=== PATIENT | female | born 1975 | race Caucasian/White ===

== ENCOUNTER 2016-07-31 19:05 | Emergency (ER) | payer MEDICAID, OTHER ==
[~2016-07-31 19:05] MED LIST: ATIV1TAB7 PO; CLORTRIMAZOLE PO; DULO1CAP2 PO; FOLI1TAB2 PO; GABA-279 PO; METF500T PO; METH2.5TA PO; NIFE30TA7 PO; PRIL20CA9 PO; PROP40TA PO; REFR0.5D8 OU; TOPA50TA7 PO; TRAM50TA2 PO; TRAZ100T4 PO; VICO7.5T11 PO
[2016-07-31] MEDS ORDERED: TETRACAINE 0.5% OPHTH SOLN 4ML As Ordered ONE (20:35)
[2016-07-31] MEDS ORDERED: FLUORESCEIN OPHTH 1 MG STRIP As Ordered ONE (20:35)
[2016-07-31] MEDS ORDERED: CIPROFLOXACIN 0.3% OPHTH SOLN 2.5ML As Ordered ONE (21:11)
[2016-07-31] MEDS ORDERED: AUGMENTIN 875 MG TAB As Ordered ONE (21:11)
--- NOTE | 2016-07-31 21:23 | EDDOCDS ---
Nurse's Notes [facility] Name: Zonia Powers Age: 40 yrs Sex: Female : 1975 Arrival Date: 07/31/2016 Time: 19:05 Bed I10 / 23 Private MD: Radha Conklin C Diagnosis: Conjunctivitis-left eye Presentation: 07/31 19:11 Presenting complaint: Patient states: "I spoke with Dr Rachel and he told me to come to [facility] the ER. I was seen at the urgent care in [place] and they said I had a scratch on my cornea and put me on erythromycin ointment. The left eye has been draining and the pain has gotten bad. Its also blurry in my left eye". Mechanism of Injury: No Mechanism of Injury. blurred vision. Adult Sepsis Screening: The patient does not have new or worsening altered mentation. Patient's respiratory rate is less than 22. Systolic blood pressure is greater than 100. Patient has a qSOFA score of 0- Negative Sepsis Screen. Suicide/Homicide risk assessment- the patient denies having any suicidal and/or homicidal ideations and does not present with any other emotional, behavioral or mental health complaints. 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 Transition of care: patient was not received from another setting of care. 19:11 Acuity: NORA Level 4 mb9 19:11 Method Of Arrival: Walkin/Carried/Asstd mb9 Triage Assessment: 19:24 General: Appears in no apparent distress, Behavior is appropriate for age, cooperative. mb9 Pain: Location: left eye Pain currently is 4 out of 10 on a pain scale. HIV screening NA for this visit Offered previously. EENT: Eyes pt reports excessive tearing and "white clumpy drainage in the corner of my eye". . Sclera/Cornea are reddened in outer aspect of conjuctiva of left eye and inner aspect of conjunctiva of left eye. Respiratory: Airway is patent Respiratory effort is even, unlabored. 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 erythromycin 5 mg/gram (0.5 %) ophthalmic oint 1 cm 4 times per day (Last dose: 07/31/2016) 2. Topamax 50 mg Oral tab 1 tab in AM. 2 tabs in PM (Last dose: 07/31/2016 07:30) 3. omeprazole 40 mg Oral cpDR 1 cap once daily (Last dose: 07/31/2016 07:30) 4. folic acid 1 mg oral tab 1 tab (Last dose: 07/31/2016 07:30) 5. mycophenolate mofetil 500 mg oral tab 1 tabs 2 times per day (Last dose: 07/31/2016 07:30) 6. Vitamin C 1,000 mg Oral pwep daily (Last dose: 07/31/2016 07:30) 7. oxycodone 10 mg Oral tab 1 tab every 6 hours PRN (Last dose: 07/31/2016 16:30) 8. Neurontin 600 mg Oral tab 1 tab 3 times per day (Last dose: 07/31/2016 16:30) 9. albuterol sulfate inhalation Inhl (Last dose: Unknown) 10. amitriptyline 25 mg Oral tab prn 1 to 2 tabs at night - PMHx: Lupus; Fibromyalgia; bulging discs; Asthma; Migraine Headaches; - PSHx: Hysterectomy; Tubal ligation; Lithotripsy; - Social history: Smoking status: Patient uses tobacco products, current some day smoker. No barriers to communication noted, The patient speaks fluent Irish. - Family history: Not pertinent. - : The pt / caregiver states he / she is not on anticoagulants. Home medication list is obtained from the patient. - Exposure Risk Screening:: None identified. Screenin:43 Screening information is obtained from the patient. Fall risk: No risks identified. ms18 Assistance ADL's: requires no assistance with activities of daily living. Abuse/DV Screen: The patient / caregiver reports he/she is: not in a situation that causes fear, pain or injury. Nutritional screening: No deficits noted. Advance Directives: There is no living will. home support is adequate. Assessment: 20:43 General: Appears in no apparent distress, comfortable, Behavior is appropriate for age, ms18 cooperative, pleasant. Pain: Location: left eye. Neurological: Level of Consciousness is awake, alert, obeys commands, Oriented to person, place, time. EENT: Sclera/Cornea are reddened in left eye. Respiratory: Airway is patent Respiratory effort is even, unlabored. Derm: Skin is pink, warm & dry. 21:20 General: Appears in no apparent distress, comfortable, Behavior is appropriate for age, ms18 cooperative, pleasant. Pain: Location: left eye Pain currently is 4 out of 10 on a pain scale. Neurological: Level of Consciousness is awake, alert, obeys commands, Oriented to person, place, time, Moves all extremities. Gait is steady, Speech is normal. Respiratory: No deficits noted. Derm: Skin is pink, warm & dry. Vital Signs: 19:06 BP 129 / 65; Pulse 86; Resp 18 S; Temp 98.1(O); Pulse Ox 99% on R/A; Weight 72.12 kg dd6 (R); Height 5 ft. 6 in. (167.64 cm) (R); 21:20 BP 131 / 73; Pulse 80; Resp 18; Temp 98; Pulse Ox 100% ; Pain 4/10; ms18 19:06 Body Mass Index 25.66 (72.12 kg, 167.64 cm) dd6 Vitals: 19:06 Log In Time: July 31, 2016 at 19:04. dd6 Visual Acuity: 20:43 Left Eye Visual acuity 20/80, ; Right Eye Visual acuity 20/25, ; Both Eyes Visual ms18 acuity 20/25; Without Lenses; ED Course: 19:06 Patient visited by Rudy Baugh PCA. dd6 19:06 Radha Conklin is Private Physician. dd6 19:06 Patient moved to Waiting dd6 19:08 Patient moved to Pre RCE dd6 19:16 Triage Initiated mb9 20:05 Patient moved to I10 / 23 mdr 20:16 Geovanny Harvey PA-C is PHCP. cc10 20:16 Glenroy Mares MD is Attending Physician. cc10 20:16 Patient visited by Geovanny Harvey PA-C. cc10 20:16 Patient visited by Geovanny Harvey PA-C. cc10 20:38 [facility] Payment Agreement was scanned into [employer] and attached to record. zo 20:42 Patient visited by Melissa Pedroza RN. ms18 20:43 The patient / caregiver is instructed regarding the plan of care and ED course. Patient ms18 has correct armband on for positive identification. Property :Personal belongings accompany Pt. 21:08 Gilberto Rachel is Referral Physician. cc10 21:20 No IV's were initiated during this patient's visit. No procedures done that require ms18 assistance. Administered Medications: 20:43 Drug: Tetracaine (PF) 2 drps [tetracaine HCl (PF) 0.5 % eye drops (2 drps)] {Note: ms18 administered by Rian HAND} Route: Ophthalmic; Site: left eye; 21:20 Drug: Ciprofloxacin 2 drps [ciprofloxacin 0.3 % eye drops (2 drps)] Route: Ophthalmic; ms18 Site: left eye; 21:20 Drug: Amoxicillin-Clavulanate 1 tabs [amoxicillin 875 mg-potassium clavulanate 125 mg ms18 tablet (1 tabs)] Route: PO; Order Results: There are currently no results for this order. Outcome: 21:09 Discharge ordered by Provider. cc10 21:20 Discharge Assessment: Patient awake, alert and oriented x 3. No cognitive and/or ms18 functional deficits noted. Patient verbalized understanding of disposition instructions. patient administered narcotics - no. The following High Risk Discharge criteria are identified: None. Discharged to home ambulatory. Condition: good Condition: stable Condition: improved. Discharge instructions given to patient, Instructed on discharge instructions, follow up and referral plans. medication usage, Demonstrated understanding of instructions, medications, Pt was receptive of discharge instructions/ teaching. Prescriptions given X 2. No special radiology studies were completed. 21:22 Patient left the ED. ms18 Signatures: Susy Borrego Daniell, LINER INSTALLER LINER INSTALLER dd6 Geovanny Harvey PA-C PAChriss cc10 Melissa Pedroza,RN RN ms18 Daniel Dang,CANDIDO RN mb9 Cr Lynch, LINER INSTALLER LINER INSTALLER mdr MTDD
--- NOTE | 2016-07-31 21:23 | EDDOCDS ---
Physician Documentation [facility] Name: Zonia Powers Age: 40 yrs Sex: Female : 1975 Arrival Date: 07/31/2016 Time: 19:05 Bed I10 / 23 Private MD: Radha Conklin C Disposition: 07/31/16 21:09 Discharged to Home/Self Care. Impression: Conjunctivitis - left eye. - Condition is Stable. - Discharge Instructions: Bacterial Conjunctivitis. - Prescriptions for Augmentin 875- 125 mg Oral Tablet - take 1 tablet by ORAL route every 12 hours for 10 days; 20 tablet. - Medication Reconciliation, Local Pharmacy Hours form. - Follow up: Emergency Department; When: As needed; Reason: Worsening of conditions. Follow up: Gilberto Rachel; When: Call to arrange an appointment; Reason: Wound/Symptom Recheck, Recheck today's complaints, Worsening of conditions, Continuance of care. - Problem is an ongoing problem. - Symptoms are unchanged. - Notes: Apply Cipro drops: 2 drops left eye every 4 hours while awake for the next 5 days. Follow up with Dr. Rachel in the morning. Thanks. Historical: - Allergies: IV Dye (Hives); Plaquenil; SHELLFISH; Latex; - Home Meds: 1. erythromycin 5 mg/gram (0.5 %) ophthalmic oint 1 cm 4 times per day (Last dose: 07/31/2016) 2. Topamax 50 mg Oral tab 1 tab in AM. 2 tabs in PM (Last dose: 07/31/2016 07:30) 3. omeprazole 40 mg Oral cpDR 1 cap once daily (Last dose: 07/31/2016 07:30) 4. folic acid 1 mg oral tab 1 tab (Last dose: 07/31/2016 07:30) 5. mycophenolate mofetil 500 mg oral tab 1 tabs 2 times per day (Last dose: 07/31/2016 07:30) 6. Vitamin C 1,000 mg Oral pwep daily (Last dose: 07/31/2016 07:30) 7. oxycodone 10 mg Oral tab 1 tab every 6 hours PRN (Last dose: 07/31/2016 16:30) 8. Neurontin 600 mg Oral tab 1 tab 3 times per day (Last dose: 07/31/2016 16:30) 9. albuterol sulfate inhalation Inhl (Last dose: Unknown) 10. amitriptyline 25 mg Oral tab prn 1 to 2 tabs at night - PMHx: Lupus; Fibromyalgia; bulging discs; Asthma; Migraine Headaches; - PSHx: Hysterectomy; Tubal ligation; Lithotripsy; - Social history: Smoking status: Patient uses tobacco products, current some day smoker. No barriers to communication noted, The patient speaks fluent Ivorian. - Family history: Not pertinent. - : The pt / caregiver states he / she is not on anticoagulants. Home medication list is obtained from the patient. - Exposure Risk Screening:: None identified. 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 6 in. (167.64 cm) (R); 21:20 BP 131 / 73; Pulse 80; Resp 18; Temp 98; Pulse Ox 100% ; Pain 4/10; ms18 19:06 Body Mass Index 25.66 (72.12 kg, 167.64 cm) dd6 Visual Acuity: 20:43 Left Eye Visual acuity 20/80, ; Right Eye Visual acuity 20/25, ; Both Eyes Visual ms18 acuity 20/25; Without Lenses; MDM: 20:22 Tetracaine (PF) Drops 0.5 % 2 drps Ophthalmic once ordered. cc10 20:22 Flouroscein strips to bedside ordered. cc10 20:22 Visual Acuity ordered. cc10 20:37 Financial registration complete. zo 20:38 [facility] Payment Agreement was scanned into [employer] and attached to record. zo 21:06 Ciprofloxacin Drops 0.3 % 2 drps Ophthalmic once; left eye ordered. cc10 21:06 Amoxicillin-Clavulanate 875 mg 1 tabs PO once ordered. cc10 Administered Medications: 20:43 Drug: Tetracaine (PF) 2 drps [tetracaine HCl (PF) 0.5 % eye drops (2 drps)] {Note: ms18 administered by Rian HAND} Route: Ophthalmic; Site: left eye; 21:20 Drug: Ciprofloxacin 2 drps [ciprofloxacin 0.3 % eye drops (2 drps)] Route: Ophthalmic; ms18 Site: left eye; 21:20 Drug: Amoxicillin-Clavulanate 1 tabs [amoxicillin 875 mg-potassium clavulanate 125 mg ms18 tablet (1 tabs)] Route: PO; Signatures: Susy Borrego Colin, PA-C PA-C cc10 Melissa Pedroza RN RN ms18 Daniel Dang RN RN mb9 The chart was reviewed and I authenticate all verbal orders and agree with the evaluation and treatment provided.Attachments: 20:38 [facility] Payment Agreement zo MTDD
--- NOTE | 2016-08-02 22:23 | EDDOCDS ---
Physician Documentation [facility] Name: Zonia Powers Age: 40 yrs Sex: Female : 1975 Arrival Date: 07/31/2016 Time: 19:05 Bed I10 / 23 Private MD: Radha Conklin C Disposition: 07/31/16 21:09 Discharged to Home/Self Care. Impression: Conjunctivitis - left eye. - Condition is Stable. - Discharge Instructions: Bacterial Conjunctivitis. - Prescriptions for Augmentin 875- 125 mg Oral Tablet - take 1 tablet by ORAL route every 12 hours for 10 days; 20 tablet. - Medication Reconciliation, Local Pharmacy Hours form. - Follow up: Emergency Department; When: As needed; Reason: Worsening of conditions. Follow up: Gilberto Rachel; When: Call to arrange an appointment; Reason: Wound/Symptom Recheck, Recheck today's complaints, Worsening of conditions, Continuance of care. - Problem is an ongoing problem. - Symptoms are unchanged. - Notes: Apply Cipro drops: 2 drops left eye every 4 hours while awake for the next 5 days. Follow up with Dr. Rachel in the morning. Thanks. Historical: - Allergies: IV Dye (Hives); Plaquenil; SHELLFISH; Latex; - Home Meds: 1. erythromycin 5 mg/gram (0.5 %) ophthalmic oint 1 cm 4 times per day (Last dose: 07/31/2016) 2. Topamax 50 mg Oral tab 1 tab in AM. 2 tabs in PM (Last dose: 07/31/2016 07:30) 3. omeprazole 40 mg Oral cpDR 1 cap once daily (Last dose: 07/31/2016 07:30) 4. folic acid 1 mg oral tab 1 tab (Last dose: 07/31/2016 07:30) 5. mycophenolate mofetil 500 mg oral tab 1 tabs 2 times per day (Last dose: 07/31/2016 07:30) 6. Vitamin C 1,000 mg Oral pwep daily (Last dose: 07/31/2016 07:30) 7. oxycodone 10 mg Oral tab 1 tab every 6 hours PRN (Last dose: 07/31/2016 16:30) 8. Neurontin 600 mg Oral tab 1 tab 3 times per day (Last dose: 07/31/2016 16:30) 9. albuterol sulfate inhalation Inhl (Last dose: Unknown) 10. amitriptyline 25 mg Oral tab prn 1 to 2 tabs at night - PMHx: Lupus; Fibromyalgia; bulging discs; Asthma; Migraine Headaches; - PSHx: Hysterectomy; Tubal ligation; Lithotripsy; - Social history: Smoking status: Patient uses tobacco products, current some day smoker. No barriers to communication noted, The patient speaks fluent Swedish. - Family history: Not pertinent. - : The pt / caregiver states he / she is not on anticoagulants. Home medication list is obtained from the patient. - Exposure Risk Screening:: None identified. 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 6 in. (167.64 cm) (R); 21:20 BP 131 / 73; Pulse 80; Resp 18; Temp 98; Pulse Ox 100% ; Pain 4/10; ms18 19:06 Body Mass Index 25.66 (72.12 kg, 167.64 cm) dd6 Visual Acuity: 20:43 Left Eye Visual acuity 20/80, ; Right Eye Visual acuity 20/25, ; Both Eyes Visual ms18 acuity 20/25; Without Lenses; MDM: 20:22 Tetracaine (PF) Drops 0.5 % 2 drps Ophthalmic once ordered. cc10 20:22 Flouroscein strips to bedside ordered. cc10 20:22 Visual Acuity ordered. cc10 20:37 Financial registration complete. zo 20:38 [facility] Payment Agreement was scanned into [employer] and attached to record. zo 21:06 Ciprofloxacin Drops 0.3 % 2 drps Ophthalmic once; left eye ordered. cc10 21:06 Amoxicillin-Clavulanate 875 mg 1 tabs PO once ordered. cc10 08/01 02:51 T-Sheet-- Draft Copy was scanned into [employer] and attached to record. hs2 Administered Medications: 07/31 20:43 Drug: Tetracaine (PF) 2 drps [tetracaine HCl (PF) 0.5 % eye drops (2 drps)] {Note: ms18 administered by Rian HAND} Route: Ophthalmic; Site: left eye; 21:20 Drug: Ciprofloxacin 2 drps [ciprofloxacin 0.3 % eye drops (2 drps)] Route: Ophthalmic; ms18 Site: left eye; 21:20 Drug: Amoxicillin-Clavulanate 1 tabs [amoxicillin 875 mg-potassium clavulanate 125 mg ms18 tablet (1 tabs)] Route: PO; Signatures: Susy Borrego Colin, PA-C PAChriss cc10 Melissa Pedroza RN RN ms18 Daniel Dang RN RN mb9 Magali Lopez, Reg Reg hs2 The chart was reviewed and I authenticate all verbal orders and agree with the evaluation and treatment provided.Attachments: 20:38 [facility] Payment Agreement zo 08/01 02:51 T-Sheet-- Draft Copy hs2 Chart Complete MTDD
--- NOTE | 2016-08-02 22:23 | EDDOCDS ---
Nurse's Notes [facility] Name: Zonia Powers Age: 40 yrs Sex: Female : 1975 Arrival Date: 07/31/2016 Time: 19:05 Bed I10 / 23 Private MD: Radha Conklin C Diagnosis: Conjunctivitis-left eye Presentation: 07/31 19:11 Presenting complaint: Patient states: "I spoke with Dr Rachel and he told me to come to [facility] the ER. I was seen at the urgent care in [place] and they said I had a scratch on my cornea and put me on erythromycin ointment. The left eye has been draining and the pain has gotten bad. Its also blurry in my left eye". Mechanism of Injury: No Mechanism of Injury. blurred vision. Adult Sepsis Screening: The patient does not have new or worsening altered mentation. Patient's respiratory rate is less than 22. Systolic blood pressure is greater than 100. Patient has a qSOFA score of 0- Negative Sepsis Screen. Suicide/Homicide risk assessment- the patient denies having any suicidal and/or homicidal ideations and does not present with any other emotional, behavioral or mental health complaints. 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 Transition of care: patient was not received from another setting of care. 19:11 Acuity: NORA Level 4 mb9 19:11 Method Of Arrival: Walkin/Carried/Asstd mb9 Triage Assessment: 19:24 General: Appears in no apparent distress, Behavior is appropriate for age, cooperative. mb9 Pain: Location: left eye Pain currently is 4 out of 10 on a pain scale. HIV screening NA for this visit Offered previously. EENT: Eyes pt reports excessive tearing and "white clumpy drainage in the corner of my eye". . Sclera/Cornea are reddened in outer aspect of conjuctiva of left eye and inner aspect of conjunctiva of left eye. Respiratory: Airway is patent Respiratory effort is even, unlabored. 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 erythromycin 5 mg/gram (0.5 %) ophthalmic oint 1 cm 4 times per day (Last dose: 07/31/2016) 2. Topamax 50 mg Oral tab 1 tab in AM. 2 tabs in PM (Last dose: 07/31/2016 07:30) 3. omeprazole 40 mg Oral cpDR 1 cap once daily (Last dose: 07/31/2016 07:30) 4. folic acid 1 mg oral tab 1 tab (Last dose: 07/31/2016 07:30) 5. mycophenolate mofetil 500 mg oral tab 1 tabs 2 times per day (Last dose: 07/31/2016 07:30) 6. Vitamin C 1,000 mg Oral pwep daily (Last dose: 07/31/2016 07:30) 7. oxycodone 10 mg Oral tab 1 tab every 6 hours PRN (Last dose: 07/31/2016 16:30) 8. Neurontin 600 mg Oral tab 1 tab 3 times per day (Last dose: 07/31/2016 16:30) 9. albuterol sulfate inhalation Inhl (Last dose: Unknown) 10. amitriptyline 25 mg Oral tab prn 1 to 2 tabs at night - PMHx: Lupus; Fibromyalgia; bulging discs; Asthma; Migraine Headaches; - PSHx: Hysterectomy; Tubal ligation; Lithotripsy; - Social history: Smoking status: Patient uses tobacco products, current some day smoker. No barriers to communication noted, The patient speaks fluent Welsh. - Family history: Not pertinent. - : The pt / caregiver states he / she is not on anticoagulants. Home medication list is obtained from the patient. - Exposure Risk Screening:: None identified. Screenin:43 Screening information is obtained from the patient. Fall risk: No risks identified. ms18 Assistance ADL's: requires no assistance with activities of daily living. Abuse/DV Screen: The patient / caregiver reports he/she is: not in a situation that causes fear, pain or injury. Nutritional screening: No deficits noted. Advance Directives: There is no living will. home support is adequate. Assessment: 20:43 General: Appears in no apparent distress, comfortable, Behavior is appropriate for age, ms18 cooperative, pleasant. Pain: Location: left eye. Neurological: Level of Consciousness is awake, alert, obeys commands, Oriented to person, place, time. EENT: Sclera/Cornea are reddened in left eye. Respiratory: Airway is patent Respiratory effort is even, unlabored. Derm: Skin is pink, warm & dry. 21:20 General: Appears in no apparent distress, comfortable, Behavior is appropriate for age, ms18 cooperative, pleasant. Pain: Location: left eye Pain currently is 4 out of 10 on a pain scale. Neurological: Level of Consciousness is awake, alert, obeys commands, Oriented to person, place, time, Moves all extremities. Gait is steady, Speech is normal. Respiratory: No deficits noted. Derm: Skin is pink, warm & dry. Vital Signs: 19:06 BP 129 / 65; Pulse 86; Resp 18 S; Temp 98.1(O); Pulse Ox 99% on R/A; Weight 72.12 kg dd6 (R); Height 5 ft. 6 in. (167.64 cm) (R); 21:20 BP 131 / 73; Pulse 80; Resp 18; Temp 98; Pulse Ox 100% ; Pain 4/10; ms18 19:06 Body Mass Index 25.66 (72.12 kg, 167.64 cm) dd6 Vitals: 19:06 Log In Time: July 31, 2016 at 19:04. dd6 Visual Acuity: 20:43 Left Eye Visual acuity 20/80, ; Right Eye Visual acuity 20/25, ; Both Eyes Visual ms18 acuity 20/25; Without Lenses; ED Course: 19:06 Patient visited by Rudy Baugh PCA. dd6 19:06 Radha Conklin is Private Physician. dd6 19:06 Patient moved to Waiting dd6 19:08 Patient moved to Pre RCE dd6 19:16 Triage Initiated mb9 20:05 Patient moved to I10 / 23 mdr 20:16 Geovanny Harvey PA-C is PHCP. cc10 20:16 Glenroy Mares MD is Attending Physician. cc10 20:16 Patient visited by Geovanny Harvey PA-C. cc10 20:16 Patient visited by Geovanny Harvey PA-C. cc10 20:38 [facility] Payment Agreement was scanned into [employer] and attached to record. zo 20:42 Patient visited by Melissa Pedroza RN. ms18 20:43 The patient / caregiver is instructed regarding the plan of care and ED course. Patient ms18 has correct armband on for positive identification. Property :Personal belongings accompany Pt. 21:08 Gilberto Rachel is Referral Physician. cc10 21:20 No IV's were initiated during this patient's visit. No procedures done that require ms18 assistance. 08/01 02:51 T-Sheet-- Draft Copy was scanned into [employer] and attached to record. hs2 Administered Medications: 07/31 20:43 Drug: Tetracaine (PF) 2 drps [tetracaine HCl (PF) 0.5 % eye drops (2 drps)] {Note: ms18 administered by Rian HAND} Route: Ophthalmic; Site: left eye; 21:20 Drug: Ciprofloxacin 2 drps [ciprofloxacin 0.3 % eye drops (2 drps)] Route: Ophthalmic; ms18 Site: left eye; 21:20 Drug: Amoxicillin-Clavulanate 1 tabs [amoxicillin 875 mg-potassium clavulanate 125 mg ms18 tablet (1 tabs)] Route: PO; Order Results: There are currently no results for this order. Outcome: 21:09 Discharge ordered by Provider. cc10 21:20 Discharge Assessment: Patient awake, alert and oriented x 3. No cognitive and/or ms18 functional deficits noted. Patient verbalized understanding of disposition instructions. patient administered narcotics - no. The following High Risk Discharge criteria are identified: None. Discharged to home ambulatory. Condition: good Condition: stable Condition: improved. Discharge instructions given to patient, Instructed on discharge instructions, follow up and referral plans. medication usage, Demonstrated understanding of instructions, medications, Pt was receptive of discharge instructions/ teaching. Prescriptions given X 2. No special radiology studies were completed. 21:22 Patient left the ED. ms18 Signatures: Susy Borrego Daniell, MATHEMATICAL SCIENCES PROFESSOR MATHEMATICAL SCIENCES PROFESSOR dd6 Geovanny Harvey, PAMarcoC PA-C cc10 Melissa Pedroza RN RN ms18 Daniel Dang,CANDIDO RN mb9 Cr Lynch, MATHEMATICAL SCIENCES PROFESSOR MATHEMATICAL SCIENCES PROFESSOR mdr Magali Lopez, Reg Reg hs2 Chart Complete MTDD
--- NOTE | 2016-08-02 22:23 | EDDOCDS ---
Physician Documentation [facility] Name: Zonia Powers Age: 40 yrs Sex: Female : 1975 Arrival Date: 07/31/2016 Time: 19:05 Bed I10 / 23 Private MD: Radha Conklin C Disposition: 07/31/16 21:09 Discharged to Home/Self Care. Impression: Conjunctivitis - left eye. - Condition is Stable. - Discharge Instructions: Bacterial Conjunctivitis. - Prescriptions for Augmentin 875- 125 mg Oral Tablet - take 1 tablet by ORAL route every 12 hours for 10 days; 20 tablet. - Medication Reconciliation, Local Pharmacy Hours form. - Follow up: Emergency Department; When: As needed; Reason: Worsening of conditions. Follow up: Gilberto Rachel; When: Call to arrange an appointment; Reason: Wound/Symptom Recheck, Recheck today's complaints, Worsening of conditions, Continuance of care. - Problem is an ongoing problem. - Symptoms are unchanged. - Notes: Apply Cipro drops: 2 drops left eye every 4 hours while awake for the next 5 days[address] Follow up with Dr. Rachel in the morning. Thanks. Historical: - Allergies: IV Dye (Hives); Plaquenil; SHELLFISH; Latex; - Home Meds: 1. erythromycin 5 mg/gram (0.5 %) ophthalmic oint 1 cm 4 times per day (Last dose: 07/31/2016) 2. Topamax 50 mg Oral tab 1 tab in AM. 2 tabs in PM (Last dose: 07/31/2016 07:30) 3. omeprazole 40 mg Oral cpDR 1 cap once daily (Last dose: 07/31/2016 07:30) 4. folic acid 1 mg oral tab 1 tab (Last dose: 07/31/2016 07:30) 5. mycophenolate mofetil 500 mg oral tab 1 tabs 2 times per day (Last dose: 07/31/2016 07:30) 6. Vitamin C 1,000 mg Oral pwep daily (Last dose: 07/31/2016 07:30) 7. oxycodone 10 mg Oral tab 1 tab every 6 hours PRN (Last dose: 07/31/2016 16:30) 8. Neurontin 600 mg Oral tab 1 tab 3 times per day (Last dose: 07/31/2016 16:30) 9. albuterol sulfate inhalation Inhl (Last dose: Unknown) 10. amitriptyline 25 mg Oral tab prn 1 to 2 tabs at night - PMHx: Lupus; Fibromyalgia; bulging discs; Asthma; Migraine Headaches; - PSHx: Hysterectomy; Tubal ligation; Lithotripsy; - Social history: Smoking status: Patient uses tobacco products, current some day smoker. No barriers to communication noted, The patient speaks fluent Serbian. - Family history: Not pertinent. - : The pt / caregiver states he / she is not on anticoagulants. Home medication list is obtained from the patient. - Exposure Risk Screening:: None identified. 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 6 in. (167.64 cm) (R); 21:20 BP 131 / 73; Pulse 80; Resp 18; Temp 98; Pulse Ox 100% ; Pain 4/10; ms18 19:06 Body Mass Index 25.66 (72.12 kg, 167.64 cm) dd6 Visual Acuity: 20:43 Left Eye Visual acuity 20/80, ; Right Eye Visual acuity 20/25, ; Both Eyes Visual ms18 acuity 20/25; Without Lenses; MDM: 20:22 Tetracaine (PF) Drops 0.5 % 2 drps Ophthalmic once ordered. cc10 20:22 Flouroscein strips to bedside ordered. cc10 20:22 Visual Acuity ordered. cc10 20:37 Financial registration complete. zo 20:38 [facility] Payment Agreement was scanned into [employer] and attached to record. zo 21:06 Ciprofloxacin Drops 0.3 % 2 drps Ophthalmic once; left eye ordered. cc10 21:06 Amoxicillin-Clavulanate 875 mg 1 tabs PO once ordered. cc10 08/01 02:51 T-Sheet-- Draft Copy was scanned into [employer] and attached to record. hs2 Administered Medications: 07/31 20:43 Drug: Tetracaine (PF) 2 drps [tetracaine HCl (PF) 0.5 % eye drops (2 drps)] {Note: ms18 administered by Rian HAND} Route: Ophthalmic; Site: left eye; 21:20 Drug: Ciprofloxacin 2 drps [ciprofloxacin 0.3 % eye drops (2 drps)] Route: Ophthalmic; ms18 Site: left eye; 21:20 Drug: Amoxicillin-Clavulanate 1 tabs [amoxicillin 875 mg-potassium clavulanate 125 mg ms18 tablet (1 tabs)] Route: PO; Signatures: Susy Borrego Colin, PA-C PAChriss cc10 Melissa Pedroza RN RN ms18 Daniel Dang RN RN mb9 Magali Lopez, Reg Reg hs2 The chart was reviewed and I authenticate all verbal orders and agree with the evaluation and treatment provided.Attachments: 20:38 [facility] Payment Agreement zo 08/01 02:51 T-Sheet-- Draft Copy hs2 Chart Complete MTDD
== END 2016-07-31 21:22 | disposition home or self-care (01) ==
LOC: M ED 19:05
DX: H10.32 Unspecified acute conjunctivitis, left eye (principal); M32.9 Systemic lupus erythematosus, unspecified; M79.7 Fibromyalgia; M51.9 Unspecified thoracic, thoracolumbar and lumbosacral intervertebral disc disorder; J45.909 Unspecified asthma, uncomplicated; G43.909 Migraine, unspecified, not intractable, without status migrainosus; F17.210 Nicotine dependence, cigarettes, uncomplicated; Z79.899 Other long term (current) drug therapy; Z91.041 Radiographic dye allergy status; Z91.013 Allergy to seafood; Z91.040 Latex allergy status; Z88.8 Allergy status to other drugs, medicaments and biological substances; Z79.51 Long term (current) use of inhaled steroids

== ENCOUNTER 2016-11-01 14:12 | Emergency (ER) | payer MEDICAID, OTHER ==
[~2016-11-01] VITALS: Ht 167.6 cm; Wt 72.6 kg
[2016-11-01] MEDS ORDERED: ASCO25TA PO (14:36)
[2016-11-01] MEDS ORDERED: OXYC10TA12 (14:36)
[2016-11-01] MEDS ORDERED: AMIT25TA PO (14:36)
[2016-11-01] MEDS ORDERED: ALBU17IN2 INH (14:36)
[2016-11-01] MEDS ORDERED: MYCO250C PO (14:36)
[2016-11-01] MEDS ORDERED: VITA100037 PO (14:36)
[2016-11-01] MEDS ORDERED: KETOROLAC 60 MG/2 ML VIAL (J1885) IM ONE (15:30)
[2016-11-01] MEDS ORDERED: ACETAMINOPHEN 325 MG TAB PO ONE (15:30)
[2016-11-01 18:01] VITALS: BP 124/80
--- NOTE | 2016-11-01 21:59 | REP ---
RIGHT KNEE: HISTORY: Pain and swelling. COMPARISON: 12/08/2007 FINDINGS: The compartments are symmetric and relatively well maintained. There is no acute fracture or destructive osseous lesion. Signed by Isaac Titus DO 11/02/2016 11:20 A
--- NOTE | 2016-11-01 22:43 | REP ---
RIGHT LOWER EXTREMITY ULTRASOUND: HISTORY: Pain and swelling. TECHNIQUE: Multiple ultrasonographic images of the deep venous structures of the right thigh were obtained from the common femoral vein to the popliteal vein along with Doppler interrogation and color flow Doppler images. FINDINGS: There is no abnormal echogenic material seen within any of the visualized deep venous structures that would suggest acute thrombosis. Coaptation is unremarkable throughout. Doppler interrogation shows an expected response to respiratory variability and augmentation. The color flow images show what appears to be a normal vascular pattern throughout. There is a small 1 cm sized fluid collection in the posterior knee soft tissues, possibly representing a tiny Sorto's cyst. IMPRESSION: There is no ultrasonographic evidence of deep venous thrombosis involving any of the visualized deep venous structures of the right thigh, as described above. Signed by Isaac Titus DO 11/02/2016 11:20 A
== END 2016-11-01 18:02 | disposition home or self-care (01) ==
LOC: M ED 15:41
DX: M79.661 Pain in right lower leg (principal); G89.29 Other chronic pain; M54.9 Dorsalgia, unspecified; Z79.899 Other long term (current) drug therapy; Z91.041 Radiographic dye allergy status; F17.210 Nicotine dependence, cigarettes, uncomplicated
CPT/HCPCS: 73564; 93971; 96372; 99283; J1885

== ENCOUNTER → 2016-12-31 | Outpatient (REF) | payer OTHER ==
[~2016-12-31] MED LIST changes: +ALBU17IN2 INH; +AMIT25TA PO; +ASCO25TA PO; +MYCO250C PO; +OXYC10TA12; +VITA100037 PO
== END ==
LOC: M LAB REF 19:53
PROVIDERS: ATTEND Physician Assistant
DX: N39.0 Urinary tract infection, site not specified (principal); J02.9 Acute pharyngitis, unspecified

== ENCOUNTER 2017-01-11 13:07 | Emergency (ER) | payer OTHER ==
[~2017-01-11] VITALS: Ht 167.6 cm; Wt 71.6 kg
[~2017-01-11 13:07] MED LIST changes: -FOLI1TAB2 PO; +FOLI1TAB4 PO; -METF500T PO; +METF500T13 PO; -TOPA50TA7 PO; +TOPA50TA8 PO; +TRAZ-136 PO; -TRAZ100T4 PO; -VITA100037 PO; +VITA100067 PO
[2017-01-11 14:21] LABS: BASO # 0.1 K/mm3 (0.0-0.2); BASO % 0.5 % (0.0-1.0); EOS # 0.2 K/mm3 (0.0-0.50); LARGE UNSTAINED CELL # 0.3 K/mm3 (0.0-0.4); LARGE UNSTAINED CELL % 2.3 % (0.0-4.0); LYMPH # 2.7 K/mm3 (1.5-4.5); LYMPH % 21.4 % (24.0-44.0); MEAN CORPUSCULAR HEMOGLOBIN 30.4 pg (27.0-33.0); MEAN CORPUSCULAR HGB CONC 33.2 g/dl (32.0-36.5); MEAN CORPUSCULAR VOLUME 91.6 fl (80.0-96.0); MONO # 0.6 K/mm3 (0.0-0.8); NEUTROPHILS # 7.8 K/mm3 (1.8-7.7); NEUTROPHILS % 68.9 % (36.0-66.0); PLATELET COUNT, AUTOMATED 337 k/mm3 (150-450); RED CELL DISTRIBUTION WIDTH 13.2 % (11.5-14.5); WHITE BLOOD COUNT 11.4 K/mm3 (4.0-10.0)
[2017-01-11 14:38] LABS: ANION GAP 7 MEQ/L (8-16); BLOOD UREA NITROGEN 6 MG/DL (7-18); CARBON DIOXIDE LEVEL 27 MEQ/L (21-32); CHLORIDE LEVEL 106 MEQ/L (98-107); CREATININE FOR GFR 0.81 MG/DL (0.55-1.02); GLOMERULAR FILTRATION RATE > 60.0 (>58); GLUCOSE, FASTING 74 MG/DL (70-105); POTASSIUM SERUM 4.2 MEQ/L (3.5-5.1); SODIUM LEVEL 140 MEQ/L (136-145)
[2017-01-11 14:52] LABS: ERYTHROCYTE SEDIMENTATION RATE 4 mm/hr (0-20)
--- NOTE | 2017-01-11 14:58 | REP ---
CT ORBITS WITHOUT CONTRAST: HISTORY: Left orbital swelling. The globes, optic nerves and rectus muscles are normal in appearance. There is no orbital lesion. Minimal mucosal thickening is present in the ethmoid, right frontal and right maxillary sinuses. The remaining visualized sinuses are clear. The middle and inferior nasal turbinates are partially paradoxical. There is dick bullosa of the middle nasal turbinates. There is minimal deviation of the nasal septum to the left. There is aeration of the left anterior clinoid process. Left preseptal soft tissue swelling is present. IMPRESSION: 1. Sinus mucosal thickening as described above. 2. Left preseptal soft tissue swelling. Signed by Valdo Plaza MD 01/11/2017 03:01 P
[2017-01-11] MEDS ORDERED: PRED1SUS OS (15:14)
[2017-01-11] MEDS ORDERED: PRED20TA PO (15:14)
[2017-01-11] MEDS ORDERED: methylPREDNISolone INJ 125 MG/2 ML VIAL (J2930) IV ONE (15:15)
[2017-01-11 16:08] VITALS: BP 138/83
== END 2017-01-11 16:09 | disposition home or self-care (01) ==
LOC: M ED 13:07
DX: H01.006 Unspecified blepharitis left eye, unspecified eyelid (principal); H15.002 Unspecified scleritis, left eye; M32.9 Systemic lupus erythematosus, unspecified; Z79.899 Other long term (current) drug therapy; Z88.8 Allergy status to other drugs, medicaments and biological substances; Z91.041 Radiographic dye allergy status

== ENCOUNTER → 2017-03-04 | Outpatient (CLI) | payer OTHER ==
[~2017-03-04] MED LIST changes: +PRED1SUS OS; +PRED20TA PO
[2017-03-04 19:52] LABS: BASO % 0.4 % (0.0-1.0); EOS # 0.2 K/mm3 (0.0-0.50); EOS % 2.5 % (0.0-3.0); LARGE UNSTAINED CELL # 0.2 K/mm3 (0.0-0.4); LARGE UNSTAINED CELL % 2.4 % (0.0-4.0); LYMPH # 2.8 K/mm3 (1.5-4.5); LYMPH % 31.9 % (24.0-44.0); MEAN CORPUSCULAR HEMOGLOBIN 30.6 pg (27.0-33.0); MEAN CORPUSCULAR HGB CONC 32.5 g/dl (32.0-36.5); MONO # 0.3 K/mm3 (0.0-0.8); MONO % 3.4 % (0.0-5.0); NEUTROPHILS # 4.9 K/mm3 (1.8-7.7); NEUTROPHILS % 59.5 % (36.0-66.0); PLATELET COUNT, AUTOMATED 233 k/mm3 (150-450); RED CELL DISTRIBUTION WIDTH 13.2 % (11.5-14.5); WHITE BLOOD COUNT 8.3 K/mm3 (4.0-10.0)
[2017-03-04 20:11] LABS: ALBUMIN 3.7 GM/DL (3.2-5.2); ALBUMIN/GLOBULIN RATIO 1.32 (1.00-1.93); ALKALINE PHOSPHATASE 76 U/L (45-117); ALT/SGPT 17 U/L (12-78); ANION GAP 7 MEQ/L (8-16); AST/SGOT 11 U/L (15-37); BILIRUBIN,TOTAL 0.2 MG/DL (0.2-1.0); BLOOD UREA NITROGEN 7 MG/DL (7-18); CALCIUM LEVEL 9.1 MG/DL (8.5-10.1); CARBON DIOXIDE LEVEL 26 MEQ/L (21-32); CHLORIDE LEVEL 110 MEQ/L (98-107); CHOLESTEROL LEVEL 128 MG/DL (<200); CREATININE FOR GFR 0.74 MG/DL (0.55-1.02); FREE T4 1.19 NG/DL (0.76-1.46); GLOMERULAR FILTRATION RATE > 60.0 (>58); GLUCOSE, FASTING 79 MG/DL (70-105); POTASSIUM SERUM 4.2 MEQ/L (3.5-5.1); SODIUM LEVEL 143 MEQ/L (136-145); TOTAL PROTEIN 6.5 GM/DL (6.4-8.2); TRIGLYCERIDES LEVEL 104 MG/DL (<150)
== END ==
LOC: M WUC 15:43
PROVIDERS: ATTEND Nurse Practitioner Family
DX: E04.1 Nontoxic single thyroid nodule (principal); L93.2 Other local lupus erythematosus; E16.2 Hypoglycemia, unspecified; Z13.220 Encounter for screening for lipoid disorders

== ENCOUNTER → 2017-03-25 | Outpatient (CLI) | payer OTHER | LOC: M WUC 14:54 | PROVIDERS: ATTEND Internal Medicine Rheumatology | DX: Z79.899 Other long term (current) drug therapy (principal) ==

== ENCOUNTER → 2017-04-09 | Outpatient (CLI) | payer OTHER ==
[2017-04-09 20:05] LABS: BASO % 0.4 % (0.0-1.0); EOS # 0.2 10^3/uL (0.0-0.50); EOS % 2.3 % (0.0-3.0); IMMATURE GRANULOCYTE % 0.3 % (0-0); LYMPH # 2.9 10^3/uL (1.5-4.5); LYMPH % 38.5 % (24.0-44.0); MEAN CORPUSCULAR HGB CONC 32.9 g/dl (32.0-36.5); MEAN CORPUSCULAR VOLUME 91.1 fl (80.0-96.0); MONO # 0.5 10^3/uL (0.0-0.8); MONO % 7.2 % (0.0-5.0); NEUTROPHILS # 3.9 10^3/uL (1.8-7.7); NEUTROPHILS % 51.3 % (36.0-66.0); PLATELET COUNT, AUTOMATED 272 10^3/uL (150-450); RED CELL DISTRIBUTION WIDTH 13.3 % (11.5-14.5); WHITE BLOOD COUNT 7.5 10^3/uL (4.0-10.0)
[2017-04-09 20:53] LABS: ADD MORPHOLOGY? NO
== END ==
LOC: M WUC 14:45
PROVIDERS: ATTEND Ophthalmology
DX: H15.009 Unspecified scleritis, unspecified eye (principal)

== ENCOUNTER → 2017-06-06 | Outpatient (REF) | payer OTHER | LOC: M LABDRAW1 10:48 | PROVIDERS: ATTEND Internal Medicine Endocrinology, Diabetes & Metabolism | DX: E04.2 Nontoxic multinodular goiter (principal) ==

== ENCOUNTER → 2017-06-20 | Outpatient (REF) | payer OTHER | LOC: M LABDRAW1 14:53 | PROVIDERS: ATTEND Internal Medicine Endocrinology, Diabetes & Metabolism | DX: E04.2 Nontoxic multinodular goiter (principal) ==

== ENCOUNTER → 2018-03-14 | Outpatient (CLI) | payer OTHER | LOC: M RAD 10:53 | DX: M79.661 Pain in right lower leg (principal) | CPT/HCPCS: 93971 ==

== ENCOUNTER → 2018-04-16 | Outpatient (CLI) | payer OTHER ==
[2018-04-16 20:19] LABS: BASO % 0.2 % (0.0-1.0); EOS # 0.1 10^3/uL (0.0-0.50); EOS % 0.5 % (0.0-3.0); HEMATOCRIT 45.8 % (36.0-47.0); HEMOGLOBIN 14.7 g/dl (12.0-15.5); IMMATURE GRANULOCYTE % 0.4 % (0-3.0); LYMPH # 2.6 10^3/uL (1.5-4.5); LYMPH % 21.3 % (24.0-44.0); MEAN CORPUSCULAR HEMOGLOBIN 29.9 pg (27.0-33.0); MEAN CORPUSCULAR HGB CONC 32.1 g/dl (32.0-36.5); MEAN CORPUSCULAR VOLUME 93.3 fl (80.0-96.0); MONO # 0.8 10^3/uL (0.0-0.8); MONO % 6.9 % (0.0-5.0); NEUTROPHILS # 8.5 10^3/uL (1.8-7.7); NEUTROPHILS % 70.7 % (36.0-66.0); PLATELET COUNT, AUTOMATED 304 10^3/uL (150-450); RED BLOOD COUNT 4.91 10^6/uL (4.00-5.40); RED CELL DISTRIBUTION WIDTH 13.4 % (11.5-14.5)
[2018-04-16 20:34] LABS: ALBUMIN 3.8 GM/DL (3.2-5.2); ALBUMIN/GLOBULIN RATIO 1.09 (1.00-1.93); ALKALINE PHOSPHATASE 98 U/L (45-117); ALT/SGPT 21 U/L (12-78); ANION GAP 6 MEQ/L (8-16); AST/SGOT 12 U/L (7-37); BILIRUBIN,TOTAL 0.3 MG/DL (0.2-1.0); BLOOD UREA NITROGEN 5 MG/DL (7-18); CALCIUM LEVEL 9.4 MG/DL (8.5-10.1); CARBON DIOXIDE LEVEL 28 MEQ/L (21-32); CHLORIDE LEVEL 105 MEQ/L (98-107); CREATININE FOR GFR 0.74 MG/DL (0.55-1.30); GLOMERULAR FILTRATION RATE > 60.0 (>58); GLUCOSE, FASTING 75 MG/DL (70-100); POTASSIUM SERUM 3.8 MEQ/L (3.5-5.1); SODIUM LEVEL 139 MEQ/L (136-145); TOTAL PROTEIN 7.3 GM/DL (6.4-8.2)
== END ==
LOC: M WUC 16:01
DX: J20.9 Acute bronchitis, unspecified (principal); R05 Cough
CPT/HCPCS: 80053

== ENCOUNTER → 2018-12-16 | Outpatient (CLI) | payer OTHER ==
[~2018-12-16] MED LIST changes: -ASCO25TA PO; +FOLI1TAB11 PO; -FOLI1TAB4 PO; +GABA-1171 PO; -GABA-279 PO; +METH2.5T48 PO; -METH2.5TA PO; -PRED1SUS OS; +PRED1SUS2 OS; -PROP40TA PO; +PROP40TA62 PO; -TRAZ-136 PO; +TRAZ-163 PO; +VITA1TAB23 PO
--- NOTE | 2018-12-16 14:05 | REP ---
Chest two views HISTORY: Asthma Comparison: 04/16/2018 The lungs are clear. The heart is normal in size. The pulmonary vasculature is normal in appearance. The bony structure is intact. IMPRESSION: No acute disease. Electronically Signed by Valdo Plaza MD 12/16/2018 01:56 P
== END ==
LOC: M SMT 13:17
PROVIDERS: ATTEND Nurse Practitioner Family
DX: J45.909 Unspecified asthma, uncomplicated (principal)

== ENCOUNTER → 2019-03-03 | Outpatient (CLI) | payer OTHER ==
[~2019-03-03] MED LIST changes: -DULO1CAP2 PO; +DULO1CAP5 PO
--- NOTE | 2019-03-04 12:08 | REP ---
CT of the orbits without contrast Indication: Left. Ocular inflammation. Unclear source. Please evaluate muscle/lacrimal gland. History of any prior medication for contrast. Scleritis left eye. Comparison: CT of the orbits of 01/11/2017. Technique: Axial CT of the orbits was performed without contrast. Bone reformatted images were provided in the axial, coronal and sagittal planes. Findings: The lacrimal glands are poorly assessed on this noncontrast enhanced examination. Within the limitation of noncontrast examination, the optic nerves, orbital muscles, intra and fat are normal. The ocular globes are intact. The ocular lenses are normal. No orbital mass identified. Preseptal soft tissue thickening about the left hilum has significantly decreased in 01/11/2017 examination. There is mild mucosal thickening of the right maxillary sinus. The remaining visualized paranasal sinuses and mastoid air cells are clear. The visualized portion of the brain parenchyma is within normal limits. Impression: The lacrimal glands are poorly assessed on this noncontrast enhanced examination. No orbital mass identified. Preseptal soft tissue swelling about the left eye is significantly decreased compared to the 01/11/2017 examination. Mild mucosal thickening of the right maxillary sinus. Electronically Signed by Sonja Gunter MD 03/04/2019 08:49 A
== END ==
LOC: M RAD 17:17
PROVIDERS: ATTEND Ophthalmology
DX: H15.002 Unspecified scleritis, left eye (principal)

== ENCOUNTER → 2019-05-26 | Outpatient (CLI) | payer OTHER ==
[~2019-05-26] MED LIST changes: -VICO7.5T11 PO; +VICO7.5T12 PO
--- NOTE | 2019-05-26 14:22 | REP ---
CHEST X-RAY: Two views. HISTORY: Cough and shortness of breath . COMPARISON STUDY: December 16, 2018 . FINDINGS: The lungs are well inflated and free of infiltrate. The pleural angles are sharp. The heart size is normal. Pulmonary vasculature is not increased. No significant bony abnormality is seen. IMPRESSION: Negative chest x-ray. Electronically Signed by Be Alvarado MD 05/26/2019 03:44 P
== END ==
LOC: M RAD 13:34
PROVIDERS: ATTEND Physician Assistant Medical
DX: R05 Cough (principal); R06.02 Shortness of breath

== ENCOUNTER → 2019-08-26 | Outpatient (REF) | payer OTHER ==
[~2019-08-26] MED LIST changes: +NIFE1TAB52 PO; -NIFE30TA7 PO; -TRAZ-163 PO; +TRAZ-257 PO
[2019-08-26 19:01] LABS: INFLUENZA A AMPLIFICATION NEGATIVE (NEGATIVE); INFLUENZA B AMPLIFICATION NEGATIVE (NEGATIVE)
== END ==
LOC: M LAB REF 18:05
PROVIDERS: ATTEND Physician Assistant
DX: J11.1 Influenza due to unidentified influenza virus with other respiratory manifestations (principal)

== ENCOUNTER → 2019-10-28 | Outpatient (CLI) | payer OTHER | LOC: M LABSMTC 12:42 | PROVIDERS: ATTEND Family Medicine | DX: Z11.59 Encounter for screening for other viral diseases (principal); Z20.818 Contact with and (suspected) exposure to other bacterial communicable diseases ==

== ENCOUNTER → 2020-05-08 | Outpatient (CLI) | payer OTHER ==
[~2020-05-08] MED LIST changes: -VITA1TAB23 PO; +VITA250T20 PO
--- NOTE | 2020-05-08 15:53 | REP ---
INDICATION: ACUTE BRONCHITIS. COMPARISON: May 26, 2019. TECHNIQUE: Two views.. FINDINGS: The lungs are well inflated and free of infiltrate. The pleural angles are sharp. The heart size is normal. Pulmonary vasculature is not increased. No significant bony abnormality is seen. IMPRESSION: Negative chest x-ray. <Electronically signed by Javier Alvarado > 05/08/20 1147
== END ==
LOC: M WUC 15:37
PROVIDERS: ATTEND Physician Assistant
DX: J20.9 Acute bronchitis, unspecified (principal)

== ENCOUNTER → 2020-07-05 | Outpatient (CLI) | payer OTHER ==
--- NOTE | 2020-07-05 15:29 | REPMRS ---
Patient History The patient states she has not had a clinical breast exam in over a year. Family history of pancreatic cancer in maternal grandmother. Benign cyst aspiration of the left breast, 2011. Digital Woman Screen Mammo: July 05, 2020 - Exam #: [id number] Bilateral CC and MLO view(s) were taken. Technologist: Viri Finney, Technologist Prior study comparison: March 21, 2018, bilateral digital mammo screening bilat. November 02, 2014, bilateral digital mammo screening bilat. FINDINGS: The breast tissue is heterogeneously dense. This may lower the sensitivity of mammography. The Volpara volumetric breast density category is: C. There is a well-circumscribed 2.5 cm density in the anterior 3rd of the right breast upper outer quadrant retroareolar region. This merits further evaluation. It may be a cyst. There is a moderate amount of heterogeneously dense fibroglandular tissue which is fairly symmetric. There is no other interval development of dominant mass, architectural distortion, or grouped microcalcification typical of malignancy. There has been no change in the appearance of the mammogram from the prior studies. 3-D tomosynthesis shows no additional findings. Assessment: BI-RADS/ACR category 0 mammogram, Incomplete: Need additional imaging evaluation and/or prior mammograms for comparison. Recommendation Ultrasound and special view mammogram of the right breast. This patient's [facility] Lifetime Breast Cancer RIsk is estimated at 8.3 %. This mammogram was interpreted with the aid of an FDA-approved computer-aided dectection system. Electronically Signed By: Javier Alvarado MD 07/05/20 [id number]
== END ==
LOC: M WHC 11:26
PROVIDERS: ATTEND Physician Assistant Medical
DX: Z12.31 Encounter for screening mammogram for malignant neoplasm of breast (principal)

== ENCOUNTER → 2020-07-14 | Outpatient (CLI) | payer OTHER ==
--- NOTE | 2020-07-14 16:33 | REP ---
INDICATION: ADDITIONAL VIEWS RT BREAST. COMPARISON: 07/05/2020. TECHNIQUE: Spot-compression views right retroareolar region performed in multiple projections, with focused right retroareolar ultrasound. FINDINGS: There does appear to be a smoothly marginated nodule in the right retroareolar region laterally measuring slightly greater than 1 cm in diameter. No associated microcalcifications are seen. Ultrasound of the right retroareolar region is performed and demonstrates it oval cyst 2.6 x 2.3 x 0.9 cm and another cyst with internal low-level echoes 2.2 x 2.8 x 1.0 cm. IMPRESSION: BIRADS/ACR category 2, benign. A smoothly marginated nodule in the right retroareolar region is identified mammographically. By ultrasound there are 2 benign-appearing cysts in the right retroareolar region. Recommend follow-up mammogram in 1 year. This mammogram was interpreted with the aid of an FDA-approved computer-aided detection system. The patient letter being requested is M 1. RECOMMENDATION: Repeat screening mammography recommended 1 year (for women over 40). <Electronically signed by John Hagen > 07/14/20 [id number]
== END ==
LOC: M WHC 14:27
PROVIDERS: ATTEND Physician Assistant Medical
DX: Z12.31 Encounter for screening mammogram for malignant neoplasm of breast (principal); D24.1 Benign neoplasm of right breast; R92.8 Other abnormal and inconclusive findings on diagnostic imaging of breast

== ENCOUNTER → 2020-07-29 | Outpatient (CLI) | payer OTHER ==
[~2020-07-29] MED LIST changes: -AMIT25TA PO; +AMIT25TA17 PO
== END ==
LOC: M LABSMTC 14:12
PROVIDERS: ATTEND Pediatrics
DX: Z20.822 Contact with and (suspected) exposure to COVID-19 (principal)

== ENCOUNTER → 2020-11-09 | Outpatient (CLI) | payer OTHER ==
[2020-11-09 15:24] LABS: BASO % 0.5 % (0.0-1.0); EOS # 0.2 10^3/uL (0.0-0.5); EOS % 1.9 % (0.0-3.0); HEMATOCRIT 45.9 % (36.0-47.0); HEMOGLOBIN 15.1 g/dl (12.0-15.5); LYMPH # 2.5 10^3/uL (1.5-5.0); LYMPH % 30.3 % (24.0-44.0); MEAN CORPUSCULAR HEMOGLOBIN 30.7 pg (27.0-33.0); MEAN CORPUSCULAR HGB CONC 32.9 g/dl (32.0-36.5); MEAN CORPUSCULAR VOLUME 93.3 fl (80.0-96.0); MONO # 0.6 10^3/uL (0.0-0.8); MONO % 6.6 % (2.0-8.0); NEUTROPHILS # 5.1 10^3/uL (1.5-8.5); NEUTROPHILS % 60.3 % (36.0-66.0); PLATELET COUNT, AUTOMATED 260 10^3/uL (150-450); RED BLOOD COUNT 4.92 10^6/uL (4.00-5.40); WHITE BLOOD COUNT 8.4 10^3/uL (4.0-10.0)
[2020-11-09 15:45] LABS: ERYTHROCYTE SEDIMENTATION RATE 3 mm/hr (0-20)
[2020-11-09 15:49] LABS: ALBUMIN 3.6 GM/DL (3.2-5.2); ALT/SGPT 14 U/L (12-78); BILIRUBIN,TOTAL 0.3 MG/DL (0.2-1.0); BLOOD UREA NITROGEN 6 MG/DL (7-18); CALCIUM LEVEL 9.4 MG/DL (8.5-10.1); CARBON DIOXIDE LEVEL 28 MEQ/L (21-32); CHLORIDE LEVEL 110 MEQ/L (98-107); CREATININE FOR GFR 0.72 MG/DL (0.55-1.30); GLOMERULAR FILTRATION RATE > 60.0 (>58); GLUCOSE, FASTING 63 MG/DL (70-100); POTASSIUM SERUM 4.2 MEQ/L (3.5-5.1); SODIUM LEVEL 139 MEQ/L (136-145); TOTAL PROTEIN 6.4 GM/DL (6.4-8.2)
== END ==
LOC: M PLALAB 12:22
PROVIDERS: ATTEND Internal Medicine Rheumatology
DX: M32.13 Lung involvement in systemic lupus erythematosus (principal); Z79.899 Other long term (current) drug therapy

== ENCOUNTER → 2020-11-23 | Outpatient (CLI) | payer OTHER ==
--- NOTE | 2020-11-23 11:45 | DEXAMM ---
INDICATION: SLE, RAYNAUD'S DISEASE WITHOUT GANGRENE. COMPARISON: None. TECHNIQUE: Bone density was measured using dual-energy x-ray absorptiometry (DEXA). FINDINGS: AP SPINE L1-L4 BMD 1.195 g/cm2 Young Adult T-Score 0.0 Age Matched Z-Score 0.1. LT FEMUR, TOTAL BMD 0.879 g/cm2 Young Adult T-Score -1.0 Age Matched Z-Score -0.7. LT NECK BMD 0.930 g/cm2 Young Adult T-Score -0.8 Age Matched Z-Score -0.2. RT FEMUR, TOTAL BMD 0.935 g/cm2 Young Adult T-Score -0.6 Age Matched Z-Score -0.3. RT NECK BMD 0.961 g/cm2 Young Adult T-Score -0.6 Age Matched Z-Score 0.1. IMPRESSION: There is normal bone density of the spine. There is normal bone density of the left hip. There is normal bone density of the right hip. FOLLOW-UP: Recommendation for the next bone density exam: 5 years. <Electronically signed by John Hagen > 11/23/20 1269
== END ==
LOC: M WHC 10:01
PROVIDERS: ATTEND Physician Assistant Medical
DX: M32.9 Systemic lupus erythematosus, unspecified (principal); I73.00 Raynaud's syndrome without gangrene

== ENCOUNTER 2020-12-06 15:41 | Emergency (ER) | payer OTHER ==
[~2020-12-06] VITALS: Ht 167.6 cm; Wt 81.7 kg
[2020-12-06 18:30] LABS: APPEARANCE, URINE CLEAR (CLEAR); BACTERIA, URINE AUTO NEGATIVE (NEGATIVE); BILIRUBIN, URINE AUTO NEGATIVE (NEGATIVE); BLOOD, URINE BLOOD NEGATIVE (NEGATIVE); COLOR, URINE STRAW (YELLOW); GLUCOSE, URINE (UA) AUTO NEGATIVE (NEGATIVE); KETONE, URINE AUTO NEGATIVE (NEGATIVE); LEUKOCYTE ESTERASE, URINE AUTO NEGATIVE (NEGATIVE); NITRITE, URINE AUTO NEGATIVE (NEGATIVE); PROTEIN, URINE AUTO NEGATIVE (NEGATIVE); RBC, URINE AUTO 1 /HPF (0-3); SPECIFIC GRAVITY URINE AUTO 1.005 (1.002-1.035); SQUAMOUS EPITHELIAL CELL UR AU 0 /HPF (0-6); UROBILINOGEN, URINE AUTO 0.2 mg/dL (0.0-2.0); WBC, URINE AUTO 0 /HPF (0-3)
--- NOTE | 2020-12-06 18:30 | REP ---
INDICATION: lower extremity edema, sob COMPARISON: 05/08/2020 TECHNIQUE: Portable AP view of the chest FINDINGS: The mediastinum and cardiac silhouette are stable and within normal limits for portable technique. The lung hays are clear without acute consolidation, effusion, or pneumothorax. Skeletal structures are intact. IMPRESSION: No acute cardiopulmonary process appreciated. <Electronically signed by Niko Roe > 12/06/20 5630
[2020-12-06 18:34] LABS: BASO % 0.5 % (0.0-1.0); EOS # 0.1 10^3/uL (0.0-0.5); EOS % 0.7 % (0.0-3.0); HEMATOCRIT 48.1 % (36.0-47.0); HEMOGLOBIN 15.3 g/dl (12.0-15.5); LYMPH # 2.8 10^3/uL (1.5-5.0); LYMPH % 33.2 % (24.0-44.0); MEAN CORPUSCULAR HEMOGLOBIN 30.5 pg (27.0-33.0); MEAN CORPUSCULAR HGB CONC 31.8 g/dl (32.0-36.5); MONO # 0.5 10^3/uL (0.0-0.8); NEUTROPHILS # 4.9 10^3/uL (1.5-8.5); NEUTROPHILS % 59.2 % (36.0-66.0); PLATELET COUNT, AUTOMATED 247 10^3/uL (150-450); RED BLOOD COUNT 5.01 10^6/uL (4.00-5.40); WHITE BLOOD COUNT 8.3 10^3/uL (4.0-10.0)
[2020-12-06 18:57] LABS: ALBUMIN 4.3 GM/DL (3.2-5.2); ALT/SGPT 20 U/L (12-78); BILIRUBIN,DIRECT 0.2 MG/DL (0.0-0.2); BILIRUBIN,TOTAL 0.4 MG/DL (0.2-1.0); BLOOD UREA NITROGEN 5 MG/DL (7-18); CARBON DIOXIDE LEVEL 27 MEQ/L (21-32); CHLORIDE LEVEL 110 MEQ/L (98-107); CREATININE FOR GFR 0.69 MG/DL (0.55-1.30); GLOMERULAR FILTRATION RATE > 60.0 (>58); GLUCOSE, FASTING 78 MG/DL (70-100); NT-PRO BNP 114 PG/ML (<125); SODIUM LEVEL 141 MEQ/L (136-145); TOTAL PROTEIN 7.5 GM/DL (6.4-8.2)
--- NOTE | 2020-12-06 18:59 | REP ---
INDICATION: edema r/o dvt COMPARISON: None. TECHNIQUE: Hagen scale and color Doppler evaluation using linear high frequency transducer. FINDINGS: Ultrasound examination of the right and left lower extremity deep venous structures from the common femoral vein through the calf/ankle to include the peroneal, and tibial veins demonstrates normal compressibility flow and wave patterns in response to respiration and augmentation. There is no evidence for deep venous thrombosis. IMPRESSION: No evidence for deep venous thrombosis. <Electronically signed by Niko Roe > 12/06/20 2785
[2020-12-06] MEDS ORDERED: LASI20TA3 PO (19:39)
[2020-12-06 20:05] VITALS: BP 127/82
--- NOTE | 2020-12-07 20:42 | ECGEPIP ---
[facility] - ED Test Date: 2020-12-06 Pat Name: KYLE STANTON Department: Room: - Gender: Female Director Database: : 1975 Requested By: CARISA VIDES PA-C. Order Number: [id number] Reading MD: Anuradha Wilcox Measurements Intervals [place] Rate: 60 P: 46 MI: 142 QRS: 89 QRSD: 80 T: 43 QT: 414 QTc: 414 Interpretive Statements Normal sinus rhythm Nonspecific ST abnormality delayed r progression no prior Electronically Signed on 12-07-2020 20:42:40 EDT by Anuradha Wilcox
== END 2020-12-06 20:08 | disposition home or self-care (01) ==
LOC: M ED 15:41
DX: R22.43 Localized swelling, mass and lump, lower limb, bilateral (principal); J45.909 Unspecified asthma, uncomplicated; Z79.899 Other long term (current) drug therapy; Z91.041 Radiographic dye allergy status; Z88.6 Allergy status to analgesic agent

== ENCOUNTER → 2021-01-24 | Outpatient (CLI) | payer OTHER ==
[~2021-01-24] MED LIST changes: +LASI20TA3 PO
--- NOTE | 2021-01-27 14:39 | ECHO ---
ECHOCARDIOGRAM DATE OF PROCEDURE: 01/24/2021 Age: Gender: Height: 168 cm Weight: 75 kg REFERRING INDIVIDUAL: BEN Vázquez. INDICATION: Generalized edema. MEASUREMENTS: 2D Measurements: Interventricular septum 0.71 cm Posterior wall 0.83 cm Left ventricle diastole 4.8 cm Left ventricle systole 3.3 cm Aortic root 3.3 cm Left atrium 2.5 cm Left atrium volume index 26 cm Doppler Measurements: No aortic stenosis No aortic regurgitation LVOT velocity 89.5 cm/s LVOT VTI 19.5 cm Trace mitral regurgitation Mitral E velocity 71.7 cm/s Mitral A velocity 79.8 cm/s Mitral deceleration time 232 msec No tricuspid regurgitation No pulmonic regurgitation MITRAL ANNULAR TISSUE DOPPLER E prime septal 5.95 cm/s, E prime lateral 9.94 cm/s DESCRIPTION: Rhythm was sinus. Image quality was fair. No pericardial effusion. This was a 2D, M-mode, color flow Doppler, and pulsed wave Doppler examination including mitral annular tissue Doppler. CONCLUSIONS: 1. Normal left ventricle internal dimensions and wall thickness. Normal regional LV wall motion and wall thickening. Normal LV systolic function. LVEF 60-65% by visual assessment. Grade 1 diastolic dysfunction (impaired relaxation filling pattern). 2. Suggestive of normal CVP (5-10 mmHg). 3. Otherwise normal appearing echocardiogram Doppler findings.
== END ==
LOC: M CARPUL 11:08
PROVIDERS: ATTEND Physician Assistant Medical
DX: R60.1 Generalized edema (principal)

== ENCOUNTER 2021-04-20 09:55 | Emergency (ER) | payer OTHER ==
[~2021-04-20] VITALS: Ht 167.6 cm; Wt 74.1 kg
--- OUTSIDE RECORDS SUMMARY | 2021-04-20 10:10 | CCD ---
Author Author [facility] Organization [facility] Address Unknown Phone Unavailable Care Team Providers Care Exchange Architect Name Role Phone Diane Diaz Unavailable PROBLEMS Type Condition ICD9-CM Code [id number] Code Onset Dates Condition S tatus W/U Status Risk SNOMED Code Notes Problem Mild intermittent asthma without complication J45. 20 Active confirmed 024806804 Problem Dysthymia F34.1 Active confirmed 87599329 Problem Fibromyalgia M79.7 Active confirmed 9948445 05 Problem GERD without esophagitis K21.9 Active confirmed 425639820 Problem Mixed incontinence N39.46 Active confirmed 4 27643823 Problem SLE (systemic lupus erythematosus related syndrome) M32.9 Active confirmed 670486874 Problem Generalized edema R60.1 Active confirmed 27 6472443 Problem Migraine without aura and without status migrain osus, not intractable G43.009 Active confirmed 925969181 Problem Chronic pain syndrome G89.4 Active confirmed 441222891 Problem Hypomagnesemia E83.42 Active confirmed 09424 5004 Problem Raynaud's disease without gangrene I73.00 Activ e confirmed 013497631 Problem Abnormal mammogram of right breast R92.8 Activ e confirmed 980675460 ALLERGIES Allergen (clinical drug ingredient) Drug/Non Drug Allergy do cumented on EMR Reaction Allergy Type Onset Date Status IVP Rash Non Drug Allergy Active Latex Exam Gloves Rash Drug Allergy Activ e ENCOUNTERS from 1975 to 2021-01-20 Encounter Location Date Provider Diagnosis [facility] [address] [place] [address] Jan, Diane Diaz IMMUNIZATIONS Vaccine Route Administration Date Status Pneumococcal Adult 0.5mL Pneumovax 23 IM Intramuscular Dec 06, 2 012 Administered TDAP 0.5mL (Boostrix) IM Intramuscular Jun 25, 2011 Administe red Influenza 6mo & up Fluzone IM Intramuscular Mar 30, 2013 Admi nistered Influenza 6mo & up Fluzone IM Intramuscular May 21, 2012 Admi nistered Influenza 6mo & up Fluzone IM Intramuscular Jun 25, 2011 Admi nistered SOCIAL HISTORY Tobacco Use: Social History Observation Description Date Details (start date - stop date) Former Smoker Sex Assigned At : Social History Observation Description Sex Assigned At Unknown Audit Question Answer Notes Total Score: 0 Interpretation: Alcohol Education Language: Question Answer Notes Languages spoken: Wolof Hinduism: Question Answer Notes Hinduism No spiritism beliefs that would impact health care. Domestic Violence: Question Answer Notes Status: Drug and Alcohol Question Answer Notes Total Score: 0 Interpretation: No problems reported Alcohol Screening: Question Answer Notes Did you have a drink containing alcohol in the past year? No Points 0 Interpretation Negative Tobacco Use: Question Answer Notes Are you a: former smoker How long has it been since you last smoked? 1-5 years REASON FOR REFERRAL No Information VITAL SIGNS No information MEDICATIONS Medication SIG (Take, Route, Frequency, Duration) Notes Start Da te End Date Status HYDROcodone-Acetaminophen 5-325 MG 1 tablet as needed Orally every 6 hrs Active Magnesium 400 MG 1 tab Orally before bedtime Active Terbinafine HCl 1 % 1 application Externally twi ce daily to B axilla for 14 day(s) Sep, Active Cymbalta 30 mg 1 capsule Orally Once a day Oct, Active Vitamin C 500 mg 1 tablet Orally Once a day Active Advair HFA 230-21 MCG/ACT 2 puffs Inhalation Twice a day Not-Taking Neurontin 800 MG 1 tablet Orally three times daily Active Topamax 100 MG 1 tablet Orally twice daily Active Vitamin D 1000 UNIT 1 tablet Orally Once a day Active Albuterol Sulfate HFA 108 (90 Base) MCG/ACT 2 puffs In halation every 4 hours as needed SOB or wheezing Active Singulair 10 MG 1 tablet Orally Once a day for 30 day(s) Active Ketotifen Fumarate 0.025 % 1 drop into affected eye Ophthalmic Twic e a day Active Folic Acid 1 MG 1 tablet Orally Once a day (Kasey) 2014 Active Omeprazole 40 MG 1 capsule 30 minutes before morning meal Orally twice daily for 30 Active Mycophenolate Mofetil 500 MG 1 tablet Orally three times a day Active PROCEDURES No Information RESULTS No Results REASON FOR VISIT echo appt MEDICAL (GENERAL) HISTORY Type Description Date Medical History Seasonal allergies Medical History Asthma- Guillaume/JENNIFER Medical History Raynaud's Syndrome Medical History GERD Medical History SLE - [place] Medical History Anxiety/depression Medical History cervical spondylosis C3-4 and C5-6 MRIdo ne 2010 Medical History multinodular goiter 06/23 benign bx, Dr Mmcanus Medical History fibromyalgia - [place] Medical History migraines - Dr Light Medical History renal lithiasis Surgical History tubal ligation 1995 Surgical History hysterectomy, ovaries intact 1999 Surgical History colonoscopy - for IBS 2007 Surgical History Ureteroscopy/stone extraction/JJ stent 2 004 Surgical History diagnostic laparoscopy endometriosis x 2 early Surgical History hemorroidectomy 10/18 Surgical History c section 1991 Hospitalization History renal lithiasis 2003 Hospitalization History children, 1st c section, 2nd vaginal 1991, 1993 Goals Section No Information Health Concerns No Information MEDICAL EQUIPMENT No Information MENTAL STATUS No Information FUNCTIONAL STATUS No Information ASSESSMENTS No Information PLAN OF TREATMENT No Information Insurance Providers Payer Name Payer Address Payer Phone Insured Name Patient Relati onship to Insured Coverage Start Date Coverage End Date [facility] [address] [facility] [id number] KYLE POWERS self
--- OUTSIDE RECORDS SUMMARY | 2021-04-20 10:10 | CCD | Continuity of Care Document ---
Author Author Zonia SORIA MD Organization Unknown Address [address] [place] [address], [address] [address] Phone [phone] Care Team Providers Care Respiratory Care Assistant Name Role Phone Diane Diaz RPA AUTM [phone] Problems Active Problems Provider Date Contusion of shoulder region Onset: 04/08 Social History Type Date Description Comments Sex Unknown ETOH Use Denies alcohol use Tobacco Use Start: Unknown End: Unknown Patient is a former smoker Allergies, Adverse Reactions, Alerts Active Allergies Criticality Reaction | Severity Comments Date Shellfish-derived Products Unable to assess criticality 04/29/2015 IVP Dye Unable to assess criticality 04/29/2015 Latex Unable to assess criticality 04/29/2015 Ibuprofen Unable to assess criticality 04/29/2015 Medications Active Medications SIG Qnty Indications Ordering Provide r Date Tylenol With Codeine #3 300-30mg T ablets 1-2 tabs every 4-6 hours as needed pain(please do not fill until 10/13/2020) 30tabs Mina Soria MD 2020 Hydrocodone-Acetaminophen 5-325mg Tablets 1-2 tab4-6 hours as needed pain; Please DO Not Fill Until 07/23/17 20taelizabeth Soria MD 07/23/2017 Montelukast Sodium 10mg Tablets Mike Galaviz MD Amoxicillin 875mg Tablets Rosemarie Kay PA Rizatriptan Benzoate 10mg Tablets Mike Hopper DO Mycophenolate Mofetil 500mg Tablet s Take One Tablet By Mouth Twice A Day Unknown Albuterol Sulfate HFA 108(90Base) mcg/Act Aerosol Inhale Two Puffs By Mouth Four Times A Day as Needed Unknown Amoxicillin/Clavulanate Potassium 875-125mg Tablets Magdalene Garcia PA Duloxetine HCL 30mg Caps DR Part Take One Capsule By Mouth Every Day In The Evening Unknow n Duloxetine HCL 60mg Caps DR Part Take One Capsule By Mouth Every Day Unknown Prednisone 10mg Tablets Take 4 Tablets By Mouth Daily For 4 Days 3 Tabs. Daily For 4 Days 2 Tabs. Dailyfor 4 Days Then 1 Tab. Daily For 4 Days And Stop Unknown Prednisone 20mg Tablets Take One Tablet By Mouth Every Day For 5 Days Unknown Doxycycline Monohydrate 100mg Capsules Rosemarie Kay PA Ketorolac Tromethamine 10mg Tablet s Take One Tablet By Mouth Three Times A Day Unknown Prednisolone Acetate 1% Suspension Unknown Minocycline HCL 100mg Capsules Take One Capsule By Mouth Every 12 Hours Unknown Propranolol HCL 10mg Tablets Mike Hopper, Amoxicillin 500mg Capsules Unknown Celecoxib 200mg Capsules Take 1 Capsule By Mouth Once Daily Unknown Levalbuterol Tartrate 45mcg/Act Ae rosol Inhale Two Puffs By Mouth Four Times A Day as Needed Unknown Prilosec 40mg Capsules DR 1 by mouth twice a day Unknown Topamax 100mg Tablets 1 tab 2 x daily Unknown Oxycodone HCL 5mg Tablets 1 tab every 4-6 hours for pain Unknown Gabapentin 400mg Capsules 1 by mouth twice a day Unknown Vitamin C Capsules 1 by mouth twice a day Unknown Vitamin D 1000mg Tablets clay y Unknown Mycophenolate Mofetil 250mg Capsul es 2 tab bid Unknown Fish Oil 1000mg Capsules 1 by mouth every day Unknown Albuterol Sulfate Powder Unknown Ketotifen Fumarate 0.025% Solution Instill 1 Drop Into Both Eyes Two Times A Day Unknown Folic Acid 1mg Tablets 1 by mouth every day Unknown Amitriptyline HCL 75mg Tablets 1 by mouth at bedtime Unknown Hydrocodone-Acetaminophen 10-325mg Tablets Take 1 Tablet By Mouth Every 4 6 Hours a s Needed For Pain Maximum Daily Dose 6 Unknown Fluticasone Propionate/Salmeterol 232-14mcg/Act Aerosol Inhale 1 puff By Mouth Two Times A Day Un known Fluticasone Propionate 50mcg/Act Suspension [place] 2 Sprays In Each Nostril Every Day Unknown Baclofen 20mg Tablets Take One Tablet By Mouth Four Times A Day Unknown [address] Take 1 Capsule By Mouth 30 Minutes Before Morning Meal Twice Daily Unknown Albuterol Sulfate (2 .5mg/3ML) 0.083% Nebulizer Inhale 1 [address]ial Via Nebulizer Four Times A Day as Needed Unknown Immunizations Description No Information Available Vital Signs Date Vital Result Comment 03/02/2021 2:30pm Body Temperature 97.7 F Height 65 inches 5'5" Weight 164.25 lb BMI (Body Mass Index) 27.3 kg/m2 08/12/2020 10:14am Body Temperature 96.7 F Height 65 inches 5'5" Weight 175.00 lb BMI (Body Mass Index) 29.1 kg/m2 Results Test Acquired Date Facility Test Result H/L Range Note Order 03/06/2021 [facility] [address] [facility] [address] [place] [address] Surgery <pending> Laboratory test finding 10/06/2020 In House Covid Rapid Testing <pending> Procedures Date Code Description Status 03/02/2021 23431 Office/Outpatient Established Mo d MDM 30-39 Min Completed Medical Devices Description No Information Available Encounters Type Date Location Provider Dx Diagnosis Office Visit 03/02/2021 2:15p [place] Mina Soria MD M25.561 Pain in right knee 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, right knee Assessments Date Code Description Provider 03/02/2021 M25.561 Pain in right knee Mina coon MD 03/02/2021 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, right knee Ubaldo Soria MD 10/06/2020 Z20.828 Contact w and exposure to oth vi ral communicable diseases Mina Soria MD 09/23/2020 Z01.818 Encounter for other preprocedura l examination Lab 09/23/2020 Z20.828 Contact with and (nieves spected) exposure to other viral communicable diseases Lab 09/22/2020 Z20.828 Contact w and exposure to oth vi ral communicable diseases Mina Soria MD 09/20/2020 M25.561 Pain in right knee Mina coon MD Plan of Treatment 03/02/2021 - Mina Soria MD* M25.561 Pain in right knee* Follow up:* post op * 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
--- OUTSIDE RECORDS SUMMARY | 2021-04-20 10:10 | CCD ---
Author Author [facility] Organization [facility] Address Unknown Phone Unavailable Care Team Providers Care Mother Tester Name Role Phone Diane Diaz Unavailable PROBLEMS Type Condition ICD9-CM Code [id number] Code Onset Dates Condition S tatus W/U Status Risk SNOMED Code Notes Problem Mild intermittent asthma without complication J45. 20 Active confirmed 245709323 Problem Dysthymia F34.1 Active confirmed 68913700 Problem Fibromyalgia M79.7 Active confirmed 4780892 05 Problem GERD without esophagitis K21.9 Active confirmed 106168515 Problem Mixed incontinence N39.46 Active confirmed 4 59571998 Problem SLE (systemic lupus erythematosus related syndrome) M32.9 Active confirmed 382785008 Problem Generalized edema R60.1 Active confirmed 27 5805930 Problem Migraine without aura and without status migrain osus, not intractable G43.009 Active confirmed 063353719 Problem Chronic pain syndrome G89.4 Active confirmed 408575197 Problem Hypomagnesemia E83.42 Active confirmed 51343 5004 Problem Raynaud's disease without gangrene I73.00 Activ e confirmed 633907412 Problem Abnormal mammogram of right breast R92.8 Activ e confirmed 386215153 ALLERGIES Allergen (clinical drug ingredient) Drug/Non Drug Allergy do cumented on EMR Reaction Allergy Type Onset Date Status IVP Rash Non Drug Allergy Active Latex Exam Gloves Rash Drug Allergy Activ e ENCOUNTERS from 1974 to 2021-04-18 Encounter Location Date Provider Diagnosis [facility] [address] [facility] [phone] [place] [address] Apr, Diane Diaz IMMUNIZATIONS Vaccine Route Administration Date Status Pneumococcal Adult 0.5mL Pneumovax 23 IM Intramuscular Jun 12 012 Administered TDAP 0.5mL (Boostrix) IM Intramuscular [...] Education Language: Question Answer Notes Languages spoken: Jordanian Hindu: Question Answer Notes Hindu No hinduism beliefs that would impact health care. Domestic [...] 1 tablet Orally Once a day (Kasey) , 2014 Active Omeprazole 40 MG 1 capsule 30 minutes before morning meal Orally twice daily for 30 Active Mycophenolate Mofetil 500 MG 1 tablet Orally three times a day Active PROCEDURES No Information RESULTS No Results REASON FOR VISIT dizzy with heart palpitations MEDICAL (GENERAL) HISTORY Type Description Date Medical History Seasonal allergies Medical History Asthma- Guillaume/JENNIFER Medical History Raynaud's Syndrome Medical History GERD Medical History SLE - Neupani Medical History Anxiety/depression Medical History cervical spondylosis C3-4 and C5-6 MRIdo ne 2010 Medical History multinodular goiter 06/23 benign bx, Dr Mcmanus Medical History fibromyalgia - Neupani Medical History [...] Insured Coverage Start Date Coverage End Date [facility] [address] [facility] [address] KYLE POWERS self
--- OUTSIDE RECORDS SUMMARY | 2021-04-20 10:10 | CCD ---
Author Author [facility] Organization [facility] Address Unknown Phone Unavailable Care Team Providers Care Engine Installer Name Role Phone Diane Diaz Unavailable PROBLEMS Type Condition ICD9-CM Code [id number] Code Onset Dates Condition S tatus W/U Status Risk SNOMED Code Notes Problem Mild intermittent asthma without complication J45. 20 Active confirmed 847019293 Problem Dysthymia F34.1 Active confirmed 02021057 Problem Fibromyalgia M79.7 Active confirmed 0686617 05 Problem GERD without esophagitis K21.9 Active confirmed 528537664 Problem Mixed incontinence N39.46 Active confirmed 4 08184017 Problem SLE (systemic lupus erythematosus related syndrome) M32.9 Active confirmed 705273726 Problem Generalized edema R60.1 Active confirmed 27 4427035 Problem Migraine without aura and without status migrain osus, not intractable G43.009 Active confirmed 521149032 Problem Chronic pain syndrome G89.4 Active confirmed 204156721 Problem Hypomagnesemia E83.42 Active confirmed 23613 5004 Problem Raynaud's disease without gangrene I73.00 Activ e confirmed 119071168 Problem Abnormal mammogram of right breast R92.8 Activ e confirmed 705912220 ALLERGIES Allergen (clinical drug ingredient) Drug/Non Drug Allergy do cumented on EMR Reaction Allergy Type Onset Date Status IVP Rash Non Drug Allergy Active Latex Exam Gloves Rash Drug Allergy Activ e ENCOUNTERS from 1974 to 2021-01-20 Encounter Location Date Provider Diagnosis [facility] [address] [place] [phone] Jan, Diane Diaz Generalized edema R60.1 IMMUNIZATIONS Vaccine Route Administration Date Status Pneumococcal [...] Education Language: Question Answer Notes Languages spoken: [employer]: Question Answer Notes Temple No orthodox beliefs that would impact health care. Domestic [...] REASON FOR REFERRAL No Information VITAL SIGNS Weight 169 lbs Jan, Height 66 in Jan, BMI 27.27 kg/m2 Jan, Heart Rate 104 /min Jan, Respiratory Rate 18 /min Jan, Temperature 97.9 degrees Fahrenheit Jan, Oximetry 96 Jan, Blood pressure systolic 110 mm Hg Jan, Blood pressure diastolic 72 mm Hg Jan, MEDICATIONS Medication SIG (Take, Route, Frequency, Duration) [...] 1 tablet Orally Once a day (Kasey) 02 r, 2014 Active Omeprazole 40 MG 1 capsule 30 minutes before morning meal Orally twice daily for 30 Active Mycophenolate Mofetil 500 MG 1 tablet Orally three times a day Active PROCEDURES No Information RESULTS No Results REASON FOR VISIT Vascular referral MEDICAL (GENERAL) HISTORY Type Description Date Medical History Seasonal allergies Medical History Asthma- Galavzi/PANNY Medical History Raynaud's Syndrome Medical History GERD Medical History SLE - Neupani Medical History Anxiety/depression Medical History cervical spondylosis C3-4 and C5-6 MRIdo ne 2010 Medical History multinodular goiter 06/23 benign bx, Dr Mcmanus Medical History fibromyalgia - Osvaldoi Medical History migraines - Dr Light Medical [...] No Information FUNCTIONAL STATUS No Information ASSESSMENTS Encounter Date Diagnosis Assessment Notes Treatment Notes Treatm ent Clinical Notes Jan, Generalized edema (ICD-10 - R60.1) Counseled on edema contributing causes, prevention. Reviewed BW, EKG, US, and CXR from the ED. PLAN OF TREATMENT Treatment Notes Assessment Notes Clinical Notes Generalized edema Counseled on edema contribut ing causes, prevention. Reviewed BW, EKG, US, and CXR from the ED. Treatment Notes Test Name Order Date Echocardiogram 2021-01-19 Next Appt Details Reason: Insurance Providers Payer Name Payer Address Payer Phone Insured Name Patient Relati onship to Insured Coverage Start Date Coverage End Date [facility] [address] [facility] [address] [phone] KYLE POWERS self
--- OUTSIDE RECORDS SUMMARY | 2021-04-20 10:10 | CCD | Summary of Care ---
Author Author [facility] Organization [facility] Address Unknown Phone Unavailable Care Team Providers Care Telecommunications Analyst Name Role Phone Diane Diaz PCP Reason for Visit * Reason Comments Follow-up Lupus Joint Pain * Diagnostic Medical (Routine) Referred By Contact Referred To Contact Status Reason Specialty Diagnoses / Procedures Diane Diaz PA [address] [place] [address] Rheumatology Provider-Based [address] [facility], [address] [place] [id number] Authorized Rheumatology Encounter Details Care Team Description Date Type Department Homer Parks MD [address] [place] [id number] [phone] Other systemic lupus erythematosus with lung involvement (Primary Dx); Inflammatory arthritis; Fibromyalgia; High risk medication use; Uveitis; Positive FRANKY (antinuclear antibody); Episcleritis of both eyes 01/30/2021 [facility] Visit [facility] [address], [address] [place] [id number] Allergies Comments Active Allergy Reactions Severity Noted Date wheezing Ibuprofen Other (See 2014 Comments) Contrast Dye Hives 03/24/2012 Stiffnes, Methylprednisolone Sodium 06/09/2014 Succ Visual disturbances Hydroxychloroquine Other (See 12/07/2014 Comments) Shellfish Allergy Swelling 10/28/2017 documented as of this encounter (statuses as of 02/15/2021) Medications End Date Status Medication Sig Dispensed Refills Start Date Active Albuterol (PROVENTIL IN) Inhale 2 0 puffs into the lungs as needed. Active omeprazole (PRILOSEC) 40 Take 40 mg by 0 MG capsule mouth 2 (two) times daily. Active gabapentin (NEURONTIN) Take 800 mg 3 01 800 MG tablet by mouth 7 Three times daily Active topiramate (TOPAMAX) 100 Take 100 mg 0 MG tablet by mouth Two Times Daily Active sumatriptan (IMITREX) 50 Take 50 mg by 0 MG tablet mouth as needed for Migraine Active Cholecalciferol (VITAMIN Take 1,000 0 D) 1000 units tablet Units by mouth daily Active vitamin C (ASCORBIC ACID) Take 500 mg 0 500 MG tablet by mouth daily Active HUMIRA PEN 40 MG/0.8ML INJECT 40MG 2 each 5 PNKT EVERY 14 DAYS 7 Additional Information Patient not taking. Reported on 08/08/2020 Active [place]-3 Fatty Acids (FISH Fish Oil 0 OIL) 1000 MG CAPS Active albuterol (PROVENTIL) Take 2.5 mg 0 (2.5 MG/3ML) 0.083% by nebulizer solution nebulization every 6 (six) hours as needed for Wheezing Active DULoxetine (CYMBALTA) 30 0 MG capsule 8 Active amitriptyline (ELAVIL) 50 0 MG tablet 8 Active Fluticasone Inhale into 0 Furoate-Vilanterol (BREO the lungs ELLIPTA IN) Active prednisoLONE acetate Place 1 drop 15 mL 2 02/05 (PRED FORTE) 1 % into the left 9 ophthalmic suspension eye every 2 (two) hours Active eletriptan (RELPAX) 40 MG as needed 0 tablet 9 Active baclofen (LIORESAL) 10 MG TAKE ONE 5 01/06 tablet TABLET BY 9 MOUTH FOUR TIMES A DAY MAXIMUM DAILY DOSE 4 Active Magnesium Oxide 400 Take 400 mg 0 (241.3 Mg) MG Oral Tablet by mouth (MAG-OX) daily Active HYDROcodone-Acetaminophen TAKE 1 TABLET 0 06/08 10-325 MG Oral Tablet BY MOUTH 0 (VICODIN) EVERY 4 6 HOURS NEEDED FOR PAIN MAXIMUM DAILY DOSE 6 Active Mycophenolate Mofetil 500 Take 2 270 tablet 1 MG Oral Tablet tablets in 1 (CELLCEPT)Indications: the morning Other systemic lupus and 1 tablet erythematosus with lung at night involvement, Inflammatory arthritis, Positive FRANKY (antinuclear antibody), Episcleritis of both eyes Active Ketotifen Fumarate 0.025 Place 1 drop 5 mL 11 % Ophthalmic Solution into both 1 (Zaditor) eyes Two Times Daily 03/01/2021 Active predniSONE 10 MG Oral Take 1 tablet 30 tablet 0 Tablet by mouth 1 (DELTASONE)Indications: daily Other systemic lupus erythematosus with lung involvement, Inflammatory arthritis 01/30/2021 Discontinued nystatin (MYCOSTATIN) Take 500,000 0 [id number] UNIT/ML suspension Units by mouth Three times daily as needed 01/30/2021 Discontinued melatonin 3 MG tablet Take 3 mg by 0 mouth as needed 01/30/2021 Discontinued ketorolac (ACULAR) 0.5 % Place 1 drop 0 ophthalmic solution into the left eye Four times daily 01/30/2021 Discontinued oxyCODONE (ROXICODONE) 5 Take 5 mg by 0 MG immediate release mouth every 6 tablet (six) hours as needed for Pain 01/30/2021 Discontinued minocycline minocycline 0 (MINOCIN,DYNACIN) 100 MG 100 mg capsule capsule Take 1 capsule every 12 hours by oral route. 01/30/2021 Discontinued cloNIDine (CATAPRES) 0.1 TAKE ONE 5 08/27 MG tablet TABLET BY 8 MOUTH EVERY DAY AT BEDTIME 01/30/2021 Discontinued LORazepam (ATIVAN) 1 MG TAKE ONE 0 tablet TABLET BY 8 MOUTH THREE TIMES A DAY NEEDED MAXIMUM DAILY DOSE 3 01/30/2021 Discontinued DULoxetine (CYMBALTA) 60 60 mg daily 0 03/03 MG capsule 8 01/30/2021 Discontinued Adalimumab 40 MG/0.4ML INJECT 40 MG 6 each 1 Subcutaneous Pen-injector UNDER THE 9 Kit (HUMIRA)Indications: SKIN EVERY Uveitis OTHER WEEK 01/30/2021 Discontinued Celecoxib 200 MG Oral TAKE ONE 30 capsule 0 09/05 Capsule (CeleBREX) CAPSULE BY 0 MOUTH EVERY DAY 01/30/2021 Discontinued Folic Acid 1 MG Oral TAKE ONE 30 tablet 5 12/06 Tablet (FOLVITE) TABLET BY 0 MOUTH EVERY DAY 01/30/2021 Discontinued Mycophenolate Mofetil 500 Take 1 tablet 60 tablet 1 MG Oral Tablet by mouth Two 0 (CELLCEPT)Indications: Times Daily Other systemic lupus erythematosus with lung involvement 01/30/2021 Discontinued Mycophenolate Mofetil 500 TAKE ONE 60 tablet 2 MG Oral Tablet (CELLCEPT) TABLET BY 1 MOUTH TWICE A DAY documented as of this encounter (statuses as of 02/15/2021) Active Problems Problem Noted Date Positive FRANKY (antinuclear antibody) 08/02/2019 Episcleritis of both eyes 07/20/2019 Inflammatory arthritis 05/21/2017 Knee effusion, right 05/21/2017 Chronic pain of right knee 01/23/2017 Pleuritic chest pain 08/14/2016 Bursitis of left hip 01/26/2013 Fibromyalgia 03/24/2012 High risk medication use 03/24/2012 Intractable migraine without aura 03/24/2012 documented as of this encounter (statuses as of 02/15/2021) Resolved Problems Problem Noted Date Resolved Date Scleritis of left eye 05/21/2017 07/20/2019 Systemic lupus erythematosus with lung involvement 017 08/02/2019 Systemic lupus erythematosus 03/24/2012 0 documented as of this encounter (statuses as of 02/15/2021) Social History Date Tobacco Use Types Packs/Day Years Used Former Smoker Smokeless Tobacco: Never Used Comments Alcohol Use Standard Drinks/Week No 0 (1 standard drink = 0.6 o z pure alcohol) Sex Assigned at Date Recorded Not on file Date Recorded COVID-19 Exposure Response 01/30/2021 4:43 PM EDT In the last month, have you been in contact with No / Unsure someone who was confirmed or suspected to have Coronavirus / COVID-19? documented as of this encounter Last Filed Vital Signs Reading Time Taken Comments Vital Sign 119/77 01/30/2021 4:44 PM EDT Blood Pressure 88 01/30/2021 4:44 PM EDT Pulse 36.6 C (97.8 F) 01/30/2021 4:44 PM EDT Temperature 16 01/30/2021 4:44 PM EDT Respiratory Rate - - Oxygen Saturation - - Inhaled Oxygen Concentration 76.2 kg (168 lb) 01/30/2021 4:44 PM EDT Weight 168.9 cm (5' 6.5") 01/30/2021 4:44 PM EDT Height 26.71 01/30/2021 4:44 PM EDT Body Mass Index documented in this encounter Progress Notes * Homer Parks MD - 01/30/2021 4:00 PM EDT Subjective: Patient ID: Zonia Powers is a 45 y.o. female. Chief Complaint Patient presents with Follow-up Lupus Joint Pain HPI This is a follow-up visit. Patient was seen in office in person. She has histo ry of systemic lupus erythematosus, inflammatory arthritis, uveitis and fibromya lgia. She is currently taking mycophenolate 500 mg 2 pills in the morning and 1 pill at night, prednisone as needed for her lupus and inflammatory arthritis. She takes gabapentin 800 mg 3 times a day for fibromyalgia and Topamax for migra ine headaches. She complains of pain and swelling in the right knee. She feels tired. She got second dose of COVID-19 vaccine on December 02. Since then she has had increased nasal congestion and unwell feeling. She also has noticed some di lated capillaries. She has mild rash on her face and arms. She has exposure to the sunlight. She complains of shortness of breath. She saw pulmonary. She t akes singular and allergy medication for her asthma. She has noted increased david int swelling especially her feet and legs. She has not been to rn acls for some time. She complains of blurring of vision. Her energy is low. She medel s diffuse muscle pain. Her sleep is poor. She has morning stiffness that may l ast for hours. Zonia has a past medical history of Allergy, Blood transfusion, Eye drainage, Fibromyalgia, GERD (gastroesophageal reflux disease), Headache(784.0), Low back pain, Lupus, and Neuromuscular disorder. Allergies Allergen Reactions Ibuprofen Other (See Comments) wheezing Ivp [Contrast Dye] Hives Methylprednisolone Sodium Succ Stiffnes, Plaquenil [Hydroxychloroquine] Other (See Comments) Visual disturbances Shellfish Allergy Swelling Current Outpatient Medications Medication Sig Dispense Refill Albuterol (PROVENTIL IN) Inhale 2 puffs into the lungs as needed. albuterol (PROVENTIL) (2.5 MG/3ML) 0.083% nebulizer solution Take 2.5 mg by nebulization every 6 (six) hours as needed for Wheezing amitriptyline (ELAVIL) 50 MG tablet baclofen (LIORESAL) 10 MG tablet TAKE ONE TABLET BY MOUTH FOUR TIMES A DA Y MAXIMUM DAILY DOSE 4 5 Cholecalciferol (VITAMIN D) 1000 units tablet Take 1,000 Units by mouth d aily DULoxetine (CYMBALTA) 30 MG capsule eletriptan (RELPAX) 40 MG tablet as needed Fluticasone Furoate-Vilanterol (BREO ELLIPTA IN) Inhale into the lungs gabapentin (NEURONTIN) 800 MG tablet Take 800 mg by mouth Three times catarino ly 3 HYDROcodone-Acetaminophen 10-325 MG Oral Tablet (VICODIN) TAKE 1 TABLET B Y MOUTH EVERY 4 6 HOURS NEEDED FOR PAIN MAXIMUM DAILY DOSE 6 Ketotifen Fumarate 0.025 % Ophthalmic Solution (Zaditor) Place 1 drop int o both eyes Two Times Daily 5 mL 11 Magnesium Oxide 400 (241.3 Mg) MG Oral Tablet (MAG-OX) Take 400 mg by gabe th daily Mycophenolate Mofetil 500 MG Oral Tablet (CELLCEPT) Take 2 tablets in the morning and 1 tablet at night 270 tablet 1 [place]-3 Fatty Acids (FISH OIL) 1000 MG CAPS Fish Oil omeprazole (PRILOSEC) 40 MG capsule Take 40 mg by mouth 2 (two) times catarino ly. prednisoLONE acetate (PRED FORTE) 1 % ophthalmic suspension Place 1 drop into the left eye every 2 (two) hours 15 mL 2 topiramate (TOPAMAX) 100 MG tablet Take 100 mg by mouth Two Times Daily vitamin C (ASCORBIC ACID) 500 MG tablet Take 500 mg by mouth daily Adalimumab 40 MG/0.4ML Subcutaneous Pen-injector Kit (HUMIRA) INJECT 40 M G UNDER THE SKIN EVERY OTHER WEEK (Patient not taking: Reported on 07/23/2019) 6 each 1 Celecoxib 200 MG Oral Capsule (CeleBREX) TAKE ONE CAPSULE BY MOUTH EVERY DAY (Patient not taking: Reported on 08/08/2020) 30 capsule 0 cloNIDine (CATAPRES) 0.1 MG tablet TAKE ONE TABLET BY MOUTH EVERY DAY AT BEDTIME (Patient not taking: Reported on 11/18/2020) 5 DULoxetine (CYMBALTA) 60 MG capsule 60 mg daily (Patient not taking: Rep orted on 01/30/2021) Folic Acid 1 MG Oral Tablet (FOLVITE) TAKE ONE TABLET BY MOUTH EVERY DAY (Patient not taking: Reported on 01/30/2021) 30 tablet 5 HUMIRA PEN 40 MG/0.8ML PNKT INJECT 40MG EVERY 14 DAYS (Patient not taking : Reported on 08/08/2020) 2 each 5 ketorolac (ACULAR) 0.5 % ophthalmic solution Place 1 drop into the left e ye Four times daily (Patient not taking: Reported on 11/18/2020) LORazepam (ATIVAN) 1 MG tablet TAKE ONE TABLET BY MOUTH THREE TIMES A DAY NEEDED MAXIMUM DAILY DOSE 3 (Patient not taking: Reported on 11/18/2020) 0 melatonin 3 MG tablet Take 3 mg by mouth as needed (Patient not taking: Reported on 11/18/2020) minocycline (MINOCIN,DYNACIN) 100 MG capsule minocycline 100 mg capsule Take 1 capsule every 12 hours by oral route. (Patient not taking: Reported on ) Mycophenolate Mofetil 500 MG Oral Tablet (CELLCEPT) Take 1 tablet by mout h Two Times Daily (Patient not taking: Reported on 08/08/2020) 60 tablet 1 Mycophenolate Mofetil 500 MG Oral Tablet (CELLCEPT) TAKE ONE TABLET BY MO UTH TWICE A DAY (Patient not taking: Reported on 08/08/2020) 60 tablet 2 nystatin (MYCOSTATIN) [id number] UNIT/ML suspension Take 500,000 Units by gabe th Three times daily as needed (Patient not taking: Reported on 11/18/2020) oxyCODONE (ROXICODONE) 5 MG immediate release tablet Take 5 mg by mouth e very 6 (six) hours as needed for Pain (Patient not taking: Reported on ) sumatriptan (IMITREX) 50 MG tablet Take 50 mg by mouth as needed for Renzo star (Patient not taking: Reported on 11/18/2020) No current facility-administered medications for this visit. Social History Socioeconomic History Marital status: Legally Spouse name: None Number of children: None Years of education: None Highest education level: None Occupational History None Tobacco Use Smoking status: Former Smoker Smokeless tobacco: Never Used Substance and Sexual Activity Alcohol use: No Drug use: No Sexual activity: None Other Topics Concern None Social History Narrative None Social Determinants of Health Financial Resource Strain: Difficulty of Paying Living Expenses: Food Insecurity: Worried About Running Out of Food in the Last Year: Ran Out of Food in the Last Year: Transportation Needs: Lack of Transportation (Medical): Lack of Transportation (Non-Medical): Physical Activity: Days of Exercise per Week: Minutes of Exercise per Session: Stress: Feeling of Stress : Social Connections: Frequency of Communication with Friends and Family: Frequency of Social Gatherings with Friends and Family: Attends Mosque Services: Active Member of Clubs or Organizations: Attends Club or Organization Meetings: Marital Status: Intimate Partner Violence: Fear of Current or Ex-Partner: Emotionally Abused: Physically Abused: Sexually Abused: Family History Problem Relation Age of Onset Asthma Mother COPD Mother Depression Mother High cholesterol Mother Hypertension Mother Diabetes Sister Past Surgical History: Procedure Laterality Date SECTION 1991 COLONOSCOPY HYSTERECTOMY 1998 LAPAROSCOPY Patient Active Problem List Diagnosis Fibromyalgia High risk medication use Intractable migraine without aura Bursitis of left hip Pleuritic chest pain Chronic pain of right knee Inflammatory arthritis Knee effusion, right Episcleritis of both eyes Positive FRANKY (antinuclear antibody) Review of Systems Constitutional: Positive for activity change, appetite change and fatigue. Negat hua for chills, diaphoresis, fever and unexpected weight change. HENT: Positive for mouth sores. Negative for congestion, dental problem, droolin g, ear discharge, ear pain, facial swelling, hearing loss, nosebleeds, postnasal drip, rhinorrhea, sinus pressure, sneezing, sore throat, tinnitus, trouble swal lowing and voice change. Eyes: Positive for visual disturbance. Negative for photophobia, pain, discharge , redness and itching. Respiratory: Negative for apnea, cough, choking, chest tightness, shortness of b reath, wheezing and stridor. Cardiovascular: Negative for chest pain, palpitations and leg swelling. Gastrointestinal: Negative. Negative for abdominal distention, abdominal pain, anal bleeding, blood in stool, constipation, diarrhea, nausea, rectal pain and v omiting. Endocrine: Positive for cold intolerance. Negative for heat intolerance, polydip gio, polyphagia and polyuria. Genitourinary: Negative. Negative for decreased urine volume, difficulty urinat ing, dysuria, enuresis, flank pain, frequency, genital sores, hematuria and urge ncy. Musculoskeletal: Positive for arthralgias, back pain, gait problem, joint swelli ng and myalgias. Negative for neck pain and neck stiffness. Skin: Negative for color change, pallor, rash and wound. Allergic/Immunologic: Positive for immunocompromised state. Negative for environ mental allergies and food allergies. Neurological: Positive for weakness and headaches. Negative for dizziness, tremo rs, seizures, syncope, facial asymmetry, speech difficulty, light-headedness and numbness. Hematological: Negative for adenopathy. Bruises/bleeds easily. Psychiatric/Behavioral: Positive for decreased concentration, dysphoric mood and sleep disturbance. Negative for agitation, behavioral problems, confusion, abbott ucinations, self-injury and suicidal ideas. The patient is nervous/anxious. The patient is not hyperactive. All other systems reviewed and are negative. Objective: Physical Exam Blood pressure 119/77, pulse 88, temperature 36.6 C (97.8 F), temperatur e source Oral, resp. rate 16, height 1.689 m (5' 6.5"), weight 76.2 kg (168 lb). Physical Exam Nursing note and vitals reviewed. Constitutional: the patient is oriented to person, place, and time. Vital signs are normal. The patient appears well-developed and well-nourished. No distress. HENT: Head: Normocephalic and atraumatic. Right Ear: External ear normal. Left Ear: External ear normal. Nose: Nose normal. Mouth/Throat: Oropharynx is clear and moist. Eyes: Conjunctivae and EOM are normal. Pupils are equal, round, and reactive to light. Right eye exhibits no discharge. Left eye exhibits no discharge. No scler al icterus. Neck: Normal range of motion. Neck supple. No JVD present. No tracheal deviation present. No thyromegaly present. Cardiovascular: Normal rate, regular rhythm, normal heart sounds and intact dist al pulses. Exam reveals no gallop and no friction rub. No murmur heard. Pulmonary/Chest: Effort normal and breath sounds normal. No stridor. No respirat ory distress. The patient has no wheezes. Has no rales. Exhibits no tenderness. Abdominal: Soft. Bowel sounds are normal. The patient exhibits no distension and no mass. There is no tenderness. There is no rebound and no guarding. Musculoskeletal: Is diffusely tender fibromyalgia points. Her right knee is swollen. Right shoulder:tender. She exhibits normal range of motion. Left shoulder: tender. Right elbow: tender. Left elbow: tender. Right wrist: Normal. Left wrist: Normal. Right hip: tender. Left hip: tender. Right ankle: Normal. Left ankle: Normal. Cervical back: tender. Thoracic back: Normal. Lumbar back: tender. Right upper arm: Normal. Left upper arm: Normal. Right forearm: Normal. Left forearm: Normal. Right hand: Normal. Left hand: Normal. Right upper leg: Normal. Left upper leg: Normal. Right lower leg: Normal. Left lower leg: Normal. Right foot: Normal. Left foot: Normal. Lymphadenopathy: The patient has no cervical adenopathy. Neurological: The patient is alert and oriented to person, place, and time. Has normal reflexes. No cranial nerve deficit. Exhibits normal muscle tone. Coordi nation normal. Skin: Skin is warm. No rash noted. The patient is not diaphoretic. No erythema. No pallor. Psychiatric: The patient has a normal mood and affect. Behavior is normal. Judgm ent and thought content normal. Assessment: Zonia was seen today for follow-up, lupus and joint pain. Diagnoses and all orders for this visit: Other systemic lupus erythematosus with lung involvement - CBC and Differential; Future - Comprehensive Metabolic Panel; Future - Sedimentation rate, automated; Future - Inflammatory C-Reactive Protein (CRP); Future - FRANKY; Future - FRANKY Specificity; Future - predniSONE 10 MG Oral Tablet (DELTASONE); Take 1 tablet by mouth daily - Cancel: C3 complement; Future - C3 complement; Future - C4 complement; Future - C4 complement - C3 complement - FRANKY Specificity - FRANKY - Inflammatory C-Reactive Protein (CRP) - Sedimentation rate, automated - Comprehensive Metabolic Panel - CBC and Differential Inflammatory arthritis - CBC and Differential; Future - Comprehensive Metabolic Panel; Future - Sedimentation rate, automated; Future - Inflammatory C-Reactive Protein (CRP); Future - FRANKY; Future - FRANKY Specificity; Future - predniSONE 10 MG Oral Tablet (DELTASONE); Take 1 tablet by mouth daily - Cancel: C3 complement; Future - C3 complement; Future - C3 complement - FRANKY Specificity - FRANKY - Inflammatory C-Reactive Protein (CRP) - Sedimentation rate, automated - Comprehensive Metabolic Panel - CBC and Differential Fibromyalgia High risk medication use - CBC and Differential; Future - Comprehensive Metabolic Panel; Future - Sedimentation rate, automated; Future - Inflammatory C-Reactive Protein (CRP); Future - Inflammatory C-Reactive Protein (CRP) - Sedimentation rate, automated - Comprehensive Metabolic Panel - CBC and Differential Uveitis Positive FRANKY (antinuclear antibody) Episcleritis of both eyes Systemic lupus erythematosus, on mycophenolate, Recent flareup of lupus and inflammatory arthritis after vaccination for Covid 1 9. Right knee arthritis, active. Episcleritis of both eyes. Not able to tolerate Humira or Remicade. Currently on mycophenolate Has not seen rn acls for some time. PLAN: I ordered CBC, CMP, CRP and sed rate. I gave her prednisone 10 mg a day. I told her to continue mycophenolate 1 g in the morning and 5 mg at night. She will continue other medications as before. I told her to call rn acls o ffice and schedule for follow-up to find out the inflammatory status of her eyes . Non medication recommendations: 1. Daily exercise: Low impact aerobic or water exercises as tolerated. Regular exercises may help reduce the pain, improve circulation to the tight mus cles, prevent de-coditioning, maintain range of motion and enhance better sleep. Avoid high impact and lot of weight bearing exercises. 2. Sleep hygiene: -Early to bed at night, preferably at the same time. -Avoid sweets, caffenated beverages in the afternoon. -Do not exercise late at night and take nap during the day. 3. Dietary instructions: -Try to eat healthy: low carbohydrate and low sugar -Avoid high sugar containing food, greasy and high fat food, large meals and lat e night snacks. I also reviewed the following at length: -Notes from PCP's and other providers. -Labs done at PCP's and other provider's office. -Xrays and other radiologic images done in outside facilities. -Patient history form filled up by the patient. -Past medical history and problems documented by other physicians. I spent 30 minutes face to face time with the patient, more than 50% on counseli ng and coordinating the care. Follow-up in 3 months. Results for orders placed or performed in visit on 01/30/21 C4 complement Result Value Ref Range C4 - Complement 11 10 - 40 mg/dL C3 complement Result Value Ref Range C3 - Complement 109 90 - 180 mg/dL FRANKY Specificity Result Value Ref Range SSA Autoantibody 11 0 - 99 [AU]/mL SSB Autoantibody 7 0 - 99 [AU]/mL Pedroza Autoantibody 10 0 - 99 [AU]/mL EMPLOYEE ADVISER Autoantibody 77 0 - 99 U/ML SCL-70 Autoantibody 49 0 - 99 [AU]/mL DAVID-1 Autoantibody 10 0 - 99 [AU]/mL Double Stranded DNA Ab 7 0 - 99 [IU]/mL Centromere antibody 49 0 - 99 [AU]/mL Histone antibody 13 0 - 99 [AU]/mL FRANKY Result Value Ref Range Homogeneous Pattern <80 <80 / Speckled Pattern 80 (H) <80 1/dil Peripheral Pattern <80 <80 1/dil FRANKY,Nucleolar pattern <80 <80 / Inflammatory C-Reactive Protein (CRP) Result Value Ref Range C Reactive Protein <3.0 <8.0 mg/L Sedimentation rate, automated Result Value Ref Range Sed Rate - ESR 12 <20 mm/hr Comprehensive Metabolic Panel Result Value Ref Range Albumin 4.4 3.5 - 5.2 g/dL Bilirubin, Total 0.3 <1.2 mg/dL Calcium 9.6 8.6 - 10.0 mg/dL Chloride 104 98 - 107 mmol/L Creatinine 0.77 0.50 - 0.90 mg/dL Glucose 82 70 - 140 mg/dL Alkaline Phosphatase 66 35 - 104 U/L Potassium 3.5 3.4 - 5.1 mmol/L Total Protein 6.8 6.4 - 8.3 g/dL Sodium 139 136 - 145 mmol/L AST/SGO 13 <32 U/L Blood Urea Nitrogen 6 6 - 20 mg/dL Osmolality, Reyes 285 275.0 - 300.0 mosm/kg BUN/Cre Ratio 8 Bicarbonate 27 22 - 29 mmol/L ALT/SGP 11 <33 U/L Anion Gap 8 8 - 15 mmol/L GFR Non 2008 CDK-EPI >90 >60 mL/min/1.73m2 GFR 2008 CKD-EPI >90 >60 mL/min/1.73m2 CBC and Differential Result Value Ref Range White Blood Cell 8.0 4.00 - 10.00 10*3/uL Red Blood Cell 4.92 4.10 - 5.30 10*6/uL Hemoglobin 15.3 11.5 - 15.5 g/dL Hematocrit 45.4 (H) 36.0 - 45.0 % Mean Cell Volume 92.2 80.0 - 96.0 fL Mean Cell Hemoglobin 31.2 27.0 - 33.0 pg Mean Cell Hgb Conc 33.8 32 - 36 g/dL Red Cell Dist Width 14.0 11.5 - 14.5 % Platelet Count 246 150 - 400 10*3/uL Differential Type Automated Diff Neutrophil 54 % Lymphocyte 39 % Monocyte 6 % Eosinophil 1 % Basophil 0 % Abs Neutrophil 4.38 1.80 - 7.00 10*3/uL Abs Lymphocyte 3.11 1.20 - 4.00 10*3/uL Abs Monocyte 0.47 0.00 - 0.80 10*3/uL Abs Eosinophil 0.04 0.00 - 0.50 10*3/uL Abs Basophil 0.02 0.00 - 0.20 10*3/uL Nucleated Red Blood Cells 0 0 - 0 /100 Labs reviewed. documented in this encounter Plan of Treatment Care Team Description Date Type Specialty Homer Parks MD [address] [facility] [place] [address] [phone] 06/05/2021 Office Visit Rheumatology Health Maintenance Due Date Last Done Comments MMR Vaccines (1 of 1 - 09/29/1975 Standard series) Varicella Vaccines (1 of 09/29/1975 2 - 2-dose childhood series) Pneumococcal Vaccine: 65+ 1980 Years (1 of 4 - PCV13) Pneumococcal Vaccine: 1980 Pediatrics (0 to 5 Years) and At-Risk Patients (6 to 64 Years) (1 of 4 - PCV13) DTaP,Tdap,and Td Vaccines 1981 (1 - Tdap) HIV Screening 09/29/1987 Cervical Cancer Screening 09/29/1995 5 years Influenza Vaccine 04/07/2021 05/18/2019, 04/26/2017 HIB Vaccines Aged Out No longer eligible based on patient's age to complete this topic Hepatitis A Vaccines Aged Out No longer eligibl e based on patient's age to complete this topic Hepatitis B Vaccines Aged Out No longer eligibl e based on patient's age to complete this topic IPV Vaccines Aged Out No longer eligible based on patient's age to complete this topic documented as of this encounter Procedures Comments Procedure Name Priority Date/Time Associated Diag nosis FRANKY SPECIFICITY Routine 01/30/2021 Other systemic lupus 5:24 PM EDT erythematosus with lung involvement Inflammatory arthritis SEDIMENTATION RATE, Routine 01/30/2021 Other syst emic lupus AUTOMATED 5:24 PM EDT erythematosus with lung involvement Inflammatory arthritis High risk medication use CBC AND DIFFERENTIAL Routine 01/30/2021 Other sys temic lupus 5:24 PM EDT erythematosus with lung involvement Inflammatory arthritis High risk medication use C3 COMPLEMENT Routine 01/30/2021 Other systemic lupus 5:24 PM EDT erythematosus with lung involvement Inflammatory arthritis C4 COMPLEMENT Routine 01/30/2021 Other systemic lupus 5:24 PM EDT erythematosus with lung involvement INFLAMMATORY C-REACTIVE Routine 01/30/2021 Other systemic lupus PROTEIN (CRP) 5:24 PM EDT erythematosus with lung involvement Inflammatory arthritis High risk medication use FRANKY Routine 01/30/2021 Other systemic lupus 5:24 PM EDT erythematosus with lung involvement Inflammatory arthritis COMPREHENSIVE METABOLIC Routine 01/30/2021 Other systemic lupus PANEL 5:24 PM EDT erythematosus with lung involvement Inflammatory arthritis High risk medication use documented in this encounter Results * C4 complement (01/30/2021 5:24 PM EDT) C4 - Complement 11 10 - 40 mg/dL [facility] Clin Pathology Specimen Plasma Performing Organization Address City/[facility] P mario Number [facility] [address] [place] [address] 132 [address] Clin Pathology * C3 complement (01/30/2021 5:24 PM EDT) C3 - Complement 109 90 - 180 mg/dL [facility] Clin Pathology Specimen Plasma Performing Organization Address City/[facility]/ZIP Code P mario Number [facility] [address] [place] [address] [address] Clin Pathology * FRANKY Specificity (01/30/2021 5:24 PM EDT) SSA 11 0 - 99 [AU]/mL [facility] Autoantibody [facility] Clin Pathology SSB 7 0 - 99 [AU]/mL [facility] Autoantibody [facility] Clin Pathology Pedroza 10 0 - 99 [AU]/mL [facility] Autoantibody [facility] Clin Pathology EMPLOYEE ADVISER 77 0 - 99 U/ML [facility] Autoantibody [facility] Clin Pathology SCL-70 49 0 - 99 [AU]/mL [facility] Autoantibody [facility] Clin Pathology DAVID-1 10 0 - 99 [AU]/mL [facility] Autoantibody [facility] Clin Pathology Double Stranded 7 0 - 99 [IU]/mL [facility] DNA Ab [facility] Clin Pathology Centromere 49 0 - 99 [AU]/mL [facility] antibody [facility] Clin Pathology Histone 13 0 - 99 [AU]/mL [facility] antibody [facility] Clin Pathology Specimen Serum Performing Organization Address [facility] P mario Number [facility] [address] [place], [place] [address] [address] 10 Clin Pathology * FRANKY (01/30/2021 5:24 PM EDT) Homogeneous <80 <80 /{dilution} [facility] Clin Pathology Speckled 80 (H) <80 1/dil [facility] Pattern [facility] Clin Pathology Peripheral <80 <80 1/dil [facility] Clin Pathology FRANKY,Nucleolar <80 <80 /{dilution} [facility] Clin Pathology Specimen Serum Performing Organization Address [facility] P mario Number [address] 132 10 Clin Pathology * Inflammatory C-Reactive Protein (CRP) (01/30/2021 5:24 PM EDT) C Reactive <3.0 <8.0 mg/L [facility] Protein [facility] Clin Pathology Specimen Plasma Performing Organization Address City/[facility]/ZIP Code P mario Number [facility] [address] [place], [place] [address] [address] 10 Clin Pathology * Sedimentation rate, automated (01/30/2021 5:24 PM EDT) Sed Rate - ESR 12 <20 mm/hr [facility] Clin Pathology Specimen EDTA Whole Blood Performing Organization Address City/[facility]/ZIP Code P mario Number [facility] [address] [place], [place] [address] [facility] [address] [place], [place] [address] Clin Pathology * Comprehensive Metabolic Panel (01/30/2021 5:24 PM EDT) Albumin 4.4 3.5 - 5.2 g/dL [facility] Clin Pathology Bilirubin, 0.3 <1.2 mg/dL [facility] Total [facility] Clin Pathology Calcium 9.6 8.6 - 10.0 mg/dL [facility] Clin Pathology Chloride 104 98 - 107 mmol/L [facility] Clin Pathology Creatinine 0.77 0.50 - 0.90 mg/dL [facility] Clin Pathology Glucose 82 70 - 140 mg/dL [facility] Clin Pathology Alkaline 66 35 - 104 U/L [facility] Clin Pathology Potassium 3.5 3.4 - 5.1 mmol/L [facility] Clin Pathology Total Protein 6.8 6.4 - 8.3 g/dL [facility] Clin Pathology Sodium 139 136 - 145 mmol/L [facility] Clin Pathology AST/SGO 13 <32 U/L [facility] Clin Pathology Blood Urea 6 6 - 20 mg/dL [facility] Nitrogen [facility] Clin Pathology Osmolality, Reyes 285 275.0 - 300.0 [facility] mosm/kg [facility] Clin Pathology BUN/Cre Ratio 8 [facility] Clin Pathology Bicarbonate 27 22 - 29 mmol/L [facility] Clin Pathology ALT/SGP 11 <33 U/L [facility] Clin Pathology Anion Gap 8 8 - 15 mmol/L [facility] Clin Pathology GFR Non >90 >60 mL/min/1.73m2 [facility] Clin CDK-EPI Pathology GFR >90 >60 mL/min/1.73m2 [facility] Afghan 2008 [facility] Clin CKD-EPI Pathology Specimen Plasma Performing Organization Address City/State/ZIP Code P mario Number [facility] [address] [place], [place] [address] 132 10 Clin Pathology * CBC and Differential (01/30/2021 5:24 PM EDT) White Blood 8.0 4.00 - 10.00 10*3/uL [facility] Clin Pathology Red Blood Cell 4.92 4.10 - 5.30 10*6/uL [facility] Hemoglobin 15.3 11.5 - 15.5 g/dL [facility] Clin Pathology Hematocrit 45.4 (H) 36.0 - 45.0 % [facility] Clin Pathology Mean Cell 92.2 80.0 - 96.0 fL [facility] Volume [facility] Clin Pathology Mean Cell 31.2 27.0 - 33.0 pg [facility] Hemoglobin [facility] Clin Pathology Mean Cell Hgb 33.8 32 - 36 g/dL [facility] Conc [facility] Clin Pathology Red Cell Dist 14.0 11.5 - 14.5 % [facility] Width [facility] Clin Pathology Platelet Count 246 150 - 400 10*3/uL [facility] Clin Pathology Differential Automated Diff [facility] Type [facility] Clin Pathology Neutrophil 54 % [facility] Pathology Lymphocyte 39 % [facility] Clin Pathology Monocyte 6 % [facility] Clin Pathology Eosinophil 1 % [facility] Clin Pathology Basophil 0 % [facility] Clin Pathology Abs Neutrophil 4.38 1.80 - 7.00 10*3/uL [facility] Abs Lymphocyte 3.11 1.20 - 4.00 10*3/uL [facility] Abs Monocyte 0.47 0.00 - 0.80 10*3/uL [facility] Clin Pathology Abs Eosinophil 0.04 0.00 - 0.50 10*3/uL [facility] Clin Pathology Abs Basophil 0.02 0.00 - 0.20 10*3/uL [facility] Clin Pathology Nucleated Red 0 0 - 0 /100{WBCs} [facility] Blood Cells [facility] Pathology Specimen EDTA Whole Blood Performing Organization Address City/State/ZIP Code P mario Number [facility] [address] [place], [place] [address] [facility] [address] [place], [place] [address] Clin Pathology documented in this encounter Visit Diagnoses Diagnosis Other systemic lupus erythematosus with lung involvement - Primary Inflammatory arthritis Unspecified inflammatory polyarthropath y Fibromyalgia Mylagia and myositis, unspecified High risk medication use Encounter for long-term (current) use o f other medications Uveitis Unspecified iridocyclitis Positive FRANKY (antinuclear antibody) Other and unspecified nonspecific immun ological findings Episcleritis of both eyes Scleritis, unspecified documented in this encounter
--- OUTSIDE RECORDS SUMMARY | 2021-04-20 10:10 | CCD ---
Author Author [facility] Organization [facility] Address Unknown Phone Unavailable Care Team Providers Care Colors Custodian Name Role Phone Diane Diaz Unavailable PROBLEMS Type Condition ICD9-CM Code [id number] Code Onset Dates Condition S tatus W/U Status Risk SNOMED Code Notes Problem Mild intermittent asthma without complication J45. 20 Active confirmed 587847799 Problem Dysthymia F34.1 Active confirmed 58882943 Problem Fibromyalgia M79.7 Active confirmed 9424391 05 Problem GERD without esophagitis K21.9 Active confirmed 480739883 Problem Mixed incontinence N39.46 Active confirmed 4 37616393 Problem SLE (systemic lupus erythematosus related syndrome) M32.9 Active confirmed 028170184 Problem Generalized edema R60.1 Active confirmed 27 1829661 Problem Migraine without aura and without status migrain osus, not intractable G43.009 Active confirmed 755180547 Problem Chronic pain syndrome G89.4 Active confirmed 712944149 Problem Hypomagnesemia E83.42 Active confirmed 50776 5004 Problem Raynaud's disease without gangrene I73.00 Activ e confirmed 424357478 Problem Abnormal mammogram of right breast R92.8 Activ e confirmed 667572237 ALLERGIES Allergen (clinical drug ingredient) Drug/Non Drug Allergy do cumented on EMR Reaction Allergy Type Onset Date Status IVP Rash Non Drug Allergy Active Latex Exam Gloves Rash Drug Allergy Activ e ENCOUNTERS from 1974 to 2021-02-21 Encounter Location Date Provider Diagnosis [facility] [id number] [place] [id number] Feb, Diane Diaz IMMUNIZATIONS Vaccine Route Administration Date [...] Education Language: Question Answer Notes Languages spoken: Azeri Catholic: Question Answer Notes Catholic No yazdanism beliefs that would impact health care. Domestic [...] Information RESULTS No Results REASON FOR VISIT [facility] MEDICAL (GENERAL) HISTORY Type Description Date Medical [...] Insured Coverage Start Date Coverage End Date [facility] [facility] [address] [facility] [id number] [phone] KYLE POWERS self
--- OUTSIDE RECORDS SUMMARY | 2021-04-20 10:11 | CCD ---
Author Author [facility] Organization [facility] Address Unknown Phone Unavailable Support Name Relationship Address Phone HOME HEALTH AIDE Next Of Kin [address] [place] [address] Martha DANIELSGabe Gibson Next Of Kin [address] [place], [place] [id number] REBECCA POWERS Next Of Kin [address] [place] [address] SOHAN POWERS Next Of Kin NA Unknown Unavailable UN Next Of Kin Unknown Unavailable RCIL Next Of Kin [address] [facility] [address] [place] [address] UE Next Of Kin Unknown Unavailable UNEMPLOYED Next Of Kin UE UE, UE UE Unavailable [facility] Next Of Kin [address] [place] [address] MEDREADY Next Of Kin [id number] [place] [address] [facility] Next Of Kin [address] [place] [address] ORTHO Next Of Kin [address] [place] [address] NCOG Next Of Kin [address] [place] [address] SMC* Next Of Kin [address] [place] [address] NEW [facility] Next Of Kin Unknown NEW CONCEPTS Next Of Kin [address] [facility] [address] [place] [address] GEOVANNY POWERS Next Of Kin [address] [place] [address] REBECCA Powers ECON [address] [place] [address] Unavailable Geovanny Powers ECON [address] [place] [address] Care Team Providers Care Natural Resources Technician Name Role Phone Fish, B Mina BADI Unavailable Unavailable Fish, B Mina ABDI Unavailable Unavailable Fish, B Mina ABDI Unavailable Unavailable Fish, B Mina ABDI Unavailable Unavailable Fish, B Mina ABDI Unavailable Unavailable Fish, B Mina ABDI Unavailable Unavailable Fish, B Mina ABDI Unavailable Unavailable Fish, B Mina ABDI Unavailable Unavailable Fish, B Mina ABDI Unavailable Unavailable Fish, B Mina ABDI Unavailable Unavailable Fish, B Mina ABDI Unavailable Unavailable Fish, B Mina ABDI Unavailable Unavailable Fish, B Mina ABDI Unavailable Unavailable Fish, B Mina ABDI Unavailable Unavailable Fish, B Mina ABDI Unavailable Unavailable Fish, B Mina ABDI Unavailable Unavailable Fish, B Mina ABDI Unavailable Unavailable Fish, B Mina ABDI Unavailable Unavailable Fish, B Mina ABDI Unavailable Unavailable Fish, B Mina ABDI Unavailable Unavailable Fish, B Mina ABDI Unavailable Unavailable Fish, B Mina ABDI Unavailable Unavailable Fish, B Mina ABDI Unavailable Unavailable Fish, B Mnia ABDI Unavailable Unavailable Fish, B Mina ABDI Unavailable Unavailable Fish, B Mina ABDI Unavailable Unavailable Fish, B Mina ABDI Unavailable Unavailable Fish, B Mina ABDI Unavailable Unavailable Fish, B Mina ABDI Unavailable Unavailable Fish, B Mina ABDI Unavailable Unavailable Fish, B Mina ABDI Unavailable Unavailable Fish, B Mina ABDI Unavailable Unavailable Fish, B Mina ABDI Unavailable Unavailable Fish, B Mina ABDI Unavailable Unavailable Fish, B Mina ABDI Unavailable Unavailable Fish, B Mina ABDI Unavailable Unavailable Fish, B Mina ABDI Unavailable Unavailable Fish, B Mina ABDI Unavailable Unavailable Fish, B Mina ABDI Unavailable Unavailable Fish, B Mina ABDI Unavailable Unavailable Fish, B Mina ABDI Unavailable Unavailable Fish, B Mina ABDI Unavailable Unavailable Fish, B Mina ABDI Unavailable Unavailable Fish, B Mina ABDI Unavailable Unavailable Fish, B Mina ABDI Unavailable Unavailable Fish, B Mina ABDI Unavailable Unavailable Fish, B Mina ABDI Unavailable Unavailable Fish, B Mina ABDI Unavailable Unavailable Fish, B Mina ABDI Unavailable Unavailable Fish, B Mina ABDI Unavailable Unavailable Fish, B Mina ABDI Unavailable Unavailable Fish, B Mina ABDI Unavailable Unavailable Fish, B Mina ABDI Unavailable Unavailable Fish, B Mina ABDI Unavailable Unavailable Fish, B Mina ABDI Unavailable Unavailable Fish, B Mina ABDI Unavailable Unavailable ELENA (SEWELL), N GABE RPA-C Unavailable Unavailable ELENA (SEWELL), N GABE RPA-C Unavailable Unavailable ELENA (SEWELL), N GABE RPA-C Unavailable Unavailable ELENA (SEWELL), N GABE RPA-C Unavailable Unavailable ELENA (SEWELL), N GABE RPA-C Unavailable Unavailable ELENA (SEWELL), N GABE RPA-C Unavailable Unavailable ELENA (SEWELL), N GABE RPA-C Unavailable Unavailable ELENA (SEWELL), N GABE RPA-C Unavailable Unavailable ELENA (SEWELL), N GABE RPA-C Unavailable Unavailable ELENA (SEWELL), N GABE RPA-C Unavailable Unavailable ELENA (SEWELL), N GABE RPA-C Unavailable Unavailable ELENA (SEWELL), N GABE RPA-C Unavailable Unavailable ELENA (SEWELL), N GABE RPA-C Unavailable Unavailable ELENA (SEWELL), N GABE RPA-C Unavailable Unavailable ELENA (SEWELL), N GABE RPA-C Unavailable Unavailable ELENA (SEWELL), N GABE RPA-C Unavailable Unavailable ELENA (SEWELL), N GABE RPA-C Unavailable Unavailable ELENA (SEWELL), N GABE RPA-C Unavailable Unavailable ELENA (SEWELL), N GABE RPA-C Unavailable Unavailable ELENA (SEWELL), N GABE RPA-C Unavailable Unavailable ELENA (SEWELL), N GABE RPA-C Unavailable Unavailable ELENA (SEWELL), N GABE RPA-C Unavailable Unavailable ELENA (SEWELL), N GABE RPA-C Unavailable Unavailable ELENA (SEWELL), N GABE RPA-C Unavailable Unavailable ELENA (SEWELL), N GABE RPA-C Unavailable Unavailable ELENA (SEWELL), N GABE RPA-C Unavailable Unavailable ELENA (SEWELL), N GABE RPA-C Unavailable Unavailable ELENA (SEWELL), N GABE RPA-C Unavailable Unavailable ELENA (SEWELL), N GABE RPA-C Unavailable Unavailable ELENA (SEWELL), N GABE RPA-C Unavailable Unavailable ELENA (SEWELL), N GABE RPA-C Unavailable Unavailable ELENA (SEWELL), N GABE RPA-C Unavailable Unavailable ELENA (SEWELL), N GABE RPA-C Unavailable Unavailable ELENA (SEWELL), N GABE RPA-C Unavailable Unavailable ELENA (SEWELL), N GABE RPA-C Unavailable Unavailable ELENA (SEWELL), N GABE RPA-C Unavailable Unavailable ELENA (SEWELL), N GABE RPA-C Unavailable Unavailable ELENA (SEWELL), N GABE RPA-C Unavailable Unavailable ELENA (SEWELL), N GABE RPA-C Unavailable Unavailable ELENA (SEWELL), N GABE RPA-C Unavailable Unavailable ELENA (SEWELL), N GABE RPA-C Unavailable Unavailable ELENA (SEWELL), N GABE RPA-C Unavailable Unavailable ELENA (SEWELL), N GABE RPA-C Unavailable Unavailable ELENA (SEWELL), N GABE RPA-C Unavailable Unavailable ELENA (SEWELL), N GABE RPA-C Unavailable Unavailable ELENA (SEWELL), N GABE RPA-C Unavailable Unavailable ELENA (SEWELL), N GABE RPA-C Unavailable Unavailable ELENA (SEWELL), N GABE RPA-C Unavailable Unavailable ELENA (SEWELL), N GABE RPA-C Unavailable Unavailable ELENA (SEWELL), N GABE RPA-C Unavailable Unavailable ELENA (SEWELL), N GABE RPA-C Unavailable Unavailable ELENA (SEWELL), N GABE RPA-C Unavailable Unavailable ELENA (SEWELL), N GABE RPA-C Unavailable Unavailable ELENA (SEWELL), N GABE RPA-C Unavailable Unavailable ELENA (SEWELL), N GABE RPA-C Unavailable Unavailable ELENA (SEWELL), N GABE RPA-C Unavailable Unavailable ELENA (SEWELL), N GABE RPA-C Unavailable Unavailable Garcia, Heavenly Del Castillo PA Unavailable Unavailable Garcia, Heavenly Del Castillo PA Unavailable Unavailable Garcia, Heavenly Del Castillo PA Unavailable Unavailable Garcia, Heavenly Del Castillo PA Unavailable Unavailable Garcia, Heavenly Del Castillo PA Unavailable Unavailable Garcia, Heavenly Del Castillo PA Unavailable Unavailable Garcia, Heavenly Del Castillo PA Unavailable Unavailable Garcia, Heavenly Del Castillo PA Unavailable Unavailable Garcia, Heavenly Mullern PA Unavailable Unavailable Garcia, Heavenly Mullern PA Unavailable Unavailable BRITTANI, VALERY PA Unavailable Unavailable BRITTANI, VALERY PA Unavailable Unavailable BRITTANI, VALERY PA Unavailable Unavailable BRITTANI, VALERY PA Unavailable Unavailable BRITTANI, VALERY PA Unavailable Unavailable BRITTANI, VALERY PA Unavailable Unavailable BRITTANI, VALERY PA Unavailable Unavailable BRITTANI, VALERY PA Unavailable Unavailable BRITTANI, VALERY PA Unavailable Unavailable BRITTANI, VALERY PA Unavailable Unavailable BRITTANI, VALERY PA Unavailable Unavailable BRITTANI, VALERY PA Unavailable Unavailable BRITTANI, VALERY PA Unavailable Unavailable BRITTANI, VALERY PA Unavailable Unavailable BRITTANI, VALERY PA Unavailable Unavailable BRITTANI, VALERY PA Unavailable Unavailable BRITTANI, VALERY PA Unavailable Unavailable BRITTANI, VALERY PA Unavailable Unavailable BRITTANI, VALERY PA Unavailable Unavailable BRITTANI, VALERY PA Unavailable Unavailable BRITTANI, VALERY PA Unavailable Unavailable BRITTANI, VALERY PA Unavailable Unavailable BRITTANI, VALERY PA Unavailable Unavailable BRITTANI, VALERY PA Unavailable Unavailable BRITTANI, VALERY PA Unavailable Unavailable BRITTANI, VALERY PA Unavailable Unavailable BRITTANI, VALERY PA Unavailable Unavailable BRITTANI, VALERY PA Unavailable Unavailable BRITTANI, VALERY PA Unavailable Unavailable BRITTANI, VALERY PA Unavailable Unavailable BRITTANI, VALERY PA Unavailable Unavailable BRITTANI, VALERY PA Unavailable Unavailable BRITTANI, VALERY PA Unavailable Unavailable BRITTANI, VALERY PA Unavailable Unavailable BRITTANI, VALERY PA Unavailable Unavailable BRITTANI, VALERY PA Unavailable Unavailable INDRE, P SHERYL MD Unavailable Unavailable INDER, P SHERYL MD Unavailable Unavailable INDER, P SHERYL MD Unavailable Unavailable INDER, P SHERYL MD Unavailable Unavailable INDER, P SHERYL MD Unavailable Unavailable INDER, P SHERYL MD Unavailable Unavailable INDER, P SHERYL MD Unavailable Unavailable INDER, P SHERYL MD Unavailable Unavailable INDER, P SHERYL MD Unavailable Unavailable INDER, P SHERYL MD Unavailable Unavailable INDER, P SHERYL MD Unavailable Unavailable INDER, P SHERYL MD Unavailable Unavailable INDER, P SHERYL MD Unavailable Unavailable INDER, P SHERYL MD Unavailable Unavailable INDER, P SHERYL MD Unavailable Unavailable INDER, P SHERYL MD Unavailable Unavailable INDER, P SHERYL MD Unavailable Unavailable INDER, P SHERYL MD Unavailable Unavailable INDER, P SHERYL MD Unavailable Unavailable INDER, P SHERYL MD Unavailable Unavailable INDER, P SHERYL MD Unavailable Unavailable INDER, P SHERYL MD Unavailable Unavailable INDER, P SHERYL MD Unavailable Unavailable INDER, P SHERYL MD Unavailable Unavailable INDER, P SHERYL MD Unavailable Unavailable INDER, P SHERYL MD Unavailable Unavailable INDER, P SHERYL MD Unavailable Unavailable INDER, P SHERYL MD Unavailable Unavailable INDER, P SHERYL MD Unavailable Unavailable INDER, P SHERYL MD Unavailable Unavailable INDER, P SHERYL MD Unavailable Unavailable INDER, P SHERYL MD Unavailable Unavailable INDER, P SHERYL MD Unavailable Unavailable INDER, P SHERYL MD Unavailable Unavailable INDER, P SHERYL MD Unavailable Unavailable INDER, P SHERYL MD Unavailable Unavailable INDER, P SHERYL MD Unavailable Unavailable INDER, P SHERYL MD Unavailable Unavailable INDER, P SHERYL MD Unavailable Unavailable INDER, P SHERYL MD Unavailable Unavailable INDER, P SHERYL MD Unavailable Unavailable INDER, P SHERYL MD Unavailable Unavailable INDER, P SHERYL MD Unavailable Unavailable INDER, P SHERYL MD Unavailable Unavailable INDER, P SHERYL MD Unavailable Unavailable INDER, P SHERYL MD Unavailable Unavailable INDER, P SHERYL MD Unavailable Unavailable INDER, P SHERYL MD Unavailable Unavailable INDER, P SHERYL MD Unavailable Unavailable INDER, P SHERYL MD Unavailable Unavailable INDER, P SHERYL MD Unavailable Unavailable INDER, P SHERYL MD Unavailable Unavailable INDER, P SHERYL MD Unavailable Unavailable INDER, P SHERYL MD Unavailable Unavailable INDER, P SHERYL MD Unavailable Unavailable INDER, P SHERYL MD Unavailable Unavailable INDER, P SHERYL MD Unavailable Unavailable INDER, P SHERYL MD Unavailable Unavailable INDER, P SHERYL MD Unavailable Unavailable INDER, P SHERYL MD Unavailable Unavailable INDER, P SHERYL MD Unavailable Unavailable INDER, P SHERYL MD Unavailable Unavailable INDER, P SHERYL MD Unavailable Unavailable INDER, P SHERYL MD Unavailable Unavailable INDER, P SHERYL MD Unavailable Unavailable INDER, P SHERYL MD Unavailable Unavailable INDER, P SHERYL MD Unavailable Unavailable INDER, P SHERYL MD Unavailable Unavailable INDER, P SHERYL MD Unavailable Unavailable INDER, P SHERYL MD Unavailable Unavailable INDER, P SHERYL MD Unavailable Unavailable INDER, P SHERYL MD Unavailable Unavailable INDER, P SHERYL MD Unavailable Unavailable INDER, P SHERYL MD Unavailable Unavailable INDER, P SHERYL MD Unavailable Unavailable INDER, P SHERYL MD Unavailable Unavailable INDER, P SHERYL MD Unavailable Unavailable INDER, P SHERYL MD Unavailable Unavailable INDER, P SHERYL MD Unavailable Unavailable INDER, P SHERYL MD Unavailable Unavailable INDER, P SHERYL MD Unavailable Unavailable INDER, P SHERYL MD Unavailable Unavailable INDER, P SHERYL MD Unavailable Unavailable INDER, P SHERYL MD Unavailable Unavailable INDER, P SHERYL MD Unavailable Unavailable INDER, P SHERYL MD Unavailable Unavailable INDER, P SHERYL MD Unavailable Unavailable INDER, P SHERYL MD Unavailable Unavailable INDER, P SHERYL MD Unavailable Unavailable INDER, P SHERYL MD Unavailable Unavailable INDER, P SHERYL MD Unavailable Unavailable INDER, P SHERYL MD Unavailable Unavailable INDER, P SHERYL MD Unavailable Unavailable Michi, Ana Unavailable Unavailable Michi, Ana Unavailable Unavailable Michi, Ana Unavailable Unavailable Barter, D Edu STRIPPER COLOR Unavailable Unavailable Barter, D Edu STRIPPER COLOR Unavailable Unavailable Barter, D Edu STRIPPER COLOR Unavailable Unavailable Barter, D Edu STRIPPER COLOR Unavailable Unavailable Barter, D Edu STRIPPER COLOR Unavailable Unavailable Barter, D Edu STRIPPER COLOR Unavailable Unavailable Barter, D Edu STRIPPER COLOR Unavailable Unavailable Barter, D Edu STRIPPER COLOR Unavailable Unavailable Barter, D Edu STRIPPER COLOR Unavailable Unavailable Barter, D Edu STRIPPER COLOR Unavailable Unavailable Barter, D Edu STRIPPER COLOR Unavailable Unavailable Barter, D Edu STRIPPER COLOR Unavailable Unavailable Barter, D Edu STRIPPER COLOR Unavailable Unavailable Barter, D Edu STRIPPER COLOR Unavailable Unavailable Barter, D Edu STRIPPER COLOR Unavailable Unavailable Barter, D Edu STRIPPER COLOR Unavailable Unavailable Barter, D Edu STRIPPER COLOR Unavailable Unavailable Barter, D Edu STRIPPER COLOR Unavailable Unavailable Barter, D Edu STRIPPER COLOR Unavailable Unavailable Barter, D Edu STRIPPER COLOR Unavailable Unavailable Barter, D Edu STRIPPER COLOR Unavailable Unavailable Barter, D Edu STRIPPER COLOR Unavailable Unavailable Barter, D Edu STRIPPER COLOR Unavailable Unavailable Barter, D Edu STRIPPER COLOR Unavailable Unavailable Barter, D Edu STRIPPER COLOR Unavailable Unavailable Barter, D Edu STRIPPER COLOR Unavailable Unavailable Barter, D Edu STRIPPER COLOR Unavailable Unavailable Barter, D Edu STRIPPER COLOR Unavailable Unavailable Barter, D Edu STRIPPER COLOR Unavailable Unavailable Barter, D Edu STRIPPER COLOR Unavailable Unavailable Barter, D Edu STRIPPER COLOR Unavailable Unavailable Barter, D Edu STRIPPER COLOR Unavailable Unavailable Barter, D Edu STRIPPER COLOR Unavailable Unavailable Barter, D Edu STRIPPER COLOR Unavailable Unavailable Barter, D Edu STRIPPER COLOR Unavailable Unavailable Barter, D Edu STRIPPER COLOR Unavailable Unavailable Barter, D Edu STRIPPER COLOR Unavailable Unavailable Barter, D Edu STRIPPER COLOR Unavailable Unavailable Barter, D Edu STRIPPER COLOR Unavailable Unavailable Barter, D Edu STRIPPER COLOR Unavailable Unavailable Barter, D Edu STRIPPER COLOR Unavailable Unavailable Barter, D Edu STRIPPER COLOR Unavailable Unavailable Barter, D Edu STRIPPER COLOR Unavailable Unavailable Barter, D Edu STRIPPER COLOR Unavailable Unavailable Barter, D Edu STRIPPER COLOR Unavailable Unavailable Barter, D Edu STRIPPER COLOR Unavailable Unavailable Barter, D Edu STRIPPER COLOR Unavailable Unavailable Barter, D Edu STRIPPER COLOR Unavailable Unavailable BartDonald ruiz STRIPPER COLOR Unavailable Unavailable BartDonald ruiz Edu STRIPPER COLOR Unavailable Unavailable Bartsara, Donald Edu STRIPPER COLOR Unavailable Unavailable Barter, Donald Edu STRIPPER COLOR Unavailable Unavailable Barter, Donald Edu STRIPPER COLOR Unavailable Unavailable DESJARLAIS, ASYA LINUX ADMIN ENGINEER Unavailable Unavailable DESJARLAIS, ASYA LINUX ADMIN ENGINEER Unavailable Unavailable DESJARLAIS, ASYA LINUX ADMIN ENGINEER Unavailable Unavailable DESJARLAIS, ASYA LINUX ADMIN ENGINEER Unavailable Unavailable DESJARLAIS, ASYA LINUX ADMIN ENGINEER Unavailable Unavailable DESJARLAIS, ASYA LINUX ADMIN ENGINEER Unavailable Unavailable DESJARLAIS, ASYA LINUX ADMIN ENGINEER Unavailable Unavailable DESJARLAIS, ASYA LINUX ADMIN ENGINEER Unavailable Unavailable DESJARLAIS, ASYA LINUX ADMIN ENGINEER Unavailable Unavailable Geovany Galaviz MD Unavailable Unavailable Geovany Galaviz MD Unavailable Unavailable Geovany Galaviz MD Unavailable Unavailable Geovany Galaviz MD Unavailable Unavailable Geovany Galaviz MD Unavailable Unavailable Geovany Galaviz MD Unavailable Unavailable Geovany Galaviz MD Unavailable Unavailable Geovany Galaviz MD Unavailable Unavailable Geovany Galaviz MD Unavailable Unavailable Geovany Galaviz MD Unavailable Unavailable Geovany Galaviz MD Unavailable Unavailable Geovany Galaviz MD Unavailable Unavailable Geovany Galaviz MD Unavailable Unavailable Geovany Galaviz MD Unavailable Unavailable Geovany Galaviz MD Unavailable Unavailable Geovany Galaviz MD Unavailable Unavailable Geovany Galaviz MD Unavailable Unavailable Geovany Galaviz MD Unavailable Unavailable Geovany Galaviz MD Unavailable Unavailable Geovany Galaviz MD Unavailable Unavailable Geovany Galaviz MD Unavailable Unavailable Geovany Galaviz MD Unavailable Unavailable Geovany Galaviz MD Unavailable Unavailable Geovany Galaviz MD Unavailable Unavailable Geovany Galaviz MD Unavailable Unavailable Geovany Galaviz MD Unavailable Unavailable Geovany Galaviz MD Unavailable Unavailable Geovany Galaviz MD Unavailable Unavailable Geovany Galaviz MD Unavailable Unavailable Geovany Galaviz MD Unavailable Unavailable Geovany Galaviz MD Unavailable Unavailable Geovany Galaviz MD Unavailable Unavailable Geovany Galaviz MD Unavailable Unavailable Geovany Galaviz MD Unavailable Unavailable Geovany Galaviz MD Unavailable Unavailable Geovany Galaviz MD Unavailable Unavailable Geovany Galaviz MD Unavailable Unavailable Geovany Galaviz MD Unavailable Unavailable Geovany Galaviz MD Unavailable Unavailable Geovany Galaviz MD Unavailable Unavailable Geovany Galaviz MD Unavailable Unavailable Geovany Galaviz MD Unavailable Unavailable Geovany Galaviz MD Unavailable Unavailable Geovany Galaviz MD Unavailable Unavailable Geovany Galaviz MD Unavailable Unavailable Geovany Galaviz MD Unavailable Unavailable Geovany Galaviz MD Unavailable Unavailable Geovany Galaviz MD Unavailable Unavailable Galaviz, Geovany Mckeon MD Unavailable Unavailable Guillaume Geovany Mckeon MD Unavailable Unavailable Galaviz Geovany Mckeon MD Unavailable Unavailable Guillaume Geovany Mckeon MD Unavailable Unavailable Galaviz Geovany Mckeon MD Unavailable Unavailable Guillaume Geovany Mckeon MD Unavailable Unavailable Roque Jalen Unavailable Roque Jalen Unavailable Re-disclosure Warning The records that you are about to access may contain information from federally-assisted alcohol or drug abuse programs. If such information is present, then the following federally mandated warning applies: This information has been disclosed to you from records protected by federal confidentiality rules (42 CFR part 2). The federal rules prohibit you from making any further disclosure of this information unless further disclosure is expressly permitted by the written consent of the person to whom it pertains or as otherwise permitted by 42 CFR part 2. A general authorization for the release of medical or other information is NOT sufficient for this purpose. The Federal rules restrict any use of the information to criminally investigate or prosecute any alcohol or drug abuse patient.The records that you are about to access may contain highly sensitive health information, the redisclosure of which is protected by Article 27-F of the [facility] Public Health law. If you continue you may have access to information: Regarding HIV / AIDS; Provided by facilities licensed or operated by the [facility] Office of Mental Health; or Provided by the [facility] Office for People With Developmental Disabilities. If such information is present, then the following [facility] mandated warning applies: This information has been disclosed to you from confidential records which are protected by state law. State law prohibits you from making any further disclosure of this information without the specific written consent of the person to whom it pertains, or as otherwise permitted by law. Any unauthorized further disclosure in violation of state law may result in a fine or custodial sentence or both. A general authorization for the release of medical or other information is NOT sufficient authorization for further disc losure. Family History Family Member Name Family Member Gender Family Member Status Date o f Status Description Data Source(s) Unknown Unknown Problem [facility] ([facility]) Encounters Encounter Providers Location Date Indications Data Source(s ) Outpatient Attender: SHERYL LOVING MD 06/05/2021 12:00:00 AM [facility] Unknown [address] [facility] [address] 04/17/2021 12:00:00 AM EDT [facility]1 ([facility]) Outpatient Attender: Jalen Nevarez 03/16/2021 01:00:00 PM [facility] Outpatient Attender: Mina Mcmanus MD Physical Therapy 03/02/2021 0 2:15:00 PM EDT [facility] ([facility]) Outpatient Attender: ASYA REIS NP 02/21/2021 10: 00:00 AM [facility] [place] [address] [facility] [address] 02/21/2021 12:00:00 AM EDT eCW1 ([facility]) Outpatient Attender: SHERYL CATHERINEeferrer: GABE PARKER ([place]) RPA-C [id number] 01/30/2021 12:00:00 AM EDT - 01/30/2021 05:19:[address] [facility] Outpatient Attender: ASYA REIS NP 01/24/2021 09: 44:00 AM [facility] [address] [facility] [address] 01/19/2021 12:00:00 AM EDT eCW1 ([facility]) [place] [address] [facility] [address] 01/19/2021 12:00:00 AM EDT eCW1 ([facility]) Outpatient Attender: Mike Rodriges/Ponce/Ernesto/Barb strickland 01/03/2021 03:00:00 PM EDT [facility] ([facility]) [place] [address] [facility] [address] 12/08/2020 12:00:00 AM EDT eCW1 ([facility]) [place] [address] [facility] [address] 12/07/2020 12:00:00 AM EDT eCW1 ([facility]) [place] [address] [facility] [address] 12/01/2020 12:00:00 AM EDT [facility]) [place] [address] [facility] [address] 11/28/2020 12:00:00 AM EDT eCW1 ([facility]) Outpatient Attender: Ana Michi 11/25/2020 03:00:00 PM [facility] Outpatient Attender: SHERYL LOVING MDReferrer: GABE PARKER ([place]) RPA-C [id number] 11/21/2020 12:00:00 AM EDT - 11/25/2020 06:43:[address] [facility] [place] [address] [facility] [address] 11/18/2020 12:00:00 AM EDT eCW1 ([facility]) [place] [address] [facility] [address] 11/18/2020 12:00:00 AM EDT eCW1 ([facility]) [place] [address] [facility] [address] 10/31/2020 12:00:00 AM EDT eCW1 ([facility]) [place] [address] [facility] [address] 10/04/2020 12:00:00 AM EDT eCW1 ([facility]) Outpatient Attender: VALERY allen 09/21/2020 04:45:00 PM EDT [facility] ([facility]) Outpatient Attender: Mina Mcmanus MD Physical Therapy 08/24/2020 0 1:15:00 PM EST [facility] ([facility] ) Outpatient Attender: SHERYL LOVING MD [id number] 08/15/2020 12:00:00 A M [facility] Unknown [address] [facility] [address] 07/11/2020 12:00:00 AM EST [facility] [facility] Attender: SHERYL LOVING MDReferrer: Edu Hernández [id number] 05/17/2020 12:00:00 AM EST 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 COVID-19 VACCINE Moderna 10/07/2020 12:00:00 AM EDT completed [facility] Vaccine Series Complete: NOThis Data was Submitted to [facility] [employer]. COVID-19 VACCINE, [id number], LNP-S (MODERNA)/PF 10/07/2020 1 2:00:00 AM EDT completed [facility] Medications Medication Brand Name Start Date Product Form Dose Route Admi nistrative Instructions Pharmacy Instructions Status Indications Reaction Description Data Source(s) 2.5 mg /3 mL (0.083 %) 03/29/2021 12:00:00 AM EDT solu tion for nebulization 300 INHALE 1 VIAL VIA NEBULIZER FOUR TIMES A DAY NEEDED INHALE 1 VIAL VIA NEBULIZER FOUR TIMES A DAY NEEDED SOLD: 04/07/2021 [facility] Acetaminophen 325 MG / Hydrocodone Bitartrate 10 MG Or al Tablet 10-325 mg HYDROCODONE/ACETAMINOPHEN 03/25/2021 12:00:00 AM EDT tablet 180 TAKE ONE TABLET BY MOUTH EVERY 4 TO 6 HOURS NEEDED FOR PAIN MAXIMUM DAILY DOSE = 6 TABLETS TAKE ONE TABLET BY MOUTH EVERY 4 TO 6 HO URS NEEDED FOR PAIN MAXIMUM DAILY DOSE = 6 TABLETS SOLD: 03/26/2021 [facility] Acetaminophen 325 MG / Hydrocodone Bitartrate 10 MG Or al Tablet 10-325 mg HYDROCODONE/ACETAMINOPHEN 02/24/2021 12:00:00 AM EDT tablet 180 TAKE ONE TABLET BY MOUTH EVERY 4 TO 6 HOURS NEEDED FOR PAIN MAXIMUM DAILY DOSE = 6 TABLETS TAKE ONE TABLET BY MOUTH EVERY 4 TO 6 HO URS NEEDED FOR PAIN MAXIMUM DAILY DOSE = 6 TABLETS SOLD: 02/24/2021 [facility] Fluticasone propionate 0.05 MG/ACTUAT Metered Dose [facility] [place] 50 mcg/actuation FLUTICASONE PROPIONATE 02/22/2021 12:00:00 AM EDT spray,suspension 16 SPRAY 2 SPRAYS IN EACH NOSTRIL ONCE A DAY SPRAY 2 SPRAYS IN EACH NOSTRIL ONCE A DAY SOLD: 02/24/2021 [facility] Fluticasone propionate 0.05 MG/ACTUAT Metered Dose [facility] [place] 50 mcg/actuation FLUTICASONE PROPIONATE 02/22/2021 12:00:00 AM EDT spray,suspension 16 SPRAY 2 SPRAYS IN EACH NOSTRIL ONCE A DAY SPRAY 2 SPRAYS IN EACH NOSTRIL ONCE A DAY SOLD: 03/26/2021 [facility] 0.12 % 02/16/2021 12:00:00 AM EDT mouthwash 473 SWISH AND SPIT APPROXIMATELY ONE CAPFUL TWO TIMES A DAY AFTER BRUSHING SWISH AND SPIT APPROXIMATELY ONE CAPFUL TWO TIMES A DAY AFTER BRUSHING SOLD: 02/17/2021 [facility] 100 mg 02/08/2021 12:00:00 AM EDT tablet 60 TAKE ONE TABLET BY MOUTH TWICE A DAY TAKE ONE TABLET BY MOUTH TWICE A DAY SOLD: 03/15/2021 [facility] 100 mg 02/08/2021 12:00:00 AM EDT tablet 60 TAKE ONE TABLET BY MOUTH TWICE A DAY TAKE ONE TABLET BY MOUTH TWICE A DAY SOLD: 02/08/2021 [facility] 10 mg 01/31/2021 12:00:00 AM EDT tablet 30 TAKE ONE TABLET BY MOUTH EVERY DAY TAKE ONE TABLET BY MOUTH EVERY DAY SOLD: 02/02/2021 [facility] Prednisone 10 MG Oral Tablet predniSONE 10 MG Oral Tab let (DELTASONE) predniSONE 10 MG Oral Tablet (DELTASONE) 01/30/2021 12:00:00 AM EDT 10 mg Ora l active Inflammatory arthritisOther systemic lupus erythematos us with lung involvement Take 1 tablet by mouth daily [facility] Inflammatory arthritis Other systemic lupus erythematosus with lung involvement Acetaminophen 325 MG / Hydrocodone Bitartrate 10 MG Or al Tablet 10-325 mg HYDROCODONE/ACETAMINOPHEN 01/27/2021 12:00:00 AM EDT tablet 180 TAKE ONE TABLET BY MOUTH EVERY 4 TO 6 HOURS NEEDED FOR PAIN MAXIMUM DAILY DOSE = 6 TAKE ONE TABLET BY MOUTH EVERY 4 TO 6 HOURS NEEDED FOR PAIN MAXIMUM DAILY DOSE = 6 SOLD: 01/27/2021 [facility] 30 mg 01/25/2021 12:00:00 AM EDT capsule,delayed release (DR/EC) 60 TAKE ONE CAPSULE BY MOUTH TWICE A DAY TAKE ONE CAPSULE BY MOUTH TWICE A DAY SOLD: 01/25/2021 [facility] 50 mg 01/24/2021 12:00:00 AM EDT tablet 30 TAKE ONE TABLET BY MOUTH EVERY DAY TAKE ONE TABLET BY MOUTH EVERY DAY SOLD: 01/25/2021 [facility] 60 ACTUAT Fluticasone propionate 0.232 M G/ACTUAT / Salmeterol xinafoate 0.014 MG/ACTUAT Dry Powder Inhaler 232-14 mcg/actuation FLUTICASONE PROPION/SALMETEROL 01/21/2021 12:00:00 AM EDT aerosol powdr breath activated 1 INHALE ONE PUFF BY MOUTH TWICE A DAY INHALE ONE PUFF BY MOUTH TWICE A DAY SOLD: 04/17/2021 [facility] 60 ACTUAT Fluticasone propionate 0.232 M G/ACTUAT / Salmeterol xinafoate 0.014 MG/ACTUAT Dry Powder Inhaler 232-14 mcg/actuation FLUTICASONE PROPION/SALMETEROL 01/21/2021 12:00:00 AM EDT aerosol powdr breath activated 1 INHALE ONE PUFF BY MOUTH TWICE A DAY INHALE ONE PUFF BY MOUTH TWICE A DAY SOLD: 01/25/2021 [facility] 60 ACTUAT Fluticasone propionate 0.232 M G/ACTUAT / Salmeterol xinafoate 0.014 MG/ACTUAT Dry Powder Inhaler 232-14 mcg/actuation FLUTICASONE PROPION/SALMETEROL 01/21/2021 12:00:00 AM EDT aerosol powdr breath activated 1 INHALE ONE PUFF BY MOUTH TWICE A DAY INHALE ONE PUFF BY MOUTH TWICE A DAY SOLD: 03/15/2021 [facility] 90 mcg/actuation 01/18/2021 12:00:00 AM EDT HFA aerosol inha ler 18 INHALE TWO PUFFS BY MOUTH FOUR TIMES A DAY NEEDED INHALE TWO PUFFS BY MOUTH FOUR TIMES A DAY NEEDED SOLD: 01/20/2021 [facility] 10 mg 01/04/2021 12:00:00 AM EDT tablet 40 TAKE 4 TABLETS BY MOUTH FOR 4 DAYS, THEN 3 TABS. FOR 4 DAYS, THEN 2 TABS. FOR 4 DAYS, THEN 1 TAB. FOR 4 DAYS TAKE 4 TABLETS BY MOUTH FOR 4 DAYS, THEN 3 TABS. FOR 4 DAYS, THEN 2 TABS. FOR 4 DAYS, THEN 1 TAB. FOR 4 DAYS SOLD: 01/04/2021 [facility] Prednisone 10 MG Oral Tablet Prednisone 01/03/2021 12:00:00 AM EDT ORAL active MEDENT ([facility], ) Acetaminophen 325 MG / Hydrocodone Bitartrate 10 MG Or al Tablet 10-325 mg HYDROCODONE/ACETAMINOPHEN 12/29/2020 12:00:00 AM EDT tablet 180 TAKE ONE TABLET BY MOUTH EVERY 4 TO 6 HOURS NEEDED FOR PAIN MAXIMUM DAILY DOSE = 6 TABLETS TAKE ONE TABLET BY MOUTH EVERY 4 TO 6 HO URS NEEDED FOR PAIN MAXIMUM DAILY DOSE = 6 TABLETS SOLD: 12/29/2020 [facility] 50 mcg/actuation 12/28/2020 12:00:00 AM EDT spray,suspension 16 SPRAY 2 SPRAYS IN EACH NOSTRIL ONCE A DAY SPRAY 2 SPRAYS IN EACH NOSTRIL ONCE A DAY SOLD: 01/25/2021 [facility] 60 ACTUAT Fluticasone propionate 0.232 M G/ACTUAT / Salmeterol xinafoate 0.014 MG/ACTUAT Dry Powder Inhaler 232-14 mcg/actuation FLUTICASONE PROPION/SALMETEROL 12/28/2020 12:00:00 AM EDT aerosol powdr breath activated 1 INHALE 1 PUFF BY MOUTH TWO TIMES A DAY INHALE 1 PUFF BY MOUTH TWO TIMES A DAY SOLD: 02/17/2021 [facility] 50 mcg/actuation 12/28/2020 12:00:00 AM EDT spray,suspension 16 SPRAY 2 SPRAYS IN EACH NOSTRIL ONCE A DAY SPRAY 2 SPRAYS IN EACH NOSTRIL ONCE A DAY SOLD: 12/29/2020 [facility] 60 ACTUAT Fluticasone propionate 0.232 M G/ACTUAT / Salmeterol xinafoate 0.014 MG/ACTUAT Dry Powder Inhaler 232-14 mcg/actuation FLUTICASONE PROPION/SALMETEROL 12/28/2020 12:00:00 AM EDT aerosol powdr breath activated 1 INHALE 1 PUFF BY MOUTH TWO TIMES A DAY INHALE 1 PUFF BY MOUTH TWO TIMES A DAY SOLD: 12/29/2020 [facility] montelukast 10 MG Oral Tablet MONTELUKAST SODIUM 12/14/2020 12:0 0:00 AM EDT tablet 30 TAKE ONE TABLET BY MOUTH EVERY D AY AT BEDTIME TAKE ONE TABLET BY MOUTH EVERY DAY AT BEDTIME SOLD: 01/20/2021 [facility] montelukast 10 MG Oral Tablet MONTELUKAST SODIUM 12/14/2020 12:0 0:00 AM EDT tablet 30 TAKE ONE TABLET BY MOUTH EVERY D AY AT BEDTIME TAKE ONE TABLET BY MOUTH EVERY DAY AT BEDTIME SOLD: 12/19/2020 [facility] montelukast 10 MG Oral Tablet MONTELUKAST SODIUM 12/14/2020 12:0 0:00 AM EDT tablet 30 TAKE ONE TABLET BY MOUTH EVERY D AY AT BEDTIME TAKE ONE TABLET BY MOUTH EVERY DAY AT BEDTIME SOLD: 02/21/2021 [facility] montelukast 10 MG Oral Tablet MONTELUKAST SODIUM 12/14/2020 12:0 0:00 AM EDT tablet 30 TAKE ONE TABLET BY MOUTH EVERY D AY AT BEDTIME TAKE ONE TABLET BY MOUTH EVERY DAY AT BEDTIME SOLD: 03/26/2021 [facility] 2.5 mg /3 mL (0.083 %) 12/09/2020 12:00:00 AM EDT solu tion for nebulization 300 INHALE 1 VIAL VIA NEBULIZER FOUR TIMES A DAY NEEDED INHALE 1 VIAL VIA NEBULIZER FOUR TIMES A DAY NEEDED SOLD: 01/04/2021 [facility] 2.5 mg /3 mL (0.083 %) 12/09/2020 12:00:00 AM EDT solu tion for nebulization 300 INHALE 1 VIAL VIA NEBULIZER FOUR TIMES A DAY NEEDED INHALE 1 VIAL VIA NEBULIZER FOUR TIMES A DAY NEEDED SOLD: 02/02/2021 [facility] 2.5 mg /3 mL (0.083 %) 12/09/2020 12:00:00 AM EDT solu tion for nebulization 300 INHALE 1 VIAL VIA NEBULIZER FOUR TIMES A DAY NEEDED INHALE 1 VIAL VIA NEBULIZER FOUR TIMES A DAY NEEDED SOLD: 12/12/2020 [facility] 2.5 mg /3 mL (0.083 %) 12/09/2020 12:00:00 AM EDT solu tion for nebulization 300 INHALE 1 VIAL VIA NEBULIZER FOUR TIMES A DAY NEEDED INHALE 1 VIAL VIA NEBULIZER FOUR TIMES A DAY NEEDED SOLD: 03/07/2021 [facility] 20 mg 12/06/2020 12:00:00 AM EDT tablet 4 TAKE ONE TABLET BY MOUTH EVERY DAY TAKE ONE TABLET BY MOUTH EVERY DAY SOLD: 12/07/2020 [facility] 40 mg 11/29/2020 12:00:00 AM EDT capsule,delayed release (DR/EC) 60 TAKE ONE CAPSULE BY MOUTH TWICE A DAY TAKE ONE CAPSULE BY MOUTH TWICE A DAY SOLD: 01/25/2021 [facility] 40 mg 11/29/2020 12:00:00 AM EDT capsule,delayed release (DR/EC) 60 TAKE ONE CAPSULE BY MOUTH TWICE A DAY TAKE ONE CAPSULE BY MOUTH TWICE A DAY SOLD: 12/28/2020 [facility] 40 mg 11/29/2020 12:00:00 AM EDT capsule,delayed release (DR/EC) 60 TAKE ONE CAPSULE BY MOUTH TWICE A DAY TAKE ONE CAPSULE BY MOUTH TWICE A DAY SOLD: 03/26/2021 [facility] 40 mg 11/29/2020 12:00:00 AM EDT capsule,delayed release (DR/EC) 60 TAKE ONE CAPSULE BY MOUTH TWICE A DAY TAKE ONE CAPSULE BY MOUTH TWICE A DAY SOLD: 02/24/2021 [facility] Acetaminophen 325 MG / Hydrocodone Bitartrate 10 MG Or al Tablet 10-325 mg HYDROCODONE/ACETAMINOPHEN 11/29/2020 12:00:00 AM EDT tablet 180 TAKE ONE TABLET BY MOUTH EVERY 4 TO 6 HOURS NEEDED FOR PAIN MAXIMUM DAILY DOSE = 6 TABLETS TAKE ONE TABLET BY MOUTH EVERY 4 TO 6 HO URS NEEDED FOR PAIN MAXIMUM DAILY DOSE = 6 TABLETS SOLD: 11/30/2020 [facility] 40 mg 11/29/2020 12:00:00 AM EDT capsule,delayed release (DR/EC) 60 TAKE ONE CAPSULE BY MOUTH TWICE A DAY TAKE ONE CAPSULE BY MOUTH TWICE A DAY SOLD: 11/30/2020 [facility] 20 mg 11/24/2020 12:00:00 AM EDT tablet 120 TAKE ONE TABLET BY MOUTH FOUR TIMES A DAY TAKE ONE TABLET BY MOUTH FOUR TIMES A DAY SOLD: 11/25/2020 [facility] 20 mg 11/24/2020 12:00:00 AM EDT tablet 120 TAKE ONE TABLET BY MOUTH FOUR TIMES A DAY TAKE ONE TABLET BY MOUTH FOUR TIMES A DAY SOLD: 02/24/2021 [facility] 20 mg 11/24/2020 12:00:00 AM EDT tablet 120 TAKE ONE TABLET BY MOUTH FOUR TIMES A DAY TAKE ONE TABLET BY MOUTH FOUR TIMES A DAY SOLD: 01/25/2021 [facility] 20 mg 11/24/2020 12:00:00 AM EDT tablet 120 TAKE ONE TABLET BY MOUTH FOUR TIMES A DAY TAKE ONE TABLET BY MOUTH FOUR TIMES A DAY SOLD: 12/28/2020 [facility] 20 mg 11/24/2020 12:00:00 AM EDT tablet 120 TAKE ONE TABLET BY MOUTH FOUR TIMES A DAY TAKE ONE TABLET BY MOUTH FOUR TIMES A DAY SOLD: 03/26/2021 [facility] 10 mg 11/22/2020 12:00:00 AM EDT tablet 30 TAKE ONE TABLET BY MOUTH EVERY DAY TAKE ONE TABLET BY MOUTH EVERY DAY SOLD: 11/23/2020 [facility] Prednisone 10 MG Oral Tablet predniSONE 10 MG Oral Tab let (DELTASONE) predniSONE 10 MG Oral Tablet (DELTASONE) 11/21/2020 12:00:00 AM EDT 10 mg Ora l active Inflammatory arthritisOther systemic lupus erythematos us with lung involvement Take 1 tablet by mouth daily [facility] Inflammatory arthritis Other systemic lupus erythematosus with lung involvement gabapentin 800 MG Oral Tablet GABAPENTIN 11/16/2020 12:00:00 AM EDT ta blet 90 TAKE ONE TABLET BY MOUTH THREE TIMES A DAY TAKE ONE TABLET BY MOUTH THREE TIMES A DAY SOLD: 11/16/2020 [facility] gabapentin 800 MG Oral Tablet GABAPENTIN 11/16/2020 12:00:00 AM EDT ta blet 90 TAKE ONE TABLET BY MOUTH THREE TIMES A DAY TAKE ONE TABLET BY MOUTH THREE TIMES A DAY SOLD: 02/17/2021 [facility] gabapentin 800 MG Oral Tablet GABAPENTIN 11/16/2020 12:00:00 AM EDT ta blet 90 TAKE ONE TABLET BY MOUTH THREE TIMES A DAY TAKE ONE TABLET BY MOUTH THREE TIMES A DAY SOLD: 04/17/2021 [facility] gabapentin 800 MG Oral Tablet GABAPENTIN 11/16/2020 12:00:00 AM EDT ta blet 90 TAKE ONE TABLET BY MOUTH THREE TIMES A DAY TAKE ONE TABLET BY MOUTH THREE TIMES A DAY SOLD: 01/20/2021 [facility] gabapentin 800 MG Oral Tablet GABAPENTIN 11/16/2020 12:00:00 AM EDT ta blet 90 TAKE ONE TABLET BY MOUTH THREE TIMES A DAY TAKE ONE TABLET BY MOUTH THREE TIMES A DAY SOLD: 12/19/2020 [facility] gabapentin 800 MG Oral Tablet GABAPENTIN 11/16/2020 12:00:00 AM EDT ta blet 90 TAKE ONE TABLET BY MOUTH THREE TIMES A DAY TAKE ONE TABLET BY MOUTH THREE TIMES A DAY SOLD: 03/20/2021 [facility] 8 mg 11/16/2020 12:00:00 AM EDT tablet,disintegrating 6 DISSOLVE 1 TABLET ON TONGUE THEN SWALLOW EVERY 8 HOURS FOR 2 DAYS DISSOLVE 1 TABLET ON TONGUE THEN SWALLOW EVERY 8 HOURS FOR 2 DAYS SOLD: 11/16/2020 [facility] 8 mg 11/08/2020 12:00:00 AM EDT tablet,disintegrating 6 DISSOLVE 1 TABLET ON THE TONGUE THEN SWALLOW EVERY 8 HOURS FOR 2 DAYS DISSOLVE 1 TABLET ON THE TONGUE THEN SWALLOW EVERY 8 HOURS FOR 2 DAYS SOLD: 11/09/2020 [facility] 60 ACTUAT Fluticasone propionate 0.232 M G/ACTUAT / Salmeterol xinafoate 0.014 MG/ACTUAT Dry Powder Inhaler 232-14 mcg/actuation FLUTICASONE PROPION/SALMETEROL 10/31/2020 12:00:00 AM EDT aerosol powdr breath activated 1 INHALE 1 PUFF BY MOUTH TWO TIMES A DAY INHALE 1 PUFF BY MOUTH TWO TIMES A DAY SOLD: 11/30/2020 [facility] Acetaminophen 325 MG / Hydrocodone Bitartrate 10 MG Or al Tablet 10-325 mg HYDROCODONE/ACETAMINOPHEN 10/31/2020 12:00:00 AM EDT tablet 180 TAKE 1 TABLET BY MOUTH EVERY 4-6 HOURS NEEDED FOR PAIN MAXIMUM DAILY DOSE = 6 TABLETS TAKE 1 TABLET BY MOUTH EVERY 4-6 HOURS NEEDED FOR PAIN MAXIMUM DAILY DOSE = 6 TABLETS SOLD: 10/31/2020 [facility] Fluticasone Propionate Fluticasone Propionate 10/31/2020 12:00:00 AM E DT active MEDENT ([facility], ) 50 mcg/actuation 10/31/2020 12:00:00 AM EDT spray,suspension 16 SPRAY 2 SPRAYS IN EACH NOSTRIL ONCE A DAY SPRAY 2 SPRAYS IN EACH NOSTRIL ONCE A DAY SOLD: 11/30/2020 [facility] Terbinafine HCl 1 % Terbinafine HCl 1 % 10/04/2020 12:00:00 AM EDT 1.0 {application} active Terbinafine HCl 1 % eCW1 ([facility]) Terbinafine HCl 1 % Terbinafine HCl 1 % 10/04/2020 12:00:00 AM EDT 1.0 {application} active Terbinafine HCl 1 % eCW1 ([facility]) Terbinafine HCl 1 % Terbinafine HCl 1 % 10/04/2020 12:00:00 AM EDT 1.0 {application} active Terbinafine HCl 1 % eCW1 ([facility]) Terbinafine HCl 1 % Terbinafine HCl 1 % 10/04/2020 12:00:00 AM EDT 1.0 {application} active Terbinafine HCl 1 % eCW1 ([facility]) Terbinafine HCl 1 % Terbinafine HCl 1 % 10/04/2020 12:00:00 AM EDT 1.0 {application} active Terbinafine HCl 1 % eCW1 ([facility]) Terbinafine HCl 1 % Terbinafine HCl 1 % 10/04/2020 12:00:00 AM EDT 1.0 {application} active Terbinafine HCl 1 % eCW1 ([facility]) Terbinafine HCl 1 % Terbinafine HCl 1 % 10/04/2020 12:00:00 AM EDT 1.0 {application} active Terbinafine HCl 1 % eCW1 ([facility]) Terbinafine HCl 1 % Terbinafine HCl 1 % 10/04/2020 12:00:00 AM EDT 1.0 {application} active Terbinafine HCl 1 % eCW1 ([facility]) Terbinafine HCl 1 % Terbinafine HCl 1 % 10/04/2020 12:00:00 AM EDT 1.0 {application} active Terbinafine HCl 1 % eCW1 ([facility]) Terbinafine HCl 1 % Terbinafine HCl 1 % 10/04/2020 12:00:00 AM EDT 1.0 {application} active Terbinafine HCl 1 % eCW1 ([facility]) Terbinafine HCl 1 % Terbinafine HCl 1 % 10/04/2020 12:00:00 AM EDT 1.0 {application} active Terbinafine HCl 1 % eCW1 ([facility]) Terbinafine HCl 1 % Terbinafine HCl 1 % 10/04/2020 12:00:00 AM EDT 1.0 {application} active Terbinafine HCl 1 % eCW1 ([facility]) 1 % 10/04/2020 12:00:00 AM EDT cream 30 APPLY TO AFFECTED AREA(S) AXILLA TWO TIMES A DAY FOR 14 DAYS APPLY TO AFFECTED AREA(S) AXILLA TWO MAGGIE ES A DAY FOR 14 DAYS SOLD: 10/04/2020 [facility] 10-325 mg 10/01/2020 12:00:00 AM EDT tablet 180 TAKE 1 TABLET BY MOUTH EVERY 4-6 HOURS NEEDED FOR PAIN MAXIMUM DAILY DOSE = 6 TAKE 1 TABLET BY MOUTH EVERY 4-6 HOURS NEEDED FOR PAIN MAXIMUM DAILY DOSE = 6 SOLD: 10/03/2020 [facility] Acetaminophen 300 MG / Codeine Phosphate 30 MG Oral Tablet [Tylenol with Codeine] Tylenol With Codeine #3 2020 12:00:00 AM EDT active MEDENT ([facility]) [id number] 09/27/2020 12:00:00 AM EDT suspension 120 SWISH AND SPIT 5 ML BY MOUTH THREE TIMES A DAY SWISH AND SPIT 5 ML BY MOUTH THREE TIMES A DAY SOLD: 2020 [facility] 875-125 mg 09/21/2020 12:00:00 AM EDT tablet 14 TAKE ONE TABLET BY MOUTH TWICE A DAY FOR 7 DAYS TAKE ONE TABLET BY MOUTH TWICE A DAY FOR 7 DAYS SOLD: 09/21/2020 [facility] Methylprednisolone Sodium Succinate To 125 MG 09/21/2020 1 2:00:00 AM EDT completed MEDENT ([facility]) Medication administered onsite 20 mg 09/21/2020 12:00:00 AM EDT tablet 8 TAKE TWO TABLETS BY MOUTH EVERY DAY FOR 4 DAYS TAKE TWO TABLETS BY MOUTH EVERY DAY FOR 4 DAYS SOLD: 021 [facility] Prednisone 20 MG Oral Tablet Prednisone 09/21/2020 12:00:00 AM EDT ORAL active MEDENT ([facility]) Amoxicillin 875 MG / Clavulanate 125 MG Oral Tablet Am oxicillin/Clavulanate Potassium 09/21/2020 12:00:00 AM EDT ORAL active MEDENT ([facility]) 10-325 mg 09/02/2020 12:00:00 AM EST tablet 180 TAKE ONE TABLET BY MOUTH EVERY 4 TO 6 HOURS NEEDED FOR PAIN MAXIMUM DAILY DOSE = 6 TAKE ONE TABLET BY MOUTH EVERY 4 TO 6 HOURS NEEDED FOR PAIN MAXIMUM DAILY DOSE = 6 SOLD: 09/02/2020 [facility] 0.025 % (0.035 %) 08/16/2020 12:00:00 AM EST drops 5 INSTILL 1 DROP INTO BOTH EYES TWO TIMES A DAY INSTILL 1 DROP INTO BOTH EYES TWO TIMES A DAY SOLD: 12/31/2020 [facility] 0.025 % (0.035 %) 08/16/2020 12:00:00 AM EST drops 5 INSTILL 1 DROP INTO BOTH EYES TWO TIMES A DAY INSTILL 1 DROP INTO BOTH EYES TWO TIMES A DAY SOLD: 12/07/2020 [facility] 0.025 % (0.035 %) 08/16/2020 12:00:00 AM EST drops 5 INSTILL 1 DROP INTO BOTH EYES TWO TIMES A DAY INSTILL 1 DROP INTO BOTH EYES TWO TIMES A DAY SOLD: 02/21/2021 [facility] 0.025 % (0.035 %) 08/16/2020 12:00:00 AM EST drops 5 INSTILL 1 DROP INTO BOTH EYES TWO TIMES A DAY INSTILL 1 DROP INTO BOTH EYES TWO TIMES A DAY SOLD: 04/17/2021 [facility] 0.025 % (0.035 %) 08/16/2020 12:00:00 AM EST drops 5 INSTILL 1 DROP INTO BOTH EYES TWO TIMES A DAY INSTILL 1 DROP INTO BOTH EYES TWO TIMES A DAY SOLD: 01/25/2021 [facility] 0.025 % (0.035 %) 08/16/2020 12:00:00 AM EST drops 5 INSTILL 1 DROP INTO BOTH EYES TWO TIMES A DAY INSTILL 1 DROP INTO BOTH EYES TWO TIMES A DAY SOLD: 10/13/2020 [facility] 0.025 % (0.035 %) 08/16/2020 12:00:00 AM EST drops 5 INSTILL 1 DROP INTO BOTH EYES TWO TIMES A DAY INSTILL 1 DROP INTO BOTH EYES TWO TIMES A DAY SOLD: 03/20/2021 [facility] 0.025 % (0.035 %) 08/16/2020 12:00:00 AM EST drops 5 INSTILL 1 DROP INTO BOTH EYES TWO TIMES A DAY INSTILL 1 DROP INTO BOTH EYES TWO TIMES A DAY SOLD: 09/13/2020 [facility] 0.025 % (0.035 %) 08/16/2020 12:00:00 AM EST drops 5 INSTILL 1 DROP INTO BOTH EYES TWO TIMES A DAY INSTILL 1 DROP INTO BOTH EYES TWO TIMES A DAY SOLD: 11/08/2020 [facility] 0.025 % (0.035 %) 08/16/2020 12:00:00 AM EST drops 5 INSTILL 1 DROP INTO BOTH EYES TWO TIMES A DAY INSTILL 1 DROP INTO BOTH EYES TWO TIMES A DAY SOLD: 08/17/2020 [facility] mycophenolate mofetil 500 MG Oral Tablet Mycophenolate Mofetil 500 MG Oral Tablet (CELLCEPT) Mycophenolate Mofetil 500 MG Oral Tablet (CELLCEPT) 12:00:00 AM EST active Epis cleritis of both eyesPositive FRANKY (antinuclear antibody)Inflammatory arthritisOther systemic lupus erythematosus with lung involvement Take 2 tablets in the morning and 1 ta blet at night [facility] Episcleritis of both eyes Positive FRANKY (antinuclear antibody) Inflammatory arthritis Other systemic lupus erythematosus with lung involvement 2.5 mg /3 mL (0.083 %) 08/15/2020 12:00:00 AM EST solu tion for nebulization 300 INHALE 1 VIAL VIA NEBULIZER FOUR TIMES A DAY NEEDED INHALE 1 VIAL VIA NEBULIZER FOUR TIMES A DAY NEEDED SOLD: 11/16/2020 [facility] 2.5 mg /3 mL (0.083 %) 08/15/2020 12:00:00 AM EST solu tion for nebulization 300 INHALE 1 VIAL VIA NEBULIZER FOUR TIMES A DAY NEEDED INHALE 1 VIAL VIA NEBULIZER FOUR TIMES A DAY NEEDED SOLD: 10/18/2020 [facility] 2.5 mg /3 mL (0.083 %) 08/15/2020 12:00:00 AM EST solu tion for nebulization 300 INHALE 1 VIAL VIA NEBULIZER FOUR TIMES A DAY NEEDED INHALE 1 VIAL VIA NEBULIZER FOUR TIMES A DAY NEEDED SOLD: 08/17/2020 [facility] Ketotifen 0.25 MG/ML Ophthalmic Solution Ketotifen Fumarate 0.025 % Ophthalmic Solution (Zaditor) Ketotifen Fumarate 0.025 % Ophthalmic Solution (Zadito r) 08/15/2020 12:00:00 AM EST 1 [drp] Both Eyes active Place 1 drop into both eyes Two Times Daily [facility] Prednisone 10 MG Oral Tablet predniSONE 10 MG Oral Tab let (DELTASONE) predniSONE 10 MG Oral Tablet (DELTASONE) 08/15/2020 12:00:00 AM EST 10 mg Or al active Episcleritis of both eyesPositive FRANKY (a ntinuclear antibody)Inflammatory arthritisHigh risk medication useOther systemic lupus erythematosus with lung involvement Take 1 tablet by mouth daily [facility] Episcleritis of both eyes Positive FRANKY (antinuclear antibody) Inflammatory arthritis High risk medication use Other systemic lupus erythematosus with lung involvement 10 mg 08/15/2020 12:00:00 AM EST tablet 30 TAKE ONE TABLET BY MOUTH EVERY DAY TAKE ONE TABLET BY MOUTH EVERY DAY SOLD: 08/17/2020 [facility] 2.5 mg /3 mL (0.083 %) 08/15/2020 12:00:00 AM EST solu tion for nebulization 300 INHALE 1 VIAL VIA NEBULIZER FOUR TIMES A DAY NEEDED INHALE 1 VIAL VIA NEBULIZER FOUR TIMES A DAY NEEDED SOLD: 09/13/2020 [facility] 100 mg 08/04/2020 12:00:00 AM EST tablet 60 TAKE ONE TABLET BY MOUTH TWICE A DAY TAKE ONE TABLET BY MOUTH TWICE A DAY SOLD: 11/30/2020 [facility] 10-325 mg 08/04/2020 12:00:00 AM EST tablet 180 TAKE 1 TABLET BY MOUTH EVERY 4-6 HOURS NEEDED FOR PAIN MAXIMUM DAILY DOSE = 6 TAKE 1 TABLET BY MOUTH EVERY 4-6 HOURS NEEDED FOR PAIN MAXIMUM DAILY DOSE = 6 SOLD: 08/04/2020 [facility] 100 mg 08/04/2020 12:00:00 AM EST tablet 60 TAKE ONE TABLET BY MOUTH TWICE A DAY TAKE ONE TABLET BY MOUTH TWICE A DAY SOLD: 12/28/2020 [facility] 100 mg 08/04/2020 12:00:00 AM EST tablet 60 TAKE ONE TABLET BY MOUTH TWICE A DAY TAKE ONE TABLET BY MOUTH TWICE A DAY SOLD: 10/03/2020 [facility] 100 mg 08/04/2020 12:00:00 AM EST tablet 60 TAKE ONE TABLET BY MOUTH TWICE A DAY TAKE ONE TABLET BY MOUTH TWICE A DAY SOLD: 08/04/2020 [facility] 100 mg 08/04/2020 12:00:00 AM EST tablet 60 TAKE ONE TABLET BY MOUTH TWICE A DAY TAKE ONE TABLET BY MOUTH TWICE A DAY SOLD: 09/02/2020 [facility] mycophenolate mofetil 500 MG Oral Tablet Mycophenolate Mofetil 500 MG Oral Tablet (CELLCEPT) Mycophenolate Mofetil 500 MG Oral Tablet (CELLCEPT) 12:00:00 AM EST aborted TAKE O NE TABLET BY MOUTH TWICE A DAY [facility] Acetaminophen 325 MG / Hydrocodone Lacy trate 10 MG Oral Tablet HYDROcodone- Acetaminophen 10-325 MG Oral Tablet (VICODIN) HYDROcodone-Acetaminophen 10-325 MG Oral Tablet (VICODIN) 07/05/2020 12:00:00 AM EST active TAKE 1 TABLET BY MOUTH EVERY 4 6 HOURS NEEDED FOR PAIN MAXIMUM DAILY DOSE [address] [facility] 10-325 mg 07/05/2020 12:00:00 AM EST tablet 180 TAKE 1 TABLET BY MOUTH EVERY 4-6 HOURS NEEDED FOR PAIN MAXIMUM DAILY DOSE = 6 TAKE 1 TABLET BY MOUTH EVERY 4-6 HOURS NEEDED FOR PAIN MAXIMUM DAILY DOSE = 6 SOLD: 07/05/2020 [facility] 10 mg 07/04/2020 12:00:00 AM EST tablet 9 TAKE 1 TABLET BY MOUTH ONCE DAILY- MAY REPEAT IN 2 HOURS MAXIMUM DAILY DOSE = 2 TABLETS TAKE 1 TABLET BY MOUTH ONCE DAILY- MAY REPEAT IN 2 HOURS MAXIMUM DAILY DOSE = 2 TABLETS SOLD: 07/05/2020 [facility] 10 mg 07/04/2020 12:00:00 AM EST tablet 9 TAKE 1 TABLET BY MOUTH ONCE DAILY- MAY REPEAT IN 2 HOURS MAXIMUM DAILY DOSE = 2 TABLETS TAKE 1 TABLET BY MOUTH ONCE DAILY- MAY REPEAT IN 2 HOURS MAXIMUM DAILY DOSE = 2 TABLETS SOLD: 01/20/2021 [facility] montelukast 10 MG Oral Tablet MONTELUKAST SODIUM 06/07/2020 12:0 0:00 AM EST tablet 30 TAKE ONE TABLET BY MOUTH EVERY D AY AT BEDTIME TAKE ONE TABLET BY MOUTH EVERY DAY AT BEDTIME SOLD: 07/19/2020 [facility] montelukast 10 MG Oral Tablet MONTELUKAST SODIUM 06/07/2020 12:0 0:00 AM EST tablet 30 TAKE ONE TABLET BY MOUTH EVERY D AY AT BEDTIME TAKE ONE TABLET BY MOUTH EVERY DAY AT BEDTIME SOLD: 11/16/2020 [facility] montelukast 10 MG Oral Tablet MONTELUKAST SODIUM 06/07/2020 12:0 0:00 AM EST tablet 30 TAKE ONE TABLET BY MOUTH EVERY D AY AT BEDTIME TAKE ONE TABLET BY MOUTH EVERY DAY AT BEDTIME SOLD: 06/15/2020 [facility] montelukast 10 MG Oral Tablet MONTELUKAST SODIUM 06/07/2020 12:0 0:00 AM EST tablet 30 TAKE ONE TABLET BY MOUTH EVERY D AY AT BEDTIME TAKE ONE TABLET BY MOUTH EVERY DAY AT BEDTIME SOLD: 10/13/2020 [facility] montelukast 10 MG Oral Tablet MONTELUKAST SODIUM 06/07/2020 12:0 0:00 AM EST tablet 30 TAKE ONE TABLET BY MOUTH EVERY D AY AT BEDTIME TAKE ONE TABLET BY MOUTH EVERY DAY AT BEDTIME SOLD: 09/14/2020 [facility] montelukast 10 MG Oral Tablet MONTELUKAST SODIUM 06/07/2020 12:0 0:00 AM EST tablet 30 TAKE ONE TABLET BY MOUTH EVERY D AY AT BEDTIME TAKE ONE TABLET BY MOUTH EVERY DAY AT BEDTIME SOLD: 08/17/2020 [facility] montelukast 10 MG Oral Tablet Montelukast Sodium 06/06/2020 12:00:00 AM EST active MEDENT ([facility]) 20 mg 06/06/2020 12:00:00 AM EST tablet 120 TAKE ONE TABLET BY MOUTH FOUR TIMES A DAY TAKE ONE TABLET BY MOUTH FOUR TIMES A DAY SOLD: 08/04/2020 [facility] 20 mg 06/06/2020 12:00:00 AM EST tablet 120 TAKE ONE TABLET BY MOUTH FOUR TIMES A DAY TAKE ONE TABLET BY MOUTH FOUR TIMES A DAY SOLD: 07/05/2020 [facility] 20 mg 06/06/2020 12:00:00 AM EST tablet 120 TAKE ONE TABLET BY MOUTH FOUR TIMES A DAY TAKE ONE TABLET BY MOUTH FOUR TIMES A DAY SOLD: 06/06/2020 [facility] 10-325 mg 06/06/2020 12:00:00 AM EST tablet 180 TAKE ONE TABLET BY MOUTH EVERY 4 TO 6 HOURS NEEDED FOR PAIN MAXIMUM DAILY DOSE = 6 TABLETS TAKE ONE TABLET BY MOUTH EVERY 4 TO 6 HOURS NEEDED FOR PAIN MAXIMUM DAILY DOSE = 6 TABLETS SOLD: 06/06/2020 [facility] 20 mg 06/06/2020 12:00:00 AM EST tablet 120 TAKE ONE TABLET BY MOUTH FOUR TIMES A DAY TAKE ONE TABLET BY MOUTH FOUR TIMES A DAY SOLD: 10/03/2020 [facility] 20 mg 06/06/2020 12:00:00 AM EST tablet 120 TAKE ONE TABLET BY MOUTH FOUR TIMES A DAY TAKE ONE TABLET BY MOUTH FOUR TIMES A DAY SOLD: 09/06/2020 [facility] 90 mcg/actuation 05/19/2020 12:00:00 AM EST HFA aerosol inha ler 18 INHALE TWO PUFFS BY MOUTH FOUR TIMES A DAY NEEDED INHALE TWO PUFFS BY MOUTH FOUR TIMES A DAY NEEDED SOLD: 08/17/2020 [facility] 90 mcg/actuation 05/19/2020 12:00:00 AM EST HFA aerosol inha ler 18 INHALE TWO PUFFS BY MOUTH FOUR TIMES A DAY NEEDED INHALE TWO PUFFS BY MOUTH FOUR TIMES A DAY NEEDED SOLD: 10/13/2020 [facility] 90 mcg/actuation 05/19/2020 12:00:00 AM EST HFA aerosol inha ler 18 INHALE TWO PUFFS BY MOUTH FOUR TIMES A DAY NEEDED INHALE TWO PUFFS BY MOUTH FOUR TIMES A DAY NEEDED SOLD: 12/07/2020 [facility] 90 mcg/actuation 05/19/2020 12:00:00 AM EST HFA aerosol inha ler 18 INHALE TWO PUFFS BY MOUTH FOUR TIMES A DAY NEEDED INHALE TWO PUFFS BY MOUTH FOUR TIMES A DAY NEEDED SOLD: 11/08/2020 [facility] 90 mcg/actuation 05/19/2020 12:00:00 AM EST HFA aerosol inha ler 18 INHALE TWO PUFFS BY MOUTH FOUR TIMES A DAY NEEDED INHALE TWO PUFFS BY MOUTH FOUR TIMES A DAY NEEDED SOLD: 09/13/2020 [facility] 90 mcg/actuation 05/19/2020 12:00:00 AM EST HFA aerosol inha ler 18 INHALE TWO PUFFS BY MOUTH FOUR TIMES A DAY NEEDED INHALE TWO PUFFS BY MOUTH FOUR TIMES A DAY NEEDED SOLD: 06/15/2020 [facility] 90 mcg/actuation 05/19/2020 12:00:00 AM EST HFA aerosol inha ler 18 INHALE TWO PUFFS BY MOUTH FOUR TIMES A DAY NEEDED INHALE TWO PUFFS BY MOUTH FOUR TIMES A DAY NEEDED SOLD: 12/31/2020 [facility] 90 mcg/actuation 05/19/2020 12:00:00 AM EST HFA aerosol inha ler 18 INHALE TWO PUFFS BY MOUTH FOUR TIMES A DAY NEEDED INHALE TWO PUFFS BY MOUTH FOUR TIMES A DAY NEEDED SOLD: 07/19/2020 [facility] 90 mcg/actuation 05/19/2020 12:00:00 AM EST HFA aerosol inha ler 18 INHALE TWO PUFFS BY MOUTH FOUR TIMES A DAY NEEDED INHALE TWO PUFFS BY MOUTH FOUR TIMES A DAY NEEDED SOLD: 05/23/2020 [facility] 90 mcg/actuation 05/19/2020 12:00:00 AM EST HFA aerosol inha ler 18 INHALE TWO PUFFS BY MOUTH FOUR TIMES A DAY NEEDED INHALE TWO PUFFS BY MOUTH FOUR TIMES A DAY NEEDED SOLD: 02/09/2021 [facility] 90 mcg/actuation 05/19/2020 12:00:00 AM EST HFA aerosol inha ler 18 INHALE TWO PUFFS BY MOUTH FOUR TIMES A DAY NEEDED INHALE TWO PUFFS BY MOUTH FOUR TIMES A DAY NEEDED SOLD: 03/31/2021 [facility] 90 mcg/actuation 05/19/2020 12:00:00 AM EST HFA aerosol inha ler 18 INHALE TWO PUFFS BY MOUTH FOUR TIMES A DAY NEEDED INHALE TWO PUFFS BY MOUTH FOUR TIMES A DAY NEEDED SOLD: 03/07/2021 [facility] 40 mg 05/18/2020 12:00:00 AM EST capsule,delayed release (DR/EC) 60 TAKE 1 CAPSULE BY MOUTH 30 MINUTES BEFORE MORNING MEAL TWICE DAILY TAKE 1 CAPSULE BY MOUTH 30 MINUTES BEFORE MORNING MEAL TWICE DAILY SOLD: 10/03/2020 [facility] 40 mg 05/18/2020 12:00:00 AM EST capsule,delayed release (DR/EC) 60 TAKE 1 CAPSULE BY MOUTH 30 MINUTES BEFORE MORNING MEAL TWICE DAILY TAKE 1 CAPSULE BY MOUTH 30 MINUTES BEFORE MORNING MEAL TWICE DAILY SOLD: 05/23/2020 [facility] 40 mg 05/18/2020 12:00:00 AM EST capsule,delayed release (DR/EC) 60 TAKE 1 CAPSULE BY MOUTH 30 MINUTES BEFORE MORNING MEAL TWICE DAILY TAKE 1 CAPSULE BY MOUTH 30 MINUTES BEFORE MORNING MEAL TWICE DAILY SOLD: 06/27/2020 [facility] 40 mg 05/18/2020 12:00:00 AM EST capsule,delayed release (DR/EC) 60 TAKE 1 CAPSULE BY MOUTH 30 MINUTES BEFORE MORNING MEAL TWICE DAILY TAKE 1 CAPSULE BY MOUTH 30 MINUTES BEFORE MORNING MEAL TWICE DAILY SOLD: 07/28/2020 [facility] 40 mg 05/18/2020 12:00:00 AM EST capsule,delayed release (DR/EC) 60 TAKE 1 CAPSULE BY MOUTH 30 MINUTES BEFORE MORNING MEAL TWICE DAILY TAKE 1 CAPSULE BY MOUTH 30 MINUTES BEFORE MORNING MEAL TWICE DAILY SOLD: 09/02/2020 [facility] mycophenolate mofetil 500 MG Oral Tablet Mycophenolate Mofetil 500 MG Oral Tablet (CELLCEPT) Mycophenolate Mofetil 500 MG Oral Tablet (CELLCEPT) 12:00:00 AM EST 500 mg Oral aborted Oth er systemic lupus erythematosus with lung involvement Take 1 tablet by mouth Two Times Daily [facility] Other systemic lupus erythematosus with lung involvement gabapentin 800 MG Oral Tablet GABAPENTIN 05/13/2020 12:00:00 AM EST ta blet 90 TAKE ONE TABLET BY MOUTH THREE TIMES A DAY TAKE ONE TABLET BY MOUTH THREE TIMES A DAY SOLD: 08/17/2020 [facility] gabapentin 800 MG Oral Tablet GABAPENTIN 05/13/2020 12:00:00 AM EST ta blet 90 TAKE ONE TABLET BY MOUTH THREE TIMES A DAY TAKE ONE TABLET BY MOUTH THREE TIMES A DAY SOLD: 07/19/2020 [facility] gabapentin 800 MG Oral Tablet GABAPENTIN 05/13/2020 12:00:00 AM EST ta blet 90 TAKE ONE TABLET BY MOUTH THREE TIMES A DAY TAKE ONE TABLET BY MOUTH THREE TIMES A DAY SOLD: 10/13/2020 [facility] gabapentin 800 MG Oral Tablet GABAPENTIN 05/13/2020 12:00:00 AM EST ta blet 90 TAKE ONE TABLET BY MOUTH THREE TIMES A DAY TAKE ONE TABLET BY MOUTH THREE TIMES A DAY SOLD: 09/14/2020 [facility] gabapentin 800 MG Oral Tablet GABAPENTIN 05/13/2020 12:00:00 AM EST ta blet 90 TAKE ONE TABLET BY MOUTH THREE TIMES A DAY TAKE ONE TABLET BY MOUTH THREE TIMES A DAY SOLD: 06/15/2020 [facility] gabapentin 800 MG Oral Tablet GABAPENTIN 05/13/2020 12:00:00 AM EST ta blet 90 TAKE ONE TABLET BY MOUTH THREE TIMES A DAY TAKE ONE TABLET BY MOUTH THREE TIMES A DAY SOLD: 05/16/2020 [facility] 10-325 mg 05/08/2020 12:00:00 AM EDT tablet 180 TAKE ONE TABLET BY MOUTH EVERY 4 TO 6 HOURS NEEDED FOR PAIN MAXIMUM DAILY DOSE = 6 TABLETS TAKE ONE TABLET BY MOUTH EVERY 4 TO 6 HOURS NEEDED FOR PAIN MAXIMUM DAILY DOSE = 6 TABLETS SOLD: 05/08/2020 [facility] 875-125 mg 05/08/2020 12:00:00 AM EDT tablet 14 TAKE ONE TABLET BY MOUTH TWICE A DAY FOR 7 DAYS TAKE ONE TABLET BY MOUTH TWICE A DAY FOR 7 DAYS SOLD: 05/08/2020 [facility] Amoxicillin 875 MG / Clavulanate 125 MG Oral Tablet Am oxicillin/Clavulanate Potassium 05/08/2020 12:00:00 AM EDT ORAL completed [facility] ([facility]) Methylprednisolone Sodium Succinate To 125 MG 05/08/2020 1 2:00:00 AM EDT completed MEDENT ([facility], [facility]) Medication administered onsite 50 mcg/actuation 05/06/2020 12:00:00 AM EDT spray,suspension 16 SPRAY 2 SPRAYS IN EACH NOSTRIL EVERY DAY SPRAY 2 SPRAYS IN EACH NOSTRIL EVERY DAY SOLD: 09/02/2020 [facility] 232-14 mcg/actuation 05/06/2020 12:00:00 AM EDT aerosol powdr breath activated 1 INHALE 1 PUFF BY MOUTH TWO TIMES A DAY INHALE 1 PUFF BY MOUTH TWO TIMES A DAY SOLD: 05/08/2020 [facility] 50 mcg/actuation 05/06/2020 12:00:00 AM EDT spray,suspension 16 SPRAY 2 SPRAYS IN EACH NOSTRIL EVERY DAY SPRAY 2 SPRAYS IN EACH NOSTRIL EVERY DAY SOLD: 10/03/2020 [facility] 232-14 mcg/actuation 05/06/2020 12:00:00 AM EDT aerosol powdr breath activated 1 INHALE 1 PUFF BY MOUTH TWO TIMES A DAY INHALE 1 PUFF BY MOUTH TWO TIMES A DAY SOLD: 07/05/2020 [facility] 50 mcg/actuation 05/06/2020 12:00:00 AM EDT spray,suspension 16 SPRAY 2 SPRAYS IN EACH NOSTRIL EVERY DAY SPRAY 2 SPRAYS IN EACH NOSTRIL EVERY DAY SOLD: 05/07/2020 [facility] 50 mcg/actuation 05/06/2020 12:00:00 AM EDT spray,suspension 16 SPRAY 2 SPRAYS IN EACH NOSTRIL EVERY DAY SPRAY 2 SPRAYS IN EACH NOSTRIL EVERY DAY SOLD: 06/06/2020 [facility] 232-14 mcg/actuation 05/06/2020 12:00:00 AM EDT aerosol powdr breath activated 1 INHALE 1 PUFF BY MOUTH TWO TIMES A DAY INHALE 1 PUFF BY MOUTH TWO TIMES A DAY SOLD: 06/06/2020 [facility] 232-14 mcg/actuation 05/06/2020 12:00:00 AM EDT aerosol powdr breath activated 1 INHALE 1 PUFF BY MOUTH TWO TIMES A DAY INHALE 1 PUFF BY MOUTH TWO TIMES A DAY SOLD: 08/04/2020 [facility] 50 mcg/actuation 05/06/2020 12:00:00 AM EDT spray,suspension 16 SPRAY 2 SPRAYS IN EACH NOSTRIL EVERY DAY SPRAY 2 SPRAYS IN EACH NOSTRIL EVERY DAY SOLD: 07/05/2020 [facility] 232-14 mcg/actuation 05/06/2020 12:00:00 AM EDT aerosol powdr breath activated 1 INHALE 1 PUFF BY MOUTH TWO TIMES A DAY INHALE 1 PUFF BY MOUTH TWO TIMES A DAY SOLD: 10/03/2020 [facility] 232-14 mcg/actuation 05/06/2020 12:00:00 AM EDT aerosol powdr breath activated 1 INHALE 1 PUFF BY MOUTH TWO TIMES A DAY INHALE 1 PUFF BY MOUTH TWO TIMES A DAY SOLD: 09/02/2020 [facility] 50 mcg/actuation 05/06/2020 12:00:00 AM EDT spray,suspension 16 SPRAY 2 SPRAYS IN EACH NOSTRIL EVERY DAY SPRAY 2 SPRAYS IN EACH NOSTRIL EVERY DAY SOLD: 08/04/2020 [facility] 2.5 mg /3 mL (0.083 %) 05/05/2020 12:00:00 AM EDT solu tion for nebulization 300 INHALE 1 VIAL VIA NEBULIZER FOUR TIMES A DAY NEEDED INHALE 1 VIAL VIA NEBULIZER FOUR TIMES A DAY NEEDED SOLD: 05/05/2020 [facility] 10 mg 05/05/2020 12:00:00 AM EDT tablet 40 TAKE 4 TABLETS BY MOUTH DAILY FOR 4 DAYS, 3 TABS. DAILY FOR 4 DAYS, 2 TABS. DAILY FOR 4 DAYS, THEN 1 TAB. DAILY FOR 4 DAYS AND STOP TAKE 4 TABLETS BY MOUTH DAILY FOR 4 DAYS , 3 TABS. DAILY FOR 4 DAYS, 2 TABS. DAILY FOR 4 DAYS, THEN 1 TAB. DAILY FOR 4 DAYS AND STOP SOLD: 05/05/2020 [facility] 2.5 mg /3 mL (0.083 %) 05/05/2020 12:00:00 AM EDT solu tion for nebulization 300 INHALE 1 VIAL VIA NEBULIZER FOUR TIMES A DAY NEEDED INHALE 1 VIAL VIA NEBULIZER FOUR TIMES A DAY NEEDED SOLD: 06/03/2020 [facility] Fluticasone Propionate/Salmeterol Fluticasone Propionate/Asher meterol 05/05/2020 12:00:00 AM EDT ORAL active M [facility] ([facility], ) 2.5 mg /3 mL (0.083 %) 05/05/2020 12:00:00 AM EDT solu tion for nebulization 300 INHALE 1 VIAL VIA NEBULIZER FOUR TIMES A DAY NEEDED INHALE 1 VIAL VIA NEBULIZER FOUR TIMES A DAY NEEDED SOLD: 06/27/2020 [facility] 2.5 mg /3 mL (0.083 %) 05/05/2020 12:00:00 AM EDT solu tion for nebulization 300 INHALE 1 VIAL VIA NEBULIZER FOUR TIMES A DAY NEEDED INHALE 1 VIAL VIA NEBULIZER FOUR TIMES A DAY NEEDED SOLD: 07/23/2020 [facility] 90 mcg/actuation 05/04/2020 12:00:00 AM EDT HFA aerosol inha ler 18 INHALE 2 PUFFS BY MOUTH FOUR TIMES A DAY NEEDED INHALE 2 PUFFS BY MOUTH FOUR TIMES A DAY NEEDED SOLD: 05/04/2020 [facility] 100 mg 05/04/2020 12:00:00 AM EDT capsule 20 TAKE ONE CAPSULE BY MOUTH TWICE A DAY FOR 10 DAYS TAKE ONE CAPSULE BY MOUTH TWICE A DAY FOR 10 DAYS SOLD : 05/04/2020 [facility] 20 mg 05/04/2020 12:00:00 AM EDT tablet 5 TAKE ONE TABLET BY MOUTH EVERY DAY FOR 5 DAYS TAKE ONE TABLET BY MOUTH EVERY DAY FOR 5 DAYS SOLD: 05/04/2020 [facility] 10-325 mg 04/09/2020 12:00:00 AM EDT tablet 180 TAKE ONE TABLET BY MOUTH EVERY 4 TO 6 HOURS NEEDED FOR PAIN MAXIMUM DAILY DOSE = 6 TABLETS TAKE ONE TABLET BY MOUTH EVERY 4 TO 6 HOURS NEEDED FOR PAIN MAXIMUM DAILY DOSE = 6 TABLETS SOLD: 04/09/2020 [facility] 10-325 mg 03/11/2020 12:00:00 AM EDT tablet 180 TAKE ONE TABLET BY MOUTH EVERY 4 TO 6 HOURS NEEDED FOR PAIN MAXIMUM DAILY DOSE = 6 TABLETS TAKE ONE TABLET BY MOUTH EVERY 4 TO 6 HOURS NEEDED FOR PAIN MAXIMUM DAILY DOSE = 6 TABLETS SOLD: 03/11/2020 [facility] Amoxicillin 875 MG / Clavulanate 125 MG Oral Tablet Am oxicillin/Clavulanate Potassium 02/13/2020 12:00:00 AM EDT ORAL completed [facility] ([facility], [facility]) Prednisone 20 MG Oral Tablet Prednisone 02/13/2020 12:00:00 AM EDT ORAL completed [facility] ([facility]) Albuterol 0.83 MG/ML Inhalant Solution Albuterol Sulfate 0 02/13/2020 12:00:00 AM EDT completed [facility] ([facility], [facility]) 60 mg 02/05/2020 12:00:00 AM EDT capsule,delayed release (DR/EC) 30 TAKE ONE CAPSULE BY MOUTH EVERY DAY TAKE ONE CAPSULE BY MOUTH EVERY DAY SOLD: 03/11/2020 [facility] 60 mg 02/05/2020 12:00:00 AM EDT capsule,delayed release (DR/EC) 30 TAKE ONE CAPSULE BY MOUTH EVERY DAY TAKE ONE CAPSULE BY MOUTH EVERY DAY SOLD: 04/09/2020 [facility] 60 mg 02/05/2020 12:00:00 AM EDT capsule,delayed release (DR/EC) 30 TAKE ONE CAPSULE BY MOUTH EVERY DAY TAKE ONE CAPSULE BY MOUTH EVERY DAY SOLD: 05/08/2020 [facility] 30 mg 02/05/2020 12:00:00 AM EDT capsule,delayed release (DR/EC) 30 TAKE ONE CAPSULE BY MOUTH EVERY DAY IN THE EVENING TAKE ONE CAPSULE BY MOUTH EVERY DAY IN THE EVENING SOLD: 03/11/2020 [facility] 30 mg 02/05/2020 12:00:00 AM EDT capsule,delayed release (DR/EC) 30 TAKE ONE CAPSULE BY MOUTH EVERY DAY IN THE EVENING TAKE ONE CAPSULE BY MOUTH EVERY DAY IN THE EVENING SOLD: 04/09/2020 [facility] 30 mg 02/05/2020 12:00:00 AM EDT capsule,delayed release (DR/EC) 30 TAKE ONE CAPSULE BY MOUTH EVERY DAY IN THE EVENING TAKE ONE CAPSULE BY MOUTH EVERY DAY IN THE EVENING SOLD: 05/08/2020 [facility] 100 mg 12/29/2019 12:00:00 AM EDT tablet 60 TAKE ONE TABLET BY MOUTH TWICE A DAY TAKE ONE TABLET BY MOUTH TWICE A DAY SOLD: 03/11/2020 [facility] 100 mg 12/29/2019 12:00:00 AM EDT tablet 60 TAKE ONE TABLET BY MOUTH TWICE A DAY TAKE ONE TABLET BY MOUTH TWICE A DAY SOLD: 06/06/2020 [facility] 100 mg 12/29/2019 12:00:00 AM EDT tablet 60 TAKE ONE TABLET BY MOUTH TWICE A DAY TAKE ONE TABLET BY MOUTH TWICE A DAY SOLD: 04/09/2020 [facility] 100 mg 12/29/2019 12:00:00 AM EDT tablet 60 TAKE ONE TABLET BY MOUTH TWICE A DAY TAKE ONE TABLET BY MOUTH TWICE A DAY SOLD: 05/08/2020 [facility] Folic Acid 1 MG Oral Tablet Folic Acid 1 MG Oral Table t (FOLVITE) Folic Acid 1 MG Oral Tablet (FOLVITE) 12/07/2019 12:00:00 AM EDT aborted TAKE ONE TABLET BY MOUTH EVERY DAY [facility] montelukast 10 MG Oral Tablet MONTELUKAST SODIUM 12/07/2019 12:0 0:00 AM EDT tablet 30 TAKE ONE TABLET BY MOUTH EVERY D AY AT BEDTIME TAKE ONE TABLET BY MOUTH EVERY DAY AT BEDTIME SOLD: 04/09/2020 [facility] montelukast 10 MG Oral Tablet MONTELUKAST SODIUM 12/07/2019 12:0 0:00 AM EDT tablet 30 TAKE ONE TABLET BY MOUTH EVERY D AY AT BEDTIME TAKE ONE TABLET BY MOUTH EVERY DAY AT BEDTIME SOLD: 03/11/2020 [facility] montelukast 10 MG Oral Tablet MONTELUKAST SODIUM 12/07/2019 12:0 0:00 AM EDT tablet 30 TAKE ONE TABLET BY MOUTH EVERY D AY AT BEDTIME TAKE ONE TABLET BY MOUTH EVERY DAY AT BEDTIME SOLD: 05/08/2020 [facility] gabapentin 800 MG Oral Tablet GABAPENTIN 11/14/2019 12:00:00 AM EDT ta blet 90 TAKE 1 TABLET BY MOUTH THREE TIMES A DAY TAKE 1 TABLET BY MOUTH THREE TIMES A DAY SOLD: 04/09/2020 [facility] gabapentin 800 MG Oral Tablet GABAPENTIN 11/14/2019 12:00:00 AM EDT ta blet 90 TAKE 1 TABLET BY MOUTH THREE TIMES A DAY TAKE 1 TABLET BY MOUTH THREE TIMES A DAY SOLD: 03/11/2020 [facility] 232-14 mcg/actuation 10/12/2019 12:00:00 AM EDT aerosol powdr breath activated 1 INHALE 1 PUFF BY MOUTH TWO TIMES A DAY INHALE 1 PUFF BY MOUTH TWO TIMES A DAY SOLD: 03/02/2020 [facility] 232-14 mcg/actuation 10/12/2019 12:00:00 AM EDT aerosol powdr breath activated 1 INHALE 1 PUFF BY MOUTH TWO TIMES A DAY INHALE 1 PUFF BY MOUTH TWO TIMES A DAY SOLD: 04/08/2020 [facility] 90 mcg/actuation 09/22/2019 12:00:00 AM EDT HFA aerosol inha ler 18 INHALE TWO PUFFS BY MOUTH FOUR TIMES A DAY NEEDED INHALE TWO PUFFS BY MOUTH FOUR TIMES A DAY NEEDED SOLD: 03/22/2020 [facility] 90 mcg/actuation 09/22/2019 12:00:00 AM EDT HFA aerosol inha ler 18 INHALE TWO PUFFS BY MOUTH FOUR TIMES A DAY NEEDED INHALE TWO PUFFS BY MOUTH FOUR TIMES A DAY NEEDED SOLD: 02/24/2020 [facility] celecoxib 200 MG Oral Capsule Celecoxib 200 MG Oral Ca psule (CeleBREX) Celecoxib 200 MG Oral Capsule (CeleBREX) 09/17/2019 12:00:00 AM EDT aborted TAKE ONE CAPSULE BY MOUTH EVERY DAY [facility] 0.025 % (0.035 %) 07/23/2019 12:00:00 AM EST drops 5 INSTILL 1 DROP INTO BOTH EYES TWO TIMES A DAY INSTILL 1 DROP INTO BOTH EYES TWO TIMES A DAY SOLD: 05/25/2020 [facility] 0.025 % (0.035 %) 07/23/2019 12:00:00 AM EST drops 5 INSTILL 1 DROP INTO BOTH EYES TWO TIMES A DAY INSTILL 1 DROP INTO BOTH EYES TWO TIMES A DAY SOLD: 06/27/2020 [facility] 0.025 % (0.035 %) 07/23/2019 12:00:00 AM EST drops 5 INSTILL 1 DROP INTO BOTH EYES TWO TIMES A DAY INSTILL 1 DROP INTO BOTH EYES TWO TIMES A DAY SOLD: 07/23/2020 [facility] mycophenolate mofetil 500 MG Oral Tablet Mycophenolate Mofetil 500 MG Oral Tablet (CELLCEPT) Mycophenolate Mofetil 500 MG Oral Tablet (CELLCEPT) 12:00:00 AM EST 1500 mg Oral aborted Oth er systemic lupus erythematosus with lung involvement Take 3 tablets by mouth Two Times [facility] Other systemic lupus erythematosus with lung involvement Adalimumab 40 MG/0.4ML Subcutaneous Pen-injector Kit (HUMIRA ) [id number] 05/22/2019 12:00:00 AM EST aborted Uveitis INJECT 40 MG UNDER THE SKIN EVERY OTHER WEEK [facility] Uveitis mycophenolate mofetil 500 MG Oral Tablet mycophenolate (CELLCEPT) 500 MG tablet mycophenolate (CELLCEPT) 500 MG tablet 02/16/2019 12:00:00 AM EDT aborted TAKE THREE TABLETS BY MOUTH TW A DAY [facility] duloxetine 60 MG Delayed Release Oral Ca psule DULoxetine (CYMBALTA) 60 MG capsule DULoxetine (CYMBALTA) 60 MG capsule 03/03/2018 12:00:00 AM EDT 60 mg aborted [address] [facility] Lorazepam 1 MG Oral Tablet LORazepam (ATIVAN) 1 MG tab let LORazepam (ATIVAN) 1 MG tablet 10/11/2017 12:00:00 AM EDT aborted TAKE ONE TABLET BY MOUTH THREE TIMES A DAY NEEDED MAXIMUM DAILY DOSE [address] [facility] Clonidine Hydrochloride 0.1 MG Oral Tablet cloNIDine ( CATAPRES) 0.1 MG tablet cloNIDine (CATAPRES) 0.1 MG tablet 08/27/2017 12:00:00 AM EST aborted TAKE ONE TABLET BY MOUTH EVERY DAY AT BE DTIME [facility] Ketorolac Tromethamine 5 MG/ML Ophthalmi c Solution ketorolac (ACULAR) 0.5 % ophthalmic solution ketorolac (ACULAR) 0.5 % ophthalmic solution 1 [drp] Left Eye aborted Place 1 drop into th e left eye Four times daily [facility] Melatonin 3 MG Oral Tablet melatonin 3 MG tablet melatonin 3 MG table t 3 mg Oral aborted Take 3 mg by mouth a s needed [facility] Oxycodone Hydrochloride 5 MG Oral Tablet oxyCODONE (ROXICODONE) 5 MG immediate release tablet oxyCODONE (ROXICODONE) 5 MG immediate release tablet 5 mg Oral aborted Take 5 mg by mouth e very 6 (six) hours as needed for Pain [facility] Minocycline 100 MG Oral Capsule minocycline (MINOCIN,D YNACIN) 100 MG capsule minocycline (MINOCIN,DYNACIN) 100 MG capsule aborted minocycline 100 mg capsule Take 1 capsule every 12 hours [address] oral route[address] [facility] Nystatin 950227 UNT/ML Oral Suspension n ystatin (MYCOSTATIN) 174734 UNIT/ML suspension nystatin (MYCOSTATIN) 115979 UNIT/ML suspension 5 10934 U Oral aborted Take 500,000 Units by mouth Three times daily as needed [facility] Insurance Providers Payer name Policy type / Coverage type Policy ID Covered green party ID Covered green party's relationship to fraser Policy [employer] Plan Information [facility] () Workers Compensation [id number] Self [id number] [employer] Workers Compensation [id number] Self [id number] [facility] Workers Compensation [id number] Self [id number] [facility] Workers Compensation [id number] Self [id number] [facility] Workers Compensation [id number] Self [id number] [facility] Workers Compensation [id number] Self [id number] [facility] Workers Compensation [id number] Self [id number] [facility] Workers Compensation [id number] Self [id number] [facility] Workers Compensation [id number] Self [id number] [facility] Workers Compensation [id number] Self [id number] [facility] [employer] Compensation [id number] 2.16.840.1.542522.3.227.99.991.28213.0 Self [id number] [facility] [employer] Compensation [id number] MRN.991.09385p4f-9k6j-[id number] Self [id number] [facility] [employer] Compensation [id number] 2.16.840.1.636996.3.227.99.991.21708.0 Self [id number] [facility] [employer] [id number] MRN.991.33917g0s-6s9n-[id number]-74kg3j5k5318 Self [id number] [facility] [employer] Compensation [id number] 2.16.840.1.824499.3.227.99.991.63399.0 Self [id number] [facility] [employer] Compensation [id number] 2.16.840.1.271608.3.227.99.991.21053.0 Self [id number] [facility] [facility] Workers Compensation [id number] 2.16.840.1.659856.3.227.99.991.54340.0 Self [id number] [facility] Workers Compensation [id number] 2.16.840.1.572588.3.227.99.991.79837.0 Self [id number] [facility] Workers Compensation [id number] 2.16.840.1.922664.3.227.99.991.97526.0 Self [id number] [facility] Workers Compensation [id number] 2.16.840.1.359048.3.227.99.991.55605.0 Self [id number] [facility] Workers Compensation [id number] 2.16.840.1.416033.3.227.99.991.37656.0 Self [id number] [facility]) Workers Compensation [id number] 2.16.840.1.879659.3.227.99.991.70883.0 Self 4 [id number] [facility] Workers Compensation [id number] Self [facility] Workers Compensation [id number] 2.16.840.1.557758.3.227.99.991.55539.0 Self 4 [id number] [facility] Workers Compensation [id number] 2.16.840.1.703881.3.227.99.991.39421.0 Self 4 [id number] [facility] Workers Compensation [id number] 2.16.840.1.715353.3.227.99.991.70229.0 Self [id number] [facility] Workers Compensation [id number] Self [id number] [facility] Workers Compensation [id number] 2.16.840.1.332197.3.227.99.991.03960.0 Self 4 [id number] [facility] Workers Compensation [id number] 2.16.840.1.844165.3.227.99.991.81040.0 Self 4 [id number] [facility] Workers Compensation [id number] 2.16.840.1.899955.3.227.99.991.72784.0 Self 4 [id number] [facility] Workers Compensation [id number].[id number] Self [id number] [employer] [place]/307 [id number] SP [id number] [employer] [place]/307 [id number] SP [id number] [place] 302/307 [id number] SP [id number] [place] P[place] 302/307 [id number] SP [id number] [place] P[place] 302/307 [id number] SP [id number] [place] 302/307 [id number] SP [id number] [place] 302/307 [id number] SP [id number] BS [facility] Part B [id number] 2.0.1.052416.3.227.99.991.890619.0 Self [id number] BS [facility] Part B [id number] 2..1.886581.3.227.99.991.435789.0 Self [id number] BS [facility] Part B [id number] 2..1.309410.3.227.99.991.469818.0 Self [id number] BS [facility] Part B [id number] 2..1.716203.3.227.99.991.219939.0 Self [id number] BS [facility] Part B [id number] 2..1.243065.3.227.99.991.212134.0 Self [id number] [facility] Part B [id number] 2..1.889772.3.227.99.991.039541.0 Family Dependent [id number] [facility] Part B [id number] 2..1.548527.3.227.99.991.260477.0 Family Dependent [id number] [facility] Part B [id number] 2.0.1.459191.3.227.99.991.275787.0 Family Dependent [id number] [facility] Part B [id number] 2..1.962458.3.227.99.991.530552.0 Family Dependent [id number] [facility] Part B [id number] .1.154[id number] Family Dependent [id number] EMPIRE PLAN [facility] U [id number] Spouse [id number] MVP EXCHANGE U [id number] Self [id number] MVP H [id number] Self [id number] MVP Exchange Hmo Commercial [id number] Self [id number] MVP Exchange Hmo Commercial [id number] Self Carlyss Purchase Plan F [id number] SELF [id number] BRIAN EXCHANGE U [id number] Self [id number] BRIAN [facility] [place] [id number] SP [id number] Carlyss Purchase Plan F [id number] SELF [id number] MEDICAID M [id number] Self [id number] Medicaid [facility] Part B .[id number] [facility] S D [id number] SELF [id number] [facility] Community Plan Commercial [id number] Medicaid [facility] S D [id number] SELF [id number] UHC I [id number] Self [id number] [facility] [id number] SP [id number] UHC I [id number] Self [id number] MEDICAID M [id number] Self [id number] UHC I [id number] Self [id number] [facility] I [id number] Self [id number] [facility] Care Hmo Commercial [id number] Self [id number] [facility] Community Plan Commercial [id number] .[id number] [id number] Self [id number] [facility] [id number] S [id number] UNHC COMMUNITY PLAN MCDO [id number] SP [id number] Medicaid S [id number] S [id number] Managed Care - Community Plan [facility] P [id number] S [id number] Managed Care - [facility] Community Plan P [id number] S [id number] UNHC COMMUNITY PLAN MCDHMO [id number] SP [id number] BCBS [place] 304/804 [id number] SP [id number] [place] [id number] S [id number] C[facility] Care Commercial [id number] Self [facility] HE[facility] CARE O [id number] S [id number] BCBS [place] PPO 302/307 [id number] SP [id number] [facility] O [id number] S [id number] [facility] COMMUNITY PLAN [facility] [id number] SP [id number] [facility] [id number] SP [id number] [facility] PHY [id number] SP [id number] [facility] P UNAVAILABLE [id number] S UNAVAILABLE [facility] P [id number] S [id number] BCBS [place] MAXIM DIV [id number] [id number] EMPIRE ([facility]) P [id number] P [id number] EXCELLUS BCBS P [id number] S VYS [id number] BCBS [place] O [id number] S [id number] [employer]CE[place]US BCBS P [id number] S VYS [id number] EXCELLUS BCBS P [id number] S [id number] BCBS [place] O [id number] S [id number] BS [facility] Medigap Part B [id number] [id number] Self [id number] UN[facility] FBH [id number] S [id number] BS [facility] Medigap Part B [id number] 2.0.1.435[id number] Self [id number] BS [facility] [id number] 2.0.1.065[id number] Self [id number] [facility] COMMUNITY PLAN XIX [id number] 18 [id number] [facility] Health Maintenance Organization ([facility] [id number] 2.840.1.19[id number] Self [id number] [facility] Maintenance Organization ([facility] [id number] 2.0.1.489[id number] Self [id number] [facility] Maintenance Organization (O) [id number] 2.0.1.124[id number] Self [id number] [facility] Commercial [id number] Self [facility] Health Maintenance Organization ([facility] [id number] 2.840.1.491863.3.227.99.1767.80984.0 Self [id number] [facility] Maintenance [facility] ([facility] [id number] 2.0.1.299968.3.227.99.1767.86468.0 Self [id number] BS [facility] Part B [id number] [id number] Self [id number] [facility] [id number] Comme rcial Insurance [id number] BS [facility] Medigap Part B [id number] 2.0.1.491[id number] Self [id number] ID IDENTIFICATION [id number] 2.16.840.1.1 [id number] Other Insurance [id number] O UNAVAILABLE [facility]NA[facility]ILA BLE [facility] [id number] S [id number] MEDICAID [id number] SP [id number] [facility]) O [id number] S [id number] [facility]) O UNAVAILABLE [id number] S UNAVAILABLE O UNAVAILABLE UNAVAILA BLE Medicaid [facility] S D [id number] SELF [id number] [facility] COMMUNITY PLAN [id number] SP [id number] [facility] COMMUNITY PLAN UNAVAILABLE UNAVAILABLE BRIAN [id number] SP [id number] [facility] [id number] HU2 [id number] [facility] [id number] HU2 89 [id number] BC [place] 304/804 [id number] SP [id number] [facility] Comm Plan Medicaid F [id number] SELF [id number] Problems, Conditions, and Diagnoses Code Display Name Description Problem Type Effective Dates Data Source(s) G89.4 Chronic pain syndrome CHRONIC PAIN SYNDROME Diagnosis 03/16/2021 01:00:00 PM [facility] F41.0 Panic disorder [episodic paroxysmal anxi ety] PANIC DISORDER [EPISODIC PAROXYSMAL ANXIETY] Diagnosis 03/16/2021 01:00:00 PM [facility] F33.0 Major depressive disorder, recurrent, mi ld MAJOR DEPRESSIVE DISORDER, RECURRENT, MILD Diagnosis 03/16/2021 01:00:00 PM [facility] L93.0 Discoid lupus erythematosus DISCOID LUPUS ERYTHEMATOSU S Diagnosis 02/21/2021 10:00:00 AM [facility] F41.9 Anxiety disorder, unspecified ANXIETY DISORDER, UNSPEC IFIED Diagnosis 11/25/2020 03:00:00 PM [facility] F32.9 Major depressive disorder, single episod e, unspecified MAJOR DEPRESSIVE DISORDER, SINGLE EPISODE, UNSPECIFIED Diagnosis 11/25/2020 03:00:00 PM [facility] M32.13 Lung involvement in systemic lupus eryth ematosus Lung involvement in systemic lupus erythematosus Diagnosis 05/17/2020 07:27:42 AM EST [facility] R60.1 [id number] Generalized edema Problem 01/19/2021 12:00:0 0 AM EDT eCW1 ([facility]) N39.46 Mixed incontinence Mixed incontinence Problem 12:00:00 AM EST eCW1 ([facility]) R92.8 [id number] Abnormal mammogram of right breast Proble m 07/11/2020 12:00:00 AM EST eCW1 ([facility]) I73.00 [id number] Raynaud's disease without gangrene Proble m 05/17/2020 12:00:00 AM EST eCW1 ([facility]) E83.42 [id number] Hypomagnesemia Problem 05/17/2020 12:00:00 A M EST eCW1 ([facility]) G89.4 [id number] Chronic pain syndrome Problem 05/17/2020 12: 00:00 AM EST eCW1 ([facility]) G43.009 [id number] Migraine without aur a and without status migrainosus, not intractable Problem 05/17/2020 12:00:00 AM EST eCW1 ([facility]) M32.9 [id number] SLE (systemic lupus erythematosus related syndrome) Problem 05/17/2020 12:00:00 AM EST eCW1 ([facility]) K21.9 [id number] GERD without esophagitis Problem 05/17/2020 12:00:00 AM EST eCW1 ([facility]) M79.7 [id number] Fibromyalgia Problem 05/17/2020 12:00:00 AM EST eCW1 ([facility]) F34.1 [id number] Dysthymia Problem 05/17/2020 12:00:00 AM ES T eCW1 ([facility]) J45.20 [id number] Mild intermittent asthma without complica tion Problem 05/17/2020 12:00:00 AM EST eCW1 ([facility]) Surgeries/Procedures Procedure Description Date Indications Data Source(s) OFFICE OUTPATIENT VISIT 25 MINUTES 03/02/2021 12:00:00 AM EDT [facility] ([facility]) DNA ANTIBODY PASSAMAQUODDY/DOUBLE STRANDED <td>FRANKY SPECIFICITY</td><td>Routine</td><td>01/30/2021 5:24 PM EDT</td><td> Other systemic lupus erythematosus with lung involvement Inflammatory arthritis</td><td> </td> 01/30/2021 05:24:00 PM EDT Inflammatory arthritisOther systemic lup us erythematosus with lung involvement [facility] Inflammatory arthritis Other systemic lupus erythematosus with lung involvement SEDIMENTATION RATE RBC AUTOMATED <td>SEDIMENTATION RAT E, AUTOMATED</td><td>Routine</td><td>01/30/2021 5:24 PM EDT</td><td> Other systemic lupus erythematosus with lung involvement Inflammatory arthritis High risk medication use</td><td> </td> 01/30/2021 05:24:00 PM EDT High risk medication useInflammatory art hritisOther systemic lupus erythematosus with lung involvement [facility] High risk medication use Inflammatory arthritis Other systemic lupus erythematosus with lung involvement BLOOD COUNT COMPLETE AUTO&AUTO DIFRNTL WBC COUNT <td>C BC AND DIFFERENTIAL</td><td>Routine</td><td>01/30/2021 5:24 PM EDT</td><td> Other systemic lupus erythematosus with lung involvement Inflammatory arthritis High risk medication use</td><td> </td> 01/30/2021 05:24:00 PM EDT High risk medication useInflammatory art hritisOther systemic lupus erythematosus with lung involvement [facility] High risk medication use Inflammatory arthritis Other systemic lupus erythematosus with lung involvement COMPLEMENT ANTIGEN EACH COMPONENT <td>C3 COMPLEMENT</td><td>Routine</td><td>01/30/2021 5:24 PM EDT</td><td> Other systemic lupus erythematosus with lung involvement Inflammatory arthritis</td><td> </td> 01/30/2021 05:24:00 PM EDT Inflammatory arthritisOther systemic lup us erythematosus with lung involvement [facility] Inflammatory arthritis Other systemic lupus erythematosus with lung involvement COMPLEMENT ANTIGEN EACH COMPONENT <td>C4 COMPLEMENT</td><td>Routine</td><td>01/30/2021 5:24 PM EDT</td><td> Other systemic lupus erythematosus with lung involvement</td><td> </td> 01/30/2021 05:24:00 PM EDT Other systemic lupus erythematosus with lung involveme [facility] Other systemic lupus erythematosus with lung involvement C-REACTIVE PROTEIN <td>INFLAMMATORY C-REACTIVE PROTEIN (CRP)</td><td>Routine</td><td>01/30/2021 5:24 PM EDT</td><td> Other systemic lupus erythematosus with lung involvement Inflammatory arthritis High risk medication use</td><td> </td> 01/30/2021 05:24:00 PM EDT High risk medication useInflammatory art hritisOther systemic lupus erythematosus with lung involvement [facility] High risk medication use Inflammatory arthritis Other systemic lupus erythematosus with lung involvement ANTINUCLEAR ANTIBODIES FRANKY <td>FRANKY</td><td>Routine</td ><td>01/30/2021 5:24 PM EDT</td><td> Other systemic lupus erythematosus with lung involvement Inflammatory arthritis</td><td> </td> 01/30/2021 05:24:00 PM EDT Inflammatory arthritisOther systemic lup us erythematosus with lung involvement [facility] Inflammatory arthritis Other systemic lupus erythematosus with lung involvement COMPREHENSIVE METABOLIC PANEL <td>COMPREHENSIVE METABO LIC PANEL</td><td>Routine</td><td>01/30/2021 5:24 PM EDT</td><td> Other systemic lupus erythematosus with lung involvement Inflammatory arthritis High risk medication use</td><td> </td> 01/30/2021 05:24:00 PM EDT High risk medication useInflammatory art hritisOther systemic lupus erythematosus with lung involvement [facility] High risk medication use Inflammatory arthritis Other systemic lupus erythematosus with lung involvement Spirometry 01/03/2021 12:00:00 AM EDT Enrique WILL ([facility], ) OFFICE OUTPATIENT VISIT 25 MINUTES 01/03/2021 12:00:00 AM EDT MEDMARTÍNEZ ([facility]) PRESSURIZED/NONPRESSURIZED INHALATION TREATMENT 2020 12:00:00 AM EDT [facility] ([facility]) Therapeutic, Prophylactic Or Diagnostic Injection Subq/Im 09/21/2020 12:00:00 AM EDT [facility] ([facility]) RADIOLOGIC EXAM KNEE COMPLETE 4/MORE VIEWS 08/24/2020 12:00:00 AM EST [facility] ([facility]) MRI Lower Extremity Any Joint 08/19/2020 12:00:[address] [facility] ([facility]) Therapeutic, Prophylactic Or Diagnostic Injection Subq/Im 05/08/2020 12:00:00 AM EDT [facility] ([facility]) Results ID Date Data Source [id number] 03/06/2021 11:26:00 AM EDT [facility] ([facility]) Name Value Range Interpretation Code Description Data Nallely rce(s) Supporting Document(s) Laboratory test finding (navigational concept) Laboratory test result [facility] ([facility]) ID Date Data Source [id number] 02/15/2021 10:35:25 AM EDT [facility] Name Value Range Interpretation Code Description Data Nallely rce(s) Supporting Document(s) Progress Note [facility] CVHOEe9yMbUBTaPu73/OZYuyBLCxo8LvJYjgEEr6MSjrGKHtP7VqVEQ6sG3vKBU7TUiGJrXkTiErHMAt lbm [file] ICAgICAgICAgICAgICAgICAgICAgICAgICAgICAgIC AgICAgICAgICAgICAgICAgICAgICAgICAgICAgICAgICAgICAgICAgICAgICAgICAgICAgICAgDQogIC AgICAgICAgICAgICAgICAgICAgICAgICAgICAgICAgICAgICAgICAgICAgICAgICAgICAgICAgICAgIC AgICAgICAgICAgICAgICAgICAgICAgICAgICAgICAg ICAgICAgDQogICAgICAgICAgICAgICAgICAgICAgICAgICAgICAgICAgICAgICAgICAgICAgICAgICAg ICAgICAgICAgICAgICAgICAgICAgICAgICAgICAgICAgICAgICAgICAgICAgICAgDQogICAgICAgICAg ICAgICAgICAgICAgICAgICAgICAgICAgICAgICAgIC AgICAgICAgICAgICAgICAgICAgICAgICAgICAgICAgICAgICAgICAgICAgICAgICAgICAgICAgICAgDQ ogICAgICAgICAgICAgICAgICAgICAgICAgICAgICAgICAgICAgICAgICAgICAgICAgICAgICAgICAgIC AgICAgICAgICAgICAgICAgICAgICAgICAgICAgICAg ICAgICAgICAgDQogICAgICAgICAgICAgICAgICAgICAgICAgICAgICAgICAgICAgICAgICAgICAgICAg ICAgICAgICAgICAgICAgICAgICAgICAgICAgICAgICAgICAgICAgICAgICAgICAgICAgDQogICAgICAg ICAgICAgICAgICAgICAgICAgICAgICAgICAgICAgIC AgICAgICAgICAgICAgICAgICAgICAgICAgICAgICAgICAgICAgICAgICAgICAgICAgICAgICAgICAgIC AgDQogICAgICAgICAgICAgICAgICAgICAgICAgICAgICAgICAgICAgICAgICAgICAgICAgICAgICAgIC AgICAgICAgICAgICAgICAgICAgICAgICAgICAgICAg ICAgICAgICAgICAgDQogICAgICAgICAgICAgICAgICAgICAgICAgICAgICAgICAgICAgICAgICAgICAg ICAgICAgICAgICAgICAgICAgICAgICAgICAgICAgICAgICAgICAgICAgICAgICAgICAgICAgDQogICAg ICAgICAgICAgICAgICAgICAgICAgICAgICAgICAgIC AgICAgICAgICAgICAgICAgICAgICAgICAgICAgICAgICAgICAgICAgICAgICAgICAgICAgICAgICAgIC DgRBDgEWl5W8hpIBUlJRImQQ8oIMr2Vp4+AMfHDzOyEXQ8myQiaK6LLF6og6OtHApkXSWaq2PhRPb4CH 4AUWCcQUpkJL5OPLsqfg1YYUYqXXGdsJEIh9erKgDp MYJ5GWEfKvpdFA3UTFDnQ6beswDvAAPmWEVBOCukSWQAECnjWRYZGELgXLVdSpXsUcQeIWGuLLChQOWB QTK6ITTjNiUyQEQjCAQlGbHpDNFPGTLtQHUwPlZcEAHuIFNnVJ3VRAVwB493xdIyMEWPZc1+DQplbmRv MadCEfN4LJArq9QmRXs4WC4FHLLrUfter9UnGCLgRC VRVUtrEO5TDPB6CBX0LTCvTi5LZMJaA068wrHuCX0NIl2PZoDcJW9hlc4MVSJbVWOqYqtPWvn2FQqeNA 8NyYKpLNnOmx2pdpOhraXWs7XrywEbpGRUo70wKmV4dQIqIQklSURoRLJoEz8sNp2dKJOhGCH2HnSsMO JFUG6XDNBtJVKxpNIuBEFvNAEDGR4EBYykBNY0ZOZs erMquTWmKMseBF6DNQNxzvKwMAPdBXEFUGi+Dn3MAS6xs3XgXZg6AwLwFK9xfh7CDLoAZsUsF0V1zPRh I1W2YIdnHc9BOIInCZTfSNAbHGSVDQvuTN0OKI9jysW7DZ7OuKAfTKYbWSCddXNmBDe6Y14bzSNjADcv BP7SIFB+Archie+Gt5XSBQdODNuSUTaHjUjGPICUpDqY5 AiQ9NBk9QmB0YbYB00lBsmdaOpDNhoDH9PWG3wMWNcYAQFYQ2PdMZqbA2fkoN1VFItYNSZQzIcL05upT WlARCsRKK3SAUwKg9YONNtO4CmtrQyjAhywpBjWXOgCIEIWD7XRWeqvtPopZRucZfdMU19fOwoUU3TFb 6DDoDoKP5bpb7AdRXoGj9RNBR2IM4ZPVYxBJZwGIXq DHI4ANRcZcQjTKdmILIpZBJaTNW5JHJsTBOzSL4PNjCuWOTsAFz2KRGpLUWsVGOhdf9DWPYmURY0KRM1 XxHfXOZyCVQnPVuxDGWnILZxISC9COKzHTRjOF6RMiZzULQoZHD8ObdoALXoGIHdqj2TJPTqQBBnXor6 NoQbYEXhIFTjYXsoUONnPLB7Epx6LBOeZYXcKU7UDg VbYWDgYYc5OOIiSVYcWMGxlk6YOBSwAPIgZNW1HVNvERFuWXPrFRbfGIMrTYYsDrEpYEGjBHFlVG1JFf LuMDKlINU0YNIzOPIwSRTmxn6AAVMlIJEnPeNxJKFzEQAxULFlHNsqPFHkSHQ5ZFY7LVGrELBfQX9NTl QuMIObAAI5FtHfBYRfFFGfpx9ABKZqXZSbFYjbVVJy ZQNdTUKrVSocSRBkLSJ9VTXvIEPpDJTaMJ9FXhCcXZNaGoI4FTDzEVVsCOFawg0ZVZStBSMaUiJjVtZk ILZkYOEkJSfxXSZlNXG8ZHq8PTMsWNQjHV2OJpCsASYaOhF6KDRaFIGeIIIxeq3ASDTeBINrYxS4ATOt XJSaMLAvRJltHMLoPXK4GtX7MZRbFEIpRQ4NNhUzTT VmEgo6LAYhBOGrQPTfti4ZENEpPLSkHVx1NULkJILvCSTqCZjqHWSdTNDaVLY0KBCaAQTtGH3WLxPjGQ UtYmMmQmCaLVEcZEDusu3TWPHrTUMtWfr5KsIlPCLgACSeTRvlISEbQZXqABfpYWXhYCHzRB8SKwQrUJ BqAaMuXfOxOHSmFQCpbr9LAJYeRRUjPYFfCrVwXCIj BFMeIXzhRRItBVK2UEE6ZIZmXDSzEB5EEmEpSGWhZzC5GZJjYKJdPXCdlw4LWRPyPQV8EoY1NuKeESBr MUZiOElgNYSeWTQ7GMK5TCHrFMCaLU9ZPkHqFJNkYTY5AsYwNGFhAOIyfe1WXQKxRMR8FwzuZhEbXCVe DOGfWZngCXDxGCG9BMfqGHVxWUToEX4WRhMqUZWfIJ faCZAcFBCkYSAvjt7AKOArZTZ9BCFqWlGoYKTdSXGnULsaJPDoRJO7Onk3BQEsZLZkST7ESmYyXVIuZN vrNqqcSVFpOJUtwf0CVNBxSTT0QZYfJoVxICPgJXIwVTweZBZfAIQ7Imr2NAJcYFSwMQ9QStHsHPPqGG TsEaosGHHsSHHxlf5DQREzYSG6QEIoOJTxAETsSSTm KDgrNBZjCBOeThO0ZFPvZQRlMX8XVoFhBXEsACN8ZPFaDHAnRNMfmq4RhCGrxQolst2NHRbZIq1HtNfn YLJ1NYbtHx1diDY1IcTgDFXFRd5ExzEsOQVaWWRCXOgqFCBgHAWsUvX0OQJ3F5NqDTTfViZhJILmYcCl BkJ7XOIzEzGqTyT7PFG0MPqhZBikISByLINrSVXnEa Y2HnVwBjH4CLJtSuO+RS2bMHz+Mw2Ow6TyjhP7exJvKBg7LxN6OI4ORCQSO3OLVv== ID Date Data Source [id number] [facility] Value Range Interpretation Code Description Data Nallely rce(s) Supporting Document(s) Nuclear Ab Pattern Homogenous [Titer] in Serum <[address] [facility] Nuclear Ab pattern.speckled [Titer] in Serum 80 1/dil <[address] [facility] Nuclear Ab pattern.rim [Titer] in Serum <[address] [facility] Nuclear Ab pattern.nucleolar [Titer] in Serum <[address] [facility] ID Date Data Source [id number] [facility] Name Value Range Interpretation Code Description Data Nallely rce(s) Supporting Document(s) Sjogrens syndrome-A extractable nuclear Ab [Units/volume] in Serum by Immunofluorescence 11 [AU]/mL 0 [facility] Sjogrens syndrome-B extractable nuclear Ab [Units/volume] in Serum by Immunofluorescence 7 [AU]/mL [address] [place] [address] Pedroza extractable nuclear Ab [Units/volume] in Serum b y Immunofluorescence 10 [AU]/mL [address] [place] [address] Ribonucleoprotein extractable nuclear Ab [Units/volume] in Serum by Immunofluorescence 77 U/ML [address] SCL-70 extractable nuclear Ab [Units/volume] in Serum 49 [AU]/mL [address] [place] [address] Mansi-1 extractable nuclear Ab [Units/volume] in Serum by Immunofluorescence 10 [AU]/mL [address] [place] [address] DNA double strand Ab [Units/volume] in Serum by Immunofluore scence 7 [IU]/mL [address] [place] [address] Centromere Ab [Units/volume] in Serum 49 [AU]/mL [address] [place] [address] Histone IgG Ab [Units/volume] in Serum 13 [AU]/mL [address] [place] [address] ID Date Data Source [id number] 01/30/2021 06:50:38 PM EDT [facility] Name Value Range Interpretation Code Description Data Nallely rce(s) Supporting Document(s) Leukocytes [#/volume] in Blood by Automated count 8.0 10*3/uL 4-[address] [facility] Erythrocytes [#/volume] in Blood by Automated count 4.92 10*6/uL 4.1- 5.[address] [facility] Hemoglobin [Mass/volume] in Blood 15.3 g/dL 11.5-15.[address] [facility] Hematocrit [Volume Fraction] of Blood by Automated count 45.4 % 3 6-[address] [facility] Erythrocyte mean corpuscular volume [Entitic volume] by Auto mated count 92.2 fL 80-[address] [facility] Erythrocyte mean corpuscular hemoglobin [Entitic mass] by Automated count 31.2 pg 27-[address] [facility] Erythrocyte mean corpuscular hemoglobin concentration [Mass/volume] by Automated count 33.8 g/dL 32.0-36.0 [facility] Erythrocyte distribution width [Ratio] by Automated count 14.0 % 11.5-14.[address] [facility] Platelets [#/volume] in Blood by Automated count 246 10*3/uL 150-[address] [facility] Differential cell count method - Blood [facility] Neutrophils/100 leukocytes in Blood by Automated count 54 % [facility] Lymphocytes/100 leukocytes in Blood by Automated count 39 % [facility] Monocytes/100 leukocytes in Blood by Automated count 6 % [facility] Eosinophils/100 leukocytes in Blood by Automated count 1 % [facility] Basophils/100 leukocytes in Blood by Automated count 0 % [facility] Neutrophils [#/volume] in Blood by Automated count 4.38 10*3/uL 1.8-[address] [facility] Lymphocytes [#/volume] in Blood by Automated count 3.11 10*3/uL 1.2-[address] [facility] Monocytes [#/volume] in Blood by Automated count 0.47 10*3/uL 0-[address] [facility] Eosinophils [#/volume] in Blood by Automated count 0.04 10*3/uL 0-0.[address] [facility] [#/volume] in Blood by Automated count 0.02 10*3/uL 0-0.[address] [facility] Nucleated erythrocytes/100 leukocytes [Ratio] in Blood by Automated count 0 /100{WBCs} 0-[address] [facility] ID Date Data Source [id number] 01/30/2021 07:18:47 PM EDT [facility] Value Range Interpretation Code Description Data Nallely rce(s) Supporting Document(s) Complement C3 [Mass/volume] in Serum or Plasma 109 mg/dL 90-[address] [facility] ID Date Data Source [id number] [facility] Interpretation Code Description Data Nallely rce(s) Supporting Document(s) Complement C4 [Mass/volume] in Serum or Plasma 11 mg/dL 10-[address] [facility] ID Date Data Source [id number] 01/30/2021 07:18[facility] Value Range Interpretation Code Description Data Nallely rce(s) Supporting Document(s) C reactive protein [Mass/volume] in Serum or Plasma <8.[address] [facility] ID Date Data Source [id number] 01/30/2021 07:18:47 [facility] Value Range Interpretation Code Description Data Nallely rce(s) Supporting Document(s) Albumin [Mass/volume] in Serum or Plasma by Bromocresol green (BCG) dye binding method 4.4 g/dL 3.5[facility]5.2 [facility] Bil[facility].total [Mass/volume] in Serum or Plasma 0.3 mg/dL <1.[address] [facility] Calcium [Mass/volume] in Serum or Plasma 9.6 mg/dL 8.6-10.[address] [facility] Chloride [Moles/volume] in Serum or Plasma 104 mmol/L 98-[address] [facility] Creatinine [Mass/volume] in Serum or Plasma 0.77 mg/dL 0.50-0.[address] [facility] Glucose [Mass/volume] in Serum or Plasma 82 mg/dL 70-[address] [facility] Alkaline phosphatase [Enzymatic activity/volume] in Serum or Plasma 66 U/L 35-[address] [facility] Potassium [Moles/volume] in Serum or Plasma 3.5 mmol/L 3.4-5.[address] [facility] Protein [Mass/volume] in Serum or Plasma 6.8 g/dL 6.4-8.[address] [facility] Sodium [Moles/volume] in Serum or Plasma 139 mmol/L 136-[address] [facility] Aspartate aminotransferase [Enzymatic activity/volume] in Serum or Plasma 13 U/L <[address] [facility] Urea nitrogen [Mass/volume] in Serum or Plasma 6 mg/dL 6-[address] [facility] Osmolality of Serum or Plasma by calculation 285 mosm/kg 275-[address] [facility] Creatinine/Urea nitrogen [Mass Ratio] in Serum or Plasma [address] [facility] Bicarbonate [Moles/volume] in Serum 27 mmol/L 22-[address] [facility] Alanine aminotransferase [Enzymatic activity/volume] in Seru m or Plasma 11 U/L <[address] [facility] Anion gap 3 in Serum or Plasma 8 mmol/L 8-[address] [facility] Glomerular filtration rate/1.73 sq M pre dicted among non-blacks [Volume Rate/Area] in Serum or Plasma by Creatinine-based formula (MDRD) >[address] [facility] Glomerular filtration rate/1.73 sq M pre dicted among blacks [Volume Rate/Area] in Serum or Plasma by Creatinine-based formula (MDRD) >[address] [facility] ID Date Data Source [id number] 01/30/2021 08:03:33 PM EDT [facility] Name Value Range Interpretation Code Description Data Nallely rce(s) Supporting Document(s) Erythrocyte sedimentation rate 12 mm/hr <[address] [facility] ID Date Data Source [id number] 12/04/2020 07:30:40 PM EDT [facility] Name Value Range Interpretation Code Description Data Nallely rce(s) Supporting Document(s) Progress Note [facility] PFRYWu3eFoRXIdEj23/YOBclGDMkc4DaRAruUCw6OQxePAPmN5InRCD6vT2aUMK7MTsLDnThSeKzKGMv lbm [file] AgICAgICAgICAgICAgICAgICAgICAgICAgICAgICAg ICAgICAgICAgICAgICAgICAgICAgICAgICAgICAgICAgICAgICAgICAgICAgICAgICAgICAgICANCiAg ICAgICAgICAgICAgICAgICAgICAgICAgICAgICAgICAgICAgICAgICAgICAgICAgICAgICAgICAgICAg ICAgICAgICAgICAgICAgICAgICAgICAgICAgICAgIC AgICAgICANCiAgICAgICAgICAgICAgICAgICAgICAgICAgICAgICAgICAgICAgICAgICAgICAgICAgIC AgICAgICAgICAgICAgICAgICAgICAgICAgICAgICAgICAgICAgICAgICAgICAgICANCiAgICAgICAgIC AgICAgICAgICAgICAgICAgICAgICAgICAgICAgICAg ICAgICAgICAgICAgICAgICAgICAgICAgICAgICAgICAgICAgICAgICAgICAgICAgICAgICAgICAgICAN CiAgICAgICAgICAgICAgICAgICAgICAgICAgICAgICAgICAgICAgICAgICAgICAgICAgICAgICAgICAg ICAgICAgICAgICAgICAgICAgICAgICAgICAgICAgIC AgICAgICAgICANCiAgICAgICAgICAgICAgICAgICAgICAgICAgICAgICAgICAgICAgICAgICAgICAgIC AgICAgICAgICAgICAgICAgICAgICAgICAgICAgICAgICAgICAgICAgICAgICAgICAgICANCiAgICAgIC AgICAgICAgICAgICAgICAgICAgICAgICAgICAgICAg ICAgICAgICAgICAgICAgICAgICAgICAgICAgICAgICAgICAgICAgICAgICAgICAgICAgICAgICAgICAg ICANCiAgICAgICAgICAgICAgICAgICAgICAgICAgICAgICAgICAgICAgICAgICAgICAgICAgICAgICAg ICAgICAgICAgICAgICAgICAgICAgICAgICAgICAgIC AgICAgICAgICAgICANCiAgICAgICAgICAgICAgICAgICAgICAgICAgICAgICAgICAgICAgICAgICAgIC AgICAgICAgICAgICAgICAgICAgICAgICAgICAgICAgICAgICAgICAgICAgICAgICAgICAgICANCiAgIC AgICAgICAgICAgICAgICAgICAgICAgICAgICAgICAg ICAgICAgICAgICAgICAgICAgICAgICAgICAgICAgICAgICAgICAgICAgICAgICAgICAgICAgICAgICAg ICAgICANCjw/pCGaD3etaFSfhlN2U0jmZz8GXc4OEI0kb5IhUKMmEMoeoqNbNlrZYhJsYYKeVvzLCno0 AVxwHK7KuMHoU1QnJ1CqRZcdXV3TVEPpYWFecVCpAK XlTATiGnC8BVIoKEqnCY2KrIAaYGkdMNCoFEMyWpSmBIEyIKHsCJNuYJEuVDUREFKtSDJtWoVzEJDhES RqFObjGMPIQTC9FKEkRoMmEEFqJEIgItZjZZWGCLO4EGPzToOhQZzeGT1Be9FizSXkEB9ANc5SYkPmPW 9iqa6CPLSfUJPoKfkMOmn2RBvyKU2KzJDcjNO2LtWj IKBZEyUoA3lrr6VtUCAdKNUNEZryRJ0Cb9OdlELdTSm+Yd8RFN0lc5VrMFs6ZuUsWG0mlq0ILIdKBiEs L7JmzQmkFJRvf0ylIUHpZJ6giPMlLDS7DXxxoDHXTPGqZJ7vLVTTCHWhtYX8CrI8NrOcBcReYOZ3ICHg ZK1fIInuVI4ZULI5XGkdERUeMRScP7zCMiHcRYZjFc AqjIqlZU6JOeXfB8VkutTvqNF5FDYbUEHLZk6+KStyxpXxCmuANhV5DTNlk7QdOXt9MR1EAJPeVOgpUR 1DMKLsfL7hTTouPZ9YTmV8YiXcNAAJZgGhM48akSXgRRa3F3BcQxAjMMPaFpegOKKgTNbsLoOpWLJzSm BdDQogID4+ID4+GCtgTG7WQRtxrpWdMCRgAw1IEKIn QXZcDK1yRBKlWTQzN7F2zZhkQHVVHqWhT2uiirmuNY8nHKSgX557gTepbcHmWOQ7AIHnRk9ATAAeKCP2 JJXpiHHnFEKhRWGKTPzjAM9IlPVwHRU5mF4cGUmgKHZpJXMkN8eJKeJpjWfoXA73cAdtlgCgbTOgBXh+ Xe8CBV2ai7YcZFl7erDyYKdzLPB9MGqaJZEeULVmMZ KsSXB9XZJ4ZSSKXoGfZGIzYNTwKDghZIBuUNMwwd2HDYIzYZH7VBK5JMTzJOEaSPMpSMqvYNIcJCKaNK UcBLXvKLSoMW0NNqQnISKqJJXsSYanORCaETYrdl3DTVMvPIXxRTMdOwRuIIHoWFAsXRtgNCFsAYD9KO XpRBSjIAJhXD7XVkNyIWPrORy1TKmhSUEiZXGevf1Q OOXhPCMoVBTdYVXqSRSiPWJlINeqWPVuWVHyOEImMZWxWUDySC0BEiVsQJArKTEbAVZePDKsYNXndt9V JCScACRfJsn1XHSqAGSvLHIjWLujIZRrDZN5CSB5JIFtGZZuFR6TAcMzEBBnQPK1MNGqDZViSIRitv2M QMCfAHFjLllfEBMoVCDfBFDpXMeaMJGqRDCvZxt5XC ZhPXVoSX5DYjHmJJLfGtG8HXOrZPQuHYXmgj3PECPgKLHgGlS4WRTnDUArATCcKShpPLXhCQDxPgN4HT DwZPXkHV1ZOwMsAMXgFqR5KHFoCTLkZESfyi0YTLZuEXDoVzulPXCoFEOoKLTnPNyaPRMrNFI4GYmkYJ RoSPWxQZ5YDaTcAVHpVjhuAkMmZZMoVYGidq3DEWQt IWCfCYV3ITDuSQKuDDWbLSfyFFIiUGWaLiifAPEmLMHnBU1XOlSzMJJdKuMhPgTeLHZcRWUlna4KKRXl PUZwObI8GNCwQAAyFXUxKPnmDWCpLGMqUNV7ZXDqMIMwXO0XGlNoGWKwRvY0TsWsOMYyEHXqfq7QOQGn QBQlXcitXSXqACJaAJRoSOzaUEUsXQB7Jgv5UQFvEB KdTH7KCsIqGXYqPoV3FedrZDGkWISadb2CJJTgYSFvHPW5QwRrFZSnSGFeAEhqTWDkGFQ6BYu2RTDoSM LkGM8FNyJrJBHaKHV6JjUuZTHtAPUzwb5HMTKvYQB1XeWvYTCwHAAeANOsXTpoDXZkCIW3BgtbGLAjYB PdGG1HFjLaUJWzUGh5EwozGNRjMWMnxg9MSVOfFJK4 WDT1DGJyYBOkQNMqHQdbUGClTOJ6QiSgORPdBRAdVU9JWzZcNKNpMJm1McpcHWGhJWKzht4IFGFvMCW3 OWg0OfZjISNmKCZeYDezDUEaMTV6GTnrTOEhISBdZP4CAgTwSSLaDLAoCGwyCGZfTWAwej9UCXIrIOG1 HXE3MfCvMZDsZSOuRZweHBHeHTEaQNq7RMCyVVYcGS 5NYrDuKNUbKQXxBeLpXOYxBTTweo5EGBPqDER6FxFzIaHpOMXnRVOjCPd5lnQfrOOaKVy4TR4OU4Ntms FpZWiULg8Ha288PKH3OSPxZd0KS3syOh9lYGPjCPXGSb8KTMb1NVN4N4IcVBM8DCD9TDLuFeC8OCXtAN L4Ygz0BPV3X1K+GCkzSAH0ZoD0VbI1MWYoKJW3ZaEe SHYeRCFfVsX1ZytaPB2cCSLXAi3+PMkdhFNbkRmgUOUIOfWfYLAsYTsoORFGEd9V ID Date Data Source [id number] 10/06/2020 11:04:00 AM EDT [facility] ([facility]) Name Value Range Interpretation Code Description Data Nallely rce(s) Supporting Document(s) Covid Rapid Testing Laboratory test result [facility] ([facility]) ID Date Data Source [id number] 09/21/2020 12:00:00 AM EDT [facility] Name Value Range Interpretation Code Description Data Nallely rce(s) Supporting Document(s) SARS-CoV2 Rapid Antigen Negative [facility] This lab was reported by [facility]. ID Date Data Source [id number] 09/02/2020 07:46:00 AM EST [facility] ([facility]) Name Value Range Interpretation Code Description Data Nallely rce(s) Supporting Document(s) Covid Rapid Testing Laboratory test result [facility] ([facility]) ID Date Data Source [id number] 08/15/2020 08:41:50 AM EST [facility] Name Value Range Interpretation Code Description Data Nallely rce(s) Supporting Document(s) Progress Note [facility] QZYJLm4yPoOVRuSp07/XQIdbFUTfa9QdMTfmNBx7RMyoVYFtS7YoAJN3fS5kNRQ1DVzTBpGcUnGiCsX0 [facility] [file] EKjPwwYPamNxeYY9/ygw/medical professionals/0gBcp8Ee63DRO/KqboV9LZAXIBfhO1HqqL9ItY48yeEm0PY/0lTl5kr [file] y2/V48Jo7jjU+wK0Q04e41mrw7ziDrjixfiJbFjIXbRrpLRhH4bYk2UEwl25GlFMIbRkZn2mDnTF//[employer] [file] XCk1RCs8OFTfVTUcOr5gTROQBm6+UCeziFSrtMrfJWTKHyCbKnV0URmyLNZDZz7M ID Date Data Source [id number] 07/29/2020 01:50:00 PM EST [facility] Name Value Range Interpretation Code Description Data Nallely rce(s) Supporting Document(s) SARS coronavirus 2 RNA Not Detected [facility] This lab was ordered by [facility] and reported by [facility]. ID Date Data Source [id number] 05/31/2020 02:32:43 PM [facility] Hospital Name Value Range Interpretation Code Description Data Nallely rce(s) Supporting Document(s) Progress Note [facility] BHTINh4zQdVBIcIt11/NOBopKPWvg1AwTGseRVf5PCofCFJyT0ScVBW5eG6nQJT4LVrVVmHtKmLzBNB6 lbm [file] == ID Date Data Source [id number] 05/04/2020 12:00:00 AM EDT [facility] Name Value Range Interpretation Code Description Data Nallely rce(s) Supporting Document(s) SARS-CoV2 Rapid Antigen [facility] This lab was ordered by [facility] and reported by [facility]. Procedure Social History Code Duration Value Status Description Data Source(s ) Alcohol intake 01/30/2021 12:00:00 AM EDT Current non-d aye of alcohol (finding) completed Current non-drinker of alcohol (finding) [facility] Tobacco use and exposure 01/30/2021 12:00:00 AM EDT Never used co mpleted Never used [facility] Smoking 01/30/2021 12:00:00 AM EDT Former smoker completed Former smoker [facility] Smoking 01/19/2021 12:00:00 AM EDT Former Smoker completed Former Smoker eCW1 ([facility]) Smoking 01/19/2021 12:00:00 AM EDT Former Smoker completed Former Smoker eCW1 ([facility]) Smoking 01/19/2021 12:00:00 AM EDT Former Smoker completed Former Smoker eCW1 ([facility]) Smoking 01/19/2021 12:00:00 AM EDT Former Smoker completed Former Smoker eCW1 ([facility]) Smoking 01/03/2021 12:00:00 AM EDT - 07/08/2018 12:00:00 AM EST Patient is a former smoker completed Patient is a former smoker [facility] ) Alcohol intake 11/21/2020 12:00:00 AM EDT Current non-d aye of alcohol (finding) completed Current non-drinker of alcohol (finding) [facility] Smoking 10/04/2020 12:00:00 AM EDT Former Smoker completed Former Smoker eCW1 ([facility]) Smoking 10/04/2020 12:00:00 AM EDT Former Smoker completed Former Smoker eCW1 ([facility]) Smoking 10/04/2020 12:00:00 AM EDT Former Smoker completed Former Smoker eCW1 ([facility]) Smoking 10/04/2020 12:00:00 AM EDT Former Smoker completed Former Smoker eCW1 ([facility]) Smoking 10/04/2020 12:00:00 AM EDT Former Smoker completed Former Smoker eCW1 ([facility]) Smoking 10/04/2020 12:00:00 AM EDT Former Smoker completed Former Smoker eCW1 ([facility]) Smoking 10/04/2020 12:00:00 AM EDT Former Smoker completed Former Smoker eCW1 ([facility]) Smoking 10/04/2020 12:00:00 AM EDT Former Smoker completed Former Smoker eCW1 ([facility]) Smoking 09/21/2020 12:00:00 AM EDT Patient is a former smoker completed Patient is a former smoker [facility] ([facility], [facility]) Alcohol intake 08/15/2020 12:00:00 AM EST Current non-d aye of alcohol (finding) completed Current non-drinker of alcohol (finding) [facility] Alcohol intake 05/31/2020 12:00:00 AM EST Current non-d aye of alcohol (finding) completed Current non-drinker of alcohol (finding) [facility] Smoking 05/17/2020 12:00:00 AM EST Former Smoker completed Former Smoker eCW1 ([facility]) Smoking 05/17/2020 12:00:00 AM EST Former Smoker completed Former Smoker eCW1 ([facility]) Vital Signs ID Date Data Source [id number] Name Value Range Interpretation Code Description Data Source(s) Body temperature 97.7 [degF] 97.7 [degF] [facility] ([facility] Body height 65 [in_i] 65 [in_i] [facility] ([facility] ) 5'5" Body weight 164.25 [lb_av] 164.25 [lb_av] MEDEN T ([facility]) Body mass index (BMI) [Ratio] 27.3 kg/m2 27.3 k g/m2 [facility] ([facility] ) Body weight 169 [lb_av] 169 [lb_av] eCW1 ([facility]) Body height 66 [in_i] 66 [in_i] eCW1 ([facility]) Body mass index (BMI) [Ratio] 27.27 kg/m2 27.27 kg/m2 W1 ([facility]) Heart rate 104 /min 104 /min eCW1 ([facility]) Respiratory rate 18 /min 18 /min eCW1 ([facility]) Body temperature 97.9 [degF] 97.9 [degF] eCW1 ( [facility]) Systolic blood pressure 110 mm[Hg] 110 mm[Hg] e CW1 ([facility]) Diastolic blood pressure 72 mm[Hg] 72 mm[Hg] eCW1 ([facility]) Systolic blood pressure 118 mm[Hg] 118 mm[Hg] M EDENT ([facility], ) Diastolic blood pressure 72 mm[Hg] 72 mm[Hg] [facility] ([facility], ) Heart rate 82 /min 82 /min [facility], ) Oxygen saturation in Arterial blood by Pulse oximetry 98 % 98 % [facility], ) Room Air Body height 66 [in_i] 66 [in_i] [facility] ([facility], ) 5'6" Body weight 167.00 [lb_av] 167.00 [lb_av] MEDEN T ([facility], ) Body mass index (BMI) [Ratio] 27.0 kg/m2 27.0 k g/m2 MED[facility] ([facility], ) [place] body weight 130 [lb_av] 130 [lb_av] MEDEN T ([facility]) Body weight 75.751 kg 75.751 kg MED[facility] ([facility]) Body surface area Derived from formula 1.85 m2 1.85 m2 [facility] ([facility]) Body weight 181 [lb_av] 181 [lb_av] eCW1 ([facility]) Body height 66 [in_i] 66 [in_i] eCW1 ([facility]) Body mass index (BMI) [Ratio] 29.21 kg/m2 29.21 kg/m2 eCW1 ([facility]) Heart rate 96 /min 96 /min eCW1 ([facility]) Respiratory rate 18 /min 18 /min eCW1 ([facility]) Body temperature 97.8 [degF] 97.8 [degF] eCW1 ( [facility]) Systolic blood pressure 100 mm[Hg] 100 mm[Hg] e CW1 ([facility]) Diastolic blood pressure 66 mm[Hg] 66 mm[Hg] eCW1 ([facility]) Systolic blood pressure 118 mm[Hg] 118 mm[Hg] M EDENT ([facility], [facility]) Diastolic blood pressure 73 mm[Hg] 73 mm[Hg] [facility] ([facility], [facility]) Heart rate 75 /min 75 /min MED[facility] ([facility], [facility]) Respiratory rate 14 /min 14 /min MED[facility] ( [facility], [facility]) Oxygen saturation in Arterial blood by Pulse oximetry 98 % 98 % [facility] ([facility], [facility]) Body temperature 96.6 [degF] 96.6 [degF] MEDENT ([facility], [facility]) Body weight 172.00 [lb_av] 172.00 [lb_av] MEDEN T ([facility], [facility]) Body height 66 [in_i] 66 [in_i] MED[facility] ([facility], [facility]) 5'6" Body mass index (BMI) [Ratio] 27.8 kg/m2 27.8 k g/m2 [facility] ([facility], [facility]) Body temperature 96.7 [degF] 96.7 [degF] [facility] ([facility]) Body height 65 [in_i] 65 [in_i] [facility] ([facility]) 5'5" Body weight 175.00 [lb_av] 175.00 [lb_av] MEDEN T ([facility]) Body mass index (BMI) [Ratio] 29.1 kg/m2 29.1 k g/m2 [facility] ([facility]) Body weight 173.8 [lb_av] 173.8 [lb_av] eCW1 ([facility]) Body height 66 [in_i] 66 [in_i] eCW1 ([facility]) Body mass index (BMI) [Ratio] 28.05 kg/m2 28.05 kg/m2 W1 ([facility]) Heart rate 79 /min 79 /min eCW1 ([facility]) Respiratory rate 18 /min 18 /min eCW1 ([facility]) Body temperature 99.0 [degF] 99.0 [degF] eCW1 ( [facility]) Systolic blood pressure 105 mm[Hg] 105 mm[Hg] e CW1 ([facility]) Diastolic blood pressure 82 mm[Hg] 82 mm[Hg] eCW1 ([facility]) Systolic blood pressure 113 mm[Hg] 113 mm[Hg] M EDENT ([facility], [facility]) Diastolic blood pressure 77 mm[Hg] 77 mm[Hg] MED[facility] ([facility], [facility]) Heart rate 85 /min 85 /min [facility] ([facility], [facility]) Respiratory rate 18 /min 18 /min [facility] ( [facility], [facility]) Oxygen saturation in Arterial blood by Pulse oximetry 99 % 99 % [facility] ([facility], [facility]) Body temperature 98.2 [degF] 98.2 [degF] [facility] ([facility], [facility]) Body weight 165.00 [lb_av] 165.00 [lb_av] MEDEN T ([facility] Patient Treatment Plan of Care Planned Activity Planned Date Details Description Data Source (s) Prednisone 10 MG Oral Tablet 01/30/2021 12:00:[address] [facility] Prednisone 10 MG Oral Tablet 11/21/2020 12:00:[address] [facility] Terbinafine HCl 1 % 10/04/2020 12:00:00 AM EDT eCW1 ([facility]) Terbinafine HCl 1 % 10/04/2020 12:00:00 AM EDT eCW1 ([facility]) Terbinafine HCl 1 % 10/04/2020 12:00:00 AM EDT eCW1 ([facility]) Terbinafine HCl 1 % 10/04/2020 12:00:00 AM EDT eCW1 ([facility]) Terbinafine HCl 1 % 10/04/2020 12:00:00 AM EDT eCW1 ([facility]) Terbinafine HCl 1 % 10/04/2020 12:00:00 AM EDT eCW1 ([facility]) Terbinafine HCl 1 % 10/04/2020 12:00:00 AM EDT eCW1 ([facility]) Terbinafine HCl 1 % 10/04/2020 12:00:00 AM EDT eCW1 ([facility]) Ketotifen 0.25 MG/ML Ophthalmic Solution 08/15/2020 12:00:00 AM [facility] mycophenolate mofetil 500 MG Oral Tablet 08/15/2020 12:00:00 AM [facility] Prednisone 10 MG Oral Tablet 08/15/2020 12:00:00 AM [facility] mycophenolate mofetil 500 MG Oral Tablet 08/01/2020 12:00:00 AM [facility] Acetaminophen 325 MG / Hydrocodone Bitartrate 10 MG Or al Tablet 07/05/2020 12:00:00 AM [facility] mycophenolate mofetil 500 MG Oral Tablet 05/17/2020 12:00:00 AM [facility] Folic Acid 1 MG Oral Tablet 12/07/2019 12:00:[address] [facility] celecoxib 200 MG Oral Capsule 09/17/2019 12:00:[address] [facility] mycophenolate mofetil 500 MG Oral Tablet 07/20/2019 12:00:[address] [facility] Adalimumab 40 MG/0.4ML Subcutaneous Pen-injector Kit ( HUMIRA) 05/22/2019 12:00:00 AM EST [facility] ospital mycophenolate mofetil 500 MG Oral Tablet 02/16/2019 12:00:[address] [facility] duloxetine 60 MG Delayed Release Oral Capsule 03/03/2018 12:00:[address] [facility] Lorazepam 1 MG Oral Tablet 10/11/2017 12:00:[address] [facility] Clonidine Hydrochloride 0.1 MG Oral Tablet 08/27/2017 12:00:00 AM E [facility] Minocycline 100 MG Oral Capsule [facility] Oxycodone Hydrochloride 5 MG Oral Tablet [facility] Ketorolac Tromethamine 5 MG/ML Ophthalmic Solution [facility] Melatonin 3 MG Oral Tablet U [facility] Nystatin 060115 UNT/ML Oral Suspension [facility]
[2021-04-20 10:28] LABS: BASO % 0.3 % (0.0-1.0); EOS % 0.3 % (0.0-3.0); HEMATOCRIT 45.7 % (36.0-47.0); HEMOGLOBIN 14.9 g/dl (12.0-15.5); LYMPH % 15.4 % (24.0-44.0); MEAN CORPUSCULAR HEMOGLOBIN 31.1 pg (27.0-33.0); MEAN CORPUSCULAR HGB CONC 32.6 g/dl (32.0-36.5); MEAN CORPUSCULAR VOLUME 95.4 fl (80.0-96.0); MONO # 0.6 10^3/uL (0.0-0.8); MONO % 4.7 % (2.0-8.0); NEUTROPHILS # 10.3 10^3/uL (1.5-8.5); PLATELET COUNT, AUTOMATED 256 10^3/uL (150-450); RED BLOOD COUNT 4.79 10^6/uL (4.00-5.40)
[2021-04-20 10:51] LABS: HCG, SERUM QUALITATIVE NEGATIVE (NEGATIVE)
--- OUTSIDE RECORDS SUMMARY | 2021-04-20 11:17 | CCD ---
Author Author [facility] Organization [facility] Address Unknown Phone Unavailable Support Name Relationship Address Phone HOME HEALTH AIDE Next Of Kin [address] [place] [address] Martha DANIELSGabe Gibson Next Of Kin [address] [place], [place] [id number] REBECCA POWERS Next Of Kin [address] [place] [address] SOHAN POWERS Next Of Kin NA Unknown Unavailable UN Next Of Kin Unknown Unavailable RCIL Next Of Kin [address] [facility] [address] [place] [address] UE Next Of Kin Unknown Unavailable UNEMPLOYED Next Of Kin UE UE, UE UE Unavailable [facility] Next Of Kin [address] [place] [address] MEDREADY Next Of Kin [address] [place] [address] [facility] Next Of Kin [address] [place] [address] ORTHO Next Of Kin [address] [place] [address] NCOG Next Of Kin [address] [place] [address] SMC* Next Of Kin [address] [place] [address] [facility] Next Of Kin Unknown [facility] Next Of Kin [address] [facility] [address] [place] [address] GEOVANNY POWERS Next Of Kin [address] [place] [address] REBECCA Powers ECON [address] [place] [address] Unavailable Geovanny Powers ECON [address] [place] [address] Care Team Providers Care Count Team Clerk Name Role Phone Fish, B Mina ABDI Unavailable Unavailable Fish, B Mina ABDI Unavailable Unavailable Fish, B Mina ABDI Unavailable Unavailable Fish, B Mina ABDI Unavailable Unavailable Fish, B Mina ABDI Unavailable Unavailable Fish, B Mina ABDI Unavailable Unavailable Fish, B Mina ABDI Unavailable Unavailable Fish, B Mina BADI Unavailable Unavailable Fish, [...] ELENA (SEWELL), N GABE RPA-C Unavailable Unavailable EELNA (SEWELL), N GABE RPA-C Unavailable Unavailable ELENA [...] Unavailable Unavailable BRITTANI, VALERY PA Unavailable Unavailable INDER, P SHERYL MD Unavailable [...] Michi, Ana Unavailable Unavailable Barter, D Edu TURBINE TECHNICIAN Unavailable Unavailable Barter, D Edu TURBINE TECHNICIAN Unavailable Unavailable Barter, D Edu TURBINE TECHNICIAN Unavailable Unavailable Barter, D Edu TURBINE TECHNICIAN Unavailable Unavailable Barter, D Edu TURBINE TECHNICIAN Unavailable Unavailable Barter, D Edu TURBINE TECHNICIAN Unavailable Unavailable Barter, D Edu TURBINE TECHNICIAN Unavailable Unavailable Barter, D Edu TURBINE TECHNICIAN Unavailable Unavailable Barter, D Edu TURBINE TECHNICIAN Unavailable Unavailable Barter, D Edu TURBINE TECHNICIAN Unavailable Unavailable Barter, D Edu TURBINE TECHNICIAN Unavailable Unavailable Barter, D Edu TURBINE TECHNICIAN Unavailable Unavailable Barter, D Edu TURBINE TECHNICIAN Unavailable Unavailable Barter, D Edu TURBINE TECHNICIAN Unavailable Unavailable Barter, D Edu TURBINE TECHNICIAN Unavailable Unavailable Barter, D Edu TURBINE TECHNICIAN Unavailable Unavailable Barter, D Edu TURBINE TECHNICIAN Unavailable Unavailable Barter, D Edu TURBINE TECHNICIAN Unavailable Unavailable Barter, D Edu TURBINE TECHNICIAN Unavailable Unavailable Barter, D Edu TURBINE TECHNICIAN Unavailable Unavailable Barter, D Edu TURBINE TECHNICIAN Unavailable Unavailable Barter, D Edu TURBINE TECHNICIAN Unavailable Unavailable Barter, D Edu TURBINE TECHNICIAN Unavailable Unavailable Barter, D Edu TURBINE TECHNICIAN Unavailable Unavailable Barter, D Edu TURBINE TECHNICIAN Unavailable Unavailable Barter, D Edu TURBINE TECHNICIAN Unavailable Unavailable Barter, D Edu TURBINE TECHNICIAN Unavailable Unavailable Barter, D Edu TURBINE TECHNICIAN Unavailable Unavailable Barter, D Edu TURBINE TECHNICIAN Unavailable Unavailable Barter, D Edu TURBINE TECHNICIAN Unavailable Unavailable Barter, D Edu TURBINE TECHNICIAN Unavailable Unavailable Barter, D Edu TURBINE TECHNICIAN Unavailable Unavailable Barter, D Edu TURBINE TECHNICIAN Unavailable Unavailable Barter, D Edu TURBINE TECHNICIAN Unavailable Unavailable Barter, D Edu TURBINE TECHNICIAN Unavailable Unavailable Barter, D Edu TURBINE TECHNICIAN Unavailable Unavailable Barter, D Edu TURBINE TECHNICIAN Unavailable Unavailable Barter, D Edu TURBINE TECHNICIAN Unavailable Unavailable Barter, D Edu TURBINE TECHNICIAN Unavailable Unavailable Barter, D Edu TURBINE TECHNICIAN Unavailable Unavailable Barter, D Edu TURBINE TECHNICIAN Unavailable Unavailable Barter, D Edu TURBINE TECHNICIAN Unavailable Unavailable Barter, D Edu TURBINE TECHNICIAN Unavailable Unavailable Barter, D Edu TURBINE TECHNICIAN Unavailable Unavailable Barter, D Edu TURBINE TECHNICIAN Unavailable Unavailable Barter, D Edu TURBINE TECHNICIAN Unavailable Unavailable Barter, D Edu TURBINE TECHNICIAN Unavailable Unavailable Barter, D Edu TURBINE TECHNICIAN Unavailable Unavailable Donald Meyer TURBINE TECHNICIAN Unavailable Unavailable BartDonald ruiz TURBINE TECHNICIAN Unavailable Unavailable BartDonald ruiz TURBINE TECHNICIAN Unavailable Unavailable Bartsara, Donald Eud TURBINE TECHNICIAN Unavailable Unavailable BartDonald ruiz Edu TURBINE TECHNICIAN Unavailable Unavailable DESJARLAIS, ASYA PHARMACIST PER DIEM Unavailable Unavailable DESJARLAIS, ASYA PHARMACIST PER DIEM Unavailable Unavailable DESJARLAIS, ASYA PHARMACIST PER DIEM Unavailable Unavailable DESJARLAIS, ASYA PHARMACIST PER DIEM Unavailable Unavailable DESJARLAIS, ASYA PHARMACIST PER DIEM Unavailable Unavailable DESJARLAIS, ASYA PHARMACIST PER DIEM Unavailable Unavailable DESJARLAIS, ASYA PHARMACIST PER DIEM Unavailable Unavailable DESJARLAIS, ASYA PHARMACIST PER DIEM Unavailable Unavailable DESJARLAIS, ASYA PHARMACIST PER DIEM Unavailable Unavailable Geovany Galaviz MD Unavailable Unavailable [...] Unavailable Unavailable Geovany Galaviz MD Unavailable Unavailable Galaviz Geovany Mckeon MD Unavailable Unavailable Guillaume Geovany Mckeon MD Unavailable Unavailable Guillaume Geovany Mckeon MD Unavailable Unavailable Guillaume Geovany Mckeon MD Unavailable Unavailable Guillaume Geovany Mckeon MD Unavailable Unavailable Roque Jalen Unavailable Jalen Nevarez Unavailable Re-disclosure Warning The records that you [...] is protected by Article 27-F of the [place] Public [employer] law. If you continue you may have access to information: Regarding HIV / AIDS; Provided by facilities licensed or operated by the [place] Office of Mental Health; or Provided by the [place] Office for People With Developmental Disabilities. If such information is present, then the following [place] mandated warning applies: This information has been [...] law may result in a fine or [place] health [place] facility sentence or both. A general authorization for [...] Attender: SHERYL LOVING MD 06/05/2021 12:00:00 AM [facility] Unknown [address] [facility] [address] 04/17/2021 12:00:00 AM EDT [facility]CW[facility]) Outpatient Attender: Jalen Nevarez 03/16/2021 01:00:00 PM [facility] Outpatient Attender: Mina Mcmanus MD Physical Therapy 03/02/2021 0 2:15:00 PM EDT MEDENT ([facility]) Outpatient Attender: ASYA REIS NP 02/21/2021 10: 00:00 AM [facility] Unknown [address] [facility] [address] 02/21/2021 12:00:00 AM EDT eCW1 ([facility]) Outpatient Attender: SHERYL LOVING MDReferrer: GABE PARKER ([place]) RPA-C [id number] 01/30/2021 12:00:00 AM EDT - 01/30/2021 05:19:33 PM [facility] Outpatient Attender: ASYA REIS NP 01/24/2021 09: 44:00 AM [facility] Outpatient [address] [facility] [address] 01/19/2021 12:00:00 AM EDT eCW1 ([facility]) [place] [address] [facility] [address] 01/19/2021 12:00:00 AM EDT eCW1 ([facility]) Outpatient Attender: Mike Rodriges/Ponce/Ernesto/Barb strickland 01/03/2021 03:00:00 PM EDT MEDENT ([facility]) [place] [address] [facility] [address] 12/08/2020 12:00:00 AM EDT eCW1 ([facility]) [place] [address] [facility] [address] 12/07/2020 12:00:00 AM EDT eCW1 ([facility]) [place] [address] [facility] [address] 12/01/2020 12:00:00 AM EDT [facility] [place] [address] [facility] [address] 11/28/2020 12:00:00 AM EDT eCW1 ([facility]) Outpatient Attender: Ana Cisseley 11/25/2020 03:00:00 PM [facility] Outpatient Attender: SHERYL LOVING MDReferrer: GABE PARKER ([place]) RPA-C [id number] 11/21/2020 12:00:00 AM EDT - 11/25/2020 06:43:29 AM [facility] Unknown [address] [facility] [address] 11/18/2020 12:00:00 AM EDT eCW1 ([facility]) [place] [address] [facility] [address] 11/18/2020 12:00:00 AM EDT eCW1 ([facility]) Unknown [address] [facility] [address] 10/31/2020 12:00:00 AM EDT eCW1 ([facility]) Outpatient [address] [facility] [address] 10/04/2020 12:00:00 AM EDT eCW1 ([facility]) Outpatient Attender: VALERY allen 09/21/2020 04:45:00 PM EDT MEDENT ([facility]) Outpatient Attender: Mina Mcmanus MD Physical Therapy 08/24/2020 0 1:15:00 PM EST MEDENT ([facility] ) Outpatient Attender: SHERYL LOVING MD [id number] 08/15/2020 12:00:00 A [facility] Unknown [address] [facility] [address] 07/11/2020 12:00:00 AM EST eCW1 ([facility]) Outpatient Attender: SHERYL LOVING MDReferrer: Edu Hernández [id number] 05/17/2020 12:00:00 AM EST 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 COVID-19 VACCINE Moderna 10/07/2020 12:00:00 AM EDT completed [place] Vaccine Series Complete: NOThis Data was Submitted to [facility] Via [employer]. COVID-19 VACCINE, MRNA-1273, LNP-S (MODERNA)/PF 10/07/2020 1 [...] propionate 0.05 MG/ACTUAT Metered Dose [facility] [place] 50 mcg/actuation FLUTICASONE PROPIONATE 02/22/2021 12:00:00 AM EDT spray,suspension 16 SPRAY 2 SPRAYS IN EACH NOSTRIL ONCE A DAY SPRAY 2 SPRAYS IN EACH NOSTRIL ONCE A DAY SOLD: 02/24/2021 [facility] Fluticasone propionate 0.05 MG/ACTUAT Metered Dose [facility] [place] 50 mcg/actuation FLUTICASONE PROPIONATE 02/22/2021 12:00:00 AM [...] involvement Take [facility] Other systemic lupus erythematosus [...] 01/03/2021 12:00:00 AM EDT ORAL active MEDENT ([facility], ) Acetaminophen 325 MG / Hydrocodone Bitartrate [...] involvement Take 1 tablet by mouth daily [facility] Inflammatory arthritis Other systemic [...] 10/31/2020 12:00:00 AM E DT active MEDENT ([facility], ) 50 mcg/actuation 10/31/2020 12:00:00 AM EDT spray,suspension 16 SPRAY 2 SPRAYS IN EACH NOSTRIL ONCE A DAY SPRAY 2 SPRAYS IN EACH NOSTRIL ONCE A DAY SOLD: 11/30/2020 [facility] Terbinafine HCl 1 % Terbinafine HCl 1 % 10/04/2020 12:00:00 AM EDT 1.0 {application} active Terbinafine HCl 1 % eCW1 ([facility]) Terbinafine HCl 1 % Terbinafine HCl 1 % 10/04/2020 12:00:00 AM EDT 1.0 {application} active Terbinafine HCl 1 % eCW1 ([facility]) Terbinafine HCl 1 % Terbinafine HCl 1 % 10/04/2020 12:00:00 AM EDT 1.0 {application} active Terbinafine HCl 1 % eCW1 ([facility]) Terbinafine HCl 1 % Terbinafine HCl 1 % 10/04/2020 12:00:00 AM EDT 1.0 {application} active Terbinafine HCl 1 % eCW1 ([facility]) Terbinafine HCl 1 % Terbinafine HCl 1 % 10/04/2020 12:00:00 AM EDT 1.0 {application} active Terbinafine HCl 1 % eCW1 ([facility]) Terbinafine HCl 1 % Terbinafine HCl 1 % 10/04/2020 12:00:00 AM EDT 1.0 {application} active Terbinafine HCl 1 % eCW1 ([facility]) Terbinafine HCl 1 % Terbinafine HCl 1 % 10/04/2020 12:00:00 AM EDT 1.0 {application} active Terbinafine HCl 1 % eCW1 ([facility]) Terbinafine HCl 1 % Terbinafine HCl 1 % 10/04/2020 12:00:00 AM EDT 1.0 {application} active Terbinafine HCl 1 % eCW1 ([facility]) Terbinafine HCl 1 % Terbinafine HCl 1 % 10/04/2020 12:00:00 AM EDT 1.0 {application} active Terbinafine HCl 1 % eCW1 ([facility]) Terbinafine HCl 1 % Terbinafine HCl 1 % 10/04/2020 12:00:00 AM EDT 1.0 {application} active Terbinafine HCl 1 % eCW1 ([facility]) Terbinafine HCl 1 % Terbinafine HCl 1 % 10/04/2020 12:00:00 AM EDT 1.0 {application} active Terbinafine HCl 1 % eCW1 ([facility]) Terbinafine HCl 1 % Terbinafine HCl 1 % 10/04/2020 12:00:00 AM EDT 1.0 {application} active Terbinafine HCl 1 % eCW1 ([facility]) 1 % 10/04/2020 12:00:00 AM EDT cream 30 APPLY TO AFFECTED AREA(S) AXILLA TWO TIMES A DAY FOR 14 DAYS APPLY TO AFFECTED AREA(S) AXILLA TWO MAGGIE ES A DAY FOR 14 DAYS SOLD: 10/04/2020 [facility] 10-325 mg 10/01/2020 12:00:00 AM [...] #3 2020 12:00:00 AM EDT active MEDENT ([facility]) [id number] 09/27/2020 12:00:00 AM EDT suspension 120 SWISH AND SPIT 5 ML BY MOUTH THREE TIMES A DAY SWISH AND SPIT 5 ML BY MOUTH THREE TIMES A DAY SOLD: 2020 [facility] 875-125 mg 09/21/2020 12:00:00 AM EDT tablet 14 TAKE ONE TABLET BY MOUTH TWICE A DAY FOR 7 DAYS TAKE ONE TABLET BY MOUTH TWICE A DAY FOR 7 DAYS SOLD: 09/21/2020 [facility] Methylprednisolone Sodium Succinate To 125 MG 09/21/2020 1 2:00:00 AM EDT completed MEDENT ([facility]) Medication administered onsite 20 mg 09/21/2020 12:00:00 AM EDT tablet 8 TAKE TWO TABLETS BY MOUTH EVERY DAY FOR 4 DAYS TAKE TWO TABLETS BY MOUTH EVERY DAY FOR 4 DAYS SOLD: 021 [facility] Prednisone 20 MG Oral Tablet Prednisone 09/21/2020 12:00:00 AM EDT ORAL active MEDENT ([facility]) Amoxicillin 875 MG / Clavulanate 125 MG Oral Tablet Am oxicillin/Clavulanate Potassium 09/21/2020 12:00:00 AM EDT ORAL active MEDENT ([facility]) 10-325 mg 09/02/2020 12:00:00 AM EST [...] morning and 1 ta blet at night [facility] Episcleritis of both eyes Positive FRANKY [...] drop into both eyes Two Times Daily [facility] Prednisone 10 MG Oral Tablet predniSONE 10 MG Oral Tab let (DELTASONE) predniSONE 10 MG Oral Tablet (DELTASONE) 08/15/2020 12:00:00 AM EST 10 mg Or al active Episcleritis of both eyesPositive FRANKY (a ntinuclear antibody)Inflammatory arthritisHigh risk medication useOther systemic lupus erythematosus with lung involvement Take 1 tablet by mouth daily [facility] Episcleritis of both eyes Positive FRANKY (antinuclear [...] NE TABLET BY MOUTH TWICE A DAY [facility] Acetaminophen 325 MG / Hydrocodone Lacy trate 10 MG Oral Tablet HYDROcodone- Acetaminophen 10-325 MG Oral Tablet (VICODIN) HYDROcodone-Acetaminophen 10-325 MG Oral Tablet (VICODIN) 07/05/2020 12:00:00 AM EST active TAKE 1 TABLET BY MOUTH EVERY 4 6 HOURS NEEDED FOR PAIN MAXIMUM DAILY DOSE 6 [facility] 10-325 mg 07/05/2020 12:00:00 AM EST [...] DAILY DOSE = 2 TABLETS SOLD: 01/20/2021 [facility] montelukast 10 MG Oral Tablet MONTELUKAST SODIUM 06/07/2020 12:0 0:00 AM EST tablet 30 TAKE ONE TABLET BY MOUTH EVERY D AY AT BEDTIME TAKE ONE TABLET BY MOUTH EVERY DAY AT BEDTIME SOLD: 07/19/2020 [facility] montelukast 10 MG Oral Tablet MONTELUKAST SODIUM 06/07/2020 12:0 0:00 AM EST tablet 30 TAKE ONE TABLET BY MOUTH EVERY D AY AT BEDTIME TAKE ONE TABLET BY MOUTH EVERY DAY AT BEDTIME SOLD: 11/16/2020 [facility] montelukast 10 MG Oral Tablet MONTELUKAST SODIUM 06/07/2020 12:0 0:00 AM EST tablet 30 TAKE ONE TABLET BY MOUTH EVERY D AY AT BEDTIME TAKE ONE TABLET BY MOUTH EVERY DAY AT BEDTIME SOLD: 06/15/2020 [facility] montelukast 10 MG Oral Tablet MONTELUKAST SODIUM 06/07/2020 12:0 0:00 AM EST tablet 30 TAKE ONE TABLET BY MOUTH EVERY D AY AT BEDTIME TAKE ONE TABLET BY MOUTH EVERY DAY AT BEDTIME SOLD: 10/13/2020 [facility] montelukast 10 MG Oral Tablet MONTELUKAST SODIUM 06/07/2020 12:0 0:00 AM EST tablet 30 TAKE ONE TABLET BY MOUTH EVERY D AY AT BEDTIME TAKE ONE TABLET BY MOUTH EVERY DAY AT BEDTIME SOLD: 09/14/2020 [facility] montelukast 10 MG Oral Tablet MONTELUKAST SODIUM 06/07/2020 12:0 0:00 AM EST tablet 30 TAKE ONE TABLET BY MOUTH EVERY D AY AT BEDTIME TAKE ONE TABLET BY MOUTH EVERY DAY AT BEDTIME SOLD: 08/17/2020 [facility] montelukast 10 MG Oral Tablet Montelukast Sodium 06/06/2020 12:00:00 AM EST active MEDENT ([facility]) 20 mg 06/06/2020 12:00:00 AM [...] 1 tablet by mouth Two Times Daily [facility] Other systemic lupus erythematosus with lung [...] DAILY DOSE = 6 TABLETS SOLD: 05/08/2020 [facility] 875-125 mg 05/08/2020 12:00:00 AM EDT tablet 14 TAKE ONE TABLET BY MOUTH TWICE A DAY FOR 7 DAYS TAKE ONE TABLET BY MOUTH TWICE A DAY FOR 7 DAYS SOLD: 05/08/2020 [facility] Amoxicillin 875 MG / Clavulanate 125 MG Oral Tablet Am oxicillin/Clavulanate Potassium 05/08/2020 12:00:00 AM EDT ORAL completed MEDENT ([facility]) Methylprednisolone Sodium Succinate To 125 MG 05/08/2020 1 2:00:00 AM EDT completed MEDENT ([facility]) Medication administered onsite 50 mcg/actuation 05/06/2020 [...] IN EACH NOSTRIL EVERY DAY SOLD: 07/05/2020 [facility] 232-14 mcg/actuation 05/06/2020 12:00:00 AM [...] 12:00:00 AM EDT ORAL active M EDENT ([facility], ) 2.5 mg /3 mL (0.083 %) [...] 02/13/2020 12:00:00 AM EDT ORAL completed MEDENT ([facility]) Prednisone 20 MG Oral Tablet Prednisone 02/13/2020 12:00:00 AM EDT ORAL completed MEDENT ([facility]) Albuterol 0.83 MG/ML Inhalant Solution Albuterol Sulfate 0 02/13/2020 12:00:00 AM EDT completed MEDENT ([facility]) 60 mg 02/05/2020 12:00:00 AM EDT [...] TAKE ONE TABLET BY MOUTH EVERY DAY [facility] montelukast 10 MG Oral Tablet MONTELUKAST [...] TAKE ONE CAPSULE BY MOUTH EVERY DAY [facility] 0.025 % (0.035 %) 07/23/2019 12:00:00 [...] Take 3 tablets by mouth Two Times [facility] Other systemic lupus erythematosus with lung involvement Adalimumab 40 MG/0.4ML Subcutaneous Pen-injector Kit (HUMIRA ) [id number] 05/22/2019 12:00:00 AM EST aborted Uveitis INJECT 40 MG UNDER THE SKIN EVERY OTHER WEEK [facility] Uveitis mycophenolate mofetil 500 MG Oral Tablet mycophenolate (CELLCEPT) 500 MG tablet mycophenolate (CELLCEPT) 500 MG tablet 02/16/2019 12:00:00 AM EDT aborted TAKE THREE TABLETS BY MOUTH TWIC A DAY [facility] duloxetine 60 MG Delayed Release Oral Ca psule DULoxetine (CYMBALTA) 60 MG capsule DULoxetine (CYMBALTA) 60 MG capsule 03/03/2018 12:00:00 AM EDT 60 mg aborted 60 mg daily [facility] Lorazepam 1 MG Oral Tablet LORazepam (ATIVAN) 1 MG tab let LORazepam (ATIVAN) 1 MG tablet 10/11/2017 12:00:00 AM EDT aborted TAKE ONE TABLET BY MOUTH THREE TIMES A DAY NEEDED MAXIMUM DAILY DOSE 3 [facility] Clonidine Hydrochloride 0.1 MG Oral Tablet cloNIDine ( CATAPRES) 0.1 MG tablet cloNIDine (CATAPRES) 0.1 MG tablet 08/27/2017 12:00:00 AM EST aborted TAKE ONE TABLET BY MOUTH EVERY DAY AT BE DTIME [facility] Ketorolac Tromethamine 5 MG/ML Ophthalmi c Solution ketorolac (ACULAR) 0.5 % ophthalmic solution ketorolac (ACULAR) 0.5 % ophthalmic solution 1 [drp] Left Eye aborted Place 1 drop into th e left eye Four times daily [facility] Melatonin 3 MG Oral Tablet melatonin 3 MG tablet melatonin 3 MG table t 3 mg Oral aborted Take 3 mg by mouth a s needed [facility] Oxycodone Hydrochloride 5 MG Oral Tablet oxyCODONE (ROXICODONE) 5 MG immediate release tablet oxyCODONE (ROXICODONE) 5 MG immediate release tablet 5 mg Oral aborted Take 5 mg by mouth e very 6 (six) hours as needed for Pain [facility] Minocycline 100 MG Oral Capsule minocycline (MINOCIN,D YNACIN) 100 MG capsule minocycline (MINOCIN,DYNACIN) 100 MG capsule aborted minocycline 100 mg capsule Take 1 capsule every 12 hours by oral route. [facility] Nystatin 281946 UNT/ML Oral Suspension n ystatin (MYCOSTATIN) 015066 UNIT/ML suspension nystatin (MYCOSTATIN) 245255 UNIT/ML suspension 5 81057 U Oral aborted Take 500,000 Units by mouth Three times daily as needed [facility] Insurance Providers Payer name Policy type / Coverage type Policy ID Covered republican ID Covered republican's relationship to fraser Policy Fraser Plan Information [facility]) Workers Compensation [id number] Self [id number] [employer] ([employer]) Workers Compensation [id number] [id number] Self [id number] [facility] Workers Compensation [id number] Self [id number] [facility] [employer] Compensation [id number] Self [id number] [facility] [employer] Compensation [id number] Self [id number] [facility] [employer] Compensation [id number] Self [id number] [facility] [employer] Compensation [id number] Self [id number] [facility] [employer] Compensation [id number] Self [id number] [facility] [employer] [id number] Self [id number] [facility] [employer] Compensation [id number] Self [id number] [facility] [employer] Compensation [id number] Self [id number] [facility] [employer] Compensation [id number] Self [id number] [facility] Workers Compensation [id number] Self [id number] [facility] [employer] Compensation [id number] Self [id number] [facility] [employer] Compensation [id number] 2.16.840.1.863604.3.227.99.991.68481.0 Self [id number] [facility] [employer] Compensation [id number] 2.16.840.1.286886.3.227.99.991.49076.0 Self [id number] [facility] [employer] Compensation [id number] 2.16.840.1.464134.3.227.99.991.18341.0 Self [id number] [facility] [employer] Compensation [id number] 2.16.840.1.051440.3.227.99.991.84424.0 Self [id number] [facility] [employer] Compensation [id number] 2.16.840.1.709487.3.227.99.991.61602.0 Self [id number] [facility] [employer] Compensation [id number] 2.16.840.1.570353.3.227.99.991.37605.0 Self [id number] [facility] [employer] Compensation [id number] 2.16.840.1.317191.3.227.99.991.69760.0 Self [id number] [facility] Workers Compensation [id number] 2.16.840.1.856864.3.227.99.991.05720.0 Self [id number] [facility] Workers Compensation [id number] Self [facility] Workers Compensation [id number] 2.16.840.1.901460.3.227.99.991.57711.0 Self [id number] [facility] Workers Compensation [id number] 2.16.840.1.972680.3.227.99.991.74334.0 Self [id number] [facility] Workers Compensation [id number] 2.16.840.1.977014.3.227.99.991.80891.0 Self [id number] [facility] Workers Compensation [id number] Self [id number] [facility] Workers Compensation [id number] 2.16.840.1.498914.3.227.99.991.09777.0 Self [id number] [facility] Workers Compensation [id number] 2.16.840.1.666448.3.227.99.991.16572.0 Self [id number] [facility] Workers Compensation [id number] 2.16.840.1.936664.3.227.99.991.75655.0 Self [id number] [phone] [facility] Workers Compensation [id number] Self [id number] [place]/307 [id number] SP [id number] [employer]/307 [id number] SP [id number] [place] P[place] 302/307 [id number] SP [id number] [place]/307 [id number] SP [id number] [place] P[place] 302/307 [id number] SP [id number] [place] 302/307 [id number] SP [id number] [place] P[place]/307 [id number] SP [id number] BS [place] [facility] B [id number] 2.0.1.210048.3.227.99.991.643421.0 Self [id number] BS [place] [facility] Part B [id number] 2..1.309483.3.227.99.991.299704.0 Self [id number] BS [place] [facility] Part B [id number] 2..1.944790.3.227.99.991.907189.0 Self [id number] BS [place] [facility] Part B [id number] 2..1.027205.3.227.99.991.002763.0 Self [id number] [facility] [id number] 2..1.020052.3.227.99.991.308578.0 Self [id number] [facility] Part B [id number] 2..1.402198.3.227.99.991.917978.0 Family Dependent [id number] [facility] Part B [id number] 2..1.307742.3.227.99.991.397571.0 Family Dependent [id number] [facility] B [id number] 2..1.213243.3.227.99.991.537450.0 Family Dependent [id number] [facility] B [id number] 2.0.1.407141.3.227.99.991.036248.0 Family Dependent [id number] [facility] Part B [id number] .1.403031.3.227.99.991.115735.0 Family Dependent [id number] [facility]MPIRE PLAN [facility] U [id number] Spouse [id number] MVP EXCHANGE U [id number] Self [id number] MVP H [id number] Self [id number] MVP Exchange Hmo Commercial [id number] Self [id number] MVP Exchange Hmo Commercial [id number] Self [place] Plan F [id number] SELF [id number] [place] EXCHANGE U [id number] Self [id number] [place] [facility] [place] [id number] SP [id number] [place] Plan F [id number] SELF [id number] MEDICAID M [id number] Self [id number] Medicaid [facility] Part B .[id number] 063.0 Self Medicaid [facility] S D [id number] SELF [id number] [facility] Plan Commercial [id number] Self [id number] Medicaid [facility] S D [id number] SELF [id number] UHC I [id number] Self [id number] [facility] [id number] SP [id number] UHC I [id number] Self [id number] MEDICAID M [id number] Self [id number] UHC I [id number] Self [id number] UHC I [id number] Self [id number] [facility] Care Hmo Commercial [id number] .[id number] Self [id number] [facility] Plan Commercial [id number] .[id number] [id number] Self [id number] [facility] [id number] S [id number] [facility] COMMUNITY PLAN MCDO [id number] SP [id number] Medicaid S [id number] S [id number] Managed Care - Community Plan [facility] P [id number] S [id number] Managed Care - [facility] Community Plan P [id number] S [id number] UN COMMUNITY PLAN MCDO [id number] SP [id number] BCBS [place] 304/804 [id number] SP [id number] [place] [id number] S [id number] [facility] Care Commercial [id number] Self [facility] O [id number] S [id number] BCBS [place] PPO 302/307 [id number] SP [id number] [facility]) O [id number] S [id number] [facility] COMMUNITY PLAN [facility] [id number] SP [id number] [facility] [id number] S [id number] [facility] PHY [id number] SP [id number] [facility] P UNAVAILABLE [id number] S UNAVAILABLE [facility] P [id number] S [id number] BCBS [place] DIV [id number] HU2 [id number] [facility] ([facility] P [id number] P [id number] [place] BCBS P [id number] S VYS [id number] BCBS [place]MO [place] O [id number] S [id number] [place] BCBS P [id number] S VYS [id number] [place] BCBS P [id number] S [id number] BCBS HMO [place] O [id number] S [id number] BS [place] Medigap Part B [id number] 2.16.840.1.125151.3.227.99.991.114216.0 Self [id number] [facility] COMMUNITY PLAN MCDO [id number] SP [id number] BS [place] Medigap Part B [id number] [id number]47.0 Self [id number] BS [place] [facility] [id number] 2.16840.1.879[id number] Self [id number] [facility] COMMUNITY PLAN XIX [id number] 18 [id number] [facility] Health Maintenance Organization ([facility]) [id number] 2.16840.1.161069.3.227.99.1767.85364.0 Self [id number] [facility] Health Maintenance Organization ([facility]) [id number] [id number] Self [id number] [facility] Maintenance Organization ([facility]) [id number] 2.0.1.816390.3.227.99.[id number] [facility] Commercial [id number] Self [facility] Health Maintenance Organization ([facility]) [id number] [id number] Self [id number] [facility] Maintenance [facility] ([facility]) [id number] 2.840.1.085653.3.227.99.1767.34052.0 Self [id number] [place] [facility] Part B [id number] [id number] [facility] [id number] Comme rcial Insurance [id number] BS [place] [facility] [id number] [id number] Self [id number] ID IDENTIFICATION [id number] 2.16.840.1.1 [id number] Other Insurance [id number] O UNAVAILABLE [facility]A [facility] [id number] S [id number] MEDICAID [id number] SP [id number] [facility]) O [id number] S [id number] [facility] O UNAVAILABLE [id number] S UNAVAILABLE O UNAVAILABLE UNAVAILA BLE Medicaid [facility] S D [id number] SELF [id number] [facility] COMMUNITY PLAN [id number] SP [id number] [facility] COMMUNITY PLAN UNAVAILABLE UNAVAILABLE [place] [id number] SP [id number] [facility] [id number] HU2 [id number] [facility] [id number] HU2 [id number] BC [place] 304/804 [id number] SP [id number] [facility] Comm Plan Medicaid F [id number] SELF [id number] Problems, Conditions, and Diagnoses Code Display Name Description Problem Type Effective Dates Data Source(s) G89.4 Chronic pain syndrome CHRONIC PAIN SYNDROME Diagnosis 03/16/2021 01:00:00 PM [facility] F41.0 Panic disorder [episodic paroxysmal anxi ety] PANIC DISORDER [EPISODIC PAROXYSMAL ANXIETY] Diagnosis 03/16/2021 01:00:00 PM [facility] F33.0 Major depressive disorder, recurrent, mi ld MAJOR DEPRESSIVE DISORDER, RECURRENT, MILD Diagnosis 03/16/2021 01:00:00 PM [facility] L93.0 Discoid lupus erythematosus DISCOID LUPUS ERYTHEMATOSU S Diagnosis 02/21/2021 10:00:00 AM [facility] F41.9 Anxiety disorder, unspecified ANXIETY DISORDER, UNSPEC IFIED Diagnosis 11/25/2020 03:00:00 PM [facility] F32.9 Major depressive disorder, single episod e, unspecified MAJOR DEPRESSIVE DISORDER, SINGLE EPISODE, UNSPECIFIED Diagnosis 11/25/2020 03:00:00 PM [facility] M32.13 Lung involvement in systemic lupus eryth ematosus Lung involvement in systemic lupus erythematosus Diagnosis 05/17/2020 07:27:42 AM EST [facility] R60.1 [id number] Generalized edema Problem 01/19/2021 12:00:0 0 AM EDT eCW1 ([facility]) N39.46 Mixed incontinence Mixed incontinence Problem 12:00:00 AM EST eCW1 ([facility]) R92.8 [id number] Abnormal mammogram of right breast Proble m 07/11/2020 12:00:00 AM EST eCW1 ([facility]) I73.00 [id number] Raynaud's disease without gangrene Proble m 05/17/2020 12:00:00 AM EST eCW1 ([facility]) E83.42 [id number] Hypomagnesemia Problem 05/17/2020 12:00:00 A M EST eCW1 ([facility]) G89.4 [id number] Chronic pain syndrome Problem 05/17/2020 12: 00:00 AM EST eCW1 ([facility]) G43.009 [id number] Migraine without aur a and without status migrainosus, not intractable Problem 05/17/2020 12:00:00 AM EST eCW1 ([facility]) M32.9 [id number] SLE (systemic lupus erythematosus related syndrome) Problem 05/17/2020 12:00:00 AM EST eCW1 ([facility]) K21.9 [id number] GERD without esophagitis Problem 05/17/2020 12:00:00 AM EST eCW1 ([facility]) M79.7 [id number] Fibromyalgia Problem 05/17/2020 12:00:00 AM EST eCW1 ([facility]) F34.1 [id number] Dysthymia Problem 05/17/2020 12:00:00 AM ES T eCW1 ([facility]) J45.20 [id number] Mild intermittent asthma without complica tion Problem 05/17/2020 12:00:00 AM EST eCW1 ([facility]) Surgeries/Procedures Procedure Description Date Indications Data Source(s) OFFICE OUTPATIENT VISIT 25 MINUTES 03/02/2021 12:00:00 AM EDT MED[facility] ([facility]) DNA ANTIBODY KLAMATH/DOUBLE STRANDED <td>FRANKY SPECIFICITY</td><td>Routine</td><td>01/30/2021 5:24 PM EDT</td><td> Other systemic lupus erythematosus with lung involvement Inflammatory arthritis</td><td> </td> 01/30/2021 05:24:00 PM EDT Inflammatory arthritisOther systemic lup us erythematosus with lung involvement [facility] Inflammatory arthritis Other systemic lupus erythematosus with lung involvement SEDIMENTATION RATE RBC AUTOMATED <td>SEDIMENTATION RAT E, AUTOMATED</td><td>Routine</td><td>01/30/2021 5:24 PM EDT</td><td> Other systemic lupus erythematosus with lung involvement Inflammatory arthritis High risk medication use</td><td> </td> 01/30/2021 05:24:00 PM EDT High risk medication useInflammatory art hritisOther systemic lupus erythematosus with lung involvement [facility] High risk medication use Inflammatory arthritis Other systemic lupus erythematosus with lung involvement BLOOD COUNT COMPLETE AUTO&AUTO DIFRNTL WBC COUNT <td>C BC AND DIFFERENTIAL</td><td>Routine</td><td>01/30/2021 5:24 PM EDT</td><td> Other systemic lupus erythematosus with lung involvement Inflammatory arthritis High risk medication use</td><td> </td> 01/30/2021 05:24:00 PM EDT High risk medication useInflammatory art hritisOther systemic lupus erythematosus with lung involvement [facility] High risk medication use Inflammatory arthritis Other systemic lupus erythematosus with lung involvement COMPLEMENT ANTIGEN EACH COMPONENT <td>C3 COMPLEMENT</td><td>Routine</td><td>01/30/2021 5:24 PM EDT</td><td> Other systemic lupus erythematosus with lung involvement Inflammatory arthritis</td><td> </td> 01/30/2021 05:24:00 PM EDT Inflammatory arthritisOther systemic lup us erythematosus with lung involvement [facility] Inflammatory arthritis Other systemic lupus erythematosus with lung involvement COMPLEMENT ANTIGEN EACH COMPONENT <td>C4 COMPLEMENT</td><td>Routine</td><td>01/30/2021 5:24 PM EDT</td><td> Other systemic lupus erythematosus with lung involvement</td><td> </td> 01/30/2021 05:24:00 PM EDT Other systemic lupus erythematosus with lung involveme [facility] Other systemic lupus erythematosus with lung involvement C-REACTIVE PROTEIN <td>INFLAMMATORY C-REACTIVE PROTEIN (CRP)</td><td>Routine</td><td>01/30/2021 5:24 PM EDT</td><td> Other systemic lupus erythematosus with lung involvement Inflammatory arthritis High risk medication use</td><td> </td> 01/30/2021 05:24:00 PM EDT High risk medication useInflammatory art hritisOther systemic lupus erythematosus with lung involvement [facility] High risk medication use Inflammatory arthritis Other systemic lupus erythematosus with lung involvement ANTINUCLEAR ANTIBODIES FRANKY <td>FRANKY</td><td>Routine</td ><td>01/30/2021 5:24 PM EDT</td><td> Other systemic lupus erythematosus with lung involvement Inflammatory arthritis</td><td> </td> 01/30/2021 05:24:00 PM EDT Inflammatory arthritisOther systemic lup us erythematosus with lung involvement [facility] Inflammatory arthritis Other systemic lupus erythematosus with lung involvement COMPREHENSIVE METABOLIC PANEL <td>COMPREHENSIVE METABO LIC PANEL</td><td>Routine</td><td>01/30/2021 5:24 PM EDT</td><td> Other systemic lupus erythematosus with lung involvement Inflammatory arthritis High risk medication use</td><td> </td> 01/30/2021 05:24:00 PM EDT High risk medication useInflammatory art hritisOther systemic lupus erythematosus with lung involvement [facility] High risk medication use Inflammatory arthritis Other systemic lupus erythematosus with lung involvement Spirometry 01/03/2021 12:00:00 AM EDT Enrique WILL ([facility], ) OFFICE OUTPATIENT VISIT 25 MINUTES 01/03/2021 12:00:00 AM EDT MEDMARTÍNEZ ([facility], ) PRESSURIZED/NONPRESSURIZED INHALATION TREATMENT 2020 12:00:00 AM EDT [facility] ([facility]) Therapeutic, Prophylactic Or Diagnostic Injection Subq/Im 09/21/2020 12:00:00 AM EDT [facility] ([facility]) RADIOLOGIC EXAM KNEE COMPLETE 4/MORE VIEWS 08/24/2020 12:00:00 AM EST [facility] ([facility]) MRI Lower Extremity Any Joint 08/19/2020 12:00:[address] [facility] ([facility]) Therapeutic, Prophylactic Or Diagnostic Injection Subq/Im 05/08/2020 12:00:00 AM EDT [facility] ([facility]) Results ID Date Data Source [id number] 03/06/2021 11:26:00 AM EDT [facility] ([facility]) Name Value Range Interpretation Code Description Data Nallely rce(s) Supporting Document(s) Laboratory test finding (navigational concept) Laboratory test result [facility] ([facility]) ID Date Data Source [id number] 02/15/2021 10:35:25 AM EDT [facility] Name Value Range Interpretation Code Description Data Nallely rce(s) Supporting Document(s) Progress Note [facility] XXMZIy3nLxQZToIa30/PRJtnSZCwq7MiXOptMRl7KCffBJDgG7KhDMN2tG4dMPT5ZLaUMnQzScAbPRIg lbm [file] ICAgICAgICAgICAgICAgICAgICAgICAgICAgICAgIC AgICAgICAgICAgICAgICAgICAgICAgICAgICAgICAgICAgICAgICAgICAgICAgICAgICAgICAgDQogIC AgICAgICAgICAgICAgICAgICAgICAgICAgICAgICAgICAgICAgICAgICAgICAgICAgICAgICAgICAgIC AgICAgICAgICAgICAgICAgICAgICAgICAgICAgICAg ICAgICAgDQogICAgICAgICAgICAgICAgICAgICAgICAgICAgICAgICAgICAgICAgICAgICAgICAgICAg ICAgICAgICAgICAgICAgICAgICAgICAgICAgICAgICAgICAgICAgICAgICAgICAgDQogICAgICAgICAg ICAgICAgICAgICAgICAgICAgICAgICAgICAgICAgIC AgICAgICAgICAgICAgICAgICAgICAgICAgICAgICAgICAgICAgICAgICAgICAgICAgICAgICAgICAgDQ ogICAgICAgICAgICAgICAgICAgICAgICAgICAgICAgICAgICAgICAgICAgICAgICAgICAgICAgICAgIC AgICAgICAgICAgICAgICAgICAgICAgICAgICAgICAg ICAgICAgICAgDQogICAgICAgICAgICAgICAgICAgICAgICAgICAgICAgICAgICAgICAgICAgICAgICAg ICAgICAgICAgICAgICAgICAgICAgICAgICAgICAgICAgICAgICAgICAgICAgICAgICAgDQogICAgICAg ICAgICAgICAgICAgICAgICAgICAgICAgICAgICAgIC AgICAgICAgICAgICAgICAgICAgICAgICAgICAgICAgICAgICAgICAgICAgICAgICAgICAgICAgICAgIC AgDQogICAgICAgICAgICAgICAgICAgICAgICAgICAgICAgICAgICAgICAgICAgICAgICAgICAgICAgIC AgICAgICAgICAgICAgICAgICAgICAgICAgICAgICAg ICAgICAgICAgICAgDQogICAgICAgICAgICAgICAgICAgICAgICAgICAgICAgICAgICAgICAgICAgICAg ICAgICAgICAgICAgICAgICAgICAgICAgICAgICAgICAgICAgICAgICAgICAgICAgICAgICAgDQogICAg ICAgICAgICAgICAgICAgICAgICAgICAgICAgICAgIC AgICAgICAgICAgICAgICAgICAgICAgICAgICAgICAgICAgICAgICAgICAgICAgICAgICAgICAgICAgIC VlTLQxNSs2Z0jzXLRnDJHhWV3fTNw4Yb7+PPjSIwLxIUC0ssQbhX4KDN2id0YiGJdjUTQpk3LpFMo7JG 2JGKRnBKdrVB7ZPAnhvc2SRRTlNVPtwRVOs2gxTfSv XDA0BSXfMdakAA9TOCTpQ9pcpcXbJDPnTDUEKYveBUKCSBwxUWICEDHyOAVuYvGbXdXiBIDmVSMiHPKB EHC8RSSsOuUnBGKgFGDoKtFmCHEFGMWsYVCaWoDvREXpQHUxZB5WZHMjT250gjRgHNNRDp3+DQplbmRv WcwYKsV6GJOnc2LjHKn8QR6RRXEpLbypc8VhWNOeUB IEDHgqEP1MEXE9OHQ9BEKhYx8PYPMrN275zgZrEE7DNf7HRxMdJL8per8SCCCpIXDcTkpUVye3QAmlGZ 9FwFCcUUqZdk8hfhWhqtOZa8OvmyJebURNh52lTbB7zRRuNWvuSYOeZGWfUd3aLu4aNTXfIAX9PoMaAK XDSV3BKSZlBMYxlMAqSUXgNVGWEN4SQHkuBXT5XLDj lcJixJZpGHmvNR1JXQHkxsMiDSZgMIIGDSq+Sz4JBV4ax0ArTOr8GbMkZJ8eor7MRBzMBbAxV2U1lNLk Q2A0YVcoKl5BLCGfRKFbUJGeBIBNJEzaAO4YFK9rgmL0HD0PiTVwRIPzXODrhTCuOCv5P60bgZZyNGvs MI7QPPJ+Archie+Cc4JVGWsKVUsKLOzZeVeXYAEDmFhZ5 IxP9MSa9UfT1EzXD04oXqfceTyWOriUJ9BCH8vJUAbNGBBNE9GkTHeqO0qlzV2BCAoDKAQWjHgR69ceY TfEYDxTDI0NVKtFl6PJBFrL3UrxsLmoSqbouQqBYCmUIUZVG7YUDbnllWpqASthXgxPK37bOrqLX0TQd 1DDnWaEB0avu8LePGwNr2WQKH9NO7BRHIeODTjSKMo ZZI7SMQbUgNpDQucPOPnAAWxJVY2XEGjGMIlJC0PZxQsFQOtTRh3GGMbMXTvKLTzjy5DVUZfLBN4FBB5 TyLlAPOyPSXaBGmaCAOqBPFvOCO9EKMaIPXoNI8ZVyEbEHVyOJZ3VzsuQILnSZUhxn2JWTNjLIWePyn0 ZiPjARXcXGXyVLhtDBDhTUE5Hzu9KDIqPQBsWQ8XRj FmULReLNf6OIQpYWJdKOBrdz9PCEKfBMRoWMF7MVUtJQZvPYGwIQzfDKOlFNQjDnMwPRGiRPRkMS2TTe MaVHMsXKR5HZXqYYKtFMXklk5MXOSkGPTdYwArNNUkCWPwLSNbGHwhWQKmHYV2LIO4LFBpPANxJM7XUg BmGPXsPVC3YrFwUPPwNLKqen9MPUWbWADsSTjyPAWj BSXeJUFsEAfiVYJoOON5OXYbWPNwNJKhVH5ITbJlHEVwIgL6CSWdOPRdXSAckm0SIZXzYUHmCaCzXfSw TJEfEOOyLWewWSSgBDJ0ASc3VEBhTQNnZG8MCjSnHAOaJoT9YMBuTPPgAECrvo6GDKSpDNQvOvD6QBHa GQKvRQRiGUxiXOHjZJH9DcL1MVGyLUUxCA9SYqAuPP BaThz6SOFjGKJzKHFimz5RLBXqAHCfJAf7SNAyKULuHBThRVyqUOPlOSYzXIW3DJPfJMLfCL7NSySjTJ QxQnKfWkEbFYAeVIUoyu3BPVTcEDBbGyk7QaVcKTYfPDIiTVsgWYWmCPPcJYzmJMAcKVTeUX2KIoXgDY PbSxTnUfVdUJBwSWHtfi2PIGZnXREdVQLjGnAaPTBw PLSuWAhoGWBxWER2TBI2PRGyPIOmKY8SUdQyNTZuNkZ8IFXtURLyEGDkox0YMFZuTSO5GzJ5TxTxNADj MURuXLnsJYPhCIL2ANG9VEImSJIcSJ6KVyRaVKBmNVZ9XrHqZYYrQPDmqt0XZJXgGQK7BgajFpIfKETw LIBcUWwrBPGkVEU3MJafFKZoBABjCQ1IWbKxSEOmLQ tgEFCyOYCuCYDeus6QBGCvPAK9CQXgUdUcWGRfHTKbQTodUVJmVAQ9Naf4CCKoZBZvNA0CRmJxPUGrOU uuOgpcYOYnYPIcme1SQKRtBVM0VYKgYhJnCLOkIWPyENeoGCFmGYX4Rcm6SHPjXJPqVJ3AXdUrNHFoWU JgMmxwYGIqKWTjcq3NOVZfPLU9GIExHQLhVITcGEHo FHtbSKByVICgVfE1HLFrZVWeBH0FErBaWPGdCYS2DWTgZVHbMRJfsc7SiYVqxTanqy6ELJzRBa8LjYdf JJS5RQipKx1unDQ6LtIsZCCZKi3MvbQrGOBgBZUVVAkuYYQnJAAtPnE4CNK2O6PsNCFdQkDlJRTzYpMi ZdD9SYPsScXbZhN0BBX8BGsrJGtdWACgBGHeZBDhIb T4LzDnKwI3TCWxXaU+QF5gVTa+Qi3Te4QdeeC6ycAsLRp0LiL9UP1KVTRHT5WWVw== ID Date Data Source [id number] 01/31/2021 12:16:51 PM [facility] Name Value Range Interpretation Code Description Data Nallely rce(s) Supporting Document(s) Nuclear Ab Pattern Homogenous [Titer] in Serum <80 [facility] Nuclear Ab pattern.speckled [Titer] in Serum 80 1/dil <80 [facility] Nuclear Ab pattern.rim [Titer] in Serum <80 [facility] Nuclear Ab pattern.nucleolar [Titer] in Serum <80 [facility] ID Date Data Source [id number] 01/31/2021 10:43:34 AM [facility] Name Value Range Interpretation Code Description Data Nallely rce(s) Supporting Document(s) Sjogrens syndrome-A extractable nuclear Ab [Units/volume] in Serum by Immunofluorescence 11 [AU]/mL 0 [facility] Sjogrens syndrome-B extractable nuclear Ab [Units/volume] in Serum by Immunofluorescence 7 [AU]/mL [facility] Pedroza extractable nuclear Ab [Units/volume] in Serum b y Immunofluorescence 10 [AU]/mL [address] [place] [address] Ribonucleoprotein extractable nuclear Ab [Units/volume] in Serum by Immunofluorescence 77 U/ML [facility] SCL-70 extractable nuclear Ab [Units/volume] in Serum 49 [AU]/mL [address] [place] [address] Mansi-1 extractable nuclear Ab [Units/volume] in Serum by Immunofluorescence 10 [AU]/mL [address] [place] [address] DNA double strand Ab [Units/volume] in Serum by Immunofluore scence 7 [IU]/mL [address] [place] [address] Centromere Ab [Units/volume] in Serum 49 [AU]/mL [address] [place] [address] Histone IgG Ab [Units/volume] in Serum 13 [AU]/mL [address] [place] [address] ID Date Data Source [id number] 01/30/2021 06:50:38 PM EDT [facility] Name Value Range Interpretation Code Description Data Nallely rce(s) Supporting Document(s) Leukocytes [#/volume] in Blood by Automated count 8.0 10*3/uL 4-10 [facility] Erythrocytes [#/volume] in Blood by Automated count 4.92 10*6/uL 4.1- 5.3 [facility] Hemoglobin [Mass/volume] in Blood 15.3 g/dL 11.5-15.5 [facility] Hematocrit [Volume Fraction] of Blood by Automated count 45.4 % 3 6-45 H [facility] Erythrocyte mean corpuscular volume [Entitic volume] by Auto mated count 92.2 fL 80-96 [facility] Erythrocyte mean corpuscular hemoglobin [Entitic mass] by Automated count 31.2 pg 27-33 [facility] Erythrocyte mean corpuscular hemoglobin concentration [Mass/volume] by Automated count 33.8 g/dL 32.0-36.0 [facility] Erythrocyte distribution width [Ratio] by Automated count 14.0 % 11.5-14.5 [facility] Platelets [#/volume] in Blood by Automated count 246 10*3/uL 150-400 [facility] Differential cell count method - Blood [facility] Neutrophils/100 leukocytes in Blood by Automated count 54 % [facility] Lymphocytes/100 leukocytes in Blood by Automated count 39 % [facility] Monocytes/100 leukocytes in Blood by Automated count 6 % [facility] Eosinophils/100 leukocytes in Blood by Automated count 1 % [facility] Basophils/100 leukocytes in Blood by Automated count 0 % [facility] Neutrophils [#/volume] in Blood by Automated count 4.38 10*3/uL 1.8-7 .0 [facility] Lymphocytes [#/volume] in Blood by Automated count 3.11 10*3/uL 1.2-4 .0 [facility] Monocytes [#/volume] in Blood by Automated count 0.47 10*3/uL 0-0.8 [facility] Eosinophils [#/volume] in Blood by Automated count 0.04 10*3/uL 0-0.5 [facility] Basophils [#/volume] in Blood by Automated count 0.02 10*3/uL 0-0.2 [facility] Nucleated erythrocytes/100 leukocytes [Ratio] in Blood by Automated count 0 /100{WBCs} 0-0 [facility] ID Date Data Source [id number] 01/30/2021 07:18:47 PM EDT [facility] Value Range Interpretation Code Description Data Nallely rce(s) Supporting Document(s) Complement C3 [Mass/volume] in Serum or Plasma 109 mg/dL 90-180 [facility] ID Date Data Source [id number] [facility] Interpretation Code Description Data Nallely rce(s) Supporting Document(s) Complement C4 [Mass/volume] in Serum or Plasma 11 mg/dL 10-40 [facility] ID Date Data Source [id number] [facility] Interpretation Code Description Data Nallely rce(s) Supporting Document(s) C reactive protein [Mass/volume] in Serum or Plasma <8.0 [facility] ID Date Data Source [id number] [facility] Range Interpretation Code Description Data Nallely rce(s) Supporting Document(s) Albumin [Mass/volume] in Serum or Plasma by Bromocresol green (BCG) dye binding method 4.4 g/dL 3.5-5.2 [facility] Bilirubin.total [Mass/volume] in Serum or Plasma 0.3 mg/dL <1.2 [facility] Calcium [Mass/volume] in Serum or Plasma 9.6 mg/dL 8.6-10.0 [facility] Chloride [Moles/volume] in Serum or Plasma 104 mmol/L 98-107 [facility] Creatinine [Mass/volume] in Serum or Plasma 0.77 mg/dL 0.50-0.90 [facility] Glucose [Mass/volume] in Serum or Plasma 82 mg/dL 70-140 [facility] Alkaline phosphatase [Enzymatic activity/volume] in Serum or Plasma 66 U/L 35-104 [facility] Potassium [Moles/volume] in Serum or Plasma 3.5 mmol/L 3.4-5.1 [facility] Protein [Mass/volume] in Serum or Plasma 6.8 g/dL 6.4-8.3 [facility] Sodium [Moles/volume] in Serum or Plasma 139 mmol/L 136-145 [facility] Aspartate aminotransferase [Enzymatic activity/volume] in Serum or Plasma 13 U/L <32 [facility] Urea nitrogen [Mass/volume] in Serum or Plasma 6 mg/dL 6-20 [facility] Osmolality of Serum or Plasma by calculation 285 mosm/kg 275-300 [facility] Creatinine/Urea nitrogen [Mass Ratio] in Serum or Plasma 8 [facility] Bicarbonate [Moles/volume] in Serum 27 mmol/L 22-29 [facility] Alanine aminotransferase [Enzymatic activity/volume] in Seru m or Plasma 11 U/L <33 [facility] Anion gap 3 in Serum or Plasma 8 mmol/L 8-15 [facility] Glomerular filtration rate/1.73 sq M pre dicted among non-blacks [Volume Rate/Area] in Serum or Plasma by Creatinine-based formula (MDRD) >6 0 [facility] Glomerular filtration rate/1.73 sq M pre dicted among blacks [Volume Rate/Area] in Serum or Plasma by Creatinine-based formula (MDRD) >60 [facility] ID Date Data Source [id number] 01/30/2021 08:03:33 PM EDT [facility] Name Value Range Interpretation Code Description Data Nallely rce(s) Supporting Document(s) Erythrocyte sedimentation rate 12 mm/hr <20 [facility] ID Date Data Source [id number] 12/04/2020 07:30:40 PM EDT [facility] Name Value Range Interpretation Code Description Data Nallely rce(s) Supporting Document(s) Progress Note [facility] [id number]/BLLsyQNDai1XsMAejLXz8VNbwALTfR4NyEMH7cW6oDKW2SGvFEaYxRhZhGTMm lbm [file] AgICAgICAgICAgICAgICAgICAgICAgICAgICAgICAg ICAgICAgICAgICAgICAgICAgICAgICAgICAgICAgICAgICAgICAgICAgICAgICAgICAgICAgICANCiAg ICAgICAgICAgICAgICAgICAgICAgICAgICAgICAgICAgICAgICAgICAgICAgICAgICAgICAgICAgICAg ICAgICAgICAgICAgICAgICAgICAgICAgICAgICAgIC AgICAgICANCiAgICAgICAgICAgICAgICAgICAgICAgICAgICAgICAgICAgICAgICAgICAgICAgICAgIC AgICAgICAgICAgICAgICAgICAgICAgICAgICAgICAgICAgICAgICAgICAgICAgICANCiAgICAgICAgIC AgICAgICAgICAgICAgICAgICAgICAgICAgICAgICAg ICAgICAgICAgICAgICAgICAgICAgICAgICAgICAgICAgICAgICAgICAgICAgICAgICAgICAgICAgICAN CiAgICAgICAgICAgICAgICAgICAgICAgICAgICAgICAgICAgICAgICAgICAgICAgICAgICAgICAgICAg ICAgICAgICAgICAgICAgICAgICAgICAgICAgICAgIC AgICAgICAgICANCiAgICAgICAgICAgICAgICAgICAgICAgICAgICAgICAgICAgICAgICAgICAgICAgIC AgICAgICAgICAgICAgICAgICAgICAgICAgICAgICAgICAgICAgICAgICAgICAgICAgICANCiAgICAgIC AgICAgICAgICAgICAgICAgICAgICAgICAgICAgICAg ICAgICAgICAgICAgICAgICAgICAgICAgICAgICAgICAgICAgICAgICAgICAgICAgICAgICAgICAgICAg ICANCiAgICAgICAgICAgICAgICAgICAgICAgICAgICAgICAgICAgICAgICAgICAgICAgICAgICAgICAg ICAgICAgICAgICAgICAgICAgICAgICAgICAgICAgIC AgICAgICAgICAgICANCiAgICAgICAgICAgICAgICAgICAgICAgICAgICAgICAgICAgICAgICAgICAgIC AgICAgICAgICAgICAgICAgICAgICAgICAgICAgICAgICAgICAgICAgICAgICAgICAgICAgICANCiAgIC AgICAgICAgICAgICAgICAgICAgICAgICAgICAgICAg ICAgICAgICAgICAgICAgICAgICAgICAgICAgICAgICAgICAgICAgICAgICAgICAgICAgICAgICAgICAg ICAgICANCjw/iCWfK5ajcSPtxqY8K4kqWn3NHa7ZNR3oq0XxOSBlHRbggcDrXeyIRwSgRMHsTvjVIie0 KJalEV9DeRObB7QkA6YaMUquRE4UBVLjNVJnaPWaVE BpQXAmHpI7PVWvZEdeNY5EtQJmJAvwQYWmQJQlXkSmXAVrEFVpNZHjODPsPPINSXCnOACnAmImTRPlCJ QqBIrvKCIWDOT4DVKuEyUsRXXkLIQnZmGjOGRGCKD5KNZoWuSwGFknOY6Rw4FxgIShKJ5EMh5NElYyEQ 6wss7VDTPiUNTrLcjPOat6GZlmZG3TeSIrxSN4OcLc UWHKOuRqD1ztq6QlGWUbVOTGDJtxJT0Ha8PefGIfIBk+Xn7NLJ3pj3RpKFu5DeSuNG3xov7USNvMEyEd Y5EriPdvHAXwv4gpZALyAR2szRPlXMZ9JSwoyIIHDQRjCB7lBJDIKTVkyTA2WdV0GzOkWxAmBFL2OESa WX2aVQprQW4YHOL7BWpdCZVaYNHqN0zURoAgHEYdVk FmmFsqIC0GDiNfM0ZmdpNaiZP8GREuKXWNOv7+CUwjimOdCumGAuE9CHUsb4QwHCq0GU1GUVNfYRksGQ 8IEJAmyP3rXTngAG8LNjK7QbYxQSLSGaUwJ64etPDsEQd3A2RpJfOvAYJnSxmuKVLiMVelWoIaRTHiYy BdDQogID4+ID4+AQdwPY7UBNrrulGxVCKtOb4QRTGf UMRsGL2mMKOgRHAgP8O4iMuuOVUYCzBeQ3cucqqwYW5cFVJyG258yQchjrIvPCT7TKRhEg0NCMPkYLK5 IZKguALrQYHaPNHSJVuaJT0UhUNwNWU3wJ6zUAuiCGQzUCTnA0hDDaTroMaxCV41eVhgfoUdrIVcXDg+ Pp3QVG7vr6PoCAd0mgAnRQcvRJS2OHpvWVKnVYEeLT GaAKP0TUK0PZPGWiQzCLVaDZGeSBebVBLxDCKsqz5OWAErOCI3OOD3NZGwNBPrPNFkBPmpAMPqNIZrEP ZtSOCiHYMxEQ3FYaEoJLTnZQUxAOnuUOBeWJMxow3LSSJfIPUzTCFeGyXxVSYxNXUlVWptNRFuDPA9RD KcBXZvDPQdCJ6NLkKuPWIqDHw8QBctWHHxZJFlji1P XMEqGKYfAFBhTUWqPVDdSCTfLCiuVPTxGHTrKWBiLPHhPVOdVB7GHfNiJHXlTHMnOSQuISQgQTEecc2M NMWvROUmCpp1BGNwNBYiHSBiZDgyYYNyGPV4IYK2YLBtJHWhVT0PGcVyFYOwBSS2QHTlRMBiQTXoje7F TQExKHTmYmljMSCjIFVkTULgQPzxQDJcTOSjPmv1PV YwXPUuEP6XLfXnWTDlEfN7KEOpTVYrHOZucl6IHXRfTRIxSnJ3RRPhMXNvPFMoITjyKALeHMYoGuL7LK QoVJMaWL4PUcUbMESmYbP9PVVxWBBeULRxlv2MGOXvUXSlCmrxVJZcINLtNIJzKSooOGBtABC1UQvbTO QgYBVaXT1RUlGhUSOxFwtfYgKeWJTbWUAlvu4CNBTh OWNbLUH2GAUiLJDkZDPgIWmcAGCrJOPvBkwrNKFzLVObGF6LKdIwGKYsNvYjDeScOEMcTCWmsf9FLRCy OMEpKkD1BQYpPUAfMJYeIXapSWKsDAZhDOK0HCNfRMVfTE6AKbNiUZCgVhW2VqQzPUVdPAKdxk6LXDPb NENeXilmUQDzQBAxHPHlRQpqMVKaBBJ1Pzc2MTCcCS NqMH1CFnFmAHDkSiH7NzjpMKLtPAXgaw8UVAGvCZCmIGZ1GwJbYANxIMEbEHvtGLFcDVZ2XQk8NPTbNN RuIP2ARzZbHUPhUSW3KtXqXXAtQAIcmj7JFFGzRAA3XcKfGEVrLVSwRLAsCHuzOCCyFTH5CsmzMUQfXW EmQE1FQsAtOGUaPJa1RimkAVWqKWLyow3LSARgMTY0 FYH6SYUiFAMiWJRfQCxlCFReHOC1QmEyEIGlMDJkUM4BRjMrYJLuTZd3ZnppIUXvPAXsxp9KWCQjDHC7 CEp6UlMyBMFuLAIoPLvdCNReIED9UEjdPAGiVBDbXW1JYzZiOOLrPECjMOsaQSVlRFYerl8BNTRlCOS2 KDF9AqFnJJMfFCMnBLwaRASfNCUjODg3HEUtSFClHF 5QImNbZASyNTZyKbKyTEWuIVAhqy3VJGBiOTG6CoPzVcFnMTEtRULzSYf6ttFepORrATq3KV1WX4Sxmn KuBAhXJx9Ac942RXT7CJBoTb6NW0cmZx7jRCUqQTXEPa8MSWq6FWI9Z7BtWAL7XOM8ISFxGzX8OSWdOA C3Hms6SHJ1E3E+LFtsAXL8GdS1HoG9VANaTYA7NtFe MAQnRTZoYoS7VrwmQX4gSFYMAn7+CFftvTTumAspMUKXNqZcDXHrGTogJHHSBl8O ID Date Data Source [id number] 10/06/2020 11:04:00 AM EDT [facility] ([facility]) Name Value Range Interpretation Code Description Data Nallely rce(s) Supporting Document(s) Covid Rapid Testing Laboratory test result [facility] ([facility]) ID Date Data Source [id number] 09/21/2020 12:00:00 AM EDT [facility] Name Value Range Interpretation Code Description Data Nallely rce(s) Supporting Document(s) SARS-CoV2 Rapid Antigen Negative [facility] This lab was reported by Caesar Moreira Jada. ID Date Data Source [id number] 09/02/2020 07:46:00 AM EST [facility] ([facility]) Name Value Range Interpretation Code Description Data Nallely rce(s) Supporting Document(s) Covid Rapid Testing Laboratory test result [facility] ([facility]) ID Date Data Source [id number] 08/15/2020 08:41:50 AM EST [facility] Name Value Range Interpretation Code Description Data Nallely rce(s) Supporting Document(s) Progress Note [facility] RDLMCi1sOfBGPwNs33/VOHiqEFWbm5VqKMutDAv9JWrgWXZbS0RhTYQ1rY8bTTF3LMlJTlZdHgEsHjT2 [facility] [file] EKjPwwYPamNxeYY9/ygw/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 ID Date Data Source [id number] 05/31/2020 02:32:43 PM [facility] Name Value Range Interpretation Code Description Data Nallely rce(s) Supporting Document(s) Progress Note [facility] YVOKDn9sCpPYTyGl63/TRItdAHFkb1QkWOmiIDr6YOfoZVHqH4DqSDW8cT2pWGF8QXhGEcCxLvOwIBV9 lbm [file] == ID Date Data Source [id number] 05/04/2020 12:00:00 AM EDT [facility] Name Value Range Interpretation Code Description Data Nallely rce(s) Supporting Document(s) SARS-CoV2 Rapid Antigen [facility] This lab was ordered by [facility] and reported by [facility]. Procedure Social History Code Duration Value Status Description Data Source(s ) Alcohol intake 01/30/2021 12:00:00 AM EDT Current non-d aye of alcohol (finding) completed Current non-drinker of alcohol (finding) [facility] Tobacco use and exposure 01/30/2021 12:00:00 AM EDT Never used co mpleted Never used [facility] Smoking 01/30/2021 12:00:00 AM EDT Former smoker completed Former smoker [facility] Smoking 01/19/2021 12:00:00 AM EDT Former Smoker completed Former Smoker [facility] ([facility]) Smoking 01/19/2021 12:00:00 AM EDT Former Smoker completed Former Smoker eCW1 ([facility]) Smoking 01/19/2021 12:00:00 AM EDT Former Smoker completed Former Smoker eCW1 ([facility]) Smoking 01/19/2021 12:00:00 AM EDT Former Smoker completed Former Smoker eCW1 ([facility]) Smoking 01/03/2021 12:00:00 AM EDT - 07/08/2018 12:00:00 AM EST Patient is a former smoker completed Patient is a former smoker [facility] Alcohol intake 11/21/2020 12:00:00 AM EDT Current non-d aye of alcohol (finding) completed Current non-drinker of alcohol (finding) [facility] Smoking 10/04/2020 12:00:00 AM EDT Former Smoker completed Former Smoker eCW1 ([facility]) Smoking 10/04/2020 12:00:00 AM EDT Former Smoker completed Former Smoker eCW1 ([facility]) Smoking 10/04/2020 12:00:00 AM EDT Former Smoker completed Former Smoker eCW1 ([facility]) Smoking 10/04/2020 12:00:00 AM EDT Former Smoker completed Former Smoker eCW1 ([facility]) Smoking 10/04/2020 12:00:00 AM EDT Former Smoker completed Former Smoker eCW1 ([facility]) Smoking 10/04/2020 12:00:00 AM EDT Former Smoker completed Former Smoker eCW1 ([facility]) Smoking 10/04/2020 12:00:00 AM EDT Former Smoker completed Former Smoker eCW1 ([facility]) Smoking 10/04/2020 12:00:00 AM EDT Former Smoker completed Former Smoker eCW1 ([facility]) Smoking 09/21/2020 12:00:00 AM EDT Patient is a former smoker completed Patient is a former smoker [facility] ([facility]) Alcohol intake 08/15/2020 12:00:00 AM EST Current non-d aye of alcohol (finding) completed Current non-drinker of alcohol (finding) [facility] Alcohol intake 05/31/2020 12:00:00 AM EST Current non-d aye of alcohol (finding) completed Current non-drinker of alcohol (finding) [facility] Smoking 05/17/2020 12:00:00 AM EST Former Smoker completed Former Smoker eCW1 ([facility]) Smoking 05/17/2020 12:00:00 AM EST Former Smoker completed Former Smoker eCW1 ([facility]) Vital Signs ID Date Data Source [id number] Name Value Range Interpretation Code Description Data Source(s) Body temperature 97.7 [degF] 97.7 [degF] [facility] ([facility] Body height 65 [in_i] 65 [in_i] [facility] ([facility] ) 5'5" Body weight 164.25 [lb_av] 164.25 [lb_av] MEDEN T ([facility] ) Body mass index (BMI) [Ratio] 27.3 kg/m2 27.3 k g/m2 [facility] ([facility] ) Body weight 169 [lb_av] 169 [lb_av] eCW1 ([facility]) Body height 66 [in_i] 66 [in_i] eCW1 ([facility]) Body mass index (BMI) [Ratio] 27.27 kg/m2 27.27 kg/m2 eCW1 ([facility]) Heart rate 104 /min 104 /min eCW1 ([facility]) Respiratory rate 18 /min 18 /min eCW1 ([facility]) Body temperature 97.9 [degF] 97.9 [degF] eCW1 ( [facility]) Systolic blood pressure 110 mm[Hg] 110 mm[Hg] e CW1 ([facility]) Diastolic blood pressure 72 mm[Hg] 72 mm[Hg] eCW1 ([facility]) Systolic blood pressure 118 mm[Hg] 118 mm[Hg] M EDENT ([facility], ) Diastolic blood pressure 72 mm[Hg] 72 mm[Hg] [facility] ([facility], ) Heart rate 82 /min 82 /min [facility] ([facility], ) Oxygen saturation in Arterial blood by Pulse oximetry 98 % 98 % [facility] Room Air Body height 66 [in_i] 66 [in_i] [facility] ([facility], ) 5'6" Body weight 167.00 [lb_av] 167.00 [lb_av] MEDEN T ([facility], ) Body mass index (BMI) [Ratio] 27.0 kg/m2 27.0 k g/m2 [facility] ([facility], ) [place] body weight 130 [lb_av] 130 [lb_av] MEDEN T ([facility], ) Body weight 75.751 kg 75.751 kg [facility] ([facility]) Body surface area Derived from formula 1.85 m2 1.85 m2 [facility] ([facility]) Body weight 181 [lb_av] 181 [lb_av] eCW1 ([facility]) Body height 66 [in_i] 66 [in_i] eCW1 ([facility]) Body mass index (BMI) [Ratio] 29.21 kg/m2 29.21 kg/m2 eCW1 ([facility]) Heart rate 96 /min 96 /min eCW1 ([facility]) Respiratory rate 18 /min 18 /min eCW1 ([facility]) Body temperature 97.8 [degF] 97.8 [degF] eCW1 ( [facility]) Systolic blood pressure 100 mm[Hg] 100 mm[Hg] e CW1 ([facility]) Diastolic blood pressure 66 mm[Hg] 66 mm[Hg] eCW1 ([facility]) Systolic blood pressure 118 mm[Hg] 118 mm[Hg] M EDENT ([facility], [facility]) Diastolic blood pressure 73 mm[Hg] 73 mm[Hg] [facility] ([facility]) Heart rate 75 /min 75 /min [facility] ([facility], [facility]) Respiratory rate 14 /min 14 /min [facility] ( [facility], [facility]) Oxygen saturation in Arterial blood by Pulse oximetry 98 % 98 % [facility] ([facility], [facility]) Body temperature 96.6 [degF] 96.6 [degF] [facility] ([facility], [facility]) Body weight 172.00 [lb_av] 172.00 [lb_av] MEDEN T ([facility]) Body height 66 [in_i] 66 [in_i] [facility] ([facility]) 5'6" Body mass index (BMI) [Ratio] 27.8 kg/m2 27.8 k g/m2 [facility] ([facility], [facility]) Body temperature 96.7 [degF] 96.7 [degF] [facility] ([facility]) Body height 65 [in_i] 65 [in_i] [facility] ([facility]) 5'5" Body weight 175.00 [lb_av] 175.00 [lb_av] MEDEN T ([facility]) Body mass index (BMI) [Ratio] 29.1 kg/m2 29.1 k g/m2 [facility] ([facility]) Body weight 173.8 [lb_av] 173.8 [lb_av] eCW1 ([facility]) Body height 66 [in_i] 66 [in_i] eCW1 ([facility]) Body mass index (BMI) [Ratio] 28.05 kg/m2 28.05 kg/m2 [facility] ([facility]) Heart rate 79 /min 79 /min eCW1 ([facility]) Respiratory rate 18 /min 18 /min eCW1 ([facility]) Body temperature 99.0 [degF] 99.0 [degF] eCW1 ( [facility]) Systolic blood pressure 105 mm[Hg] 105 mm[Hg] e CW1 ([facility]) Diastolic blood pressure 82 mm[Hg] 82 mm[Hg] eCW1 ([facility]) Systolic blood pressure 113 mm[Hg] 113 mm[Hg] M EDENT ([facility], [facility]) Diastolic blood pressure 77 mm[Hg] 77 mm[Hg] [facility] ([facility], [facility]) Heart rate 85 /min 85 /min [facility] ([facility], [facility]) Respiratory rate 18 /min 18 /min [facility] ( [facility], [facility]) Oxygen saturation in Arterial blood by Pulse oximetry 99 % 99 % [facility] ([facility], [facility]) Body temperature 98.2 [degF] 98.2 [degF] [facility] ([facility], [facility]) Body weight 165.00 [lb_av] 165.00 [lb_av] MEDEN T ([facility], [facility]) Patient Treatment Plan of Care Planned Activity Planned Date Details Description Data Source (s) Prednisone 10 MG Oral Tablet 01/30/2021 12:00:00 AM [facility] Prednisone 10 MG Oral Tablet 11/21/2020 12:00:00 AM [facility] Terbinafine HCl 1 % 10/04/2020 12:00:00 AM EDT eCW1 ([facility]) Terbinafine HCl 1 % 10/04/2020 12:00:00 AM EDT eCW1 ([facility]) Terbinafine HCl 1 % 10/04/2020 12:00:00 AM EDT eCW1 ([facility]) Terbinafine HCl 1 % 10/04/2020 12:00:00 AM EDT eCW1 ([facility]) Terbinafine HCl 1 % 10/04/2020 12:00:00 AM EDT eCW1 ([facility]) Terbinafine HCl 1 % 10/04/2020 12:00:00 AM EDT eCW1 ([facility]) Terbinafine HCl 1 % 10/04/2020 12:00:00 AM EDT eCW1 ([facility]) Terbinafine HCl 1 % 10/04/2020 12:00:00 AM EDT eCW1 ([facility]) Ketotifen 0.25 MG/ML Ophthalmic Solution 08/15/2020 12:00:00 AM [facility] mycophenolate mofetil 500 MG Oral Tablet 08/15/2020 12:00:00 AM [facility] Prednisone 10 MG Oral Tablet 08/15/2020 12:00:00 AM [facility] mycophenolate mofetil 500 MG Oral Tablet 08/01/2020 12:00:00 AM [facility] Acetaminophen 325 MG / Hydrocodone Bitartrate 10 MG Or al Tablet 07/05/2020 12:00:00 AM [facility] mycophenolate mofetil 500 MG Oral Tablet 05/17/2020 12:00:00 AM [facility] Folic Acid 1 MG Oral Tablet 12/07/2019 12:00:00 AM [facility] celecoxib 200 MG Oral Capsule 09/17/2019 12:00:00 AM [facility] mycophenolate mofetil 500 MG Oral Tablet 07/20/2019 12:00:00 AM EST [facility] Adalimumab 40 MG/0.4ML Subcutaneous Pen-injector Kit ( HUMIRA) 05/22/2019 12:00:[address] [facility] ospital mycophenolate mofetil 500 MG Oral Tablet 02/16/2019 12:00:00 AM [facility] duloxetine 60 MG Delayed Release Oral Capsule 03/03/2018 12:00:00 A M [facility] Lorazepam 1 MG Oral Tablet 10/11/2017 12:00:00 AM [facility] Clonidine Hydrochloride 0.1 MG Oral Tablet 08/27/2017 12:00:00 AM E [facility] Minocycline 100 MG Oral Capsule [facility] Oxycodone Hydrochloride 5 MG Oral Tablet [facility] Ketorolac Tromethamine 5 MG/ML Ophthalmic Solution [facility] Melatonin 3 MG Oral Tablet U [facility] Nystatin 000054 UNT/ML Oral Suspension [facility]
[2021-04-20 11:37] LABS: AMPHETAMINES LEVEL URINE NEGATIVE (NEGATIVE); BARBITURATES URINE NEGATIVE (NEGATIVE); BENZODIAZEPINES URINE NEGATIVE (NEGATIVE); CANNABINOIDS URINE POSITIVE (NEGATIVE); COCAINE METABOLITE URINE NEGATIVE (NEGATIVE); METHADONE URINE NEGATIVE (NEGATIVE); OPIATES URINE POSITIVE (NEGATIVE); PHENCYCLIDINE URINE NEGATIVE (NEGATIVE)
[2021-04-20 12:02] LABS: ALBUMIN 3.7 GM/DL (3.2-5.2); ALT/SGPT 19 U/L (12-78); BILIRUBIN,DIRECT < 0.1 MG/DL (0.0-0.2); BILIRUBIN,TOTAL 0.3 MG/DL (0.2-1.0); CK-MB VALUE MASS 1.6 NG/ML (<3.6); CPK CREATINE PHOSPHOKINASE 75 U/L (26-192); FREE T4 1.06 NG/DL (0.76-1.46); LIPASE 195 U/L (73-393); MB/CK RELATIVE INDEX 2.13 (< OR =4); THYROID STIMULATING HORMONE 0.582 uIU/ML (0.358-3.740); TROPONIN I < 0.02 NG/ML (< 0.10)
[2021-04-20] MEDS ORDERED: diphenhydrAMINE 50MG/ML VIAL (J1200) IV ONE (12:40)
[2021-04-20] MEDS ORDERED: methylPREDNISolone 125MG 2ML VIAL IV ONE (12:40)
[2021-04-20 12:52] LABS: ETHYL ALCOHOL (ETHANOL) 0.004 % (0.000-0.010)
--- NOTE | 2021-04-20 13:23 | REP ---
INDICATION: CHEST PAIN COMPARISON: 12/06/2020 TECHNIQUE: Portable AP view of the chest FINDINGS: The mediastinum and cardiac silhouette are stable and within normal limits for portable technique. The lung hays are clear without acute consolidation, effusion, or pneumothorax. Skeletal structures are intact. IMPRESSION: No acute cardiopulmonary process appreciated. <Electronically signed by Niko Roe > 04/20/21 [id number]
[2021-04-20] MEDS ORDERED: ISOVUE-370 76% 100ML VIAL As Ordered ONE (13:35)
[2021-04-20 13:49] VITALS: BP 111/65
--- NOTE | 2021-04-20 14:21 | REP ---
INDICATION: chest discomfort/palpitations COMPARISON: Noncontrast chest CT dated 11/16/2014 TECHNIQUE: Axial contrast enhanced images from the thoracic inlet to the upper abdomen using pulmonary embolus technique with multiplanar re-formations. 75 ml Isovue 370 intravenous contrast material administered without complication. This CT examination was performed using the following dose reduction techniques: Automated exposure control, adjustment of mA and/or kv according to the patient's size, and use of iterative reconstruction technique. FINDINGS: Satisfactory enhancement of the pulmonary vasculature is achieved and no filling defects are identified to suggest pulmonary embolus. Further evaluation of the mediastinum demonstrates normal thoracic aorta, heart and pericardium. The bilateral lung hays are well aerated and clear without consolidation pleural effusion or pneumothorax. Tracheobronchial tree is patent. No nodule or mass lesion is identified. No adenopathy noted. Surrounding musculoskeletal structures intact IMPRESSION: No evidence for pulmonary embolus. No acute mediastinal or pleural parenchymal process. <Electronically signed by Niko Roe > 04/20/21 [id number]
[2021-04-20 14:28] LABS: CK-MB VALUE MASS 1.4 NG/ML (<3.6); CPK CREATINE PHOSPHOKINASE 50 U/L (26-192); TROPONIN I < 0.02 NG/ML (< 0.10)
[2021-04-20] MEDS ORDERED: holter monitor (15:36)
--- NOTE | 2021-04-21 08:02 | ECGEPIP ---
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
--- NOTE | 2021-04-21 08:15 | ECGEPIP ---
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
[2021-04-22] MEDS ORDERED: holter monitor (11:13)
== END 2021-04-20 16:49 | disposition home or self-care (01) ==
LOC: M ED 09:55
DX: R07.89 Other chest pain (principal); R00.2 Palpitations; R00.1 Bradycardia, unspecified; J45.909 Unspecified asthma, uncomplicated; F41.9 Anxiety disorder, unspecified; F32.9 Major depressive disorder, single episode, unspecified; G43.909 Migraine, unspecified, not intractable, without status migrainosus; M79.7 Fibromyalgia; K21.9 Gastro-esophageal reflux disease without esophagitis; Z87.891 Personal history of nicotine dependence; Z79.899 Other long term (current) drug therapy; Z91.041 Radiographic dye allergy status; Z88.6 Allergy status to analgesic agent
CPT/HCPCS: 71045; 71275; 80047; 80076; 80307; 82077; 82550; 82553; 83690; 84439; 84443; 84703; 85025; 87798; 93005; 93041; 94760; 99285; J1200; J2930; Q9967

== ENCOUNTER → 2021-04-22 | Outpatient (CLI) | payer OTHER ==
[~2021-04-22] MED LIST changes: +holter monitor
--- NOTE | 2021-04-23 17:15 | HOLTMON ---
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 There was significant artifact. Underlying rhythm was sinus. Heart rate varied from 55-119 beats per minutes. There were no significant pauses. There was minimal ectopy. Diary events were not associated with arrythmia. Understanding that there was significant artifact, this seems to be a normal holter result. If further concern for electrical cause for palpitations, this study could be repeated, or an event recorder pursued. Electronically Signed on 04-23-2021 17:15:07 EDT by Yoly Nolan
== END ==
LOC: M EKG 11:22
PROVIDERS: ATTEND Internal Medicine
DX: R00.2 Palpitations (principal)

== ENCOUNTER → 2021-04-28 | Outpatient (REF) | payer OTHER ==
[2021-04-28 12:58] LABS: BASO % 0.3 % (0.0-1.0); EOS # 0.1 10^3/uL (0.0-0.5); EOS % 0.7 % (0.0-3.0); HEMATOCRIT 51.5 % (36.0-47.0); HEMOGLOBIN 16.4 g/dl (12.0-15.5); LYMPH # 2.4 10^3/uL (1.5-5.0); LYMPH % 27.5 % (24.0-44.0); MEAN CORPUSCULAR HEMOGLOBIN 30.8 pg (27.0-33.0); MEAN CORPUSCULAR HGB CONC 31.8 g/dl (32.0-36.5); MEAN CORPUSCULAR VOLUME 96.8 fl (80.0-96.0); MONO # 0.6 10^3/uL (0.0-0.8); MONO % 6.3 % (2.0-8.0); NEUTROPHILS # 5.8 10^3/uL (1.5-8.5); PLATELET COUNT, AUTOMATED 321 10^3/uL (150-450); RED BLOOD COUNT 5.32 10^6/uL (4.00-5.40); WHITE BLOOD COUNT 8.9 10^3/uL (4.0-10.0)
[2021-04-28 13:28] LABS: ALBUMIN 4.1 GM/DL (3.2-5.2); ALT/SGPT 22 U/L (12-78); BILIRUBIN,TOTAL 0.4 MG/DL (0.2-1.0); BLOOD UREA NITROGEN 6 MG/DL (7-18); CALCIUM LEVEL 10.1 MG/DL (8.5-10.1); CARBON DIOXIDE LEVEL 29 MEQ/L (21-32); CHLORIDE LEVEL 109 MEQ/L (98-107); CREATININE FOR GFR 0.92 MG/DL (0.55-1.30); GLOMERULAR FILTRATION RATE > 60.0 (>58); GLUCOSE, FASTING 88 MG/DL (70-100); MAGNESIUM LEVEL 2.3 MG/DL (1.8-2.4); POTASSIUM SERUM 4.5 MEQ/L (3.5-5.1); SODIUM LEVEL 141 MEQ/L (136-145); TOTAL PROTEIN 7.5 GM/DL (6.4-8.2)
== END ==
LOC: M SFHCADAM 10:06
PROVIDERS: ATTEND Family Medicine
DX: R00.2 Palpitations (principal); D72.829 Elevated white blood cell count, unspecified; R30.0 Dysuria

== ENCOUNTER → 2021-06-06 | Outpatient (REF) | payer OTHER ==
[2021-06-06 12:29] LABS: AMORPHOUS SEDIMENT SMALL (NEGATIVE); APPEARANCE, URINE CLOUDY (CLEAR); BACTERIA, URINE AUTO NEGATIVE (NEGATIVE); BILIRUBIN, URINE AUTO NEGATIVE (NEGATIVE); BLOOD, URINE BLOOD NEGATIVE (NEGATIVE); COLOR, URINE YELLOW (YELLOW); GLUCOSE, URINE (UA) AUTO NEGATIVE (NEGATIVE); KETONE, URINE AUTO TRACE mg/dL (NEGATIVE); LEUKOCYTE ESTERASE, URINE AUTO NEGATIVE (NEGATIVE); MUCUS, URINE SMALL (NEGATIVE); NITRITE, URINE AUTO NEGATIVE (NEGATIVE); PROTEIN, URINE AUTO NEGATIVE (NEGATIVE); RBC, URINE AUTO 0 /HPF (0-3); SPECIFIC GRAVITY URINE AUTO 1.015 (1.002-1.035); SQUAMOUS EPITHELIAL CELL UR AU 2 /HPF (0-6); WBC, URINE AUTO 1 /HPF (0-3)
== END ==
LOC: M SFHCADAM 09:17
PROVIDERS: ATTEND Physician Assistant Medical
DX: R05.9 Cough, unspecified (principal)

== ENCOUNTER → 2021-07-10 | Outpatient (REF) | payer OTHER | LOC: M SFHCADAM 16:40 | PROVIDERS: ATTEND Physician Assistant Medical | DX: R09.81 Nasal congestion (principal); Z11.52 Encounter for screening for COVID-19 ==

== ENCOUNTER → 2021-07-17 | Outpatient (REF) | payer OTHER | LOC: M SFHCADAM 12:35 | PROVIDERS: ATTEND Physician Assistant Medical | DX: R05.9 Cough, unspecified (principal) ==

== ENCOUNTER → 2022-04-11 | Outpatient (CLI) | payer OTHER ==
[2022-04-11 13:22] LABS: BASO # 0.1 10^3/uL (0.0-0.2); BASO % 0.7 % (0.0-1.0); EOS # 0.2 10^3/uL (0.0-0.5); EOS % 2.1 % (0.0-3.0); HEMATOCRIT 46.1 % (36.0-47.0); HEMOGLOBIN 14.7 g/dl (12.0-15.5); LYMPH # 2.2 10^3/uL (1.5-5.0); LYMPH % 30.6 % (24.0-44.0); MEAN CORPUSCULAR HEMOGLOBIN 30.6 pg (27.0-33.0); MEAN CORPUSCULAR HGB CONC 31.9 g/dl (32.0-36.5); MONO # 0.5 10^3/uL (0.0-0.8); MONO % 6.4 % (2.0-8.0); NEUTROPHILS # 4.3 10^3/uL (1.5-8.5); NEUTROPHILS % 59.9 % (36.0-66.0); PLATELET COUNT, AUTOMATED 288 10^3/uL (150-450); WHITE BLOOD COUNT 7.2 10^3/uL (4.0-10.0)
[2022-04-11 14:38] LABS: ALBUMIN 3.9 GM/DL (3.2-5.2); ALT/SGPT 18 U/L (12-78); BILIRUBIN,TOTAL 0.5 MG/DL (0.2-1.0); BLOOD UREA NITROGEN 5 MG/DL (7-18); CALCIUM LEVEL 10.2 MG/DL (8.5-10.1); CARBON DIOXIDE LEVEL 27 MEQ/L (21-32); CHLORIDE LEVEL 111 MEQ/L (98-107); CREATININE FOR GFR 0.83 MG/DL (0.55-1.30); GLOMERULAR FILTRATION RATE > 60.0 (>58); GLUCOSE, FASTING 98 MG/DL (70-100); POTASSIUM SERUM 4.4 MEQ/L (3.5-5.1); SODIUM LEVEL 141 MEQ/L (136-145); TOTAL PROTEIN 6.9 GM/DL (6.4-8.2)
== END ==
LOC: M PLAIMG 09:05
PROVIDERS: ATTEND Physician Assistant Medical
DX: U07.1 COVID-19 (principal); R05.9 Cough, unspecified

== ENCOUNTER → 2022-04-27 | Outpatient (CLI) | payer OTHER | LOC: M ADAMS 11:56 | PROVIDERS: ATTEND Physician Assistant | DX: J45.41 Moderate persistent asthma with (acute) exacerbation (principal) ==

== ENCOUNTER → 2022-05-15 | Outpatient (CLI) | payer OTHER ==
[2022-05-15 15:57] LABS: THYROID STIMULATING HORMONE 0.509 uIU/ML (0.358-3.740)
== END ==
LOC: M LAB 12:58
PROVIDERS: ATTEND Internal Medicine Endocrinology, Diabetes & Metabolism
DX: E04.2 Nontoxic multinodular goiter (principal)

== ENCOUNTER → 2022-05-17 | Outpatient (REF) | payer OTHER ==
[2022-05-17 13:14] LABS: BASO % 0.4 % (0.0-1.0); EOS % 0.4 % (0.0-3.0); HEMATOCRIT 48.1 % (36.0-47.0); HEMOGLOBIN 15.1 g/dl (12.0-15.5); LYMPH # 2.8 10^3/uL (1.5-5.0); MEAN CORPUSCULAR HEMOGLOBIN 30.6 pg (27.0-33.0); MEAN CORPUSCULAR HGB CONC 31.4 g/dl (32.0-36.5); MEAN CORPUSCULAR VOLUME 97.4 fl (80.0-96.0); MONO # 0.6 10^3/uL (0.0-0.8); MONO % 5.3 % (2.0-8.0); NEUTROPHILS # 7.6 10^3/uL (1.5-8.5); NEUTROPHILS % 68.6 % (36.0-66.0); PLATELET COUNT, AUTOMATED 391 10^3/uL (150-450); RED BLOOD COUNT 4.94 10^6/uL (4.00-5.40)
[2022-05-17 14:00] LABS: ALBUMIN 3.9 GM/DL (3.2-5.2); ALT/SGPT 21 U/L (12-78); BILIRUBIN,TOTAL 0.3 MG/DL (0.2-1.0); BLOOD UREA NITROGEN 6 MG/DL (7-18); CALCIUM LEVEL 10.3 MG/DL (8.5-10.1); CARBON DIOXIDE LEVEL 27 MEQ/L (21-32); CHLORIDE LEVEL 106 MEQ/L (98-107); CREATININE FOR GFR 0.89 MG/DL (0.55-1.30); GLOMERULAR FILTRATION RATE > 60.0 (>58); GLUCOSE, FASTING 72 MG/DL (70-100); POTASSIUM SERUM 4.1 MEQ/L (3.5-5.1); SODIUM LEVEL 137 MEQ/L (136-145); TOTAL PROTEIN 7.4 GM/DL (6.4-8.2)
== END ==
LOC: M SFHCADAM 10:20
PROVIDERS: ATTEND Physician Assistant
DX: M79.10 Myalgia, unspecified site (principal); R19.7 Diarrhea, unspecified; R63.4 Abnormal weight loss

== ENCOUNTER → 2022-05-22 | Outpatient (REF) | payer OTHER | LOC: M SFHCADAM 12:48 | PROVIDERS: ATTEND Physician Assistant | DX: R63.4 Abnormal weight loss (principal) ==

== ENCOUNTER → 2022-06-05 | Outpatient (CLI) | payer OTHER | LOC: M PLAIMG 11:40 | PROVIDERS: ATTEND Internal Medicine Pulmonary Disease | DX: R06.02 Shortness of breath (principal) ==

== ENCOUNTER → 2022-06-11 | Outpatient (REF) | payer OTHER | LOC: M LAB REF 16:53 | PROVIDERS: ATTEND Internal Medicine Endocrinology, Diabetes & Metabolism | DX: E04.1 Nontoxic single thyroid nodule (principal) ==

== ENCOUNTER → 2022-07-26 | Outpatient (CLI) | payer OTHER ==
[2022-07-26 15:11] LABS: BASO # 0.1 10^3/uL (0.0-0.2); BASO % 0.5 % (0.0-1.0); EOS # 0.1 10^3/uL (0.0-0.5); EOS % 0.4 % (0.0-3.0); HEMATOCRIT 48.3 % (36.0-47.0); HEMOGLOBIN 15.5 g/dl (12.0-15.5); LYMPH # 2.7 10^3/uL (1.5-5.0); LYMPH % 21.1 % (24.0-44.0); MEAN CORPUSCULAR HEMOGLOBIN 31.4 pg (27.0-33.0); MEAN CORPUSCULAR HGB CONC 32.1 g/dl (32.0-36.5); MEAN CORPUSCULAR VOLUME 97.8 fl (80.0-96.0); MONO # 0.6 10^3/uL (0.0-0.8); MONO % 4.4 % (2.0-8.0); NEUTROPHILS # 9.4 10^3/uL (1.5-8.5); NEUTROPHILS % 73.3 % (36.0-66.0); PLATELET COUNT, AUTOMATED 279 10^3/uL (150-450); RED BLOOD COUNT 4.94 10^6/uL (4.00-5.40); WHITE BLOOD COUNT 12.8 10^3/uL (4.0-10.0)
== END ==
LOC: M PLALAB 11:47
PROVIDERS: ATTEND Orthopaedic Surgery
DX: M25.561 Pain in right knee (principal)

== ENCOUNTER → 2022-08-09 | Outpatient (REF) | payer OTHER | LOC: M LAB REF 13:07 | PROVIDERS: ATTEND Internal Medicine Pulmonary Disease | DX: J45.40 Moderate persistent asthma, uncomplicated (principal); J47.9 Bronchiectasis, uncomplicated ==

== ENCOUNTER → 2022-10-31 | Outpatient (CLI) | payer OTHER ==
[~2022-10-31] MED LIST changes: +BENL200I; +HYDR-3719; +PRED5TA; +XIID5DRO
[2022-10-31 15:12] LABS: APPEARANCE, URINE CLEAR (CLEAR); BACTERIA, URINE AUTO NEGATIVE (NEGATIVE); BILIRUBIN, URINE AUTO NEGATIVE (NEGATIVE); BLOOD, URINE BLOOD NEGATIVE (NEGATIVE); COLOR, URINE YELLOW (YELLOW); GLUCOSE, URINE (UA) AUTO NEGATIVE (NEGATIVE); KETONE, URINE AUTO NEGATIVE (NEGATIVE); LEUKOCYTE ESTERASE, URINE AUTO NEGATIVE (NEGATIVE); NITRITE, URINE AUTO NEGATIVE (NEGATIVE); PROTEIN, URINE AUTO NEGATIVE (NEGATIVE); RBC, URINE AUTO 0 /HPF (0-3); SPECIFIC GRAVITY URINE AUTO 1.005 (1.002-1.035); SQUAMOUS EPITHELIAL CELL UR AU 1 /HPF (0-6); UROBILINOGEN, URINE AUTO 0.2 mg/dL (0.0-2.0); WBC, URINE AUTO 0 /HPF (0-3)
[2022-10-31 15:21] LABS: BASO % 0.4 % (0.0-1.0); EOS # 0.1 10^3/uL (0.0-0.5); HEMATOCRIT 46.3 % (36.0-47.0); LYMPH # 2.6 10^3/uL (1.5-5.0); MEAN CORPUSCULAR HEMOGLOBIN 31.5 pg (27.0-33.0); MEAN CORPUSCULAR HGB CONC 32.4 g/dl (32.0-36.5); MEAN CORPUSCULAR VOLUME 97.3 fl (80.0-96.0); MONO # 0.4 10^3/uL (0.0-0.8); MONO % 5.1 % (2.0-8.0); NEUTROPHILS % 56.4 % (36.0-66.0); PLATELET COUNT, AUTOMATED 277 10^3/uL (150-450); RED BLOOD COUNT 4.76 10^6/uL (4.00-5.40); WHITE BLOOD COUNT 7.1 10^3/uL (4.0-10.0)
[2022-10-31 15:41] LABS: ERYTHROCYTE SEDIMENTATION RATE 11 mm/hr (0-20)
[2022-10-31 15:51] LABS: C REACTIVE PROTEIN QUANTITATIV < 0.40 MG/DL (<1.0)
[2022-10-31 15:53] LABS: ALKALINE PHOSPHATASE 71 U/L (46-116); ALT/SGPT 14 U/L (7.0-40); AST/SGOT 10 U/L (<34); BILIRUBIN,TOTAL 0.3 MG/DL (0.3-1.2); BLOOD UREA NITROGEN 6 MG/DL (9-23); CARBON DIOXIDE LEVEL 28 MMOL/L (20-31); CHLORIDE LEVEL 108 MMOL/L (98-107); CREATININE FOR GFR 0.74 MG/DL (0.55-1.30); GLOMERULAR FILTRATION RATE > 60.0 (>58); GLUCOSE, FASTING 78 MG/DL (60-100); SODIUM LEVEL 140 MMOL/L (136-145); TOTAL PROTEIN 6.9 G/DL (5.7-8.2)
[2022-10-31 15:54] LABS: CREATININE,RANDOM URINE 25.5 MG/DL
[2022-10-31 16:00] LABS: TOTAL PROTEIN,RANDOM URINE < 6.0 MG/DL (0.0-14.0)
== END ==
LOC: M LAB 14:22
PROVIDERS: ATTEND Internal Medicine Rheumatology
DX: M32.13 Lung involvement in systemic lupus erythematosus (principal); R76.8 Other specified abnormal immunological findings in serum; M19.90 Unspecified osteoarthritis, unspecified site; Z79.899 Other long term (current) drug therapy; R35.0 Frequency of micturition

== ENCOUNTER → 2023-02-28 | Outpatient (REF) | payer OTHER ==
[~2023-02-28] MED LIST changes: -AMIT25TA17 PO; +AMIT25TA19 PO
[2023-02-28 14:44] LABS: AMORPHOUS SEDIMENT SMALL (NEGATIVE); APPEARANCE, URINE CLOUDY (CLEAR); BACTERIA, URINE AUTO NEGATIVE (NEGATIVE); BILIRUBIN, URINE AUTO NEGATIVE (NEGATIVE); BLOOD, URINE BLOOD NEGATIVE (NEGATIVE); COLOR, URINE YELLOW (YELLOW); GLUCOSE, URINE (UA) AUTO NEGATIVE (NEGATIVE); KETONE, URINE AUTO NEGATIVE (NEGATIVE); LEUKOCYTE ESTERASE, URINE AUTO NEGATIVE (NEGATIVE); NITRITE, URINE AUTO NEGATIVE (NEGATIVE); PROTEIN, URINE AUTO NEGATIVE (NEGATIVE); RBC, URINE AUTO 0 /HPF (0-3); SPECIFIC GRAVITY URINE AUTO 1.012 (1.002-1.035); SQUAMOUS EPITHELIAL CELL UR AU 2 /HPF (0-6); WBC, URINE AUTO 1 /HPF (0-3)
== END ==
LOC: M SMT 13:25
PROVIDERS: ATTEND Specialist
DX: R32 Unspecified urinary incontinence (principal)

== ENCOUNTER → 2023-05-22 | Outpatient (CLI) | payer OTHER | LOC: M PLAIMG 14:18 | PROVIDERS: ATTEND Internal Medicine Pulmonary Disease | DX: J45.40 Moderate persistent asthma, uncomplicated (principal) ==

== ENCOUNTER → 2024-03-12 | Outpatient (REF) | payer OTHER | LOC: M LAB REF 17:59 | PROVIDERS: ATTEND Physician Assistant | DX: R50.9 Fever, unspecified (principal) ==

== ENCOUNTER → 2024-05-04 | Outpatient (REF) | payer OTHER | LOC: M LAB REF 20:34 | PROVIDERS: ATTEND Physician Assistant | DX: R50.9 Fever, unspecified (principal) ==

== ENCOUNTER → 2024-05-08 | Outpatient (CLI) | payer OTHER | LOC: M RAD 17:28 | PROVIDERS: ATTEND Internal Medicine Pulmonary Disease | DX: J47.9 Bronchiectasis, uncomplicated (principal); J45.40 Moderate persistent asthma, uncomplicated ==

== ENCOUNTER → 2024-06-03 | Outpatient (REF) | payer OTHER ==
[2024-06-12 16:57] LABS: PANCREATIC ELASTASE STOOL > 800 mcg/g (>200)
[2024-06-13 18:47] LABS: CALPROTECTIN STOOL 77 mcg/g (<50)
== END ==
LOC: M LAB REF 14:40
PROVIDERS: ATTEND Nurse Practitioner Critical Care Medicine
DX: K21.9 Gastro-esophageal reflux disease without esophagitis (principal)

== ENCOUNTER → 2024-07-02 | Outpatient (CLI) | payer OTHER ==
[2024-07-02 15:25] LABS: BASO % 0.2 % (0.0-1.0); EOS % 0.2 % (0.0-3.0); HEMATOCRIT 44.1 % (36.0-47.0); HEMOGLOBIN 14.1 g/dl (12.0-15.5); LYMPH # 2.7 10^3/uL (1.5-5.0); LYMPH % 23.4 % (24.0-44.0); MEAN CORPUSCULAR HEMOGLOBIN 31.1 pg (27.0-33.0); MEAN CORPUSCULAR VOLUME 97.1 fl (80.0-96.0); MONO # 0.7 10^3/uL (0.0-0.8); MONO % 6.1 % (2.0-8.0); NEUTROPHILS # 7.9 10^3/uL (1.5-8.5); NEUTROPHILS % 69.7 % (36.0-66.0); PLATELET COUNT, AUTOMATED 302 10^3/uL (150-450); RED BLOOD COUNT 4.54 10^6/uL (4.00-5.40); WHITE BLOOD COUNT 11.4 10^3/uL (4.0-10.0)
[2024-07-02 15:30] LABS: ERYTHROCYTE SEDIMENTATION RATE 7 mm/hr (0-20)
[2024-07-02 15:55] LABS: ALBUMIN 3.5 G/DL (3.2-5.2); ALKALINE PHOSPHATASE 68 U/L (35-104); ALT/SGPT 27 U/L (7.0-40); AST/SGOT 14 U/L (<34); BILIRUBIN,TOTAL 0.2 MG/DL (0.3-1.2); BLOOD UREA NITROGEN 11 MG/DL (9-23); CALCIUM LEVEL 10.4 MG/DL (8.5-10.1); CARBON DIOXIDE LEVEL 28 MMOL/L (20-31); CHLORIDE LEVEL 108 MMOL/L (98-107); CREATININE FOR GFR 0.82 MG/DL (0.55-1.30); GLOMERULAR FILTRATION RATE > 60.0 (>58); GLUCOSE, FASTING 93 MG/DL (60-100); SODIUM LEVEL 143 MMOL/L (136-145); TOTAL PROTEIN 6.6 G/DL (5.7-8.2)
== END ==
LOC: M LAB 15:04
PROVIDERS: ATTEND Internal Medicine Rheumatology
DX: M32.13 Lung involvement in systemic lupus erythematosus (principal); M19.90 Unspecified osteoarthritis, unspecified site; R07.81 Pleurodynia

== ENCOUNTER → 2024-08-05 | Outpatient (CLI) | payer BC, OTHER ==
[~2024-08-05] MED LIST changes: +ALBU8.5H INH; +BACL1TAB9 PO; +CEFT2INJ4 IV; +FLUTISP; +GABA-1635 PO; -HYDR-3719; +HYDR-3719 PO; +ISOVUE-300 61% 100ML VIAL As Ordered ONE; +LEFL20TA15 PO; +LIDOCAINE 1% MDV 20ML VIAL As Ordered ONE; +LOVE1INJ SC; +MELO15TA28 PO; +MONT10TA97 PO; +OMEG10002 PO; +OMEP40CA5 PO; +PERCOCET PO; +PRED10TA2 PO; -PRED5TA; +PRED5TA PO; +SENN-52 PO; +TOPI100T9 PO; +VANC1INJ39 IV; +VITA100093 PO; +ZALE10CA PO; +methylPREDNISolone SUSP 40MG/ML 1ML VIAL (DEPO MEDROL) As Ordered ONE
== END ==
LOC: M RAD 13:06
PROVIDERS: ATTEND Physician Assistant Surgical
DX: M16.11 Unilateral primary osteoarthritis, right hip (principal)
CPT/HCPCS: 20610; 77002; J1010; Q9967

== ENCOUNTER 2024-08-07 11:41 | Inpatient (IN) | payer BC, OTHER ==
[~2024-08-07] VITALS: Ht 167.6 cm; Wt 73.8 kg
[~2024-08-07 11:41] MED LIST changes: -ALBU8.5H INH; -BACL1TAB9 PO; -CEFT2INJ4 IV; -FLUTISP; -GABA-1635 PO; -ISOVUE-300 61% 100ML VIAL As Ordered ONE; -LEFL20TA15 PO; -LIDOCAINE 1% MDV 20ML VIAL As Ordered ONE; -LOVE1INJ SC; -MELO15TA28 PO; -MONT10TA97 PO; -OMEG10002 PO; -OMEP40CA5 PO; -PERCOCET PO; -PRED10TA2 PO; -SENN-52 PO; -TOPI100T9 PO; -VANC1INJ39 IV; -VITA100093 PO; -ZALE10CA PO; -methylPREDNISolone SUSP 40MG/ML 1ML VIAL (DEPO MEDROL) As Ordered ONE
[2024-08-07] MEDS: ONDANSETRON 4MG 2ML VIAL IV ONE (13:21)
[2024-08-07] MEDS: MORPHINE 4 MG/ML 1ML VIAL IV ONE (13:22)
[2024-08-07 13:32] LABS: EOS % 0.2 % (0.0-3.0); HEMATOCRIT 44.2 % (36.0-47.0); HEMOGLOBIN 14.4 g/dl (12.0-15.5); LYMPH # 1.1 10^3/uL (1.5-5.0); MEAN CORPUSCULAR HEMOGLOBIN 31.1 pg (27.0-33.0); MEAN CORPUSCULAR HGB CONC 32.6 g/dl (32.0-36.5); MEAN CORPUSCULAR VOLUME 95.5 fl (80.0-96.0); MONO # 0.9 10^3/uL (0.0-0.8); MONO % 6.6 % (2.0-8.0); NEUTROPHILS % 84.7 % (36.0-66.0); PLATELET COUNT, AUTOMATED 329 10^3/uL (150-450); RED BLOOD COUNT 4.63 10^6/uL (4.00-5.40); WHITE BLOOD COUNT 14.2 10^3/uL (4.0-10.0)
[2024-08-07 13:43] LABS: ERYTHROCYTE SEDIMENTATION RATE 38 mm/hr (0-20)
[2024-08-07 14:04] LABS: BLOOD UREA NITROGEN 9 MG/DL (9-23); CALCIUM LEVEL 10.3 MG/DL (8.5-10.1); CARBON DIOXIDE LEVEL 27 MMOL/L (20-31); CHLORIDE LEVEL 105 MMOL/L (98-107); CREATININE FOR GFR 0.72 MG/DL (0.55-1.30); GLOMERULAR FILTRATION RATE > 60.0 (>58); GLUCOSE, FASTING 116 MG/DL (60-100); POTASSIUM SERUM 4.3 MMOL/L (3.5-5.1); SODIUM LEVEL 143 MMOL/L (136-145)
[2024-08-07] MEDS: diphenhydrAMINE 50MG/ML VIAL IV STA (16:39)
[2024-08-07] MEDS: ceFAZolin SOD 2 GM in IV 1 EA IV ONE (16:40)
[2024-08-07] MEDS: methylPREDNISolone 125MG 2ML VIAL IV ONE (16:40)
[2024-08-07] MEDS ORDERED: PROHANCE 279.3MG/ML 15ML VIAL As Ordered ONE (16:41)
[2024-08-07] MEDS ORDERED: OMEP40CA5 PO (16:44)
[2024-08-07] MEDS ORDERED: ALBU8.5H INH (16:44)
[2024-08-07] MEDS ORDERED: VITA100093 PO (16:44)
[2024-08-07] MEDS ORDERED: TOPI100T9 PO (16:44)
[2024-08-07] MEDS ORDERED: GABA-1635 PO (16:44)
[2024-08-07] MEDS ORDERED: ZALE10CA PO (16:44)
[2024-08-07] MEDS ORDERED: BACL1TAB9 PO (16:46)
[2024-08-07] MEDS ORDERED: MONT10TA97 PO (16:46)
[2024-08-07] MEDS ORDERED: LEFL20TA15 PO (16:46)
[2024-08-07] MEDS ORDERED: FLUTISP (16:46)
[2024-08-07] MEDS ORDERED: MELO15TA28 PO (16:46)
[2024-08-07] MEDS ORDERED: PRED10TA2 PO (16:46)
[2024-08-07] MEDS ORDERED: OMEG10002 PO (16:47)
[2024-08-07] MEDS ORDERED: HOME MED LIST COMPLETE! XX SCH (16:50)
[2024-08-07] MEDS: LORazepam 2 MG/ML 1ML VIAL IV STA (17:19)
[2024-08-07] MEDS: SENOKOT S TAB PO SCH (21:00)
[2024-08-07] MEDS: MONTELUKAST 10 MG TAB PO SCH (22:21)
[2024-08-07] MEDS: TOPIRAMATE (TopAMAX) 100 MG TAB PO SCH (22:22)
[2024-08-07] MEDS: GABAPENTIN 400MG CAP PO SCH (22:22)
[2024-08-07 22:23] VITALS: BP 148/88; TEMP 98.1; O2SAT 98
[2024-08-07] MEDS: OMEPRAZOLE 20MG CAP PO SCH (22:23)
[2024-08-07] MEDS: BACLOFEN 10 MG TAB PO SCH (22:23)
[2024-08-07] MEDS: KETOROLAC 30 MG/ML 1ML VIAL IV SCH (22:24)
[2024-08-08] MEDS: ceFAZolin SOD 2 GM in IV 1 EA IV SCH (00:03)
[2024-08-08] MEDS: PERCOCET 5MG/325MG TAB PO PRN ×2 (00:43→23:09)
[2024-08-08 04:00] VITALS: BP 111/67; TEMP 97.9; O2SAT 98
[2024-08-08 06:19] LABS: BASO % 0.1 % (0.0-1.0); HEMATOCRIT 40.5 % (36.0-47.0); HEMOGLOBIN 13.2 g/dl (12.0-15.5); LYMPH % 8.6 % (24.0-44.0); MEAN CORPUSCULAR HEMOGLOBIN 31.2 pg (27.0-33.0); MEAN CORPUSCULAR HGB CONC 32.6 g/dl (32.0-36.5); MEAN CORPUSCULAR VOLUME 95.7 fl (80.0-96.0); MONO # 0.8 10^3/uL (0.0-0.8); MONO % 7.4 % (2.0-8.0); NEUTROPHILS # 9.3 10^3/uL (1.5-8.5); NEUTROPHILS % 83.4 % (36.0-66.0); PLATELET COUNT, AUTOMATED 316 10^3/uL (150-450); RED BLOOD COUNT 4.23 10^6/uL (4.00-5.40); WHITE BLOOD COUNT 11.1 10^3/uL (4.0-10.0)
[2024-08-08 06:48] LABS: C REACTIVE PROTEIN QUANTITATIV 4.51 MG/DL (<1.0)
[2024-08-08 06:50] LABS: BLOOD UREA NITROGEN 17 MG/DL (9-23); CALCIUM LEVEL 10.1 MG/DL (8.5-10.1); CARBON DIOXIDE LEVEL 27 MMOL/L (20-31); CHLORIDE LEVEL 106 MMOL/L (98-107); CREATININE FOR GFR 0.85 MG/DL (0.55-1.30); GLOMERULAR FILTRATION RATE > 60.0 (>58); GLUCOSE, FASTING 118 MG/DL (60-100); POTASSIUM SERUM 4.1 MMOL/L (3.5-5.1); SODIUM LEVEL 144 MMOL/L (136-145)
[2024-08-08] MEDS ORDERED: predniSONE 5 MG TAB PO SCH (09:00)
[2024-08-08] MEDS: methylPREDNISolone 40MG 1ML VIAL IV SCH (09:54)
[2024-08-08] MEDS: VITAMIN D 1,000 INTERNATIONAL UNITS TABLET PO SCH (09:55)
[2024-08-08] MEDS: FLUTICASONE PROP 0.05% NASAL SPRAY 16 GM (FLONASE) SCH (09:55)
[2024-08-08] MEDS: ENOXAPARIN 40MG/0.4ML SYRINGE (J1650 PER 10MG) SC SCH (09:56)
[2024-08-08] MEDS: diphenhydrAMINE 50MG/ML VIAL IV ONE (12:03)
[2024-08-08] MEDS: LORazepam 2 MG/ML 1ML VIAL IV ONE (12:04)
[2024-08-08 20:30] VITALS: BP 110/71; TEMP 98.1; O2SAT 98
[2024-08-09 03:19] VITALS: BP 120/76; TEMP 97.7; O2SAT 98
[2024-08-09 06:03] LABS: BASO % 0.1 % (0.0-1.0); EOS % 0.1 % (0.0-3.0); HEMATOCRIT 41.1 % (36.0-47.0); HEMOGLOBIN 13.2 g/dl (12.0-15.5); LYMPH # 1.8 10^3/uL (1.5-5.0); LYMPH % 15.5 % (24.0-44.0); MEAN CORPUSCULAR HEMOGLOBIN 30.8 pg (27.0-33.0); MEAN CORPUSCULAR HGB CONC 32.1 g/dl (32.0-36.5); MEAN CORPUSCULAR VOLUME 95.8 fl (80.0-96.0); MONO # 0.7 10^3/uL (0.0-0.8); MONO % 6.4 % (2.0-8.0); NEUTROPHILS # 8.8 10^3/uL (1.5-8.5); NEUTROPHILS % 77.4 % (36.0-66.0); PLATELET COUNT, AUTOMATED 320 10^3/uL (150-450); RED BLOOD COUNT 4.29 10^6/uL (4.00-5.40); WHITE BLOOD COUNT 11.4 10^3/uL (4.0-10.0)
[2024-08-09 06:26] LABS: BLOOD UREA NITROGEN 20 MG/DL (9-23); CALCIUM LEVEL 9.9 MG/DL (8.5-10.1); CARBON DIOXIDE LEVEL 27 MMOL/L (20-31); CHLORIDE LEVEL 108 MMOL/L (98-107); CREATININE FOR GFR 0.97 MG/DL (0.55-1.30); GLOMERULAR FILTRATION RATE > 60.0 (>58); GLUCOSE, FASTING 93 MG/DL (60-100); POTASSIUM SERUM 3.7 MMOL/L (3.5-5.1); SODIUM LEVEL 144 MMOL/L (136-145)
[2024-08-09] MEDS: diphenhydrAMINE 50MG/ML VIAL IV ONE (09:53)
[2024-08-09] MEDS: LORazepam 2 MG/ML 1ML VIAL IV ONE (09:54)
[2024-08-09] MEDS ORDERED: VANCOMYCIN HCL IV SCH (19:50)
[2024-08-09] MEDS ORDERED: FLUID PLACE HOLDER IV SCH (19:50)
[2024-08-09 19:56] VITALS: BP 129/78; TEMP 98.2; O2SAT 96
[2024-08-09 20:14] LABS: VENOUS BASE EXCESS -1.2 (-2.0-2.0); VENOUS HCO3 22.4 MMOL/L (23.0-27.0); VENOUS O2 SATURATION 99.3 % (60.0-80.0); VENOUS PARTIAL PRESSURE CO2 34.3 mmHg (38.0-50.0); VENOUS PARTIAL PRESSURE O2 150.5 mmHg (30.0-50.0); VENOUS PH 7.433 UNITS (7.330-7.430); VENOUS STANDARD HCO3 23.6 MMOL/L; VENOUS TOTAL CO2 23.5 MMOL/L (24.0-28.0)
[2024-08-09 20:22] LABS: HEMATOCRIT 41.7 % (36.0-47.0); HEMOGLOBIN 13.5 g/dl (12.0-15.5); LYMPH # 1.2 10^3/uL (1.5-5.0); LYMPH % 11.9 % (24.0-44.0); MEAN CORPUSCULAR HGB CONC 32.4 g/dl (32.0-36.5); MEAN CORPUSCULAR VOLUME 95.9 fl (80.0-96.0); MONO # 0.6 10^3/uL (0.0-0.8); MONO % 5.7 % (2.0-8.0); NEUTROPHILS # 8.2 10^3/uL (1.5-8.5); NEUTROPHILS % 81.9 % (36.0-66.0); PLATELET COUNT, AUTOMATED 319 10^3/uL (150-450); RED BLOOD COUNT 4.35 10^6/uL (4.00-5.40)
[2024-08-09 20:41] LABS: ERYTHROCYTE SEDIMENTATION RATE 25 mm/hr (0-20); INR 0.91; PROTHROMBIN TIME 12.6 SECONDS (12.5-14.5)
[2024-08-09 20:52] LABS: ALKALINE PHOSPHATASE 72 U/L (35-104); ALT/SGPT 11 U/L (7.0-40); AST/SGOT 9 U/L (<34); BILIRUBIN,DIRECT < 0.1 MG/DL (<0.4); BILIRUBIN,TOTAL 0.3 MG/DL (0.3-1.2); BLOOD UREA NITROGEN 19 MG/DL (9-23); C REACTIVE PROTEIN QUANTITATIV 1.02 MG/DL (<1.0); CALCIUM LEVEL 9.7 MG/DL (8.5-10.1); CARBON DIOXIDE LEVEL 24 MMOL/L (20-31); CHLORIDE LEVEL 110 MMOL/L (98-107); CREATININE FOR GFR 0.97 MG/DL (0.55-1.30); GLOMERULAR FILTRATION RATE > 60.0 (>58); GLUCOSE, FASTING 136 MG/DL (60-100); POTASSIUM SERUM 3.6 MMOL/L (3.5-5.1); SODIUM LEVEL 144 MMOL/L (136-145); TOTAL PROTEIN 6.1 G/DL (5.7-8.2)
[2024-08-09] MEDS ORDERED: ISOVUE-370 76% 100ML VIAL As Ordered ONE (20:56)
[2024-08-09 20:57] LABS: PROCALCITONIN 0.06 ng/ml
[2024-08-09] MEDS: methylPREDNISolone 125MG 2ML VIAL IV STA (21:08)
[2024-08-09] MEDS: diphenhydrAMINE 50MG/ML VIAL IV STA (21:08)
[2024-08-09] MEDS: VANCOMYCIN HCL 1,500 MG, VIAL MATE ADAPTER 1 EACH in NS 500 ML IV ONE (21:24)
[2024-08-09 21:26] VITALS: BP 124/76; TEMP 98.3; O2SAT 96
[2024-08-09 22:10] LABS: ALBUMIN 2.9 G/DL (3.2-5.2); ALKALINE PHOSPHATASE 71 U/L (35-104); ALT/SGPT < 9 U/L (7.0-40); AST/SGOT 9 U/L (<34); BILIRUBIN,DIRECT < 0.1 MG/DL (<0.4); BILIRUBIN,TOTAL 0.2 MG/DL (0.3-1.2); CHOLESTEROL LEVEL 176 MG/DL (<200); CK-MB VALUE MASS < 1.0 NG/ML (<3.6); HDL CHOLESTEROL 54.9 MG/DL (>40); LDL CHOLESTEROL 84.1 MG/DL (<100); NON-HDL-C 121.1 MG/DL; TOTAL PROTEIN 5.8 G/DL (5.7-8.2); TRIGLYCERIDES LEVEL 185 MG/DL (<150)
[2024-08-09] MEDS ORDERED: NS (Normal Saline) 0.9% 1,000 ML IV ONE (22:10)
[2024-08-09 22:11] LABS: CPK CREATINE PHOSPHOKINASE 19 U/L (34-145); MB/CK RELATIVE INDEX 5.26 (< OR =4)
[2024-08-09 23:16] LABS: HEMOGLOBIN A1c 5.3 % (4.0-6.0)
[2024-08-10] VITALS (7 sets, daily range): BP systolic 128–182; BP diastolic 78–91; TEMP 97.3–99.2; O2SAT 96–98
[2024-08-10] MEDS: LR 1,000 ML IV ONE (00:30)
[2024-08-10 05:09] LABS: BASO % 0.1 % (0.0-1.0); HEMATOCRIT 40.8 % (36.0-47.0); HEMOGLOBIN 13.2 g/dl (12.0-15.5); LYMPH # 0.9 10^3/uL (1.5-5.0); LYMPH % 8.1 % (24.0-44.0); MEAN CORPUSCULAR HEMOGLOBIN 30.8 pg (27.0-33.0); MEAN CORPUSCULAR HGB CONC 32.4 g/dl (32.0-36.5); MEAN CORPUSCULAR VOLUME 95.3 fl (80.0-96.0); MONO # 0.4 10^3/uL (0.0-0.8); NEUTROPHILS # 9.3 10^3/uL (1.5-8.5); NEUTROPHILS % 87.4 % (36.0-66.0); PLATELET COUNT, AUTOMATED 307 10^3/uL (150-450); RED BLOOD COUNT 4.28 10^6/uL (4.00-5.40); WHITE BLOOD COUNT 10.7 10^3/uL (4.0-10.0)
[2024-08-10 05:37] LABS: BLOOD UREA NITROGEN 15 MG/DL (9-23); CALCIUM LEVEL 9.6 MG/DL (8.5-10.1); CARBON DIOXIDE LEVEL 25 MMOL/L (20-31); CHLORIDE LEVEL 112 MMOL/L (98-107); CREATININE FOR GFR 0.75 MG/DL (0.55-1.30); GLOMERULAR FILTRATION RATE > 60.0 (>58); GLUCOSE, FASTING 120 MG/DL (60-100); POTASSIUM SERUM 4.2 MMOL/L (3.5-5.1); SODIUM LEVEL 146 MMOL/L (136-145)
[2024-08-10] MEDS: PERCOCET 5MG/325MG TAB PO PRN (07:06)
[2024-08-10] MEDS: VANCOMYCIN HCL 1,000 MG, VIAL MATE ADAPTER 1 EACH in NS 250 ML IV SCH (10:13)
[2024-08-10] MEDS: KETOROLAC 30 MG/ML 1ML VIAL IV SCH (11:08)
[2024-08-10 12:57] LABS: C REACTIVE PROTEIN QUANTITATIV 0.72 MG/DL (<1.0)
[2024-08-10 16:41] LABS: PROCALCITONIN 0.06 ng/ml
[2024-08-10] MEDS ORDERED: cefTRIAXone SOD 2GM VIAL IM SCH (18:50)
[2024-08-10] MEDS: cefTRIAXone SOD 2 GM in DEXTROSE 5% (D5W) ADV/MINI-BAG 50 ML IV SCH (20:20)
[2024-08-11 05:34] VITALS: BP 110/71; TEMP 97.4; O2SAT 98
[2024-08-11 06:03] LABS: KETONE, URINE AUTO RFX NEGATIVE (NEGATIVE); LEUKOCYTE ESTERASE UR AUTO RFX NEGATIVE (NEGATIVE); NITRITE, URINE AUTO RFX NEGATIVE (NEGATIVE); RBC, URINE AUTO RFX 0 /HPF (0-3); SQUAM EPITHELIAL CELL UR AURFX 1 /HPF (0-6); WBC, URINE AUTO RFX 1 /HPF (0-3)
[2024-08-11 08:28] LABS: BASO % 0.1 % (0.0-1.0); EOS % 0.1 % (0.0-3.0); HEMOGLOBIN 13.2 g/dl (12.0-15.5); LYMPH # 3.1 10^3/uL (1.5-5.0); LYMPH % 28.7 % (24.0-44.0); MEAN CORPUSCULAR HEMOGLOBIN 30.3 pg (27.0-33.0); MEAN CORPUSCULAR HGB CONC 31.4 g/dl (32.0-36.5); MEAN CORPUSCULAR VOLUME 96.3 fl (80.0-96.0); MONO # 0.8 10^3/uL (0.0-0.8); NEUTROPHILS # 6.9 10^3/uL (1.5-8.5); NEUTROPHILS % 63.4 % (36.0-66.0); PLATELET COUNT, AUTOMATED 321 10^3/uL (150-450); RED BLOOD COUNT 4.36 10^6/uL (4.00-5.40); WHITE BLOOD COUNT 10.8 10^3/uL (4.0-10.0)
[2024-08-11 08:49] LABS: BLOOD UREA NITROGEN 17 MG/DL (9-23); C REACTIVE PROTEIN QUANTITATIV < 0.50 MG/DL (<1.0); CALCIUM LEVEL 9.8 MG/DL (8.5-10.1); CARBON DIOXIDE LEVEL 27 MMOL/L (20-31); CHLORIDE LEVEL 110 MMOL/L (98-107); CREATININE FOR GFR 0.85 MG/DL (0.55-1.30); GLOMERULAR FILTRATION RATE > 60.0 (>58); GLUCOSE, FASTING 79 MG/DL (60-100); POTASSIUM SERUM 3.7 MMOL/L (3.5-5.1); SODIUM LEVEL 145 MMOL/L (136-145)
[2024-08-11 12:00] VITALS: BP 127/84; TEMP 98.9; O2SAT 96
[2024-08-11] MEDS ORDERED: LIDOCAINE 1% MDV 20ML VIAL As Ordered ONE (13:20)
[2024-08-11 15:03] LABS: SOURCE, BODY FLUID RT HIP; SYNOVIAL FLUID COLOR RED (COLORLESS)
[2024-08-11] MEDS ORDERED: CEFT2INJ4 IV (16:34)
[2024-08-11] MEDS ORDERED: SENN-52 PO (16:53)
[2024-08-11] MEDS ORDERED: LOVE1INJ SC (16:53)
[2024-08-11] MEDS ORDERED: PERCOCET PO ×2 (16:53)
[2024-08-11] MEDS ORDERED: VANC1INJ39 IV (16:54)
[2024-08-11 20:00] VITALS: BP 151/95; TEMP 97
[2024-08-12] MEDS: PREPARATION H SUPP (HEMORRHOID) PR PRN (00:27)
[2024-08-12 04:46] VITALS: BP 133/81; TEMP 97.7; O2SAT 96
[2024-08-12 06:04] LABS: BASO % 0.1 % (0.0-1.0); EOS % 0.3 % (0.0-3.0); HEMATOCRIT 41.1 % (36.0-47.0); HEMOGLOBIN 13.2 g/dl (12.0-15.5); LYMPH # 2.8 10^3/uL (1.5-5.0); LYMPH % 21.6 % (24.0-44.0); MEAN CORPUSCULAR HEMOGLOBIN 30.9 pg (27.0-33.0); MEAN CORPUSCULAR HGB CONC 32.1 g/dl (32.0-36.5); MEAN CORPUSCULAR VOLUME 96.3 fl (80.0-96.0); MONO # 1.1 10^3/uL (0.0-0.8); MONO % 8.2 % (2.0-8.0); NEUTROPHILS % 69.3 % (36.0-66.0); PLATELET COUNT, AUTOMATED 321 10^3/uL (150-450); RED BLOOD COUNT 4.27 10^6/uL (4.00-5.40)
[2024-08-12 06:25] LABS: BLOOD UREA NITROGEN 12 MG/DL (9-23); C REACTIVE PROTEIN QUANTITATIV < 0.50 MG/DL (<1.0); CALCIUM LEVEL 9.2 MG/DL (8.5-10.1); CARBON DIOXIDE LEVEL 28 MMOL/L (20-31); CHLORIDE LEVEL 110 MMOL/L (98-107); CREATININE FOR GFR 0.81 MG/DL (0.55-1.30); GLOMERULAR FILTRATION RATE > 60.0 (>58); GLUCOSE, FASTING 74 MG/DL (60-100); POTASSIUM SERUM 3.8 MMOL/L (3.5-5.1); SODIUM LEVEL 146 MMOL/L (136-145)
[2024-08-12] MEDS: LACTOBACILLUS ACIDOPHILUS CAP (BACID) PO SCH (08:15)
[2024-08-12] MEDS: FLUCONAZOLE 50MG TABLET PO SCH (09:46)
[2024-08-12] MEDS: MICONAZOLE-7 VAGINAL 2% CREAM 47.7GM PV PRN (09:46)
[2024-08-12 12:00] VITALS: BP 158/95; TEMP 99.1
[2024-08-12] MEDS ORDERED: RISATAB3 PO (13:01)
[2024-08-12] MEDS ORDERED: HEMO1SUP10 PR (13:01)
[2024-08-12] MEDS ORDERED: FLUC1TAB21 PO (13:01)
== END 2024-08-12 14:30 | disposition short-term general hospital (02) | DRG 344 ==
LOC: M ED 11:41 → M ED INP 18:59 → M MS5PR 22:11 → M PCU 08-09 21:20 → M MS5PR 08-10 12:36
PROVIDERS: ADMIT Internal Medicine Nephrology; ATTEND Internal Medicine
PROC: 0S993ZX Drainage of Right Hip Joint, Percutaneous Approach, Diagnostic (ICD-10-PCS; principal; 2024-08-11 13:30)
DX: M00.9 Pyogenic arthritis, unspecified (principal); D84.9 Immunodeficiency, unspecified; M32.9 Systemic lupus erythematosus, unspecified; E83.52 Hypercalcemia; M87.051 Idiopathic aseptic necrosis of right femur; M16.11 Unilateral primary osteoarthritis, right hip; I73.00 Raynaud's syndrome without gangrene; J45.909 Unspecified asthma, uncomplicated; K21.9 Gastro-esophageal reflux disease without esophagitis; F41.9 Anxiety disorder, unspecified; M79.7 Fibromyalgia; G43.909 Migraine, unspecified, not intractable, without status migrainosus; M47.892 Other spondylosis, cervical region; B37.9 Candidiasis, unspecified; M47.812 Spondylosis without myelopathy or radiculopathy, cervical region; M47.816 Spondylosis without myelopathy or radiculopathy, lumbar region; M47.817 Spondylosis without myelopathy or radiculopathy, lumbosacral region; Z79.52 Long term (current) use of systemic steroids; Z79.899 Other long term (current) drug therapy; Z88.6 Allergy status to analgesic agent; Z91.041 Radiographic dye allergy status

== ENCOUNTER → 2024-10-30 | Outpatient (CLI) | payer BC ==
[~2024-10-30] MED LIST changes: +ALBU8.5H INH; +BACL1TAB9 PO; +CEFT2INJ4 IV; +FLUC1TAB21 PO; +FLUTISP; +GABA-1635 PO; +HEMO1SUP10 PR; +LEFL20TA15 PO; +LIFI1DRO4; +LOVE1INJ SC; +MELO15TA28 PO; +MONT10TA97 PO; +OMEG10002 PO; +OMEP40CA5 PO; +PERCOCET PO; +PRED10TA2 PO; +RISATAB3 PO; +SENN-52 PO; +TOPI-257 PO; +VANC1INJ39 IV; +VITA100093 PO; -XIID5DRO; +ZALE10CA PO
[2024-10-30 18:09] LABS: CREATININE, URINE 59.7 MG/DL
[2024-10-30 18:10] LABS: ALBUMIN 3.8 G/DL (3.2-5.2); BILIRUBIN,TOTAL 0.2 MG/DL (0.3-1.2); CALCIUM LEVEL 9.8 MG/DL (8.5-10.1); CREATININE FOR GFR 1.08 MG/DL (0.55-1.30); GLOMERULAR FILTRATION RATE 62.6 (>51); POTASSIUM SERUM 4.3 MMOL/L (3.5-5.1); TOTAL PROTEIN 6.6 G/DL (5.7-8.2)
== END ==
LOC: M LAB 16:50
PROVIDERS: ATTEND Nurse Practitioner
DX: N17.9 Acute kidney failure, unspecified (principal)

== ENCOUNTER → 2024-11-04 | Outpatient (CLI) | payer BC | LOC: M CARPUL 17:46 | DX: R06.00 Dyspnea, unspecified (principal) ==

== ENCOUNTER → 2024-11-17 | Outpatient (CLI) | payer BC | LOC: M RAD 12:37 | DX: R06.00 Dyspnea, unspecified (principal) ==

== ENCOUNTER 2025-04-30 04:20 | Inpatient (IN) | payer BC ==
[~2025-04-30] VITALS: Ht 167.6 cm; Wt 81.1 kg
[2025-04-30] MEDS: NS (Normal Saline) 0.9% 1,000 ML IV ONE (05:13)
[2025-04-30] MEDS: ACETAMINOPHEN *IV* 1,000 MG in IV 1 EA IV ONE (05:14)
[2025-04-30] MEDS: PIPERACILLIN/TAZOBACTAM SOD 4.5 GM in DEXTROSE 5% (D5W) ADV/MINI-BAG 50 ML IV ONE (05:19)
[2025-04-30] MEDS: HYDROCORTISONE 100 MG/2 ML VIAL IV ONE (05:19)
[2025-04-30 05:32] LABS: BASO # 0.0 10^3/uL (0.0-0.2); BASO % 0.4 % (0.0-1.0); EOS # 0.0 10^3/uL (0.0-0.5); EOS % 0.4 % (0.0-3.0); LYMPH # 1.5 10^3/uL (1.5-5.0); LYMPH % 16.9 % (24.0-44.0); MONO # 0.9 10^3/uL (0.0-0.8); MONO % 9.5 % (2.0-8.0); NEUTROPHILS # 6.6 10^3/uL (1.5-8.5); NEUTROPHILS % 72.5 % (36.0-66.0); PLATELET COUNT, AUTOMATED 331 10^3/uL (150-450)
[2025-04-30 05:38] LABS: KETONE, URINE AUTO RFX NEGATIVE (NEGATIVE); MUCUS, URINE RFX SMALL (NEGATIVE); NITRITE, URINE AUTO RFX NEGATIVE (NEGATIVE); RBC, URINE AUTO RFX 9 /HPF (0-3); SQUAM EPITHELIAL CELL UR AURFX 5 /HPF (0-6)
[2025-04-30 05:47] LABS: LEUKOCYTE ESTERASE UR AUTO RFX 3+ (NEGATIVE); WBC, URINE AUTO RFX 30 /HPF (0-3)
[2025-04-30 05:59] LABS: ALT/SGPT 17 U/L (7.0-40); AST/SGOT 26 U/L (<34); C REACTIVE PROTEIN QUANTITATIV 2.30 MG/DL (<1.0); CALCIUM LEVEL 10.0 MG/DL (8.5-10.1); CARBON DIOXIDE LEVEL 22 MMOL/L (20-31); CHLORIDE LEVEL 107 MMOL/L (98-107); CREATININE FOR GFR 0.79 MG/DL (0.55-1.30); GLOMERULAR FILTRATION RATE > 90.0 (>51); POTASSIUM SERUM 4.6 MMOL/L (3.5-5.1); SODIUM LEVEL 141 MMOL/L (136-145)
[2025-04-30] MEDS: NS (Normal Saline) 0.9% 1,380 ML in IV 1 EA IV ONE (06:46)
[2025-04-30] MEDS: NS (Normal Saline) 0.9% 1,000 ML IV SCH ×2 (11:10→20:45)
[2025-04-30] MEDS ORDERED: HYDR-4517 PO (12:07)
[2025-04-30] MEDS ORDERED: GABA-1490 PO (12:07)
[2025-04-30] MEDS ORDERED: HOME MED LIST COMPLETE! XX SCH (12:10)
[2025-04-30] MEDS: VANCOMYCIN HCL 1,500 MG, VIAL MATE ADAPTER 1 EACH in NS 500 ML IV ONE (14:22)
[2025-04-30] MEDS: KETOROLAC 30 MG/ML 1 ML VIAL IV ONE (14:22)
[2025-04-30] MEDS ORDERED: ALBUTEROL 90 MCG/ACT 8 GM HFA INHALER INH PRN (15:50)
[2025-04-30] MEDS: BACLOFEN 10 MG TAB PO SCH (16:00)
[2025-04-30] MEDS: GABAPENTIN 300 MG CAP PO SCH (16:00)
[2025-04-30] MEDS: PANTOPRAZOLE 40MG TAB PO SCH (17:48)
[2025-04-30] MEDS ORDERED: cefTRIAXone SOD 2 GM in DEXTROSE 5% (D5W) ADV/MINI-BAG 50 ML IV SCH (18:00)
[2025-04-30] MEDS: cefTRIAXone SOD 2 GM in DEXTROSE 5% (D5W) ADV/MINI-BAG 50 ML IV SCH (19:12)
[2025-04-30] MEDS: MONTELUKAST 10 MG TAB PO SCH (20:50)
[2025-04-30] MEDS: TOPIRAMATE 100 MG TAB PO SCH (20:51)
[2025-04-30 21:35] VITALS: BP 125/66; TEMP 98.3; O2SAT 96
[2025-04-30] MEDS: FLUTICASONE PROPIONATE 0.05% NASAL SPRAY 16 GM SCH (22:34)
[2025-05-01] VITALS (7 sets, daily range): BP systolic 100–115; BP diastolic 56–60; TEMP 99.3–100.4; O2SAT 94–97
[2025-05-01 06:20] LABS: PLATELET COUNT, AUTOMATED 232 10^3/uL (150-450)
[2025-05-01 06:36] LABS: CALCIUM LEVEL 9.2 MG/DL (8.5-10.1); CARBON DIOXIDE LEVEL 20 MMOL/L (20-31); CHLORIDE LEVEL 113 MMOL/L (98-107); CREATININE FOR GFR 0.62 MG/DL (0.55-1.30); GLOMERULAR FILTRATION RATE > 90.0 (>51); MAGNESIUM LEVEL 1.7 MG/DL (1.8-2.4); POTASSIUM SERUM 3.6 MMOL/L (3.5-5.1); SODIUM LEVEL 143 MMOL/L (136-145)
[2025-05-01] MEDS: ENOXAPARIN 40 MG/0.4 ML SYRINGE (J1650 PER 10MG) SC SCH (08:24)
[2025-05-01] MEDS: VITAMIN D 1,000 INTERNATIONAL UNITS TABLET PO SCH (08:26)
[2025-05-01] MEDS: ACETAMINOPHEN 325 MG TAB PO PRN (08:34)
[2025-05-02] VITALS (7 sets, daily range): BP systolic 96–112; BP diastolic 50–58; TEMP 98.5–100.6; O2SAT 95–100
[2025-05-02 06:20] LABS: PLATELET COUNT, AUTOMATED 240 10^3/uL (150-450)
[2025-05-02 06:46] LABS: CALCIUM LEVEL 8.8 MG/DL (8.5-10.1); CARBON DIOXIDE LEVEL 22 MMOL/L (20-31); CHLORIDE LEVEL 114 MMOL/L (98-107); CREATININE FOR GFR 0.74 MG/DL (0.55-1.30); GLOMERULAR FILTRATION RATE > 90.0 (>51); POTASSIUM SERUM 3.4 MMOL/L (3.5-5.1); SODIUM LEVEL 144 MMOL/L (136-145)
[2025-05-02] MEDS: POTASSIUM CHLORIDE 10MEQ SR TABLET PO ONE (11:36)
[2025-05-02] MEDS: ONDANSETRON 4MG/2ML VIAL IV PRN (17:55)
[2025-05-03 01:00] VITALS: TEMP 97.6; TEMP 99
[2025-05-03 03:35] VITALS: BP 109/56; TEMP 99.6; O2SAT 97
[2025-05-03 05:51] LABS: PLATELET COUNT, AUTOMATED 289 10^3/uL (150-450)
[2025-05-03 06:17] LABS: CALCIUM LEVEL 9.3 MG/DL (8.5-10.1); CARBON DIOXIDE LEVEL 25 MMOL/L (20-31); CHLORIDE LEVEL 112 MMOL/L (98-107); CREATININE FOR GFR 0.76 MG/DL (0.55-1.30); GLOMERULAR FILTRATION RATE > 90.0 (>51); POTASSIUM SERUM 3.8 MMOL/L (3.5-5.1); SODIUM LEVEL 145 MMOL/L (136-145)
[2025-05-03 08:00] VITALS: BP 101/58; TEMP 97.4; O2SAT 96
[2025-05-03 12:00] VITALS: BP 100/59; TEMP 97.5; O2SAT 96
[2025-05-03 15:04] LABS: C REACTIVE PROTEIN QUANTITATIV 5.09 MG/DL (<1.0); COMPLEMENT C4 17.4 MG/DL (12-36)
[2025-05-03] MEDS ORDERED: CEFP200T PO (16:03)
== END 2025-05-03 17:12 | disposition home or self-care (01) | DRG 720 ==
LOC: M ED 04:20 → M ED INP 15:37 → M PCU 21:29
PROVIDERS: ADMIT Student in an Organized Health Care Education/Training Program; ATTEND Student in an Organized Health Care Education/Training Program
DX: A41.9 Sepsis, unspecified organism (principal); G93.41 Metabolic encephalopathy; M32.9 Systemic lupus erythematosus, unspecified; I73.00 Raynaud's syndrome without gangrene; J45.909 Unspecified asthma, uncomplicated; K21.9 Gastro-esophageal reflux disease without esophagitis; G43.909 Migraine, unspecified, not intractable, without status migrainosus; M19.90 Unspecified osteoarthritis, unspecified site; Z90.79 Acquired absence of other genital organ(s); Z87.891 Personal history of nicotine dependence; N39.0 Urinary tract infection, site not specified; Z79.52 Long term (current) use of systemic steroids; Z79.899 Other long term (current) drug therapy; Z88.6 Allergy status to analgesic agent; Z91.040 Latex allergy status; Z91.041 Radiographic dye allergy status

== ENCOUNTER → 2025-05-12 | Outpatient (CLI) | payer BC ==
[~2025-05-12] MED LIST changes: +CEFP200T PO; +GABA-1490 PO; +HYDR-4517 PO
== END ==
LOC: M EKG 16:09
DX: R00.2 Palpitations (principal)

== ENCOUNTER → 2025-05-24 | Outpatient (CLI) | payer BC ==
[2025-05-24 13:00] LABS: C REACTIVE PROTEIN QUANTITATIV < 0.50 MG/DL (<1.0)
[2025-05-24 13:01] LABS: ALT/SGPT 14 U/L (7.0-40); AST/SGOT 14 U/L (<34); CALCIUM LEVEL 9.3 MG/DL (8.5-10.1); CARBON DIOXIDE LEVEL 27 MMOL/L (20-31); CHLORIDE LEVEL 109 MMOL/L (98-107); CREATININE FOR GFR 0.79 MG/DL (0.55-1.30); GLOMERULAR FILTRATION RATE > 90.0 (>51); POTASSIUM SERUM 3.3 MMOL/L (3.5-5.1); SODIUM LEVEL 145 MMOL/L (136-145)
[2025-05-24 13:02] LABS: COMPLEMENT C4 18.3 MG/DL (12-36)
[2025-05-24 13:32] LABS: BASO # 0.0 10^3/uL (0.0-0.2); BASO % 0.6 % (0.0-1.0); EOS # 0.1 10^3/uL (0.0-0.5); EOS % 0.8 % (0.0-3.0); LYMPH # 2.3 10^3/uL (1.5-5.0); LYMPH % 32.2 % (24.0-44.0); MONO # 0.5 10^3/uL (0.0-0.8); MONO % 6.9 % (2.0-8.0); NEUTROPHILS # 4.3 10^3/uL (1.5-8.5); NEUTROPHILS % 59.2 % (36.0-66.0); PLATELET COUNT, AUTOMATED 357 10^3/uL (150-450)
== END ==
LOC: M PLALAB 10:46 → M LAB 11:23
PROVIDERS: ATTEND Internal Medicine Infectious Disease
DX: M32.9 Systemic lupus erythematosus, unspecified (principal); R50.9 Fever, unspecified

== ENCOUNTER → 2025-06-02 | Outpatient (CLI) | payer BC | LOC: M RAD 16:06 | PROVIDERS: ATTEND Internal Medicine Infectious Disease | DX: M32.9 Systemic lupus erythematosus, unspecified (principal); R50.9 Fever, unspecified; Z96.641 Presence of right artificial hip joint ==

== ENCOUNTER → 2025-06-10 | Outpatient (CLI) | payer BC ==
[2025-06-10 10:35] LABS: BASO # 0.0 10^3/uL (0.0-0.2); BASO % 0.4 % (0.0-1.0); EOS # 0.1 10^3/uL (0.0-0.5); EOS % 0.8 % (0.0-3.0); LYMPH # 1.2 10^3/uL (1.5-5.0); LYMPH % 12.6 % (24.0-44.0); MONO # 0.6 10^3/uL (0.0-0.8); MONO % 5.7 % (2.0-8.0); NEUTROPHILS # 7.7 10^3/uL (1.5-8.5); NEUTROPHILS % 80.1 % (36.0-66.0); PLATELET COUNT, AUTOMATED 399 10^3/uL (150-450)
== END ==
LOC: M PLALAB 07:47
PROVIDERS: ATTEND Internal Medicine Infectious Disease
DX: M32.9 Systemic lupus erythematosus, unspecified (principal); Z96.641 Presence of right artificial hip joint